=== PATIENT | female | born 1980 | race Caucasian/White ===

== ENCOUNTER → 2016-06-09 | Outpatient (REF) | payer OTHER ==
[~2016-06-09] MED LIST: /DULO30CA OR; /ESOM40CA OR; /FENO48TA PO; /METH500TA OR; ALPR1TAB3 OR; ASPI325T OR; ATARAX PO; BACL10TA2 OR; DICLOFENAC SODIUM PO; EFFE150C OR; IBUP600T OR; IRON325T3 PO; LYRI75CA PO; MAGN500T2 OR; MAGNESIUM OXIDE PO; MAXA10TA17 SL; MULTIVIT PO; NEUR100C OR; ORTHO TRI CYCLEN PO; PRIL20CA PO; RELPAX OR; RELPAX PO; ROBA500T PO; SKEL800T5 OR; TIZA4CAP3 PO; TOPA50TA7 PO; TOPAMAX PO; TOPI100T OR; TOPI100T PO; TOPIRAMATE PO; TRAM50TA2 OR; TRAM50TA2 PO; TRAMADOL PO; TRAZ100T OR; TRAZ150T OR; TRAZ50TA OR; TRILIPIX OR; TRILIPIX PO; TYLENOL ES PO; VICO5TAB OR; VIT D 2000 PO; VITA500C24 PO; VITAMIN D2 OR; VITAMIN D50000 UNT OR; XANA1TAB2 OR; ZANT150T PO; ZOLO100T OR; ZOLO50TA OR; ZOLO50TA PO; ZYPR5TAB OR; [UNRECOGNIZED DRUG - OTHER] OR; [UNRECOGNIZED DRUG - OTHER] OR; relpax PO; trilipix
== END ==
LOC: M LAB REF 15:00
PROVIDERS: ATTEND Family Medicine Addiction Medicine
DX: N39.0 Urinary tract infection, site not specified (principal)

== ENCOUNTER → 2016-11-23 | Outpatient (CLI) | payer OTHER ==
[~2016-11-23] MED LIST changes: -TOPA50TA7 PO; +TOPA50TA8 PO
[2016-11-23 12:43] LABS: BASO # 0.1 K/mm3 (0.0-0.2); BASO % 1.1 % (0.0-1.0); EOS % 0.1 % (0.0-3.0); LARGE UNSTAINED CELL # 0.2 K/mm3 (0.0-0.4); LARGE UNSTAINED CELL % 3.5 % (0.0-4.0); MEAN CORPUSCULAR HEMOGLOBIN 30.8 pg (27.0-33.0); MEAN CORPUSCULAR HGB CONC 34.7 g/dl (32.0-36.5); MEAN CORPUSCULAR VOLUME 88.6 fl (80.0-96.0); MONO # 0.5 K/mm3 (0.0-0.8); MONO % 7.8 % (0.0-5.0); NEUTROPHILS # 3.3 K/mm3 (1.8-7.7); NEUTROPHILS % 56.5 % (36.0-66.0); PLATELET COUNT, AUTOMATED 308 k/mm3 (150-450); RED CELL DISTRIBUTION WIDTH 13.2 % (11.5-14.5); WHITE BLOOD COUNT 5.8 K/mm3 (4.0-10.0)
[2016-11-23 13:28] LABS: ALBUMIN 4.1 GM/DL (3.2-5.2); ALBUMIN/GLOBULIN RATIO 1.64 (1.00-1.93); ALKALINE PHOSPHATASE 41 U/L (45-117); ALT/SGPT 23 U/L (12-78); ANION GAP 9 MEQ/L (8-16); AST/SGOT 15 U/L (15-37); BILIRUBIN,TOTAL 0.2 MG/DL (0.2-1.0); BLOOD UREA NITROGEN 5 MG/DL (7-18); CALCIUM LEVEL 8.5 MG/DL (8.5-10.1); CARBON DIOXIDE LEVEL 22 MEQ/L (21-32); CHLORIDE LEVEL 115 MEQ/L (98-107); CHOLESTEROL LEVEL 187 MG/DL (<200); CREATININE FOR GFR 0.76 MG/DL (0.55-1.02); GLOMERULAR FILTRATION RATE > 60.0 (>60); GLUCOSE, FASTING 85 MG/DL (70-105); POTASSIUM SERUM 3.6 MEQ/L (3.5-5.1); SODIUM LEVEL 146 MEQ/L (136-145); TOTAL PROTEIN 6.6 GM/DL (6.4-8.2); TRIGLYCERIDES LEVEL 132 MG/DL (<150)
== END ==
LOC: M LAB 12:02
PROVIDERS: ATTEND Family Medicine Addiction Medicine
DX: M54.5 Low back pain (principal); E78.5 Hyperlipidemia, unspecified

== ENCOUNTER → 2017-05-18 | Outpatient (REF) | payer OTHER, MEDICAID | LOC: M LAB REF 19:16 | DX: J02.8 Acute pharyngitis due to other specified organisms (principal) | CPT/HCPCS: 87070 ==

== ENCOUNTER → 2017-09-20 | Outpatient (REF) | payer OTHER, MEDICAID ==
[2017-09-20 18:35] LABS: ALBUMIN 4.1 GM/DL (3.2-5.2); ALBUMIN/GLOBULIN RATIO 1.32 (1.00-1.93); ALKALINE PHOSPHATASE 63 U/L (45-117); ALT/SGPT 44 U/L (12-78); ANION GAP 7 MEQ/L (8-16); AST/SGOT 27 U/L (7-37); BILIRUBIN,TOTAL 0.2 MG/DL (0.2-1.0); BLOOD UREA NITROGEN 7 MG/DL (7-18); CALCIUM LEVEL 8.6 MG/DL (8.5-10.1); CARBON DIOXIDE LEVEL 22 MEQ/L (21-32); CHLORIDE LEVEL 112 MEQ/L (98-107); CHOLESTEROL LEVEL 236 MG/DL (<200); CREATININE FOR GFR 0.61 MG/DL (0.55-1.30); GLOMERULAR FILTRATION RATE > 60.0 (>60); GLUCOSE, FASTING 86 MG/DL (70-100); HDL CHOLESTEROL 68 MG/DL (>40); IRON (FE) 55 UG/DL (50-170); NON-HDL-C 168 MG/DL; SODIUM LEVEL 141 MEQ/L (136-145); TOTAL PROTEIN 7.2 GM/DL (6.4-8.2); TRIGLYCERIDES LEVEL 110 MG/DL (<150)
[2017-09-20 18:47] LABS: BASO # 0.1 10^3/uL (0.0-0.2); BASO % 0.7 % (0.0-1.0); EOS % 0.1 % (0.0-3.0); HEMATOCRIT 39.7 % (36.0-47.0); HEMOGLOBIN 13.4 g/dl (12.0-15.5); IMMATURE GRANULOCYTE % 0.3 % (0-3.0); LYMPH # 1.9 10^3/uL (1.5-4.5); LYMPH % 26.7 % (24.0-44.0); MEAN CORPUSCULAR HEMOGLOBIN 29.6 pg (27.0-33.0); MEAN CORPUSCULAR HGB CONC 33.8 g/dl (32.0-36.5); MEAN CORPUSCULAR VOLUME 87.6 fl (80.0-96.0); MONO # 0.3 10^3/uL (0.0-0.8); MONO % 4.4 % (0.0-5.0); NEUTROPHILS # 4.8 10^3/uL (1.8-7.7); NEUTROPHILS % 67.8 % (36.0-66.0); PLATELET COUNT, AUTOMATED 283 10^3/uL (150-450); RED BLOOD COUNT 4.53 10^6/uL (4.00-5.40); RED CELL DISTRIBUTION WIDTH 12.8 % (11.5-14.5); WHITE BLOOD COUNT 7.1 10^3/uL (4.0-10.0)
[2017-09-21 09:47] LABS: TOTAL 25(OH) VITAMIN D 18.1 NG/ML (30.0-100.0); VITAMIN B12 LEVEL 410 PG/ML (247-911)
== END ==
LOC: M LAB REF 17:25
DX: E78.5 Hyperlipidemia, unspecified (principal)

== ENCOUNTER → 2017-11-12 | Outpatient (CLI) | payer OTHER | LOC: M RAD 17:30 | DX: S06.0X0A Concussion without loss of consciousness, initial encounter (principal); X58.XXXA Exposure to other specified factors, initial encounter; Y92.9 Unspecified place or not applicable | CPT/HCPCS: 70450 ==

== ENCOUNTER → 2017-11-12 | Outpatient (CLI) | payer OTHER, MEDICAID | LOC: M WUC 13:08 | DX: M54.5 Low back pain (principal) | CPT/HCPCS: 72110 ==

== ENCOUNTER 2018-01-22 15:53 | Inpatient (IN) | payer MEDICAID, OTHER ==
[2018-01-22 17:07] LABS: HEMATOCRIT 37.7 % (36.0-47.0); HEMOGLOBIN 13.2 g/dl (12.0-15.5); MEAN CORPUSCULAR HEMOGLOBIN 29.8 pg (27.0-33.0); MEAN CORPUSCULAR VOLUME 85.1 fl (80.0-96.0); PLATELET COUNT, AUTOMATED 354 10^3/uL (150-450); RED BLOOD COUNT 4.43 10^6/uL (4.00-5.40); RED CELL DISTRIBUTION WIDTH 12.7 % (11.5-14.5); WHITE BLOOD COUNT 10.2 10^3/uL (4.0-10.0)
[2018-01-22 17:14] LABS: CONTROL LINE HCG INT CTR LINE PRESENT; HCG, SERUM QUALITATIVE NEGATIVE (NEGATIVE)
[2018-01-22 17:33] LABS: ACETAMINOPHEN LEVEL < 2.0 UG/ML (10.0-30.0); ALBUMIN 4.3 GM/DL (3.2-5.2); ALBUMIN/GLOBULIN RATIO 1.34 (1.00-1.93); ALKALINE PHOSPHATASE 62 U/L (45-117); ALT/SGPT 34 U/L (12-78); ANION GAP 9 MEQ/L (8-16); AST/SGOT 45 U/L (7-37); BILIRUBIN,DIRECT 0.2 MG/DL (0.0-0.2); BILIRUBIN,TOTAL 0.6 MG/DL (0.2-1.0); BLOOD UREA NITROGEN 13 MG/DL (7-18); CALCIUM LEVEL 8.8 MG/DL (8.5-10.1); CARBON DIOXIDE LEVEL 23 MEQ/L (21-32); CHLORIDE LEVEL 110 MEQ/L (98-107); CREATININE FOR GFR 0.78 MG/DL (0.55-1.30); ETHYL ALCOHOL (ETHANOL) < 0.003 % (0.000-0.010); GLOMERULAR FILTRATION RATE > 60.0 (>60); GLUCOSE, FASTING 103 MG/DL (70-100); POTASSIUM SERUM 3.6 MEQ/L (3.5-5.1); SALICYLATE LEVEL < 1.7 MG/DL (5.0-30.0); SODIUM LEVEL 142 MEQ/L (136-145); THYROID STIMULATING HORMONE 0.799 uIU/ML (0.358-3.740); TOTAL PROTEIN 7.5 GM/DL (6.4-8.2)
[2018-01-22] MEDS: LORazepam 1 MG TAB PO (18:18)
[2018-01-22 18:52] LABS: AMPHETAMINES LEVEL URINE POSITIVE (NEGATIVE); BARBITURATES URINE NEGATIVE (NEGATIVE); BENZODIAZEPINES URINE POSITIVE (NEGATIVE); CANNABINOIDS URINE POSITIVE (NEGATIVE); COCAINE METABOLITE URINE NEGATIVE (NEGATIVE); METHADONE URINE NEGATIVE (NEGATIVE); OPIATES URINE NEGATIVE (NEGATIVE); PHENCYCLIDINE URINE NEGATIVE (NEGATIVE)
[2018-01-22] MEDS ORDERED: LORazepam 2 MG/ML VIAL (J2060) IM (19:15)
[2018-01-22] MEDS: diphenhydrAMINE 50 MG CAP PO (21:44)
[2018-01-22] MEDS: HALOPERIDOL 5 MG TAB PO (21:44)
[2018-01-23] MEDS ORDERED: OLANZapine ORAL DISINTEGRATING TAB 5MG PO (00:15)
[2018-01-23] MEDS ORDERED: MOM 30ML SUSPENSION UDC PO (00:15)
[2018-01-23] MEDS ORDERED: MAALOX 30 ML SUSP *UDC PO (00:15)
[2018-01-23] MEDS: NICOTINE 21MG/24HR 1 EA TRANSDERMAL TD (09:00)
[2018-01-23] MEDS ORDERED: traMADol 50 MG TAB PO (10:15)
[2018-01-23] MEDS: TOPIRAMATE (TopAMAX) 25 MG TAB PO ×2 (10:51→21:28)
[2018-01-23] MEDS: OMEPRAZOLE 20 MG CAP PO (10:51)
[2018-01-23] MEDS: MELOXICAM (MOBIC) 7.5 MG TAB PO (10:52)
[2018-01-23] MEDS: PREGABALIN 75 MG CAP(LYRICA) PO ×2 (10:57→21:28)
[2018-01-23] MEDS: SERTRALINE HCL 50 MG TAB PO (15:38)
[2018-01-23] MEDS: PRAZOSIN 1 MG CAP PO (21:27)
[2018-01-23] MEDS: traZODone 50 MG TAB PO (21:28)
[2018-01-24] MEDS: NICOTINE 21MG/24HR 1 EA TRANSDERMAL TD (09:00)
[2018-01-24] MEDS: INFLUENZA QUADRIVALENT PF VACCINE 0.5ML SYRINGE (90686) IM (09:47)
[2018-01-24] MEDS: OMEPRAZOLE 20 MG CAP PO (09:47)
[2018-01-24] MEDS: SERTRALINE HCL 50 MG TAB PO (09:47)
[2018-01-24] MEDS: PREGABALIN 75 MG CAP(LYRICA) PO ×2 (09:48→21:16)
[2018-01-24] MEDS: TOPIRAMATE (TopAMAX) 25 MG TAB PO ×2 (09:48→21:15)
[2018-01-24] MEDS: MELOXICAM (MOBIC) 7.5 MG TAB PO (09:48)
[2018-01-24] MEDS: traZODone 50 MG TAB PO (21:15)
[2018-01-24] MEDS: ACETAMINOPHEN TAB 650MG DOSE (2X325MG) PO (21:15)
[2018-01-24] MEDS: PRAZOSIN 1 MG CAP PO (21:16)
[2018-01-25] MEDS: NICOTINE 21MG/24HR 1 EA TRANSDERMAL TD (09:00)
[2018-01-25] MEDS: MELOXICAM (MOBIC) 7.5 MG TAB PO (09:01)
[2018-01-25] MEDS: SERTRALINE HCL 50 MG TAB PO (09:02)
[2018-01-25] MEDS: OMEPRAZOLE 20 MG CAP PO (09:02)
[2018-01-25] MEDS: PREGABALIN 75 MG CAP(LYRICA) PO (09:02)
[2018-01-25] MEDS: TOPIRAMATE (TopAMAX) 25 MG TAB PO (09:02)
[2018-01-25] MEDS: ACETAMINOPHEN TAB 650MG DOSE (2X325MG) PO (13:58)
== END 2018-01-25 16:30 | disposition home or self-care (01) | DRG 754 ==
LOC: M ED INP 01-23 00:02 → M PSY 01-23 01:48 → M ED 15:53
DX: F32.9 Major depressive disorder, single episode, unspecified (principal); F43.10 Post-traumatic stress disorder, unspecified; F19.94 Other psychoactive substance use, unspecified with psychoactive substance-induced mood disorder; F60.3 Borderline personality disorder; Z79.899 Other long term (current) drug therapy; Z88.2 Allergy status to sulfonamides; Z91.040 Latex allergy status; G89.29 Other chronic pain; G43.909 Migraine, unspecified, not intractable, without status migrainosus; K21.9 Gastro-esophageal reflux disease without esophagitis; M54.5 Low back pain

== ENCOUNTER → 2018-04-29 | Outpatient (REF) | payer MEDICAID, OTHER ==
[~2018-04-29] MED LIST changes: +ARIP5TA PO; +LYRI150C PO; +MELO15TA28 PO; +MINI1CAP PO; +NICO21PAT TD; +OMEP40CA2 PO; +SERT-138 PO; +SERT50TA PO; +TIZA4CAP PO; -TIZA4CAP3 PO; +TOPI50TA9 PO
[2018-04-29 20:04] LABS: CHLAMYDIA DNA AMPLIFICATION NEGATIVE (NEGATIVE); GC DNA AMPLIFICATION NEGATIVE (NEGATIVE)
[2018-05-02 14:55] LABS: HPV HYBRID CAPTURE II Negative (Negative)
== END ==
LOC: M LAB REF 16:53
PROVIDERS: ATTEND Nurse Practitioner Family
DX: Z13.9 Encounter for screening, unspecified (principal); Z12.4 Encounter for screening for malignant neoplasm of cervix

== ENCOUNTER 2019-09-07 22:45 | Emergency (ER) | payer MEDICAID, OTHER ==
[~2019-09-07 22:45] MED LIST changes: -/DULO30CA OR; -/ESOM40CA OR; -/FENO48TA PO; -/METH500TA OR; +ARIP1TAB6 PO; -ARIP5TA PO; +CYMB1CAP5 OR; +METH1TAB40 OR; +NEXI1CAP3 OR; -OMEP40CA2 PO; +OMEP40CA97 PO; +SERT-141 PO; -SERT50TA PO; +TRIC1TAB PO
[2019-09-07] MEDS ORDERED: BOOSTRIX/ADACEL VACCINE (DIPHTH/PERTUSS/ACELL/TETANUS) 0.5ML SYR IM ONE (23:00)
[2019-09-07] MEDS ORDERED: LIDOCAINE W/EPINEPHRINE 1% 20ML VIAL SC ONE (23:15)
[2019-09-07 23:46] LABS: HEMATOCRIT 40.6 % (36.0-47.0); HEMOGLOBIN 13.9 g/dl (12.0-15.5); MEAN CORPUSCULAR HEMOGLOBIN 29.1 pg (27.0-33.0); MEAN CORPUSCULAR HGB CONC 34.2 g/dl (32.0-36.5); MEAN CORPUSCULAR VOLUME 85.1 fl (80.0-96.0); PLATELET COUNT, AUTOMATED 369 10^3/uL (150-450); RED BLOOD COUNT 4.77 10^6/uL (4.00-5.40); WHITE BLOOD COUNT 9.6 10^3/uL (4.0-10.0)
[2019-09-08 00:07] LABS: AMPHETAMINES LEVEL URINE NEGATIVE (NEGATIVE); BARBITURATES URINE NEGATIVE (NEGATIVE); BENZODIAZEPINES URINE NEGATIVE (NEGATIVE); CANNABINOIDS URINE NEGATIVE (NEGATIVE); COCAINE METABOLITE URINE NEGATIVE (NEGATIVE); METHADONE URINE NEGATIVE (NEGATIVE); OPIATES URINE NEGATIVE (NEGATIVE); PHENCYCLIDINE URINE NEGATIVE (NEGATIVE)
[2019-09-08 00:17] LABS: ACETAMINOPHEN LEVEL < 2.0 UG/ML (10.0-30.0); ALBUMIN 4.2 GM/DL (3.2-5.2); ALT/SGPT 25 U/L (12-78); BILIRUBIN,DIRECT < 0.1 MG/DL (0.0-0.2); BILIRUBIN,TOTAL 0.3 MG/DL (0.2-1.0); BLOOD UREA NITROGEN 12 MG/DL (7-18); CALCIUM LEVEL 8.7 MG/DL (8.5-10.1); CARBON DIOXIDE LEVEL 24 MEQ/L (21-32); CHLORIDE LEVEL 108 MEQ/L (98-107); CREATININE FOR GFR 0.71 MG/DL (0.55-1.30); ETHYL ALCOHOL (ETHANOL) 0.133 % (0.000-0.010); GLOMERULAR FILTRATION RATE > 60.0 (>58); GLUCOSE, FASTING 101 MG/DL (70-100); HCG, SERUM QUALITATIVE NEGATIVE (NEGATIVE); POTASSIUM SERUM 3.9 MEQ/L (3.5-5.1); SALICYLATE LEVEL < 1.7 MG/DL (5.0-30.0); SODIUM LEVEL 141 MEQ/L (136-145); TOTAL PROTEIN 7.4 GM/DL (6.4-8.2)
[2019-09-08] MEDS ORDERED: ACETAMINOPHEN TAB 650MG DOSE (2X325MG) PO ONE (02:30)
[2019-09-08 03:10] VITALS: BP 132/88
== END 2019-09-08 03:11 | disposition home or self-care (01) ==
LOC: M ED 22:45
DX: F10.129 Alcohol abuse with intoxication, unspecified (principal); S51.812A Laceration without foreign body of left forearm, initial encounter; F43.0 Acute stress reaction; X78.1XXA Intentional self-harm by knife, initial encounter; Y92.89 Other specified places as the place of occurrence of the external cause; K21.9 Gastro-esophageal reflux disease without esophagitis; F12.10 Cannabis abuse, uncomplicated; Z88.2 Allergy status to sulfonamides; Z91.040 Latex allergy status; Z23 Encounter for immunization
CPT/HCPCS: 12002; 36415; 80048; 80076; 80307; 84443; 84703; 85027; 90471; 90715; 99284; G0480

== ENCOUNTER 2019-11-03 21:15 | Inpatient (IN) | payer OTHER ==
[~2019-11-03] VITALS: Ht 160 cm; Wt 63.5 kg
[2019-11-03] MEDS ORDERED: KETOROLAC 60MG 2ML VIAL IM ONE (22:00)
[2019-11-03 22:12] LABS: HEMATOCRIT 38.9 % (36.0-47.0); HEMOGLOBIN 13.2 g/dl (12.0-15.5); MEAN CORPUSCULAR HEMOGLOBIN 28.8 pg (27.0-33.0); MEAN CORPUSCULAR HGB CONC 33.9 g/dl (32.0-36.5); MEAN CORPUSCULAR VOLUME 84.7 fl (80.0-96.0); PLATELET COUNT, AUTOMATED 345 10^3/uL (150-450); RED BLOOD COUNT 4.59 10^6/uL (4.00-5.40); WHITE BLOOD COUNT 6.6 10^3/uL (4.0-10.0)
[2019-11-03 22:44] LABS: ACETAMINOPHEN LEVEL < 2.0 UG/ML (10.0-30.0); ALT/SGPT 37 U/L (12-78); BILIRUBIN,DIRECT < 0.1 MG/DL (0.0-0.2); BILIRUBIN,TOTAL 0.2 MG/DL (0.2-1.0); BLOOD UREA NITROGEN 8 MG/DL (7-18); CALCIUM LEVEL 9.3 MG/DL (8.5-10.1); CARBON DIOXIDE LEVEL 28 MEQ/L (21-32); CHLORIDE LEVEL 108 MEQ/L (98-107); CREATININE FOR GFR 0.71 MG/DL (0.55-1.30); ETHYL ALCOHOL (ETHANOL) 0.083 % (0.000-0.010); GLOMERULAR FILTRATION RATE > 60.0 (>58); GLUCOSE, FASTING 88 MG/DL (70-100); POTASSIUM SERUM 3.4 MEQ/L (3.5-5.1); SALICYLATE LEVEL < 1.7 MG/DL (5.0-30.0); SODIUM LEVEL 141 MEQ/L (136-145); TOTAL PROTEIN 7.1 GM/DL (6.4-8.2)
[2019-11-03] MEDS ORDERED: LIDOCAINE 1% MDV 20ML VIAL As Ordered ONE (23:12)
[2019-11-03 23:49] LABS: AMPHETAMINES LEVEL URINE POSITIVE (NEGATIVE); BARBITURATES URINE NEGATIVE (NEGATIVE); BENZODIAZEPINES URINE NEGATIVE (NEGATIVE); CANNABINOIDS URINE NEGATIVE (NEGATIVE); COCAINE METABOLITE URINE NEGATIVE (NEGATIVE); METHADONE URINE NEGATIVE (NEGATIVE); OPIATES URINE NEGATIVE (NEGATIVE); PHENCYCLIDINE URINE NEGATIVE (NEGATIVE)
--- NOTE | 2019-11-04 08:03 | ECGEPIP ---
[facility] - ED Test Date: 2019-11-04 Pat Name: SHANTEL PATEL Department: Room: - Gender: Female Cutter Operator: eleonora : 1980 Requested By: ZACARIAS Austin PA-C Order Number: [id number] Reading MD: Rajendra Emerson Measurements Intervals [place] Rate: 96 P: 64 WV: 143 QRS: 26 QRSD: 120 T: 56 QT: 365 QTc: 463 Interpretive Statements SINUS RHYTHM Incomplete right bundle branch block Nonspecific ST-T wave abnormalities Similar to tracing done 01-23-18 Electronically Signed on 11-04-2019 8:02:53 EDT by Rajendra Emerson
[2019-11-04] MEDS: MULTIVITAMINS/MINERALS THERAP 1 TAB PO SCH ×2 (09:00→15:43)
[2019-11-04] MEDS ORDERED: ACETAMINOPHEN TAB 650MG DOSE (2X325MG) PO ONE (13:45)
[2019-11-04] MEDS ORDERED: TRAZ1TAB10 PO (13:47)
[2019-11-04] MEDS ORDERED: OMEP-221 PO (13:47)
[2019-11-04] MEDS ORDERED: VITMTA PO (13:47)
[2019-11-04] MEDS ORDERED: CYCL-707 PO (13:47)
[2019-11-04] MEDS ORDERED: MOM 30ML SUSPENSION UDC PO PRN (14:30)
[2019-11-04] MEDS ORDERED: MAALOX 30 ML SUSP *UDC PO PRN (14:30)
[2019-11-04] MEDS ORDERED: OLANZapine ORAL DISINTEGRATING TAB 5MG PO PRN (14:30)
[2019-11-04] MEDS ORDERED: LORazepam 2 MG TAB PO PRN (14:30)
[2019-11-04] MEDS: FOLIC ACID 1 MG TAB PO SCH (15:43)
[2019-11-04] MEDS: THIAMINE 100 MG TAB PO SCH ×2 (15:43→21:30)
[2019-11-04 20:44] VITALS: BP 141/97
[2019-11-04 21:00] VITALS: BP 141/97
[2019-11-04] MEDS: CYCLOBENZAPRINE 10MG TABLET PO PRN (21:30)
[2019-11-04] MEDS: traZODone 50 MG TAB PO SCH (21:30)
[2019-11-05 05:07] VITALS: BP 132/85
[2019-11-05 06:41] VITALS: BP 132/85
[2019-11-05] MEDS: MULTIVITAMINS/MINERALS THERAP 1 TAB PO SCH ×2 (09:00→09:11)
[2019-11-05] MEDS: THIAMINE 100 MG TAB PO SCH ×2 (09:11→22:20)
[2019-11-05] MEDS: FOLIC ACID 1 MG TAB PO SCH (09:11)
[2019-11-05] MEDS: ACETAMINOPHEN TAB 650MG DOSE (2X325MG) PO PRN ×2 (09:12→16:14)
--- NOTE | 2019-11-05 09:15 | MHHPEPDOC ---
[facility] History & Physical History and Physical DATE OF ADMISSION: Nov 04, 2019 at 14:21 HPI: Ally presents today for self harm. She reports she cut her arm because she had bad judgement, was drinking, and had arguments with her boyfriend. Shalini states before she was drinking, she struggled with depression occasionally. She mentions she loses motivation to do things, feels sad and withdrawn when she is depressed. Shalini denies having any suicidal thoughts, homicidal thoughts, hallucinations at the time along with a history of hallucinations or staying up at night for weeks at a time doing terrible things otherwise not done. MEDICATIONS: Shalini reports she has tried Zoloft, Effexor, and Wellbutrin which stopped helping her after some time. MEDICAL HISTORY: She mentions she has visited a mental health unit a couple of years ago. FAMILY HISTORY: Shalini states depression and anxiety run in the family. 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 SOCIAL HISTORY - LIVING SITUATION: She mentions she has an 11-year-old son with special needs who is now living with her mother for the time being. SOCIAL HISTORY - SMOKING: Shalini admits to smoking marijuana occasionally but denies smoking tobacco. Objective Appearance: Appears to be stated age. Well groomed. Well nourished. Behavior: Engaged. Cooperative with good eye contact. Pleasant. Affect: Full range. Appropriate to context. Mood: Euthymic. Appropriately reactive. Generally good. Speech: Spontaneous and Fluid. Normal volume. Normal rate. Motor: No gross motor abnormalities. Cognition: Alert, Attentive, and Oriented to person, place, time. Memory: No gross abnormalities of short or buttermilk drier operator memory noted during interview. No formal testing. Thought Form: Linear and goal directed. Thought Content: No evidence of aggressive or homicidal ideation. No evidence of delusions. No thoughts of self harm. No evidence of suicidal ideation. Perception: No perceptual abnormalities noted. Judgement: Intact as evidenced by decision making in the recent past. Insight: Good insight into symptoms and treatment options. Assessment F33.9 Major depressive disorder, recurrent, unspecified F10.10 Alcohol abuse, uncomplicated F43.21 Adjustment disorder with depressed mood Plan Will observe Shalini overnight. Substance abuse likely played a major part in patients presentation, thus after 48 hours will determine if shes still acute risk. She has already been here close to a day prior in the ER with observation being present. The risks, benefits as well as common side effects as well as alternative treatments (including non-treatment) were discussed with the patient both in general and for their particular case. The patient selected this option out of a range. Start Sertraline 25 mg daily. CPS to be considered about contact after interview with planner internship given concern of her symptoms and presentation. Treatment priorities: 1. Risk for suicide 2. Substance use. Treatment length between 1-2 days. Vital Signs Vital Signs Date Time Temp Pulse Resp B/P (MAP) Pulse Ox O2 Delivery O2 Flow Rate FiO2 11/05/19 08:52 18 11/05/19 08:46 Room Air 11/05/19 06:41 96.6 84 132/85 (101) 11/04/19 20:44 100 Medications Scheduled Multivitamins (Thera M Plus Tablet) 1 Each Tablet, 1 TAB PO DAILY, (Reported) Omeprazole (Omeprazole) 40 Mg Capsule.dr, 40 MG PO DAILY, (Reported) Trazodone HCl (Trazodone HCl) 50 Mg Tablet, 50 MG PO QHS, (Reported) Scheduled PRN Cyclobenzaprine HCl (Cyclobenzaprine HCl) 10 Mg Tablet, 10 MG PO TID PRN for MUSCLE SPASMS, (Reported) Allergies Coded Allergies: Sulfa (Sulfonamide Antibiotics) (Verified Adverse Reaction, Mild, N/V, 11/04/19) latex (Verified Adverse Reaction, Mild, RASH ITCHING, 09/07/19) A-FIB/CHADSVASC A-FIB History Current/History of A-Fib/PAF?: No YULIET GRIFFITHS DO Nov 05, 2019 09:15
[2019-11-05] MEDS ORDERED: SERTRALINE HCL 25 MG TABLET PO ONE (10:45)
[2019-11-05 16:12] VITALS: BP 110/67
--- NOTE | 2019-11-05 17:45 | HPEPDOC ---
[facility] Medical History & Physical Date of Admission Nov 05, 2019 Date of Service: Nov 05, 2019 Primary Care Physician: CLARISSA NIETO PA-C Attending Physician: YULIET RIDDLE DO History and Physical PRIMARY CARE PROVIDER: Clarissa Nieto ATTENDING: Dr. Riddle Reason for consultation: Medical consultation CHIEF COMPLAINT: suicide attempt HISTORY OF PRESENT ILLNESS: Is a 39-year-old female past medical history of migraines and GERD who presents after cutting herself with knife - left forearm; suicide attempt. Denies CP/SOB/palpitations. No N/V/Abd pain. Has some pain and swelling at the left forearm site. No drainage. No Fevers/chills. PAST MEDICAL HISTORY: As per HPI PAST SURGICAL HISTORY: BTL SOCIAL HISTORY: Occasional tobacco abuse. +Marijuana FAMILY HISTORY: +Cancer ALLERGIES: Please see below. REVIEW OF SYSTEMS: HEENT: Denies sore throat/headache CARDIOVASCULAR: Denies chest pain/palpitations RESPIRATORY: Denies shortness of breath/cough GASTROINTESTINAL: denies nausea/vomiting GENITOURINARY: Denies dysuria/urinary urgency. MUSCULOSKELETAL: Denies myalgias/arthralgias NEUROLOGICAL: Denies any focal weakness HOME MEDICATIONS: Please see below. PHYSICAL EXAMINATION: Vitals: (see below) General: No acute distress, laying comfortably in bed. HEENT: Moist mucous membranes. Neck: No JVD or lymphadenopathy Cardiac: RRR, No murmurs Pulm: Clear to auscultation b/l. No wheezing, rhonchi Abd: NT/ND + BS Ext: No edema or cyanosis LUE with lacerations; 12 sutures. Warmth, swelling noted surrounding laceration. No induration/fluctuance. Distal pulse intact. No bleeding. LABORATORY DATA: See below. ASSESSMENT/PLAN: 1. Suicide attempt: Management per psych 2. LUE laceration; swelling, warmth at the region; started on Doxy. CT ordered to r/o fluid collection. 3. GERD on PPI DVT Prophy: OOB/Amb Vital Signs Vital Signs Date Time Temp Pulse Resp B/P (MAP) Pulse Ox O2 Delivery O2 Flow Rate FiO2 11/05/19 16:12 98.2 96 16 110/67 (81) 11/05/19 08:46 Room Air 11/04/19 20:44 100 Home Medications Scheduled Doxycycline Hyclate (Doxycycline Hyclate) 100 Mg Tablet, 100 MG PO BID for infection Multivitamins (Thera M Plus Tablet) 1 Each Tablet, 1 TAB PO DAILY Omeprazole (Omeprazole) 40 Mg Capsule.dr, 40 MG PO DAILY Sertraline HCl (Sertraline HCl) 25 Mg Tablet, 25 MG PO DAILY for mood Trazodone HCl (Trazodone HCl) 50 Mg Tablet, 50 MG PO QHS Scheduled PRN Cyclobenzaprine HCl (Cyclobenzaprine HCl) 10 Mg Tablet, 10 MG PO TID PRN for MUSCLE SPASMS Allergies Coded Allergies: Sulfa (Sulfonamide Antibiotics) (Verified Adverse Reaction, Mild, N/V, 11/04/19) latex (Verified Adverse Reaction, Mild, RASH ITCHING, 09/07/19) A-FIB/CHADSVASC A-FIB History Current/History of A-Fib/PAF?: No STEPHEN MEJIA MD Nov 05, 2019 17:45
--- NOTE | 2019-11-05 18:25 | REPVR ---
PROCEDURE INFORMATION: Exam: CT Left Upper Extremity Without Contrast, Forearm Exam date and time: 11/05/2019 6:09 PM Age: 39 years old Clinical indication: Pain; Lower or forearm; Left; Additional info: Laceration TECHNIQUE: Imaging protocol: CT of the Left upper extremity without contrast was performed. Exam focused on the forearm. Radiation optimization: All CT scans at this facility use at least one of these dose optimization techniques: automated exposure control; mA and/or kV adjustment per patient size (includes targeted exams where dose is matched to clinical indication); or iterative reconstruction. COMPARISON: No relevant prior studies available. FINDINGS: Subcutaneous soft tissue edema is present involving the forearm and wrist particularly volar. There is a hyperdense structure that is either deep subcutaneous or superficial subfascial within the volar mid forearm, measuring 14 x 25 by 27 mm. This may represent a hematoma or other mass. It could also represent a large lymph node. No peripherally enhancing fluid collection suggestive of an abscess. Muscular compartments of the distal upper arm and forearm otherwise demonstrate normal enhancement and architecture. Normal osseous alignment from elbow through wrist. No fracture or destructive lesion. Joint spaces are maintained. IMPRESSION: Subcutaneous soft tissue edema and dermal irregularity consistent with a history of laceration, with a probable subcutaneous hematoma of the mid forearm measuring 14 x 25 x 27 mm abutting the flexor musculature of the proximal forearm. No evidence of foreign body or abscess Electronically signed by: Wesley Zazueta On 11/05/2019 18:24:47 PM
[2019-11-05 19:00] VITALS: BP 110/67
[2019-11-05] MEDS: CYCLOBENZAPRINE 10MG TABLET PO PRN (22:20)
[2019-11-05] MEDS: traZODone 50 MG TAB PO SCH (22:20)
[2019-11-05] MEDS: DOXYCYCLINE HYCLATE 100MG TABLET PO SCH (22:20)
[2019-11-06 06:41] VITALS: BP 146/76
[2019-11-06 07:47] LABS: BASO % 0.5 % (0.0-1.0); HEMOGLOBIN 12.3 g/dl (12.0-15.5); LYMPH # 2.2 10^3/uL (1.5-5.0); LYMPH % 26.1 % (24.0-44.0); MEAN CORPUSCULAR HEMOGLOBIN 29.4 pg (27.0-33.0); MEAN CORPUSCULAR HGB CONC 34.2 g/dl (32.0-36.5); MEAN CORPUSCULAR VOLUME 86.1 fl (80.0-96.0); MONO # 0.4 10^3/uL (0.0-0.8); MONO % 5.2 % (0.0-5.0); NEUTROPHILS # 5.7 10^3/uL (1.5-8.5); PLATELET COUNT, AUTOMATED 326 10^3/uL (150-450); RED BLOOD COUNT 4.18 10^6/uL (4.00-5.40); WHITE BLOOD COUNT 8.4 10^3/uL (4.0-10.0)
--- NOTE | 2019-11-06 08:02 | MHDSPDOC ---
[facility] Discharge Summary Discharge Summary DATE OF ADMISSION: Nov 04, 2019 at 14:21 DATE OF DISCHARGE:Nov 06, 2019 at 11:30 DISCHARGE DIAGNOSES: F33.9 Major depressive disorder, recurrent, unspecified F10.10 Alcohol abuse, uncomplicated F43.21 Adjustment disorder with depressed mood CONSULTANTS INVOLVED:[ None (basic hospitalist screening)] REASON FOR ADMISSION & TREATMENT AND PROGRESS ON THE UNIT : Ally presents today for concerns regarding her mental health. The patient was admitted to the inpatient mental health unit after she had been drinking and had cut herself. She reportedly had done this as she has had some stressors in her life. MEDICATIONS: She was started on Sertraline and made good progress. She was admitted to the inpatient unit where she did well. She was started on Sertraline and made good progress. She denied any suicidal or homicidal ideation through her stay and was well- behaved and engaged. She did not meet involuntary criteria by the end of her stay. DISCHARGE ASSESSMENT[improved] Legal status considerations: The patient at the time of discharge did not meet criteria for involuntary admission/extension due to having a [normal] mental status exam, [fair] insight into the situation, They are engaged in the discharge process, as well as being friendly and amenable in behavioral control and havent been engaging in any observed concerning behavior or ideation recently. They decline voluntary extension/admission at this time and must be discharged in good amanda, as Im unable to make a case for holding the patient against their will. They may have historical risk factors of admissions and other interactions with psychiatry however, those are not modifiable from a clinical perspective. The patient will need to be discharged in good amanda. MENTAL STATUS EXAMINATION ON DISCHARGE: [General: Well dressed with good hygiene Speech: Spontaneous and fluid Thought processes: Linear and logical Thought content: Future orientated Abstract reasoning, and computation: Intact Description of associations: Intact Description of abnormal or psychotic thoughts:Denies any suicidal or homicidal ideation. Denies any auditory or visual hallucinations. Does not appear to be responding to internal stimuli. Does not appear to be endorsing any bizarre or paranoid ideation. Judgment: fair Insight: fair Orientation: Alert and orientated 3 Recent and remote memory: Intact Attention span and concentration: Intact Fund of knowledge: Adequate Mood: "okay" Affect: Euthymic with a full range] PLAN/FOLLOWUP ARRANGEMENTS: Follow up appointments made (PCP and MH in 5 days of D/C date) and safety plan completed. Safety Planning aspects completed prior to discharge [RN reviewed crisis hotline information and other aspects to empower patient to access care in interim before next appointment.] The amount of time spent in the coordination of care for this patient was approximately 30 minutes. Vital Signs/I&Os Vital Signs Date Time Temp Pulse Resp B/P (MAP) Pulse Ox O2 Delivery O2 Flow Rate FiO2 11/06/19 06:41 97.4 84 16 146/76 (99) 11/05/19 08:46 Room Air 11/04/19 20:44 100 Laboratory Data Labs 24H Laboratory Tests 2 11/06/19 07:32: Immature Granulocyte % (Auto) 0.2, Neutrophils (%) (Auto) 68.0H, Lymphocytes (%) (Auto) 26.1, Monocytes (%) (Auto) 5.2H, Eosinophils (%) (Auto) 0.0, Basophils (%) (Auto) 0.5, Neutrophils # (Auto) 5.7, Lymphocytes # (Auto) 2.2, Monocytes # (Auto) 0.4, Eosinophils # (Auto) 0.0, Basophils # (Auto) 0.0, Nucleated Red Blood Cells % (auto) 0.0 CBC/BMP Laboratory Tests 11/06/19 07:32 Medications Scheduled Doxycycline Hyclate (Doxycycline Hyclate) 100 Mg Tablet, 100 MG PO BID for infe ction for 7 Days, #14 Multivitamins (Thera M Plus Tablet) 1 Each Tablet, 1 TAB PO DAILY, (Reported) Omeprazole (Omeprazole) 40 Mg Capsule.dr, 40 MG PO DAILY, (Reported) Sertraline HCl (Sertraline HCl) 25 Mg Tablet, 25 MG PO DAILY for mood for 7 Days, #7 Trazodone HCl (Trazodone HCl) 50 Mg Tablet, 50 MG PO QHS, (Reported) Scheduled PRN Cyclobenzaprine HCl (Cyclobenzaprine HCl) 10 Mg Tablet, 10 MG PO TID PRN for MUSCLE SPASMS, (Reported) Allergies Coded Allergies: Sulfa (Sulfonamide Antibiotics) (Verified Adverse Reaction, Mild, N/V, 11/04/19) latex (Verified Adverse Reaction, Mild, RASH ITCHING, 09/07/19) YULIET GRIFFITHS DO Nov 06, 2019 08:02
[2019-11-06] MEDS ORDERED: DOXY100T PO (08:03)
[2019-11-06] MEDS ORDERED: SERT25TA21 PO (08:03)
[2019-11-06 08:10] LABS: BLOOD UREA NITROGEN 9 MG/DL (7-18); CALCIUM LEVEL 8.9 MG/DL (8.5-10.1); CARBON DIOXIDE LEVEL 28 MEQ/L (21-32); CHLORIDE LEVEL 110 MEQ/L (98-107); CREATININE FOR GFR 0.68 MG/DL (0.55-1.30); GLOMERULAR FILTRATION RATE > 60.0 (>58); GLUCOSE, FASTING 96 MG/DL (70-100); POTASSIUM SERUM 3.9 MEQ/L (3.5-5.1); SODIUM LEVEL 144 MEQ/L (136-145)
[2019-11-06] MEDS ORDERED: SERTRALINE HCL 25 MG TABLET PO SCH (09:00)
[2019-11-06] MEDS: ACETAMINOPHEN TAB 650MG DOSE (2X325MG) PO PRN (09:02)
[2019-11-06] MEDS: DOXYCYCLINE HYCLATE 100MG TABLET PO SCH (09:02)
[2019-11-06] MEDS: THIAMINE 100 MG TAB PO SCH (09:02)
[2019-11-06] MEDS: FOLIC ACID 1 MG TAB PO SCH (09:03)
[2019-11-06] MEDS ORDERED: MULTIVITAMINS/MINERALS THERAP 1 TAB PO SCH (12:00)
== END 2019-11-06 11:30 | disposition home or self-care (01) | DRG 751 ==
LOC: M ED 21:15 → M ED INP 11-04 14:21 → M PSY 11-04 20:13
PROVIDERS: ADMIT Psychiatry & Neurology Addiction Medicine; ATTEND Psychiatry & Neurology Addiction Medicine
DX: F33.9 Major depressive disorder, recurrent, unspecified (principal); F10.10 Alcohol abuse, uncomplicated; F43.21 Adjustment disorder with depressed mood; Z79.899 Other long term (current) drug therapy; Z88.2 Allergy status to sulfonamides; Z91.040 Latex allergy status; F12.90 Cannabis use, unspecified, uncomplicated; G43.909 Migraine, unspecified, not intractable, without status migrainosus; K21.9 Gastro-esophageal reflux disease without esophagitis

== ENCOUNTER → 2020-06-03 | Outpatient (REF) | payer OTHER, MEDICAID ==
[~2020-06-03] MED LIST changes: +CYCL-707 PO; +DOXY100T PO; +OMEP-221 PO; +SERT25TA21 PO; +TRAZ1TAB10 PO; +VITMTA PO
[2020-06-03 13:11] LABS: ALBUMIN 4.3 GM/DL (3.2-5.2); ALT/SGPT 28 U/L (12-78); BILIRUBIN,TOTAL 0.2 MG/DL (0.2-1.0); BLOOD UREA NITROGEN 12 MG/DL (7-18); CALCIUM LEVEL 9.3 MG/DL (8.5-10.1); CARBON DIOXIDE LEVEL 25 MEQ/L (21-32); CHLORIDE LEVEL 105 MEQ/L (98-107); CHOLESTEROL LEVEL 225 MG/DL (<200); CHOLESTEROL RISK RATIO 3.515 (<5); CREATININE FOR GFR 0.71 MG/DL (0.55-1.30); GLOMERULAR FILTRATION RATE > 60.0 (>58); GLUCOSE, FASTING 100 MG/DL (70-100); HDL CHOLESTEROL 64 MG/DL (>40); LDL CHOLESTEROL 143 MG/DL (<100); NON-HDL-C 161 MG/DL; POTASSIUM SERUM 4.1 MEQ/L (3.5-5.1); SODIUM LEVEL 138 MEQ/L (136-145); TOTAL PROTEIN 7.2 GM/DL (6.4-8.2); TRIGLYCERIDES LEVEL 91 MG/DL (<150)
== END ==
LOC: M LAB REF 11:21
PROVIDERS: ATTEND Family Medicine Addiction Medicine
DX: E78.5 Hyperlipidemia, unspecified (principal)

== ENCOUNTER 2020-07-04 19:52 | Emergency (ER) | payer MEDICAID, OTHER ==
[~2020-07-04] VITALS: Ht 160 cm; Wt 63.3 kg
[2020-07-04] MEDS ORDERED: HALOPERIDOL 5MG/ML VIAL (J1630 PER 1) IM STA (19:59)
[2020-07-04] MEDS ORDERED: LORazepam 2 MG/ML VIAL IM STA (19:59)
[2020-07-04] MEDS ORDERED: ZOLO100T PO (20:05)
[2020-07-04 20:34] LABS: HEMATOCRIT 39.3 % (36.0-47.0); MEAN CORPUSCULAR HEMOGLOBIN 29.1 pg (27.0-33.0); MEAN CORPUSCULAR HGB CONC 33.1 g/dl (32.0-36.5); MEAN CORPUSCULAR VOLUME 87.9 fl (80.0-96.0); PLATELET COUNT, AUTOMATED 383 10^3/uL (150-450); RED BLOOD COUNT 4.47 10^6/uL (4.00-5.40); WHITE BLOOD COUNT 10.2 10^3/uL (4.0-10.0)
[2020-07-04 21:02] LABS: HCG, SERUM QUALITATIVE NEGATIVE (NEGATIVE)
[2020-07-04 21:11] LABS: ACETAMINOPHEN LEVEL < 2.0 UG/ML (10.0-30.0); ALT/SGPT 109 U/L (12-78); BILIRUBIN,DIRECT 0.2 MG/DL (0.0-0.2); BILIRUBIN,TOTAL 0.4 MG/DL (0.2-1.0); BLOOD UREA NITROGEN 15 MG/DL (7-18); CALCIUM LEVEL 8.4 MG/DL (8.5-10.1); CARBON DIOXIDE LEVEL 27 MEQ/L (21-32); CHLORIDE LEVEL 107 MEQ/L (98-107); CPK CREATINE PHOSPHOKINASE 2234 U/L (26-192); CREATININE FOR GFR 0.81 MG/DL (0.55-1.30); ETHYL ALCOHOL (ETHANOL) < 0.003 % (0.000-0.010); GLOMERULAR FILTRATION RATE > 60.0 (>58); GLUCOSE, FASTING 75 MG/DL (70-100); POTASSIUM SERUM 3.6 MEQ/L (3.5-5.1); SALICYLATE LEVEL < 1.7 MG/DL (5.0-30.0); SODIUM LEVEL 142 MEQ/L (136-145); TOTAL PROTEIN 6.7 GM/DL (6.4-8.2)
[2020-07-05 09:43] LABS: AMPHETAMINES LEVEL URINE POSITIVE (NEGATIVE); BARBITURATES URINE NEGATIVE (NEGATIVE); BENZODIAZEPINES URINE NEGATIVE (NEGATIVE); CANNABINOIDS URINE NEGATIVE (NEGATIVE); COCAINE METABOLITE URINE NEGATIVE (NEGATIVE); METHADONE URINE NEGATIVE (NEGATIVE); OPIATES URINE NEGATIVE (NEGATIVE); PHENCYCLIDINE URINE NEGATIVE (NEGATIVE)
[2020-07-05 09:55] LABS: HEPATITIS B SURFACE ANTIBODY NEGATIVE (POSITIVE)
[2020-07-05 10:06] LABS: HEPATITIS B SURFACE ANTIGEN NEGATIVE (NEGATIVE)
[2020-07-05 10:34] LABS: HEPATITIS C VIRUS ABY INDEX < 0.0 INDEX (<0.8)
[2020-07-05 14:38] VITALS: BP 135/82
== END 2020-07-05 15:09 | disposition home or self-care (01) ==
LOC: M ED 19:52
DX: F15.10 Other stimulant abuse, uncomplicated (principal); F43.10 Post-traumatic stress disorder, unspecified; Z79.899 Other long term (current) drug therapy; Z88.1 Allergy status to other antibiotic agents; Z88.2 Allergy status to sulfonamides; Z91.040 Latex allergy status
CPT/HCPCS: 36415; 80048; 80076; 80143; 80307; 82077; 82550; 84443; 84703; 85027; 86706; 86803; 87340; 96372; 99285; J1630; J2060

== ENCOUNTER → 2020-07-08 | Outpatient (CLI) | payer MEDICAID ==
[~2020-07-08] MED LIST changes: +ZOLO100T PO
== END ==
LOC: M PLALAB 11:47
PROVIDERS: ATTEND Psychiatry & Neurology Psychiatry
DX: F11.20 Opioid dependence, uncomplicated (principal); F15.20 Other stimulant dependence, uncomplicated

== ENCOUNTER → 2020-07-08 | Outpatient (CLI) | payer MEDICAID | LOC: M OUTALCOH 07:49 | PROVIDERS: ATTEND Psychiatry & Neurology Psychiatry | DX: F11.20 Opioid dependence, uncomplicated (principal); F15.20 Other stimulant dependence, uncomplicated ==

== ENCOUNTER 2020-07-30 14:22 | Outpatient (RCR) | payer MEDICAID | END 2020-08-13 | LOC: M OUTALCOH 14:22 | PROVIDERS: ATTEND Psychiatry & Neurology Psychiatry | DX: F15.20 Other stimulant dependence, uncomplicated (principal); F11.20 Opioid dependence, uncomplicated ==

== ENCOUNTER 2020-10-24 16:11 | Emergency (ER) | payer MEDICAID, OTHER ==
[~2020-10-24] VITALS: Ht 152.4 cm; Wt 55.9 kg
[~2020-10-24 16:11] MED LIST changes: +OMEP40CA4 PO; -OMEP40CA97 PO
[2020-10-24] MEDS ORDERED: ABIL1TAB11 (16:20)
[2020-10-24] MEDS ORDERED: ORPH100T (16:20)
[2020-10-24] MEDS ORDERED: LISI20TA33 (16:20)
--- NOTE | 2020-10-24 17:33 | REP ---
INDICATION: pain and swelling after a fall COMPARISON: None. TECHNIQUE: AP, lateral, bilateral oblique views. FINDINGS: No acute fracture or dislocation. Skeletal structures and joint spaces are intact and normal. Ankle mortise appears stable. No subcutaneous emphysema or radiodense foreign body. IMPRESSION: Normal left ankle radiograph series. No fracture or dislocation. <Electronically signed by Chan Zuñiga > 10/24/20 [id number]
--- NOTE | 2020-10-24 17:34 | REP ---
INDICATION: pain and swelling after a fall COMPARISON: None. TECHNIQUE: AP, lateral, bilateral oblique views left foot. FINDINGS: There is a transverse nondisplaced fracture at the base of the 5th metatarsal bone with overlying soft tissue swelling. Remainder of the examination is normal. IMPRESSION: Transverse nondisplaced fracture at the base of the 5th metatarsal bone.. <Electronically signed by Chan Zuñiga > 10/24/20 [id number]
[2020-10-24] MEDS ORDERED: ANEC4CRE3 TOP (17:39)
[2020-10-24 17:51] VITALS: BP 125/79
== END 2020-10-24 17:59 | disposition home or self-care (01) ==
LOC: M ED 16:11
DX: S92.355A Nondisplaced fracture of fifth metatarsal bone, left foot, initial encounter for closed fracture (principal); W10.8XXA Fall (on) (from) other stairs and steps, initial encounter; Y92.019 Unspecified place in single-family (private) house as the place of occurrence of the external cause; Y93.9 Activity, unspecified; Y99.8 Other external cause status; K21.9 Gastro-esophageal reflux disease without esophagitis; Z79.899 Other long term (current) drug therapy; F19.10 Other psychoactive substance abuse, uncomplicated

== ENCOUNTER 2021-03-02 22:11 | Inpatient (IN) | payer OTHER, MEDICAID ==
[~2021-03-02] VITALS: Ht 154.9 cm; Wt 59.1 kg
[~2021-03-02 22:11] MED LIST changes: +ABIL1TAB11 PO; +ANEC4CRE3 TOP; +LISI20TA33 PO; +ORPH100T PO
--- OUTSIDE RECORDS SUMMARY | 2021-03-02 22:18 | CCD ---
Author Author [facility] Organization [facility] Address Unknown Phone Unavailable Care Team Providers Care Block Feeder Name Role Phone Coby Gonzalez MD Unavailable Unavailable Coby Gonzalez MD Unavailable Unavailable Coby Gonzalez MD Unavailable Unavailable Coby Gonzalez MD Unavailable Unavailable Coby Gonzalez MD Unavailable Unavailable Coby Gonzalez MD Unavailable Unavailable Coby Gonzalez MD Unavailable Unavailable Coby Gonzalez MD Unavailable Unavailable Coby Gonzalez MD Unavailable Unavailable Coby Gonzalez MD Unavailable Unavailable Coby Gonzalez MD Unavailable Unavailable Coby Gonzalez MD Unavailable Unavailable Coby Gonzalez MD Unavailable Unavailable Coby Gonzalez MD Unavailable Unavailable Coby Gonzalez MD Unavailable Unavailable Coby Gonzalez MD Unavailable Unavailable Coby Gonzalez MD Unavailable Unavailable Coby Gonzalez MD Unavailable Unavailable Coby Gonzalez MD Unavailable Unavailable Coby Gonzalez MD Unavailable Unavailable Coby Gonzalez MD Unavailable Unavailable Coby Gonzalez MD Unavailable Unavailable Coby Gonzalez MD Unavailable Unavailable Coby Gonzalez MD Unavailable Unavailable Coby Gonzalez MD Unavailable Unavailable Coby Gonzalez MD Unavailable Unavailable Coby Gonzalez MD Unavailable Unavailable Coby Gonzalez MD Unavailable Unavailable Coby Gonzalez MD Unavailable Unavailable Coby Gonzalez MD Unavailable Unavailable Coby Gonzalez MD Unavailable Unavailable Coby Gonzalez MD Unavailable Unavailable Coby Gonzalez MD Unavailable Unavailable Coby Gonzalez MD Unavailable Unavailable Coby Gonzalez MD Unavailable Unavailable Coby Gonzalez MD Unavailable Unavailable Coby Gonzalez MD Unavailable Unavailable Coby Gonzalez MD Unavailable Unavailable Coby Gonzalez MD Unavailable Unavailable Coby Gonzalez MD Unavailable Unavailable Coby Gonzalez MD Unavailable Unavailable Coby Gonzalez MD Unavailable Unavailable Coby Gonzalez MD Unavailable Unavailable Coby Gonzalez MD Unavailable Unavailable Coby Gonzalez MD Unavailable Unavailable Coby Gonzalez MD Unavailable Unavailable Coby Gonzalez MD Unavailable Unavailable Coby Gonzalez MD Unavailable Unavailable Coby Gonzalez MD Unavailable Unavailable Coby Gonzalez MD Unavailable Unavailable Coby Gonzalez MD Unavailable Unavailable Coby Gonzalez MD Unavailable Unavailable Coby Gonzalez MD Unavailable Unavailable Coby Gonzalez MD Unavailable Unavailable Coby Gonzalez MD Unavailable Unavailable Coby Gonzalez MD Unavailable Unavailable Coby Gonzalez MD Unavailable Unavailable Coby Gonzalez MD Unavailable Unavailable Coby Gonzalez MD Unavailable Unavailable Coby Gonzalez MD Unavailable Unavailable Coby Gonzalez MD Unavailable Unavailable Coby Gonzalez MD Unavailable Unavailable Coby Gonzalez MD Unavailable Unavailable Coby Gonzalez MD Unavailable Unavailable Coby Gonzalez MD Unavailable Unavailable Coby Gonzalez MD Unavailable Unavailable Coby Gonzalez MD Unavailable Unavailable Coby Gonzalez MD Unavailable Unavailable Coby Gonzalez MD Unavailable Unavailable Coby Gonzalez MD Unavailable Unavailable Coby Gonzalez MD Unavailable Unavailable Coby Gonzalez MD Unavailable Unavailable Coby Gonzalez MD Unavailable Unavailable Coby Gonzalez MD Unavailable Unavailable Coby Gonzalez MD Unavailable Unavailable Coby Gonzalez MD Unavailable Unavailable Coby Gonzalez MD Unavailable Unavailable Coby Gonzalez MD Unavailable Unavailable Coby Gonzalez MD Unavailable Unavailable Coby Gonzalez MD Unavailable Unavailable Coby Gonzalez MD Unavailable Unavailable Coby Gonzalez MD Unavailable Unavailable Coby Gonzalez MD Unavailable Unavailable Coby Gonzalez MD Unavailable Unavailable Coby Gonzalez MD Unavailable Unavailable Coby Gonzalez MD Unavailable Unavailable Coby Gonzalez MD Unavailable Unavailable Coby Gonzalez MD Unavailable Unavailable Coby Gonzalez MD Unavailable Unavailable Coby Gonzalez MD Unavailable Unavailable Coby Gonzalez MD Unavailable Unavailable Coby Gonzalez MD Unavailable Unavailable Coby Gonzalez MD Unavailable Unavailable Jocelyne Duncanra CONTRACT CLERK AUTOMOBILE CONTRACT CLERK AUTOMOBILE Unavailable Unavailable Fish, [facility], PA-C Unavailable Unavailabl e Fish, [facility], PA-C Unavailable Unavailabl e Fish, [facility], PA-C Unavailable Unavailabl e Fish, [facility], PA-C Unavailable Unavailabl e Fish, [facility], PA-C Unavailable Unavailabl e Fish, [facility], PA-C Unavailable Unavailabl e Fish, [facility], PA-C Unavailable Unavailabl e Fish, [facility], PA-C Unavailable Unavailabl e Fish, [facility], PA-C Unavailable Unavailabl e Fish, [facility], PA-C Unavailable Unavailabl e Fish, [facility], PA-C Unavailable Unavailabl e Fish, [facility], PA-C Unavailable Unavailabl e Fish, [facility], PA-C Unavailable Unavailabl e Fish, [facility], PA-C Unavailable Unavailabl e Fish, [facility], PA-C Unavailable Unavailabl e Fish, [facility], PA-C Unavailable Unavailabl e Fish, [facility], PA-C Unavailable Unavailabl e Fish, [facility], PA-C Unavailable Unavailabl e Fish, [facility], PA-C Unavailable Unavailabl e Fish, [facility], PA-C Unavailable Unavailabl e Fish, [facility], PA-C Unavailable Unavailabl e Fish, [facility], PA-C Unavailable Unavailabl e Fish, [facility], PA-C Unavailable Unavailabl e Fish, [facility], PA-C Unavailable Unavailabl e Fish, [facility], PA-C Unavailable Unavailabl e Fish, [facility], PA-C Unavailable Unavailabl e Fish, [facility], PA-C Unavailable Unavailabl e Fish, Yael Va [facility], PA-C Unavailable Unavailabl e Fish, Yael De Dios [facility], PA-C Unavailable Unavailabl e Fish, Yael De Dios [facility], PA-C Unavailable Unavailabl e Fish, Yael De Dios [facility], PA-C Unavailable Unavailabl e Fish, Yael De Dios [facility], PA-C Unavailable Unavailabl e Fish, Yael De Dios [facility], PA-C Unavailable Unavailabl e Fish, Yael De Dios [facility], PA-C Unavailable Unavailabl e Fish, Yael De Dios [facility], PA-C Unavailable Unavailabl e Fish, Yael De Dios [facility], PA-C Unavailable Unavailabl e [place], A Devika CONTRACT CLERK AUTOMOBILE Unavailable Unavailable Dakota, A Devika CONTRACT CLERK AUTOMOBILE Unavailable Unavailable Dakota, A Devika CONTRACT CLERK AUTOMOBILE Unavailable Unavailable Dakota, A Devika CONTRACT CLERK AUTOMOBILE Unavailable Unavailable Biwabik, A Devika CONTRACT CLERK AUTOMOBILE Unavailable Unavailable Biwabik, A Devika CONTRACT CLERK AUTOMOBILE Unavailable Unavailable Biwabik, A Devika CONTRACT CLERK AUTOMOBILE Unavailable Unavailable Biwabik, A Devika CONTRACT CLERK AUTOMOBILE Unavailable Unavailable Biwabik, A Devika CONTRACT CLERK AUTOMOBILE Unavailable Unavailable Biwabik, A Devika CONTRACT CLERK AUTOMOBILE Unavailable Unavailable Biwabik, A Devika CONTRACT CLERK AUTOMOBILE Unavailable Unavailable Biwabik, A Devika CONTRACT CLERK AUTOMOBILE Unavailable Unavailable Biwabik, A Devika CONTRACT CLERK AUTOMOBILE Unavailable Unavailable Biwabik, A Devika CONTRACT CLERK AUTOMOBILE Unavailable Unavailable Biwabik, A Devika CONTRACT CLERK AUTOMOBILE Unavailable Unavailable Biwabik, A Devika CONTRACT CLERK AUTOMOBILE Unavailable Unavailable Biwabik, A Devika CONTRACT CLERK AUTOMOBILE Unavailable Unavailable Biwabik, A Devika CONTRACT CLERK AUTOMOBILE Unavailable Unavailable Biwabik, A Devika CONTRACT CLERK AUTOMOBILE Unavailable Unavailable Biwabik, A Devika CONTRACT CLERK AUTOMOBILE Unavailable Unavailable Biwabik, A Devika CONTRACT CLERK AUTOMOBILE Unavailable Unavailable Biwabik, A Devika CONTRACT CLERK AUTOMOBILE Unavailable Unavailable Biwabik, A Devika CONTRACT CLERK AUTOMOBILE Unavailable Unavailable Biwabik, A Devika CONTRACT CLERK AUTOMOBILE Unavailable Unavailable Biwabik, A Devika CONTRACT CLERK AUTOMOBILE Unavailable Unavailable Biwabik, A Devika CONTRACT CLERK AUTOMOBILE Unavailable Unavailable Biwabik, A Devika CONTRACT CLERK AUTOMOBILE Unavailable Unavailable Biwabik, A Devika CONTRACT CLERK AUTOMOBILE Unavailable Unavailable Biwabik, A Devika CONTRACT CLERK AUTOMOBILE Unavailable Unavailable Dakota, A Devika CONTRACT CLERK AUTOMOBILE Unavailable Unavailable Dakota, A Devika CONTRACT CLERK AUTOMOBILE Unavailable Unavailable Coby Gonzalez MD Unavailable Unavailable Coby Gonzalez MD Unavailable Unavailable Coby Gonzalez MD Unavailable Unavailable Coby Gonzalez MD Unavailable Unavailable Coby Gonzalez MD Unavailable Unavailable Coby Gonzalez MD Unavailable Unavailable Coby Gonzalez MD Unavailable Unavailable Coby Gonzalez MD Unavailable Unavailable Coby Gonzalez MD Unavailable Unavailable Coby Gonzalez MD Unavailable Unavailable Coby Gonzalez MD Unavailable Unavailable Coby Gonzalez MD Unavailable Unavailable Coby Gonzalez MD Unavailable Unavailable Coby Gonzalez MD Unavailable Unavailable Coby Gonzalez MD Unavailable Unavailable Coby Gonzalez MD Unavailable Unavailable Coby Gonzalez MD Unavailable Unavailable Coby Gonzalez MD Unavailable Unavailable Coby Gonzalez MD Unavailable Unavailable Coby Gonzalez MD Unavailable Unavailable Coby Gonzalez MD Unavailable Unavailable Coby Gonzalez MD Unavailable Unavailable Coby Gonzalez MD Unavailable Unavailable Coby Gonzalez MD Unavailable Unavailable Coby Gonzalez MD Unavailable Unavailable Coby Gonzalez MD Unavailable Unavailable Coby Gonzalez MD Unavailable Unavailable Coby Gonzalez MD Unavailable Unavailable Coby Gonzalez MD Unavailable Unavailable Coby Gonzalez MD Unavailable Unavailable Coby Gonzalez MD Unavailable Unavailable Coby Gonzalez MD Unavailable Unavailable Coby Gonzalez MD Unavailable Unavailable Coby Gonzalez MD Unavailable Unavailable Coby Gonzalez MD Unavailable Unavailable Coby Gonzalez MD Unavailable Unavailable Coby Gonzalez MD Unavailable Unavailable Coby Gonzalez MD Unavailable Unavailable Coby Gonzalez MD Unavailable Unavailable Coby Gonzalez MD Unavailable Unavailable Coby Gonzalez MD Unavailable Unavailable Coby Gonzalez MD Unavailable Unavailable Coby Gonzalez MD Unavailable Unavailable Coby Gonzalez MD Unavailable Unavailable Coby Gonzalez MD Unavailable Unavailable Coby Gonzalez MD Unavailable Unavailable Coby Gonzalez MD Unavailable Unavailable Coby Gonzalez MD Unavailable Unavailable Coby Gonzalez MD Unavailable Unavailable Coby Gonzalez MD Unavailable Unavailable Coby Gonzalez MD Unavailable Unavailable Coby Gonzalez MD Unavailable Unavailable Coby Gonzalez MD Unavailable Unavailable Coby Gonzalez MD Unavailable Unavailable Coby Gonzalez MD Unavailable Unavailable Coby Gonzalez MD Unavailable Unavailable Coby Gonzalez MD Unavailable Unavailable Coby Gonzalez MD Unavailable Unavailable Coby Gonzalez MD Unavailable Unavailable Coby Gonzalez MD Unavailable Unavailable Coby Gonzalez MD Unavailable Unavailable Coby Gonzalez MD Unavailable Unavailable Coby Gonzalez MD Unavailable Unavailable Coby Gonzalez MD Unavailable Unavailable Coby Gonzalez MD Unavailable Unavailable Coby Gonzalez MD Unavailable Unavailable Coby Gonzalez MD Unavailable Unavailable Coby Gonzalez MD Unavailable Unavailable Coby Gonzalez MD Unavailable Unavailable Coby Gonzalez MD Unavailable Unavailable Coby Gonzalez MD Unavailable Unavailable Coby Gonzalez MD Unavailable Unavailable Coby Gonzalez MD Unavailable Unavailable Coby Gonzalez MD Unavailable Unavailable Coby Gonzalez MD Unavailable Unavailable Coby Gonzalez MD Unavailable Unavailable Coby Gonzalez MD Unavailable Unavailable Coby Gonzalez MD Unavailable Unavailable Coby Gonzalez MD Unavailable Unavailable Coby Gonzalez MD Unavailable Unavailable Coby Gonzalez MD Unavailable Unavailable Coby Gonzalez MD Unavailable Unavailable Coby Gonzalez MD Unavailable Unavailable Coby Gonzalez MD Unavailable Unavailable Coby Gonzalez MD Unavailable Unavailable Coby Gonzalez MD Unavailable Unavailable Coby Gonzalez MD Unavailable Unavailable Coby Gonzalez MD Unavailable Unavailable Coby Gonzalez MD Unavailable Unavailable Coby Gonzalez MD Unavailable Unavailable Coby Gonzalez MD Unavailable Unavailable Coby Gonzalez MD Unavailable Unavailable Coby Gonzalez MD Unavailable Unavailable Dakota, A Devika CONTRACT CLERK AUTOMOBILE Unavailable Unavailable Dakota, A Devika CONTRACT CLERK AUTOMOBILE Unavailable Unavailable Dakota, A Devika CONTRACT CLERK AUTOMOBILE Unavailable Unavailable Dakota, A Devika CONTRACT CLERK AUTOMOBILE Unavailable Unavailable Dakota, A Devika CONTRACT CLERK AUTOMOBILE Unavailable Unavailable Dakota, A Devika CONTRACT CLERK AUTOMOBILE Unavailable Unavailable Dakota, A Devika CONTRACT CLERK AUTOMOBILE Unavailable Unavailable Dakota, A Devika CONTRACT CLERK AUTOMOBILE Unavailable Unavailable Biwabik, A Devika CONTRACT CLERK AUTOMOBILE Unavailable Unavailable Biwabik, A Devika CONTRACT CLERK AUTOMOBILE Unavailable Unavailable Biwabik, A Devika CONTRACT CLERK AUTOMOBILE Unavailable Unavailable Biwabik, A Devika CONTRACT CLERK AUTOMOBILE Unavailable Unavailable Biwabik, A Devika CONTRACT CLERK AUTOMOBILE Unavailable Unavailable Biwabik, A Devika CONTRACT CLERK AUTOMOBILE Unavailable Unavailable Biwabik, A Devika CONTRACT CLERK AUTOMOBILE Unavailable Unavailable Biwabik, A Devika CONTRACT CLERK AUTOMOBILE Unavailable Unavailable Biwabik, A Devika CONTRACT CLERK AUTOMOBILE Unavailable Unavailable Biwabik, A Devika CONTRACT CLERK AUTOMOBILE Unavailable Unavailable Biwabik, A Devika CONTRACT CLERK AUTOMOBILE Unavailable Unavailable Biwabik, A Devika CONTRACT CLERK AUTOMOBILE Unavailable Unavailable Biwabik, A Devika CONTRACT CLERK AUTOMOBILE Unavailable Unavailable Biwabik, A Devika CONTRACT CLERK AUTOMOBILE Unavailable Unavailable Biwabik, A Devika CONTRACT CLERK AUTOMOBILE Unavailable Unavailable Biwabik, A Devika CONTRACT CLERK AUTOMOBILE Unavailable Unavailable Biwabik, A Devika CONTRACT CLERK AUTOMOBILE Unavailable Unavailable Biwabik, A Devika CONTRACT CLERK AUTOMOBILE Unavailable Unavailable Biwabik, A Devika CONTRACT CLERK AUTOMOBILE Unavailable Unavailable Biwabik, A Devika CONTRACT CLERK AUTOMOBILE Unavailable Unavailable Biwabik, A Devika CONTRACT CLERK AUTOMOBILE Unavailable Unavailable Biwabik, A Devika CONTRACT CLERK AUTOMOBILE Unavailable Unavailable Biwabik, A Devika CONTRACT CLERK AUTOMOBILE Unavailable Unavailable Kevin Michele MD Unavailable Unavailable Kevin Michele MD Unavailable Unavailable Kevin Michele MD Unavailable Unavailable Kevin Michele MD Unavailable Unavailable Kevin Michele MD Unavailable Unavailable Kevin Michele MD Unavailable Unavailable Kevin Michele MD Unavailable Unavailable Kevin Michele MD Unavailable Unavailable Kevin Michele MD Unavailable Unavailable Kevin Michele MD Unavailable Unavailable Kevin Michele MD Unavailable Unavailable Kevin Michele MD Unavailable Unavailable Kevin Michele MD Unavailable Unavailable Kevin Michele MD Unavailable Unavailable Kevin Michele MD Unavailable Unavailable Kevin Michele MD Unavailable Unavailable Kevin Michele MD Unavailable Unavailable Kevin Michele MD Unavailable Unavailable Kevin Michele MD Unavailable Unavailable Kevin Michele MD Unavailable Unavailable Kevin Michele MD Unavailable Unavailable Kevin Michele MD Unavailable Unavailable Kevin Michele MD Unavailable Unavailable Kevin Michele MD Unavailable Unavailable Kevin Michele MD Unavailable Unavailable Kevin Michele MD Unavailable Unavailable Kevin Michele MD Unavailable Unavailable Kevin Michele MD Unavailable Unavailable Kevin Michele MD Unavailable Unavailable Kevin Michele MD Unavailable Unavailable Kevin Michele MD Unavailable Unavailable Kevin Michele MD Unavailable Unavailable Kevin Michele MD Unavailable Unavailable Kevin Michele MD Unavailable Unavailable Kevin Michele MD Unavailable Unavailable Kevin Michele MD Unavailable Unavailable Kevin Michele MD Unavailable Unavailable Kevin Michele MD Unavailable Unavailable Kevin Michele MD Unavailable Unavailable Kevin Michele MD Unavailable Unavailable Kevin Michele MD Unavailable Unavailable Kevin Michele MD Unavailable Unavailable Kevin Michele MD Unavailable Unavailable Kevin Michele MD Unavailable Unavailable Kevin Michele MD Unavailable Unavailable Kevin Michele MD Unavailable Unavailable Kevin Michele MD Unavailable Unavailable Kevin Michele MD Unavailable Unavailable Kevin Michele MD Unavailable Unavailable Kevin Michele MD Unavailable Unavailable Kevin Michele MD Unavailable Unavailable Kevin Michele MD Unavailable Unavailable Kevin Michele MD Unavailable Unavailable Kevin Michele MD Unavailable Unavailable Kevin Michele MD Unavailable Unavailable Kevin Michele MD Unavailable Unavailable Kevin Michele MD Unavailable Unavailable Kevin Michele MD Unavailable Unavailable Kevin Michele MD Unavailable Unavailable Re-disclosure Warning The records that you are about to access may contain information from federally-assisted alcohol or drug abuse programs. If such information is present, then the following federally mandated warning applies: This information has been disclosed to you from records protected by federal confidentiality rules (42 CFR part 2). The federal rules prohibit you from making any further disclosure of this information unless further disclosure is expressly permitted by the written consent of the person to whom it pertains or as otherwise permitted by 42 CFR part 2. A general authorization for the release of medical or other information is NOT sufficient for this purpose. The Federal rules restrict any use of the information to criminally investigate or prosecute any alcohol or drug abuse patient.The records that you are about to access may contain highly sensitive health information, the redisclosure of which is protected by Article 27-F of the [facility] Public Health law. If you continue you may have access to information: Regarding HIV / AIDS; Provided by facilities licensed or operated by the [facility] Office of Mental Health; or Provided by the [facility] Office for People With Developmental Disabilities. If such information is present, then the following [facility] mandated warning applies: This information has been disclosed to you from confidential records which are protected by state law. State law prohibits you from making any further disclosure of this information without the specific written consent of the person to whom it pertains, or as otherwise permitted by law. Any unauthorized further disclosure in violation of state law may result in a fine or intermediate sentence or both. A general authorization for the release of medical or other information is NOT sufficient authorization for further disc losure. Allergies and Adverse Reactions Type Description Substance Reaction Status Data Source(s ) Propensity to adverse reactions LATEX Latex Rash Low Acti ve [facility] Low Family History Family Member Name Family Member Gender Family Member Status Date o f Status Description Data Source(s) Unknown Male Problem MEDENT ([facility]) Unknown Unknown [facility] sister Encounters Encounter Providers Location Date Indications Data Source(s ) Lai Gonzalez MD: [address] [place] [phone], Ph. Attender: Lai Gonzalez MD [facility] 11/19/2020 12:00:00 AM EDT ML ([facility]) Outpatient Attender: Va DAVIS PA-C Physical Therapy 10/29/2020 02:00:00 PM EDT MEDENT ([facility]) Lai Gonzalez MD: [address] [place] [address], Ph. Attender: Lai Gonzalez MD [facility] Medical 10/06/2020 12:00:00 AM EDT ML ([facility]) Lai Gonzalez MD: [address] [place] [address], Ph. Attender: Lai Gonzalez MD [facility] Medical 10/06/2020 12:00:00 AM EDT ML ([facility]) Lai Gonzalez MD: [address] [place] [address], Ph. Attender: Lai Gonzalez MD [facility] Medical 09/03/2020 12:00:00 AM EDT ML ([facility]) Lai Gonzalez MD: [address] [place] [address], Ph. Attender: Lai Gonzalez MD [facility] Medical 09/03/2020 12:00:00 AM EDT ML ([facility]) Lai Gonzalez MD: [address] [place] [address], Ph. Attender: Lai Gonzalez MD [facility] Medical 09/03/2020 12:00:00 AM EDT ML ([facility]) Outpatient Attender: Kevin WILCOXeferrer: Lai Gonzalez MD [email or web address] 08/25/2020 12:00:00 AM EDT - 08/26/2020 08:57:49 AM EDT [facility] Lai Gonzalez MD: [address] [place] [address], Ph. Attender: Lai Gonzalez MD [facility] Medical 08/05/2020 12:00:00 AM EDT ML ([facility]) Lai Gonzalez MD: [address] [place] [address], Ph. Attender: Lai Gonzalez MD [facility] Medical 08/05/2020 12:00:00 AM EDT ML ([facility]) Lai Gonzalez MD: [address] [place] [address], Ph. Attender: Lai Gonzalez MD [facility] Medical 08/05/2020 12:00:00 AM EDT ML ([facility]) Lai Gonzalez MD: [address] [place] [address], Ph. Attender: Lai Gonzalez MD [facility] Medical 08/05/2020 12:00:00 AM EDT ML ([facility]) Lai Gonzalez MD: [address] [place] [address], Ph. Attender: Lai Gonzalez MD [facility] Medical 06/10/2020 12:00:00 AM EST ML ([facility]) Lai Gonzalez MD: [address] [place] [address], Ph. Attender: Lai Gonzalez MD [facility] Medical 06/10/2020 12:00:00 AM EST ML ([facility]) Lai Gonzalez MD: [address] [place] [address], Ph. Attender: Lai Gonzalez MD [facility] Medical 06/10/2020 12:00:00 AM EST ML ([facility]) Lai Gonzalez MD: [address] [place] [address], Ph. Attender: Lai Gonzalez MD [facility] Medical 06/10/2020 12:00:00 AM EST ML ([facility]) Lai Gonzalez MD: [address] [place] [address], Ph. Attender: Lai Gonzalze MD [facility] Medical 06/10/2020 12:00:00 AM EST ML ([facility]) Lai Gonzalez MD: [address] [place] [address], Ph. Attender: Lai Gonzalez MD [facility] Medical 06/10/2020 12:00:00 AM EST ML ([facility]) Lai Gonzalez MD: [address] [place] [address], Ph. Attender: Lai Gonzalez MD [facility] Medical 06/08/2020 12:00:00 AM EST ML ([facility]) Lai Gonzalez MD: [address] [place] [address], Ph. Attender: Lai Gonzalez MD [facility] Medical 06/08/2020 12:00:00 AM EST ML ([facility]) Lai Gonzalez MD: [address] [place] [address], Ph. Attender: Lai Gonzalez MD [facility] Medical 06/08/2020 12:00:00 AM EST ML ([facility]) Lai Gonzalez MD: [address] [place] [address], Ph. Attender: Lai Gonzalez MD [facility] Medical 06/08/2020 12:00:00 AM EST ML ([facility]) Lai Gonzalez MD: [address] [place] [address], Ph. Attender: Lai Gonzalez MD [facility] Medical 06/08/2020 12:00:00 AM EST ML ([facility]) Lai Gonzalez MD: [address], [place] [address], Ph. Attender: Lai Gonzalez MD [facility] Medical 06/08/2020 12:00:00 AM EST ML ([facility]) Devika Duncan [facility]: [address] [place] [address], Ph. Attender: Devika Duncan [facility] Medical 06/03/2020 12:00:00 AM EST ML ([facility]) Devika Duncan [facility]: [address] [place] [address], Ph. Attender: Devika Duncan [facility] Medical 06/03/2020 12:00:00 AM EST ML ([facility]) Devika Duncan [facility]: [address], [place] [address], Ph. Attender: Devika Duncan [facility] Medical 06/03/2020 12:00:00 AM EST ML ([facility]) Devika Duncan [facility] [facility]: [address], [place] [address], Ph. Attender: Devika Duncan [facility] Medical 06/03/2020 12:00:00 AM EST ML ([facility]) Devika Duncan [facility]: [address], [place] [address], Ph. Attender: Devika Duncan [facility] Medical 06/03/2020 12:00:00 AM EST ML ([facility]) Devika Duncan [facility]: [address] [place] [address], Ph. Attender: Devika Duncan [facility] Medical 06/03/2020 12:00:00 AM EST ML ([facility]) Devika Duncan [facility]: [address] [place] [address], Ph. Attender: Devika Duncan [facility] Medical 06/03/2020 12:00:00 AM EST ML ([facility]) Lai Gonzalez MD: [address] [place] [address], Ph. Attender: Lai Gonzalez MD [facility] Medical 04/14/2020 12:00:00 AM EST ML ([facility]) Lai Gonzalez MD: [address] [place] [address], Ph. Attender: Lai Gonzalez MD [facility] Medical 04/14/2020 12:00:00 AM EST ML ([facility]) Lai Gonzalez MD: [address] [place] [address], Ph. Attender: Lai Gonzalez MD [facility] Medical 04/14/2020 12:00:00 AM EST ML ([facility]) Lai Gonzalez MD: [address] [place] [address], Ph. Attender: Lai Gonzalez MD [facility] Medical 04/14/2020 12:00:00 AM EST ML ([facility]) Lai Gonzalez MD: [address] [place] [address], Ph. Attender: Lai Gonzalez MD [facility] Medical 04/14/2020 12:00:00 AM EST ML ([facility]) Lai Gonzalez MD: [address] [place] [address], Ph. Attender: Lai Gonzalez MD [facility] Medical 04/14/2020 12:00:00 AM EST ML ([facility]) Lai Gonzalez MD: [address] [place] [address], Ph. Attender: Lai Gonzalez MD [facility] Medical 04/14/2020 12:00:00 AM EST ML ([facility]) Lai Gonzalez MD: [address] [place] [address], Ph. Attender: Lai Gonzalez MD [facility] Medical 04/14/2020 12:00:00 AM EST ML ([facility]) Outpatient Attender: TERENCE PRATT 02/24/2020 07:58:00 A M EST [facility] Outpatient Attender: Devika PRATT 01/28/2020 08:0 1:03 PM EDT [facility] Outpatient Attender: TERENCE PRATT 01/28/2020 08:01:01 P M EDT [facility] Outpatient Attender: Devika PRATT 01/28/2020 11:0 9:01 AM EDT [facility] Outpatient Attender: TERENCE PRATT 01/28/2020 10:10:00 A M EDT [facility] Immunizations Vaccine Date Status Description Data Source(s) Tdap 06/10/2020 10:13:00 AM EST completed 06/10/2020 0.5 mL ML ([facility]) Tdap 06/10/2020 10:13:00 AM EST completed 06/10/2020 0.5 mL ML ([facility]) Tdap 06/10/2020 10:13:00 AM EST completed 06/10/2020 0.5 mL ML ([facility]) Tdap 06/10/2020 10:13:00 AM EST completed 06/10/2020 0.5 mL ML ([facility]) Tdap 06/10/2020 10:13:00 AM EST completed 06/10/2020 0.5 mL ML ([facility]) Tdap 06/10/2020 10:13:00 AM EST completed 06/10/2020 0.5 mL ML ([facility]) MMR 06/10/2020 10:11:00 AM EST completed 06/10/2020 0.5 mL ML ([facility]) MMR 06/10/2020 10:11:00 AM EST completed 06/10/2020 0.5 mL ML ([facility]) MMR 06/10/2020 10:11:00 AM EST completed 06/10/2020 0.5 mL ML ([facility]) MMR 06/10/2020 10:11:00 AM EST completed 06/10/2020 0.5 mL ML ([facility]) MMR 06/10/2020 10:11:00 AM EST completed 06/10/2020 0.5 mL ML ([facility]) MMR 06/10/2020 10:11:00 AM EST completed 06/10/2020 0.5 mL ML ([facility]) New in 2012. IIV4 02/18/2020 12:00:00 AM EST completed 02/18/20 20 ML ([facility]) New in 2012. IIV4 02/18/2020 12:00:00 AM EST completed 02/18/20 20 ML ([facility]) New in 2012. IIV4 02/18/2020 12:00:00 AM EST completed 02/18/20 20 ML ([facility]) New in 2012. IIV4 02/18/2020 12:00:00 AM EST completed 02/18/20 20 ML ([facility]) New in 2012. IIV4 02/18/2020 12:00:00 AM EST completed 02/18/20 [facility]) New in 2012. IIV4 02/18/2020 12:00:00 AM EST completed 02/18/20 [facility]) New in 2012. IIV4 02/18/2020 12:00:00 AM EST completed 02/18/20 [facility]) New in 2012. IIV4 02/18/2020 12:00:00 AM EST completed 02/18/20 [facility]) Medications Medication Brand Name Start Date Product Form Dose Route Admi nistrative Instructions Pharmacy Instructions Status Indications Reaction Description Data Source(s) Acetaminophen 325 MG / Hydrocodone Bitartrate 5 MG Ora l Tablet 5-325 mg HYDROCODONE/ACETAMINOPHEN 12/10/2020 12:00:00 AM EDT tablet 12 TAKE ONE TABLET BY MOUTH EVERY 4 TO 6 HOURS NEEDED FOR PAIN , MAXIMUM DAILY DOSE = 4 TABLETS TAKE ONE TABLET BY MOUTH EVERY 4 TO 6 HOURS NEEDED FOR PAIN , MAXIMUM DAILY DOSE = 4 TABLETS SOLD: 12/10/2020 [facility] 500 mg 12/10/2020 12:00:00 AM EDT capsule 15 TAKE ONE CAPSULE BY MOUTH THREE TIMES A DAY TAKE ONE CAPSULE BY MOUTH THREE TIMES A DAY SOLD: 12/10/2020 [facility] 25 mg 02/18/2020 12:00:00 AM EST tablet 30 TAKE ONE TABLET BY MOUTH ONCE A DAY TAKE ONE TABLET BY MOUTH ONCE A DAY SOLD: 03/20/2020 [facility] 50 mg 01/30/2020 12:00:00 AM EDT tablet 60 TAKE ONE TABLET BY MOUTH EVERY 6 HOURS NEEDED FOR PAIN, MAXIMUM DAILY DOSE = FOUR TABLETS TAKE ONE TABLET BY MOUTH EVERY 6 HOURS NEEDED FOR PAIN, MAXIMUM DAILY DOSE = FOUR TABLETS SOLD: 01/31/2020 [facility] 100 mg 01/30/2020 12:00:00 AM EDT tablet extended release 30 TAKE ONE TABLET BY MOUTH TWICE A DAY NEEDED FOR SPASMS, MAXIMUM DAILY DOSE = TWO TABLETS TAKE ONE TABLET BY MOUTH TWICE A DAY NEEDED FOR SPASMS, MAXIMUM DAILY DOSE = TWO TABLETS SOLD: 01/31/2020 [facility] 100 mg 01/30/2020 12:00:00 AM EDT tablet extended release 30 TAKE ONE TABLET BY MOUTH TWICE A DAY NEEDED FOR SPASMS, MAXIMUM DAILY DOSE = TWO TABLETS TAKE ONE TABLET BY MOUTH TWICE A DAY NEEDED FOR SPASMS, MAXIMUM DAILY DOSE = TWO TABLETS SOLD: 03/02/2020 [facility] 40 mg 12/17/2019 12:00:00 AM EDT capsule,delayed release (DR/EC) 30 TAKE ONE CAPSULE BY MOUTH EVERY DAY TAKE ONE CAPSULE BY MOUTH EVERY DAY SOLD: 01/20/2020 [facility] 10 mg 12/09/2019 12:00:00 AM EDT tablet 60 TAKE ONE TABLET BY MOUTH TWICE A DAY NEEDED FOR SPASM TAKE ONE TABLET BY MOUTH TWICE A DAY NEEDED FOR SPASM SOLD: 01/12/2020 [facility] 25 mg 11/20/2019 12:00:00 AM EDT tablet 30 TAKE ONE TABLET BY MOUTH EVERY DAY TAKE ONE TABLET BY MOUTH EVERY DAY SOLD: 01/20/2020 [facility] 50 mg 10/03/2019 12:00:00 AM EDT tablet 30 TAKE ONE TABLET BY MOUTH EVERY DAY AT BEDTIME TAKE ONE TABLET BY MOUTH EVERY DAY AT BEDTIME SOLD: 01/12/2020 [facility] Fluzone Quad (PF) 60 mcg (15 mcg x 4)/0.5 mL IM syringe [id number] completed 0.5 ML influen za A virus A/ (H1N1) antigen 0.03 MG/ML / influenza A virus A/ (H3N2) antigen 0.03 MG/ML / influenza B virus B/ antigen 0.03 MG/ML / influenza B virus B/[facility] antigen 0.03 MG/ML Prefilled Syringe [Fluzone Quadrivalent ] ML ([facility]) Prazosin 1 MG Oral Capsule prazosin 1 mg capsule prazosin 1 mg capsule completed prazosin 1 MG Oral Capsul e SENECA ([facility]) Amoxicillin 875 MG Oral Tablet amoxicill in 875 mg tablet TAKE ONE TABLET BY MOUTH EVERY 12 HOURS FOR 10 DAYS amoxicillin 875 mg tablet TAKE ONE TABLE T BY MOUTH EVERY 12 HOURS FOR 10 DAYS compl eted amoxicillin 875 MG Oral Tablet ML ([facility]) Prazosin 1 MG Oral Capsule prazosin 1 mg capsule prazosin 1 mg capsule completed prazosin 1 MG Oral Capsul e SENECA ([facility]) Baclofen 10 MG Oral Tablet baclofen 10 mg tablet baclofen 10 mg tablet completed baclofen 10 MG Oral Table t ML ([facility]) Trazodone Hydrochloride 50 MG Oral Tablet trazodone 50 mg tablet trazodone 50 mg tablet completed trazodone hydro chloride 50 MG Oral Tablet ML ([facility]) Baclofen 10 MG Oral Tablet baclofen 10 mg tablet baclofen 10 mg tablet completed baclofen 10 MG Oral Table t ML ([facility]) Cyclobenzaprine hydrochloride 10 MG Oral Tablet cyclob enzaprine 10 mg tablet cyclobenzaprine 10 mg tablet completed cyclobenzaprine hydrochloride 10 MG Oral Tablet ML ([facility]) Baclofen 10 MG Oral Tablet baclofen 10 mg tablet baclofen 10 mg tablet completed baclofen 10 MG Oral Table t ML ([facility]) Prednisone 20 MG Oral Tablet prednisone 20 mg tablet prednisone 20 mg tablet completed prednisone 20 MG Oral Tablet ML ([facility]) Trazodone Hydrochloride 50 MG Oral Tablet trazodone 50 mg tablet trazodone 50 mg tablet completed trazodone hydro chloride 50 MG Oral Tablet ML ([facility]) Trazodone Hydrochloride 50 MG Oral Tablet trazodone 50 mg tablet trazodone 50 mg tablet completed trazodone hydro chloride 50 MG Oral Tablet ML ([facility]) Doxycycline Monohydrate 100 MG Oral Caps ule doxycycline monohydrate 100 mg capsule doxycycline monohydrate 100 mg capsule completed doxycycline monohydrate 100 MG Oral Capsule ML ([facility]) Doxycycline Monohydrate 100 MG Oral Caps ule doxycycline monohydrate 100 mg capsule doxycycline monohydrate 100 mg capsule completed doxycycline monohydrate 100 MG Oral Capsule ML ([facility]) Trazodone Hydrochloride 50 MG Oral Tablet trazodone 50 mg tablet trazodone 50 mg tablet completed trazodone hydro chloride 50 MG Oral Tablet ML ([facility]) Cyclobenzaprine hydrochloride 10 MG Oral Tablet cyclob enzaprine 10 mg tablet cyclobenzaprine 10 mg tablet completed cyclobenzaprine hydrochloride 10 MG Oral Tablet ML ([facility]) pregabalin 150 MG Oral Capsule pregabali n 150 mg capsule TAKE ONE CAPSULE BY MOUTH TWICE A DAY MAXIMUM DAILY DOSE 2 pregabalin 150 mg capsule TAKE ONE CAPSULE BY MOUTH TWICE A DAY MAXIMUM DAILY DOSE 2 completed pregabalin 150 MG Oral Capsule ML ([facility]) Prazosin 1 MG Oral Capsule prazosin 1 mg capsule prazosin 1 mg capsule completed prazosin 1 MG Oral Capsul e SENECA ([facility]) Trazodone Hydrochloride 50 MG Oral Tablet trazodone 50 mg tablet trazodone 50 mg tablet completed trazodone hydro chloride 50 MG Oral Tablet SENECA ([facility]) Cyclobenzaprine hydrochloride 10 MG Oral Tablet cyclob enzaprine 10 mg tablet cyclobenzaprine 10 mg tablet completed cyclobenzaprine hydrochloride 10 MG Oral Tablet SENECA ([facility]) Prednisone 20 MG Oral Tablet prednisone 20 mg tablet prednisone 20 mg tablet completed prednisone 20 MG Oral Tablet SENECA ([facility]) Sertraline 100 MG Oral Tablet sertraline 100 mg tablet sertr larry 100 mg tablet completed sertraline 100 MG Oral Tablet SENECA ([facility]) pregabalin 150 MG Oral Capsule pregabali n 150 mg capsule TAKE ONE CAPSULE BY MOUTH TWICE A DAY MAXIMUM DAILY DOSE 2 pregabalin 150 mg capsule TAKE ONE CAPSULE BY MOUTH TWICE A DAY MAXIMUM DAILY DOSE 2 completed pregabalin 150 MG Oral Capsule SENECA ([facility]) Doxycycline Monohydrate 100 MG Oral Caps ule doxycycline monohydrate 100 mg capsule doxycycline monohydrate 100 mg capsule completed doxycycline monohydrate 100 MG Oral Capsule SENECA ([facility]) Prednisone 10 MG Oral Tablet prednisone 10 mg tablet TAKE FOUR TABLETS BY MOUTH ONCE DAILY FOR 3 DAYS THEN THREE TABLETS DAILY FOR 3 DAYS THEN TWO TABLETS DAILY FOR 3 DAYS THEN ONE TABLET DA prednisone 10 mg tablet TAKE FOUR TABLET S BY MOUTH ONCE DAILY FOR 3 DAYS THEN THREE TABLETS DAILY FOR 3 DAYS THEN TWO TABLETS DAILY FOR 3 DAYS THEN ONE TABLET DA completed prednisone 10 MG Oral Tablet SENECA ([facility]) Doxycycline Monohydrate 100 MG Oral Caps ule doxycycline monohydrate 100 mg capsule doxycycline monohydrate 100 mg capsule completed doxycycline monohydrate 100 MG Oral Capsule SENECA ([facility]) Sertraline 50 MG Oral Tablet sertraline 50 mg tablet sertraline 50 mg tablet completed sertraline 50 MG Oral Tablet SENECA ([facility]) Baclofen 10 MG Oral Tablet baclofen 10 mg tablet baclofen 10 mg tablet completed baclofen 10 MG Oral Table t SENECA ([facility]) Sertraline 25 MG Oral Tablet sertraline 25 mg tablet TAKE ONE TABLET BY MOUTH ONCE A DAY sertraline 25 mg tablet TAKE ONE TABLET BY MOUTH ONCE A DAY completed sertraline 25 MG Oral Tab let SENECA ([facility]) Sertraline 50 MG Oral Tablet sertraline 50 mg tablet sertraline 50 mg tablet completed sertraline 50 MG Oral Tablet SENECA ([facility]) Prednisone 10 MG Oral Tablet prednisone 10 mg tablet TAKE FOUR TABLETS BY MOUTH ONCE DAILY FOR 3 DAYS THEN THREE TABLETS DAILY FOR 3 DAYS THEN TWO TABLETS DAILY FOR 3 DAYS THEN ONE TABLET DA prednisone 10 mg tablet TAKE FOUR TABLET S BY MOUTH ONCE DAILY FOR 3 DAYS THEN THREE TABLETS DAILY FOR 3 DAYS THEN TWO TABLETS DAILY FOR 3 DAYS THEN ONE TABLET DA completed prednisone 10 MG Oral Tablet SENECA ([facility]) Prazosin 1 MG Oral Capsule prazosin 1 mg capsule prazosin 1 mg capsule completed prazosin 1 MG Oral Capsul e SENECA ([facility]) Fluzone Quad 9545-8051 (PF) 60 mcg (15 mcg x 4)/0.5 mL IM syringe 273 595 completed 0.5 ML influen za A virus A/ (H1N1) antigen 0.03 MG/ML / influenza A virus A/ (H3N2) antigen 0.03 MG/ML / influenza B virus B/ antigen 0.03 MG/ML / influenza B virus B/[facility] antigen 0.03 MG/ML Prefilled Syringe [Fluzone Quadrivalent ] SENECA ([facility]) pregabalin 150 MG Oral Capsule pregabali n 150 mg capsule TAKE ONE CAPSULE BY MOUTH TWICE A DAY MAXIMUM DAILY DOSE 2 pregabalin 150 mg capsule TAKE ONE CAPSULE BY MOUTH TWICE A DAY MAXIMUM DAILY DOSE 2 completed pregabalin 150 MG Oral Capsule SENECA ([facility]) Prednisone 10 MG Oral Tablet prednisone 10 mg tablet TAKE FOUR TABLETS BY MOUTH ONCE DAILY FOR 3 DAYS THEN THREE TABLETS DAILY FOR 3 DAYS THEN TWO TABLETS DAILY FOR 3 DAYS THEN ONE TABLET DA prednisone 10 mg tablet TAKE FOUR TABLET S BY MOUTH ONCE DAILY FOR 3 DAYS THEN THREE TABLETS DAILY FOR 3 DAYS THEN TWO TABLETS DAILY FOR 3 DAYS THEN ONE TABLET DA completed prednisone 10 MG Oral Tablet ML ([facility]) Amoxicillin 875 MG Oral Tablet amoxicill in 875 mg tablet TAKE ONE TABLET BY MOUTH EVERY 12 HOURS FOR 10 DAYS amoxicillin 875 mg tablet TAKE ONE TABLE T BY MOUTH EVERY 12 HOURS FOR 10 DAYS compl eted amoxicillin 875 MG Oral Tablet ML ([facility]) Amoxicillin 875 MG Oral Tablet amoxicill in 875 mg tablet TAKE ONE TABLET BY MOUTH EVERY 12 HOURS FOR 10 DAYS amoxicillin 875 mg tablet TAKE ONE TABLE T BY MOUTH EVERY 12 HOURS FOR 10 DAYS compl eted amoxicillin 875 MG Oral Tablet ML ([facility]) Amoxicillin 875 MG Oral Tablet amoxicill in 875 mg tablet TAKE ONE TABLET BY MOUTH EVERY 12 HOURS FOR 10 DAYS amoxicillin 875 mg tablet TAKE ONE TABLE T BY MOUTH EVERY 12 HOURS FOR 10 DAYS compl eted amoxicillin 875 MG Oral Tablet SENECA ([facility]) Cyclobenzaprine hydrochloride 10 MG Oral Tablet cyclob enzaprine 10 mg tablet cyclobenzaprine 10 mg tablet completed cyclobenzaprine hydrochloride 10 MG Oral Tablet SENECA ([facility]) Sertraline 25 MG Oral Tablet sertraline 25 mg tablet TAKE ONE TABLET BY MOUTH ONCE A DAY sertraline 25 mg tablet TAKE ONE TABLET BY MOUTH ONCE A DAY completed sertraline 25 MG Oral Tab let SENECA ([facility]) Flublok Quad (PF) 180 mcg (45 mcg x 4)/0.5 mL IM syringe 60 3610 completed 0.5 ML influen za A virus A/[place] (H1N1) antigen 0.09 MG/ML / influenza A virus A/[place] (H3N2) antigen 0.09 MG/ML / influenza B virus B/[facility] antigen 0.09 MG/ML / influenza B virus B/ antigen 0.09 MG/ML Prefilled Syringe [Flublok Quadrivalent ] SENECA ([facility]) Amoxicillin 875 MG Oral Tablet amoxicill in 875 mg tablet TAKE ONE TABLET BY MOUTH EVERY 12 HOURS FOR 10 DAYS amoxicillin 875 mg tablet TAKE ONE TABLE T BY MOUTH EVERY 12 HOURS FOR 10 DAYS compl eted amoxicillin 875 MG Oral Tablet SENECA ([facility]) Cyclobenzaprine hydrochloride 10 MG Oral Tablet cyclob enzaprine 10 mg tablet cyclobenzaprine 10 mg tablet completed cyclobenzaprine hydrochloride 10 MG Oral Tablet SENECA ([facility]) Flublok Quad (PF) 180 mcg (45 mcg x 4)/0.5 mL IM syringe 60 3610 completed 0.5 ML influen za A virus A/[place] (H1N1) antigen 0.09 MG/ML / influenza A virus A/[place] (H3N2) antigen 0.09 MG/ML / influenza B virus B/[facility] antigen 0.09 MG/ML / influenza B virus B/[place] antigen 0.09 MG/ML Prefilled Syringe [Flublok Quadrivalent ] SENECA ([facility]) pregabalin 150 MG Oral Capsule pregabali n 150 mg capsule TAKE ONE CAPSULE BY MOUTH TWICE A DAY MAXIMUM DAILY DOSE 2 pregabalin 150 mg capsule TAKE ONE CAPSULE BY MOUTH TWICE A DAY MAXIMUM DAILY DOSE 2 completed pregabalin 150 MG Oral Capsule SENECA ([facility]) Fluzone Quad (PF) 60 mcg (15 mcg x 4)/0.5 mL IM syringe 599 759 completed 0.5 ML influen za A virus A/ (H1N1) antigen 0.03 MG/ML / influenza A virus A/[place] (H3N2) antigen 0.03 MG/ML / influenza B virus B/ antigen 0.03 MG/ML / influenza B virus B/[facility] antigen 0.03 MG/ML Prefilled Syringe [Fluzone Quadrivalent ] SENECA ([facility]) Prednisone 10 MG Oral Tablet prednisone 10 mg tablet TAKE FOUR TABLETS BY MOUTH ONCE DAILY FOR 3 DAYS THEN THREE TABLETS DAILY FOR 3 DAYS THEN TWO TABLETS DAILY FOR 3 DAYS THEN ONE TABLET DA prednisone 10 mg tablet TAKE FOUR TABLET S BY MOUTH ONCE DAILY FOR 3 DAYS THEN THREE TABLETS DAILY FOR 3 DAYS THEN TWO TABLETS DAILY FOR 3 DAYS THEN ONE TABLET DA completed prednisone 10 MG Oral Tablet SENECA ([facility]) Baclofen 10 MG Oral Tablet baclofen 10 mg tablet baclofen 10 mg tablet completed baclofen 10 MG Oral Table t ML ([facility]) Prazosin 1 MG Oral Capsule prazosin 1 mg capsule prazosin 1 mg capsule completed prazosin 1 MG Oral Capsul e SENECA ([facility]) Flublok Quad (PF) 180 mcg (45 mcg x 4)/0.5 mL IM syringe 60 3610 completed 0.5 ML influen za A virus A/[place] (H1N1) antigen 0.09 MG/ML / influenza A virus A/[place] (H3N2) antigen 0.09 MG/ML / influenza B virus B/[facility] antigen 0.09 MG/ML / influenza B virus B/ antigen 0.09 MG/ML Prefilled Syringe [Flublok Quadrivalent ] SENECA ([facility]) Amoxicillin 500 MG Oral Capsule amoxicil dharmesh 500 mg capsule TAKE 1 CAPSULE BY MOUTH EVERY 8 HOURS UNTIL GONE FOR 7 DAYS amoxicillin 500 mg capsule TAKE 1 CAPSULE BY MOUTH EVERY 8 HOURS UNTIL GONE FOR 7 DAYS completed amoxicillin 500 MG Oral Capsule SENECA ([facility]) Amoxicillin 500 MG Oral Capsule amoxicil dharmesh 500 mg capsule TAKE 1 CAPSULE BY MOUTH EVERY 8 HOURS UNTIL GONE FOR 7 DAYS amoxicillin 500 mg capsule TAKE 1 CAPSULE BY MOUTH EVERY 8 HOURS UNTIL GONE FOR 7 DAYS completed amoxicillin 500 MG Oral Capsule SENECA ([facility]) pregabalin 150 MG Oral Capsule pregabali n 150 mg capsule TAKE ONE CAPSULE BY MOUTH TWICE A DAY MAXIMUM DAILY DOSE 2 pregabalin 150 mg capsule TAKE ONE CAPSULE BY MOUTH TWICE A DAY MAXIMUM DAILY DOSE 2 completed pregabalin 150 MG Oral Capsule SENECA ([facility]) pregabalin 150 MG Oral Capsule pregabali n 150 mg capsule TAKE ONE CAPSULE BY MOUTH TWICE A DAY MAXIMUM DAILY DOSE 2 pregabalin 150 mg capsule TAKE ONE CAPSULE BY MOUTH TWICE A DAY MAXIMUM DAILY DOSE 2 completed pregabalin 150 MG Oral Capsule SENECA ([facility]) Sertraline 25 MG Oral Tablet sertraline 25 mg tablet TAKE ONE TABLET BY MOUTH ONCE A DAY sertraline 25 mg tablet TAKE ONE TABLET BY MOUTH ONCE A DAY completed sertraline 25 MG Oral Tab let SENECA ([facility]) Doxycycline Monohydrate 100 MG Oral Caps ule doxycycline monohydrate 100 mg capsule doxycycline monohydrate 100 mg capsule completed doxycycline monohydrate 100 MG Oral Capsule ML ([facility]) Cyclobenzaprine hydrochloride 10 MG Oral Tablet cyclob enzaprine 10 mg tablet cyclobenzaprine 10 mg tablet completed cyclobenzaprine hydrochloride 10 MG Oral Tablet ML ([facility]) pregabalin 150 MG Oral Capsule pregabali n 150 mg capsule TAKE ONE CAPSULE BY MOUTH TWICE A DAY MAXIMUM DAILY DOSE 2 pregabalin 150 mg capsule TAKE ONE CAPSULE BY MOUTH TWICE A DAY MAXIMUM DAILY DOSE 2 completed pregabalin 150 MG Oral Capsule ML ([facility]) Amoxicillin 500 MG Oral Capsule amoxicil dharmesh 500 mg capsule TAKE 1 CAPSULE BY MOUTH EVERY 8 HOURS UNTIL GONE FOR 7 DAYS amoxicillin 500 mg capsule TAKE 1 CAPSULE BY MOUTH EVERY 8 HOURS UNTIL GONE FOR 7 DAYS completed amoxicillin 500 MG Oral Capsule ML ([facility]) pregabalin 150 MG Oral Capsule pregabali n 150 mg capsule TAKE ONE CAPSULE BY MOUTH TWICE A DAY MAXIMUM DAILY DOSE 2 pregabalin 150 mg capsule TAKE ONE CAPSULE BY MOUTH TWICE A DAY MAXIMUM DAILY DOSE 2 completed pregabalin 150 MG Oral Capsule ML ([facility]) Amoxicillin 875 MG Oral Tablet amoxicill in 875 mg tablet TAKE ONE TABLET BY MOUTH EVERY 12 HOURS FOR 10 DAYS amoxicillin 875 mg tablet TAKE ONE TABLE T BY MOUTH EVERY 12 HOURS FOR 10 DAYS compl eted amoxicillin 875 MG Oral Tablet ML ([facility]) Doxycycline Monohydrate 100 MG Oral Caps ule doxycycline monohydrate 100 mg capsule doxycycline monohydrate 100 mg capsule completed doxycycline monohydrate 100 MG Oral Capsule ML ([facility]) Amoxicillin 500 MG Oral Capsule amoxicil dharmesh 500 mg capsule TAKE 1 CAPSULE BY MOUTH EVERY 8 HOURS UNTIL GONE FOR 7 DAYS amoxicillin 500 mg capsule TAKE 1 CAPSULE BY MOUTH EVERY 8 HOURS UNTIL GONE FOR 7 DAYS completed amoxicillin 500 MG Oral Capsule ML ([facility]) Baclofen 10 MG Oral Tablet baclofen 10 mg tablet baclofen 10 mg tablet completed baclofen 10 MG Oral Table t ML ([facility]) Baclofen 10 MG Oral Tablet baclofen 10 mg tablet baclofen 10 mg tablet completed baclofen 10 MG Oral Table t ML ([facility]) Prednisone 10 MG Oral Tablet prednisone 10 mg tablet TAKE FOUR TABLETS BY MOUTH ONCE DAILY FOR 3 DAYS THEN THREE TABLETS DAILY FOR 3 DAYS THEN TWO TABLETS DAILY FOR 3 DAYS THEN ONE TABLET DA prednisone 10 mg tablet TAKE FOUR TABLET S BY MOUTH ONCE DAILY FOR 3 DAYS THEN THREE TABLETS DAILY FOR 3 DAYS THEN TWO TABLETS DAILY FOR 3 DAYS THEN ONE TABLET DA completed prednisone 10 MG Oral Tablet ML ([facility]) Baclofen 10 MG Oral Tablet baclofen 10 mg tablet baclofen 10 mg tablet completed baclofen 10 MG Oral Table t SENECA ([facility]) Prednisone 10 MG Oral Tablet prednisone 10 mg tablet TAKE FOUR TABLETS BY MOUTH ONCE DAILY FOR 3 DAYS THEN THREE TABLETS DAILY FOR 3 DAYS THEN TWO TABLETS DAILY FOR 3 DAYS THEN ONE TABLET DA prednisone 10 mg tablet TAKE FOUR TABLET S BY MOUTH ONCE DAILY FOR 3 DAYS THEN THREE TABLETS DAILY FOR 3 DAYS THEN TWO TABLETS DAILY FOR 3 DAYS THEN ONE TABLET DA completed prednisone 10 MG Oral Tablet ML ([facility]) Sertraline 25 MG Oral Tablet sertraline 25 mg tablet TAKE ONE TABLET BY MOUTH ONCE A DAY sertraline 25 mg tablet TAKE ONE TABLET BY MOUTH ONCE A DAY completed sertraline 25 MG Oral Tab let SENECA ([facility]) Prednisone 10 MG Oral Tablet prednisone 10 mg tablet TAKE FOUR TABLETS BY MOUTH ONCE DAILY FOR 3 DAYS THEN THREE TABLETS DAILY FOR 3 DAYS THEN TWO TABLETS DAILY FOR 3 DAYS THEN ONE TABLET DA prednisone 10 mg tablet TAKE FOUR TABLET S BY MOUTH ONCE DAILY FOR 3 DAYS THEN THREE TABLETS DAILY FOR 3 DAYS THEN TWO TABLETS DAILY FOR 3 DAYS THEN ONE TABLET DA completed prednisone 10 MG Oral Tablet SENECA ([facility]) Amoxicillin 875 MG Oral Tablet amoxicill in 875 mg tablet TAKE ONE TABLET BY MOUTH EVERY 12 HOURS FOR 10 DAYS amoxicillin 875 mg tablet TAKE ONE TABLE T BY MOUTH EVERY 12 HOURS FOR 10 DAYS compl eted amoxicillin 875 MG Oral Tablet ML ([facility]) Prazosin 1 MG Oral Capsule prazosin 1 mg capsule prazosin 1 mg capsule completed prazosin 1 MG Oral Capsul e SENECA ([facility]) Flublok Quad [id number] (PF) 180 mcg (45 mcg x 4)/0.5 mL IM syringe [id number] completed 0.5 ML influen za A virus A/[place] (H1N1) antigen 0.09 MG/ML / influenza A virus A/[place] (H3N2) antigen 0.09 MG/ML / influenza B virus B/[facility] antigen 0.09 MG/ML / influenza B virus B/ antigen 0.09 MG/ML Prefilled Syringe [Flublok Quadrivalent ] SENECA ([facility]) Prazosin 1 MG Oral Capsule prazosin 1 mg capsule prazosin 1 mg capsule completed prazosin 1 MG Oral Capsul e SENECA ([facility]) Doxycycline Monohydrate 100 MG Oral Caps ule doxycycline monohydrate 100 mg capsule doxycycline monohydrate 100 mg capsule completed doxycycline monohydrate 100 MG Oral Capsule SENECA ([facility]) Prednisone 10 MG Oral Tablet prednisone 10 mg tablet TAKE FOUR TABLETS BY MOUTH ONCE DAILY FOR 3 DAYS THEN THREE TABLETS DAILY FOR 3 DAYS THEN TWO TABLETS DAILY FOR 3 DAYS THEN ONE TABLET DA prednisone 10 mg tablet TAKE FOUR TABLET S BY MOUTH ONCE DAILY FOR 3 DAYS THEN THREE TABLETS DAILY FOR 3 DAYS THEN TWO TABLETS DAILY FOR 3 DAYS THEN ONE TABLET DA completed prednisone 10 MG Oral Tablet SENECA ([facility]) Cyclobenzaprine hydrochloride 10 MG Oral Tablet cyclob enzaprine 10 mg tablet cyclobenzaprine 10 mg tablet completed cyclobenzaprine hydrochloride 10 MG Oral Tablet SENECA ([facility]) tramadol hydrochloride 50 MG Oral Tablet tramadol 50 m g tablet tramadol 50 mg tablet completed tramadol hydroc hloride 50 MG Oral Tablet SENECA ([facility]) Sertraline 50 MG Oral Tablet sertraline 50 mg tablet sertraline 50 mg tablet completed sertraline 50 MG Oral Tablet SENECA ([facility]) Prednisone 20 MG Oral Tablet prednisone 20 mg tablet prednisone 20 mg tablet completed prednisone 20 MG Oral Tablet SENECA ([facility]) Doxycycline Monohydrate 100 MG Oral Caps ule doxycycline monohydrate 100 mg capsule doxycycline monohydrate 100 mg capsule completed doxycycline monohydrate 100 MG Oral Capsule SENECA ([facility]) Fluzone Quad (PF) 60 mcg (15 mcg x 4)/0.5 mL IM syringe [id number] completed 0.5 ML influen za A virus A/ (H1N1) antigen 0.03 MG/ML / influenza A virus A/ (H3N2) antigen 0.03 MG/ML / influenza B virus B/ antigen 0.03 MG/ML / influenza B virus B/[facility]/3073 antigen 0.03 MG/ML Prefilled Syringe [Fluzone Quadrivalent [id number]] ML ([facility]) Sertraline 25 MG Oral Tablet sertraline 25 mg tablet TAKE ONE TABLET BY MOUTH ONCE A DAY sertraline 25 mg tablet TAKE ONE TABLET BY MOUTH ONCE A DAY completed sertraline 25 MG Oral Tab let ML ([facility]) Prazosin 1 MG Oral Capsule prazosin 1 mg capsule prazosin 1 mg capsule completed prazosin 1 MG Oral Capsul e ML ([facility]) Prednisone 20 MG Oral Tablet prednisone 20 mg tablet prednisone 20 mg tablet completed prednisone 20 MG Oral Tablet ML ([facility]) Sertraline 25 MG Oral Tablet sertraline 25 mg tablet TAKE ONE TABLET BY MOUTH ONCE A DAY sertraline 25 mg tablet TAKE ONE TABLET BY MOUTH ONCE A DAY completed sertraline 25 MG Oral Tab let ML ([facility]) Prednisone 20 MG Oral Tablet prednisone 20 mg tablet prednisone 20 mg tablet completed prednisone 20 MG Oral Tablet ML ([facility]) Sertraline 50 MG Oral Tablet sertraline 50 mg tablet sertraline 50 mg tablet completed sertraline 50 MG Oral Tablet ML ([facility]) Prednisone 20 MG Oral Tablet prednisone 20 mg tablet prednisone 20 mg tablet completed prednisone 20 MG Oral Tablet ML ([facility]) Cyclobenzaprine hydrochloride 10 MG Oral Tablet cyclob enzaprine 10 mg tablet cyclobenzaprine 10 mg tablet completed cyclobenzaprine hydrochloride 10 MG Oral Tablet ML ([facility]) Amoxicillin 875 MG Oral Tablet amoxicill in 875 mg tablet TAKE ONE TABLET BY MOUTH EVERY 12 HOURS FOR 10 DAYS amoxicillin 875 mg tablet TAKE ONE TABLE T BY MOUTH EVERY 12 HOURS FOR 10 DAYS compl eted amoxicillin 875 MG Oral Tablet ML ([facility]) Sertraline 100 MG Oral Tablet sertraline 100 mg tablet TAKE ONE TABLET BY MOUTH EVERY DAY sertraline 100 mg tablet TAKE ONE TABLET BY MOUTH EVERY DAY completed sertraline 100 MG Oral Table t ML ([facility]) Insurance Providers Payer name Policy type / Coverage type Policy ID Covered republican ID Covered republican's relationship to jasso Policy Jasso Plan Information PERSONAL PAY UNAVAILABLE SELF UNAVA ILABLE [facility] COMMUNITY PLAN [id number] SELF [id number] BLUE CROSS SHAH PLAN [id number] SP [id number] HMO BLUE [id number] SP [id number] [facility] Community Plan Medigap Part B [id number] Self [id number] [facility] Community Plan Medigap Part B [id number] Self [id number] Medicaid S [id number] S [id number] Managed Care - Community Plan [facility] P [id number] S [id number] Managed Care - Community Plan [facility] P [id number] S [id number] Medicaid S [id number] S [id number] Managed Care - [facility] Community Plan P [id number] S [id number] Managed Care - Community Plan [facility] P [id number] S [id number] Managed Care - [facility] Community Plan P [id number] S [id number] Medicaid S [id number] S [id number] [facility] [id number] [facility] [id number] Mignon [id number] [facility] [id number] SP [id number] UN[facility] COMMUNITY PLAN MCDO [id number] SP [id number] [facility] [id number] SP [id number] [facility] [id number] SP [id number] [employer] COMMUNITY PLAN MCDO [id number] SP [id number] Medicaid [place] Medicaid [id number] Self [id number] [facility](MCAID) O [id number] S [id number] [facility] Health Maintenance Organization (HMO) [id number] Self [id number] MEDICAID [id number] SP [id number] Medicaid P [id number] S [id number] SELF PAY UNAVAILABLE SP UNAVAILA BLE [facility](MCAID) P [id number] S [id number] Medicaid Dental P [id number] S [id number] [facility] [id number] SP [id number] [facility] [id number] SP [id number] Problems, Conditions, and Diagnoses Code Display Name Description Problem Type Effective Dates Data Source(s) R03.0 Elevated blood-pressure reading, without diagnosis of hypertension Elevated blood-pressure reading, without Diagnosis 08/25/2020 03:52:41 PM EDT [facility] [id number] Hypertensive disorder Hypertensive Disorder Problem 10/06/2020 12:00:00 AM EDT SENECA ([facility]) [id number] Hypertensive disorder Hypertensive Disorder Problem 10/06/2020 12:00:00 AM EDT SENECA ([facility]) [id number] Menometrorrhagia Menometrorrhagia Problem 09/03/2020 12 :00:00 AM EDT SENECA ([facility]) [id number] Menometrorrhagia Menometrorrhagia Problem 09/03/2020 12 :00:00 AM EDT SENECA ([facility]) [id number] Menometrorrhagia Menometrorrhagia Problem 09/03/2020 12 :00:00 AM EDT SENECA ([facility]) R03.0 Elevated blood pressure reading Elevated blood pressur e reading [id number] 08/25/2020 12:00:00 AM EDT [facility] [id number] Gastroesophageal reflux disease without esophagitis Gastroesophageal Reflux Disease without Esophagitis Problem 08/05/2020 12:00:00 AM ED T SENECA ([facility]) [id number] Allergic rhinitis Allergic Rhinitis Problem 08/05/2020 12:00:00 AM EDT SENECA ([facility]) [id number] Gastroesophageal reflux disease without esophagitis Gastroesophageal Reflux Disease without Esophagitis Problem 08/05/2020 12:00:00 AM ED T SENECA ([facility]) [id number] Allergic rhinitis Allergic Rhinitis Problem 08/05/2020 12:00:00 AM EDT SENECA ([facility]) [id number] Gastroesophageal reflux disease without esophagitis Gastroesophageal Reflux Disease without Esophagitis Problem 08/05/2020 12:00:00 AM ED T SENECA ([facility]) [id number] Allergic rhinitis Allergic Rhinitis Problem 08/05/2020 12:00:00 AM EDT ML ([facility]) [id number] Gastroesophageal reflux disease without esophagitis Gastroesophageal Reflux Disease without Esophagitis Problem 08/05/2020 12:00:00 AM ED T ML ([facility]) [id number] Allergic rhinitis Allergic Rhinitis Problem 08/05/2020 12:00:00 AM EDT ML ([facility]) [id number] Diarrhea Diarrhea Problem 04/14/2020 12:00:00 AM ES T ML ([facility]) [id number] Diarrhea Diarrhea Problem 04/14/2020 12:00:00 AM ES T ML ([facility]) [id number] Diarrhea Diarrhea Problem 04/14/2020 12:00:00 AM ES T ML ([facility]) [id number] Diarrhea Diarrhea Problem 04/14/2020 12:00:00 AM ES Srinath ML ([facility]) [id number] Diarrhea Diarrhea Problem 04/14/2020 12:00:00 AM ES T ML ([facility]) [id number] Diarrhea Diarrhea Problem 04/14/2020 12:00:00 AM ES Srinath ML ([facility]) [id number] Diarrhea Diarrhea Problem 04/14/2020 12:00:00 AM ES T ML ([facility]) [id number] Diarrhea Diarrhea Problem 04/14/2020 12:00:00 AM ES Srinath HUBBARDML ([facility]) Surgeries/Procedures Procedure Description Date Indications Data Source(s) RADEX FOOT COMPLETE MINIMUM 3 VIEWS 11/09/2020 12:00:0 0 AM EDT MEDENT ([facility]) FX Metatarsal W/O Manipulation 10/29/2020 12:00:00 AM EDT MEDENT ([facility]) OFFICE OUTPATIENT VISIT 25 MINUTES 10/29/2020 12:00:00 AM EDT MEDENT ([facility]) ECG ROUTINE ECG W/LEAST 12 LDS W/I&R <td>POCT AMB EKG</td><td>Routine</td><td>08/25/2020 4:16 PM EDT</td><td> Elevated blood pressure reading</td><td> </td> 08/25/2020 04:16:00 PM EDT Elevated blood pressure reading [facility] Elevated blood pressure reading Results ID Date Data Source [id number] 07/05/2020 07:28:00 AM EDT [facility]) Name Value Range Interpretation Code Description Data Charu rce(s) Supporting Document(s) CPK creatine phosphokinase 1152 U/L 26-192 Above high nor mal CPK Creatine Phosphokinase [facility]) ID Date Data Source [id number] 07/05/2020 07:28:00 AM EDT [facility]) Name Value Range Interpretation Code Description Data Charu rce(s) Supporting Document(s) CPK creatine phosphokinase 1152 U/L 26-192 Above high nor mal CPK Creatine Phosphokinase [facility]) ID Date Data Source [id number] 07/05/2020 07:28:00 AM EDT [facility]) Name Value Range Interpretation Code Description Data Charu rce(s) Supporting Document(s) CPK creatine phosphokinase 1152 U/L 26-192 Above high nor mal CPK Creatine Phosphokinase [facility]) ID Date Data Source [id number] 07/05/2020 07:28:00 AM EDT [facility]) Name Value Range Interpretation Code Description Data Charu rce(s) Supporting Document(s) CPK creatine phosphokinase 1152 U/L 26-192 Above high nor mal CPK Creatine Phosphokinase [facility]) ID Date Data Source [id number] 07/05/2020 07:28:00 AM EDT [facility]) Name Value Range Interpretation Code Description Data Charu rce(s) Supporting Document(s) CPK creatine phosphokinase 1152 U/L 26-192 Above high nor mal CPK Creatine Phosphokinase ML ([facility]) ID Date Data Source [id number] 06/03/2020 09:45:00 AM EST SENECA ([facility]) Name Value Range Interpretation Code Description Data Charu rce(s) Supporting Document(s) thyroid stimulating hormone 2.250 uIU/mL 0.358-3.740 Thyroid Stimulating Hormone ML ([facility]) ID Date Data Source [id number] 06/03/2020 09:45:00 AM EST SENECA ([facility]) Name Value Range Interpretation Code Description Data Charu rce(s) Supporting Document(s) triglycerides level 91 mg/dL <150 Triglycerides [place]in ML ([facility]) cholesterol level 225 mg/dL <200 Above high normal Cholesterol Level ML ([facility]) non-HDL-C 161 mg/dL Non-hdl-c ML ([facility]) Cholesterol in LDL [Mass/volume] in Serum or Plasma 143 mg/dL <100 Above high normal LDL Cholesterol ML ([facility]) HDL cholesterol 64 mg/dL >40 HDL Cholesterol ATHE NA ([facility]) cholesterol risk ratio <5 Cholesterol R isk Ratio SENECA ([facility]) ID Date Data Source [id number] 06/03/2020 09:45:00 AM EST SENECA ([facility]) Name Value Range Interpretation Code Description Data Charu rce(s) Supporting Document(s) glucose, fasting 100 mg/dL 70-100 Glucose, Fasting AT [facility] ([facility]) blood urea nitrogen 12 mg/dL 7-18 Blood Urea Nitro gen ML ([facility]) creatinine for GFR 0.71 mg/dL 0.55-1.30 Creatinine for GF R ML ([facility]) glomerular filtration rate > 60.0 >58 Glomerula r Filtration Rate SENECA ([facility]) sodium level 138 mEq/L 136-145 Sodium Level ML (No [facility]) chloride level 105 mEq/L 98-107 Chloride Level ML ([facility]) potassium serum 4.1 mEq/L 3.5-5.1 Potassium Serum ATHE NA ([facility]) carbon dioxide level 25 mEq/L 21-32 Carbon Dioxide Level ML ([facility]) anion gap 8 mEq/L 8-16 Anion Gap ML ([facility]) calcium level 9.3 mg/dL 8.5-10.1 Calcium Level ML ( [facility]) ALT/SGPT 28 U/L 12-78 ALT/SGPT ML ([facility]) AST/SGOT 14 U/L 7-37 AST/SGOT ML ([facility]) alkaline phosphatase 60 U/L 45-117 Alkaline Phosph atase ML ([facility]) bilirubin,total 0.2 mg/dL 0.2-1.0 Bilirubin,total ATHE NA ([facility]) total protein 7.2 gm/dL 6.4-8.2 Total Protein ML ( [facility]) albumin 4.3 gm/dL 3.2-5.2 Albumin ML ([facility]) albumin/globulin ratio 1.2-2.2 Albumin/globu dharmesh Ratio ML ([facility]) ID Date Data Source [id number] 06/03/2020 09:45:00 AM EST ML ([facility]) Name Value Range Interpretation Code Description Data Charu rce(s) Supporting Document(s) thyroid stimulating hormone 2.250 uIU/mL 0.358-3.740 Thyroid Stimulating Hormone ML ([facility]) ID Date Data Source [id number] 06/03/2020 09:45:00 AM EST ML ([facility]) Name Value Range Interpretation Code Description Data Charu rce(s) Supporting Document(s) triglycerides level 91 mg/dL <150 Triglycerides [place]in ML ([facility]) cholesterol level 225 mg/dL <200 Above high normal Cholesterol Level ML ([facility]) Cholesterol in LDL [Mass/volume] in Serum or Plasma 143 mg/dL <100 Above high normal LDL Cholesterol ML ([facility]) HDL cholesterol 64 mg/dL >40 HDL Cholesterol ATHE NA ([facility]) non-HDL-C 161 mg/dL Non-hdl-c ML ([facility]) cholesterol risk ratio <5 Cholesterol R isk Ratio ML ([facility]) ID Date Data Source [id number] 06/03/2020 09:45:00 AM EST ML ([facility]) Name Value Range Interpretation Code Description Data Charu rce(s) Supporting Document(s) blood urea nitrogen 12 mg/dL 7-18 Blood Urea Nitro gen ML ([facility]) glucose, fasting 100 mg/dL 70-100 Glucose, Fasting AT [facility] ([facility]) creatinine for GFR 0.71 mg/dL 0.55-1.30 Creatinine for GF R ML ([facility]) sodium level 138 mEq/L 136-145 Sodium Level ML ([facility]) glomerular filtration rate > 60.0 >58 Glomerula r Filtration Rate ML ([facility]) chloride level 105 mEq/L 98-107 Chloride Level ML ([facility]) potassium serum 4.1 mEq/L 3.5-5.1 Potassium Serum ATHE ([facility]) carbon dioxide level 25 mEq/L 21-32 Carbon Dioxide Level ML ([facility]) calcium level 9.3 mg/dL 8.5-10.1 Calcium Level ML ( [facility]) anion gap 8 mEq/L 8-16 Anion Gap ML ([facility]) AST/SGOT 14 U/L 7-37 AST/SGOT ML ([facility]) ALT/SGPT 28 U/L 12-78 ALT/SGPT ML ([facility]) alkaline phosphatase 60 U/L 45-117 Alkaline Phosph atase ML ([facility]) bilirubin,total 0.2 mg/dL 0.2-1.0 Bilirubin,total ATHE NA ([facility]) total protein 7.2 gm/dL 6.4-8.2 Total Protein ML ( [facility]) albumin 4.3 gm/dL 3.2-5.2 Albumin ML ([facility]) albumin/globulin ratio 1.2-2.2 Albumin/globu dharmesh Ratio ML ([facility]) ID Date Data Source [id number] 06/03/2020 09:45:00 AM EST ML ([facility]) Name Value Range Interpretation Code Description Data Charu rce(s) Supporting Document(s) thyroid stimulating hormone 2.250 uIU/mL 0.358-3.740 Thyroid Stimulating Hormone ML ([facility]) ID Date Data Source [id number] 06/03/2020 09:45:00 AM EST ML ([facility]) Name Value Range Interpretation Code Description Data Charu rce(s) Supporting Document(s) cholesterol level 225 mg/dL <200 Above high normal Cholesterol Level ML ([facility]) triglycerides level 91 mg/dL <150 Triglycerides [place] martin ML ([facility]) non-HDL-C 161 mg/dL Non-hdl-c ML ([facility]) HDL cholesterol 64 mg/dL >40 HDL Cholesterol ATHE NA ([facility]) cholesterol risk ratio <5 Cholesterol R isk Ratio ML ([facility]) Cholesterol in LDL [Mass/volume] in Serum or Plasma 143 mg/dL <100 Above high normal LDL Cholesterol ML ([facility]) ID Date Data Source [id number] 06/03/2020 09:45:00 AM EST ML ([facility]) Name Value Range Interpretation Code Description Data Charu rce(s) Supporting Document(s) glucose, fasting 100 mg/dL 70-100 Glucose, Fasting AT [facility] ([facility]) blood urea nitrogen 12 mg/dL 7-18 Blood Urea Nitro gen ML ([facility]) sodium level 138 mEq/L 136-145 Sodium Level ML ([facility]) glomerular filtration rate > 60.0 >58 Glomerula r Filtration Rate ML ([facility]) creatinine for GFR 0.71 mg/dL 0.55-1.30 Creatinine for GF R ML ([facility]) carbon dioxide level 25 mEq/L 21-32 Carbon Dioxide Level ML ([facility]) chloride level 105 mEq/L 98-107 Chloride Level ML ([facility]) potassium serum 4.1 mEq/L 3.5-5.1 Potassium Serum ATHE NA ([facility]) anion gap 8 mEq/L 8-16 Anion Gap ML ([facility]) alkaline phosphatase 60 U/L 45-117 Alkaline Phosph atase ML ([facility]) AST/SGOT 14 U/L 7-37 AST/SGOT ML ([facility]) calcium level 9.3 mg/dL 8.5-10.1 Calcium Level ML ( [facility]) ALT/SGPT 28 U/L 12-78 ALT/SGPT ML ([facility]) albumin/globulin ratio 1.2-2.2 Albumin/globu dharmesh Ratio ML ([facility]) bilirubin,total 0.2 mg/dL 0.2-1.0 Bilirubin,total ATHE NA ([facility]) albumin 4.3 gm/dL 3.2-5.2 Albumin ML ([facility]) total protein 7.2 gm/dL 6.4-8.2 Total Protein ML ( [facility]) ID Date Data Source [id number] 06/03/2020 09:45:00 AM EST ML ([facility]) Name Value Range Interpretation Code Description Data Charu rce(s) Supporting Document(s) thyroid stimulating hormone 2.250 uIU/mL 0.358-3.740 Thyroid Stimulating Hormone ML ([facility]) ID Date Data Source [id number] 06/03/2020 09:45:00 AM EST ML ([facility]) Name Value Range Interpretation Code Description Data Charu rce(s) Supporting Document(s) triglycerides level 91 mg/dL <150 Triglycerides [place]in ML ([facility]) Cholesterol in LDL [Mass/volume] in Serum or Plasma 143 mg/dL <100 Above high normal LDL Cholesterol ML ([facility]) cholesterol level 225 mg/dL <200 Above high normal Cholesterol Level ML ([facility]) HDL cholesterol 64 mg/dL >40 HDL Cholesterol ATHE ([facility]) cholesterol risk ratio <5 Cholesterol R isk Ratio ML ([facility]) non-HDL-C 161 mg/dL Non-hdl-c ML ([facility]) ID Date Data Source [id number] 06/03/2020 09:45:00 AM EST ML ([facility]) Name Value Range Interpretation Code Description Data Charu rce(s) Supporting Document(s) glucose, fasting 100 mg/dL 70-100 Glucose, Fasting AT [facility]) glomerular filtration rate > 60.0 >58 Glomerula r Filtration Rate ML ([facility]) blood urea nitrogen 12 mg/dL 7-18 Blood Urea Nitro gen ML ([facility]) creatinine for GFR 0.71 mg/dL 0.55-1.30 Creatinine for GF R ML ([facility]) sodium level 138 mEq/L 136-145 Sodium Level ML ([facility]) carbon dioxide level 25 mEq/L 21-32 Carbon Dioxide Level ML ([facility]) potassium serum 4.1 mEq/L 3.5-5.1 Potassium Serum ATHE ([facility]) chloride level 105 mEq/L 98-107 Chloride Level ML ([facility]) anion gap 8 mEq/L 8-16 Anion Gap ML ([facility]) calcium level 9.3 mg/dL 8.5-10.1 Calcium Level ML ( [facility]) bilirubin,total 0.2 mg/dL 0.2-1.0 Bilirubin,total ATHE NA ([facility]) AST/SGOT 14 U/L 7-37 AST/SGOT ML ([facility]) ALT/SGPT 28 U/L 12-78 ALT/SGPT ML ([facility]) alkaline phosphatase 60 U/L 45-117 Alkaline Phosph atase ML ([facility]) albumin 4.3 gm/dL 3.2-5.2 Albumin ML ([facility]) albumin/globulin ratio 1.2-2.2 Albumin/globu dharmesh Ratio ML ([facility]) total protein 7.2 gm/dL 6.4-8.2 Total Protein ML ( [facility]) ID Date Data Source [id number] 06/03/2020 09:45:00 AM EST ML ([facility]) Name Value Range Interpretation Code Description Data Charu rce(s) Supporting Document(s) thyroid stimulating hormone 2.250 uIU/mL 0.358-3.740 Thyroid Stimulating Hormone ML ([facility]) ID Date Data Source [id number] 06/03/2020 09:45:00 AM EST ML ([facility]) Name Value Range Interpretation Code Description Data Charu rce(s) Supporting Document(s) cholesterol level 225 mg/dL <200 Above high normal Cholesterol Level ML ([facility]) triglycerides level 91 mg/dL <150 Triglycerides [place] martin ML ([facility]) cholesterol risk ratio <5 Cholesterol R isk Ratio ML ([facility]) Cholesterol in LDL [Mass/volume] in Serum or Plasma 143 mg/dL <100 Above high normal LDL Cholesterol ML ([facility]) non-HDL-C 161 mg/dL Non-hdl-c ML ([facility] [facility]) HDL cholesterol 64 mg/dL >40 HDL Cholesterol ATHE NA ([facility]) ID Date Data Source [id number] 06/03/2020 09:45:00 AM EST ML ([facility]) Name Value Range Interpretation Code Description Data Charu rce(s) Supporting Document(s) glucose, fasting 100 mg/dL 70-100 Glucose, Fasting AT JOSE E ([facility]) blood urea nitrogen 12 mg/dL 7-18 Blood Urea Nitro gen ML ([facility]) glomerular filtration rate > 60.0 >58 Glomerula r Filtration Rate ML ([facility]) creatinine for GFR 0.71 mg/dL 0.55-1.30 Creatinine for GF R ML ([facility]) sodium level 138 mEq/L 136-145 Sodium Level ML ([facility]) chloride level 105 mEq/L 98-107 Chloride Level ML ([facility]) anion gap 8 mEq/L 8-16 Anion Gap ML ([facility]) potassium serum 4.1 mEq/L 3.5-5.1 Potassium Serum ATHE ([facility]) carbon dioxide level 25 mEq/L 21-32 Carbon Dioxide Level ML ([facility]) ALT/SGPT 28 U/L 12-78 ALT/SGPT ML ([facility]) alkaline phosphatase 60 U/L 45-117 Alkaline Phosph atase ML ([facility]) calcium level 9.3 mg/dL 8.5-10.1 Calcium Level ML ( [facility]) AST/SGOT 14 U/L 7-37 AST/SGOT ML ([facility]) total protein 7.2 gm/dL 6.4-8.2 Total Protein ML ( [facility]) bilirubin,total 0.2 mg/dL 0.2-1.0 Bilirubin,total ATHE NA ([facility]) albumin 4.3 gm/dL 3.2-5.2 Albumin ML ([facility]) albumin/globulin ratio 1.2-2.2 Albumin/globu dharmesh Ratio ML ([facility]) ID Date Data Source [id number] 06/03/2020 09:45:00 AM EST ML ([facility]) Name Value Range Interpretation Code Description Data Charu rce(s) Supporting Document(s) thyroid stimulating hormone 2.250 uIU/mL 0.358-3.740 Thyroid Stimulating Hormone ML ([facility]) ID Date Data Source [id number] 06/03/2020 09:45:00 AM EST ML ([facility]) Name Value Range Interpretation Code Description Data Charu rce(s) Supporting Document(s) HDL cholesterol 64 mg/dL >40 HDL Cholesterol ATHE NA ([facility]) cholesterol level 225 mg/dL <200 Above high normal Cholesterol Level ML ([facility]) triglycerides level 91 mg/dL <150 Triglycerides [place]in ML ([facility]) Cholesterol in LDL [Mass/volume] in Serum or Plasma 143 mg/dL <100 Above high normal LDL Cholesterol ML ([facility]) cholesterol risk ratio <5 Cholesterol R isk Ratio ML ([facility]) non-HDL-C 161 mg/dL Non-hdl-c ML ([facility]) ID Date Data Source [id number] 06/03/2020 09:45:00 AM EST ML ([facility]) Name Value Range Interpretation Code Description Data Charu rce(s) Supporting Document(s) glucose, fasting 100 mg/dL 70-100 Glucose, Fasting AT [facility]) sodium level 138 mEq/L 136-145 Sodium Level ML ([facility]) creatinine for GFR 0.71 mg/dL 0.55-1.30 Creatinine for GF R ML ([facility]) blood urea nitrogen 12 mg/dL 7-18 Blood Urea Nitro gen ML ([facility]) glomerular filtration rate > 60.0 >58 Glomerula r Filtration Rate ML ([facility]) carbon dioxide level 25 mEq/L 21-32 Carbon Dioxide Level ML ([facility]) anion gap 8 mEq/L 8-16 Anion Gap ML ([facility]) chloride level 105 mEq/L 98-107 Chloride Level ML ([facility]) potassium serum 4.1 mEq/L 3.5-5.1 Potassium Serum ATHE ([facility]) alkaline phosphatase 60 U/L 45-117 Alkaline Phosph atase ML ([facility]) calcium level 9.3 mg/dL 8.5-10.1 Calcium Level ML ( [facility]) ALT/SGPT 28 U/L 12-78 ALT/SGPT ML ([facility]) bilirubin,total 0.2 mg/dL 0.2-1.0 Bilirubin,total ATHE NA ([facility]) AST/SGOT 14 U/L 7-37 AST/SGOT ML ([facility]) total protein 7.2 gm/dL 6.4-8.2 Total Protein ML ( [facility]) albumin/globulin ratio 1.2-2.2 Albumin/globu dharmesh Ratio ML ([facility]) albumin 4.3 gm/dL 3.2-5.2 Albumin ML ([facility]) ID Date Data Source [id number] 06/03/2020 09:45:00 AM EST ML ([facility]) Name Value Range Interpretation Code Description Data Charu rce(s) Supporting Document(s) thyroid stimulating hormone 2.250 uIU/mL 0.358-3.740 Thyroid Stimulating Hormone ML ([facility]) ID Date Data Source [id number] 06/03/2020 09:45:00 AM EST ML ([facility]) Name Value Range Interpretation Code Description Data Charu rce(s) Supporting Document(s) HDL cholesterol 64 mg/dL >40 HDL Cholesterol ATHE NA ([facility]) triglycerides level 91 mg/dL <150 Triglycerides [place] ML ([facility]) cholesterol level 225 mg/dL <200 Above high normal Cholesterol Level ML ([facility]) Cholesterol in LDL [Mass/volume] in Serum or Plasma 143 mg/dL <100 Above high normal LDL Cholesterol ML ([facility]) non-HDL-C 161 mg/dL Non-hdl-c ML ([facility]) cholesterol risk ratio <5 Cholesterol R isk Ratio ML ([facility]) ID Date Data Source [id number] 06/03/2020 09:45:00 AM EST ML ([facility]) Name Value Range Interpretation Code Description Data Charu rce(s) Supporting Document(s) glucose, fasting 100 mg/dL 70-100 Glucose, Fasting AT JOSE E ([facility]) creatinine for GFR 0.71 mg/dL 0.55-1.30 Creatinine for GF R SENECA ([facility]) glomerular filtration rate > 60.0 >58 Glomerula r Filtration Rate ML ([facility]) blood urea nitrogen 12 mg/dL 7-18 Blood Urea Nitro gen ML ([facility]) sodium level 138 mEq/L 136-145 Sodium Level ML ([facility]) potassium serum 4.1 mEq/L 3.5-5.1 Potassium Serum ATHE NA ([facility]) carbon dioxide level 25 mEq/L 21-32 Carbon Dioxide Level ML ([facility]) chloride level 105 mEq/L 98-107 Chloride Level ML ([facility]) calcium level 9.3 mg/dL 8.5-10.1 Calcium Level ML ( [facility]) ALT/SGPT 28 U/L 12-78 ALT/SGPT ML ([facility]) anion gap 8 mEq/L 8-16 Anion Gap ML ([facility]) AST/SGOT 14 U/L 7-37 AST/SGOT ML ([facility]) total protein 7.2 gm/dL 6.4-8.2 Total Protein ML ( [facility]) alkaline phosphatase 60 U/L 45-117 Alkaline Phosph atase ML ([facility]) albumin/globulin ratio 1.2-2.2 Albumin/globu dharmesh Ratio ML ([facility]) bilirubin,total 0.2 mg/dL 0.2-1.0 Bilirubin,total ATHE NA ([facility]) albumin 4.3 gm/dL 3.2-5.2 Albumin ML ([facility]) ID Date Data Source [id number] 02/27/2020 12:00:00 AM EST [facility] Name Value Range Interpretation Code Description Data Charu rce(s) Supporting Document(s) SARS coronavirus 2 RNA [facility] This lab was ordered by [facility] and rep orted by [facility]. ID Date Data Source [id number] 01/28/2020 10:18:21 AM EDT [facility] Measurements & CalculationsHeight: 61 inches (5 ft. 1 in.) 154.94 cm Weight: 138 pounds 2 oz. 62.79 kg Body Mass Index (BMI): 26.19BMI Interpretation: OverweightBody Surface Area (BSA): 1.62Weight Management Education Done (Nutrition/Physical Activity)Vital SignsTemperature: 98.5F tympanic Pulse Rate: 95 beats/minuteRespiratory Rate: 16 respirations/minuteBlood Pressure: 136/95 right arm sitting automaticO2 Saturation: 99% room airVital Signs performed by: Juan Mendez LPN, January 28, 2020 10:31 AMInitial Intake Information From: patientRoom #: 15Infectious Disease / Travel ScreeningRecent travel for you or any close contacts? NoHave you had any close contact with anyone diagnosed with or under investigation for COVID-19 (coronavirus)? NoFever? NoRespiratory symptoms: cough, cold, congestion, shortness of breath, difficulty breathing? NoLoss of smell? NoLoss of taste? NoSmoking, Tobacco, Vaping or Smoke Exposure StatusSmoke Status: former smokerTobacco Use: NoDo you vape? NoPassive Smoke Exposure: NoMenstrual HistoryLast Menstrual Period (LMP): 01/25/2020Any possibility of ? NoComments: tubal ligation Healthcare HistorySince your last office visit...Have you been admitted to the hospital? NoHave you been to an emergency room (ER) or urgent care clinic? NoHave you seen another healthcare provider? Yes - [facility] Have you seen a dentist? Yes - [facility] Int[facility] performed by: Juan Mendez LPN, January 28, 2020 10:21 AMRate Your HealthIn gene ral, would you say your health is? GoodPain AssessmentAre you currently having any pain which... You would like your provider to address? Yes Affects your activity level? YesDepression Screening - PHQ-2Over the last two weeks, have you... Had little interest or pleasure in doing things? Several days Been feeling down, depressed, or hopeless? Several days PHQ-2 Score: 2Anxiety Screening - JAMIE-2Over the last two weeks, have you been... Feeling nervous, anxious, or on edge? Nearly every day Unable to stop or control worrying? More than half the days JAMIE-2 Score: 5Food InsecurityWithin the past year...Did you worry whether your food would run out before you got money to buy more? Never trueWas there a time when the food you bought didn't last and you didn't have money to get more? Never truePatient Learning & Communication Needs Preferred learning style: by experiencePossible barriers: nonePatient's Language used in visit: YesLanguage: EnglishGeneralized Anxiety Disorder 7-Item S creening (JAMIE-7)Answer Guide:0 = Not at all1 = Several days2 = Over half the days3 = Nearly every dayOver the last 2 weeks, how often have you been bothered by the following problems?Feeling nervous, anxious, or on edge: 3Not being able to stop or control worryinWorrying too much about different things: 2Trouble relaxinBeing so restless that it's hard to sit still: 1Becoming easily annoyed or irritable: 1Feeling afraid as if something awful might happen: 1Answer Guide:0 = Not difficult at all1 = Somewhat difficult2 = Very difficult3 = Extremely difficultHow difficult have these made it for you to do your work, take care of things at home, or get along with other people? 2GAD-7 Screening Results JAMIE-2 Score: 5GAD-7 Score: 12Functional Impairment: Very difficultRecommendation: Moderate anxietyPHQ-9 1. Over the last 2 weeks, patient reports the following frequency of symptoms: a. Little interest or pleasure in doing things -Several days b. Feeling down, depressed, or hopeless -Several days c. Trouble falling asleep, staying asleep, or sleeping too much - Nearly every day d. Feeling tired or having little energy -Nearly every day e. Poor appetite or overeating -More than half the days f. Feeling bad about yourself, feeling that you are a failure, or feeling that you have let yourself or your family down -Not at all g. Trouble concentrating on things such as reading the newspaper or watching television -More than half the days h. Moving or speaking so slowly that other people could have noticed. Or being so fidgety or restless that you have been moving around a lot more than usual -Not at all i. Thinking that you would be better off or that you want to hurt yourself in some way -Not at all2. If you checked off any problems, how difficult have these problems made it for you to do your work, take care of things at home, or get along with other people? -Somewhat DifficultToday's PHQ-9 Results Score: 12 Severity: Moderate Diagnosis Recommendation: No recommendati on Functional Impairment: Somewhat DifficultPain AssessmentPain ScaleNumeric Rating Scale: 7 / 10Location: left upper and lower back Duration: chronicFrequency: DailyCharacter/Quality: aching and sharpIs the pain radiating? NoScreening, Brief Intervention, & Referral to Treatment (SBIRT)Pre-Screening Questions How many times have you have 4 or more drinks in a day? 0How many times have you used an illegal drug or used a prescription medication for a non- medical reason? 0Performed by: Juan Mendez LPN, January 28, 2020 10:26 AMPatient History Medical History:GERDMigrainesAnemicDepressionBuldging Discshigh Cholesterolovarian cystSurgical History:Tubaloral surgery Family History:Cancer - Colorectal (Maternal Grandfather)Sister- Brain TumorHypertension (Maternal Grandmother)Diabetes (Maternal Grandfather)Father- High CholesterrolSocial/Personal History: Chief ComplaintMed refills RM 15 History of Present Illness (HPI)39 yo female PT here today for medication refills. PT states she has chronic left side lower and upper back pain. Pt states she is taking all meications with no side effects or issues. Feels as if the pain is worse than it was. Wondering about getting a referral to a chiropractor. Upper and lower back. For years. Also arm pain on the left. Suicide attempt 3 months ago resulting in infection and needing suturing. Some relief with Nparoxen.Seeing Mental Health Provider here in town for mood disorder. This seems to be going well per patient. No suicidal ideation today.Transitions of Care InboundProblem ReviewProblem List was reviewed and/or updated during this visit.Medication Reconciliation & ReviewMedication List was reviewed and/or updated during this visit, including review of any [id number] medications, herbal therapies, and/or supplements.Allergy ReviewAllergy List was reviewed and/or updated during this visit.Adult Preventive CareProvider Calculated and Reviewed all Clinical Protocols for patient today. Labs/Meds/Other Counseling- Nutrition and Physical Activity:BMI Interpretation: Overweight (01/28/2020) Counseling: Done (01/28/2020) Physical Activity: Done (01/28/2020)Review of Systems General: Denies chills, dizziness, fatigue, fever. Cardiovascular: Denies chest pain. Respiratory: Denies difficulty breathing, shortness of breath. Gastrointestinal: Denies diarrhea, constipation. Genitourinary: Denies pain with urination, urinary frequency, urinary urgency, incomplete emptying. Physical ExamGeneral Appearance: well nourished, well hydrated, no acute distressRespiratory, Auscultation: clear to auscultation bilaterally; no rales, rhonchi, or wheezesRespiratory, Effort: no intercostal retractions or use of accessory musclesCardiovascular, Auscultation: S1, S2 audible; no murmur, rub, or gallop; RRRSkin, Inspection: Multiple scars left arm. No erythema and edema.Orientation: oriented to time, place, and personMood & Affect: no depression, anxiety, or agitationJudgment & Insight: intactCare Management Plan Transitions of CareInboundRate Your HealthIn general, would you say your health is? GoodAssessment & Plan Problems:Assessed:Other specified depressive episodes (ICD-296.82) (OPJ10-L74.89) Assessment: Instructions: Stable.Recheck as scheduled with Mental Health.Low back pain (ICD-724.2) (BZV47-X11.5) Assessment: Instructions: Chronic and worsening despite a combintion of fairly potent medications. She will self refer to chiropractic.Conitnue current medications.If problems persist or worsen then may need a referral to Pain Clinic.Patient Instructions/Care Plan: Other specified depressive episodes: Stable.Recheck as scheduled with Mental Health.Low back pain: Chronic and worsening despite a combintion of fairly potent medications. She will self refer to chiropractic.Conitnue current medications.If problems persist or worsen then may need a referral to Pain Clinic. Plan developed in collaboration with patient and/or familyMedications:SERTRALINE HCL 25 MG ORAL TABLETBACLOFEN 10 MG ORAL TABLETTRAZODONE HCL 50 MG ORAL TABLETORPHENADRINE CITRATE ER 100 MG ORAL TABLET EXTENDED RELEASE 12 HOURLYRICA 150 MG ORAL CAPSULETRAMADOL HCL 50 MG ORAL TABLETOMEPRAZOLE 40 MG ORAL CAPSULE DELAYED RELEASEAllergies:JA (Arturo ild)Orders:Adult - Ofc Vst, EST, Level III [CPT-49641] Name Value Range Interpretation Code Description Data Charu rce(s) Supporting Document(s) Procedure Social History Code Duration Value Status Description Data Source(s ) Alcohol intake 08/25/2020 12:00:00 AM EDT Ex-drinker (finding) comp leted Ex- drinker (finding) [facility] Tobacco use and exposure 08/25/2020 12:00:00 AM EDT Never used co mpleted Never used [facility] Smoking 08/25/2020 12:00:00 AM EDT Former smoker completed Former smoker [facility] Vital Signs ID Date Data Source UNK Name Value Range Interpretation Code Description Data Source(s) Diastolic blood pressure 81 mm[Hg] 81 mm[Hg] ML ([facility]) Diastolic blood pressure 85 mm[Hg] 85 mm[Hg] LM ([facility]) Body height 61 [in_i] 61 [in_i] ML ([facility]) Systolic blood pressure 125 mm[Hg] 125 mm[Hg] A THENA ([facility]) Systolic blood pressure 131 mm[Hg] 131 mm[Hg] A THENA ([facility]) Diastolic blood pressure 102 mm[Hg] 102 mm[Hg] ML ([facility]) Body height 61 [in_i] 61 [in_i] ML ([facility]) Body mass index (BMI) [Ratio] 23.3 kg/m2 23.3 k g/m2 ML ([facility]) Systolic blood pressure 153 mm[Hg] 153 mm[Hg] A THENA ([facility]) Body weight 1973 [oz_av] 1973 [oz_av] ML ([facility]) Diastolic blood pressure 102 mm[Hg] 102 mm[Hg] ML ([facility]) Body height 61 [in_i] 61 [in_i] ML ([facility]) Body mass index (BMI) [Ratio] 23.3 kg/m2 23.3 k g/m2 ML ([facility]) Systolic blood pressure 153 mm[Hg] 153 mm[Hg] A THENA ([facility]) Body weight 1973 [oz_av] 1973 [oz_av] ML ([facility]) Diastolic blood pressure 92 mm[Hg] 92 mm[Hg] ML ([facility]) Body height 61 [in_i] 61 [in_i] ML ([facility]) Body mass index (BMI) [Ratio] 23.1 kg/m2 23.1 k g/m2 ML ([facility]) Systolic blood pressure 137 mm[Hg] 137 mm[Hg] A THENA ([facility]) Body weight 1956 [oz_av] 1956 [oz_av] ML ([facility]) Diastolic blood pressure 92 mm[Hg] 92 mm[Hg] ML ([facility]) Body height 61 [in_i] 61 [in_i] ML ([facility]) Body mass index (BMI) [Ratio] 23.1 kg/m2 23.1 k g/m2 ML ([facility]) Systolic blood pressure 137 mm[Hg] 137 mm[Hg] A [facility] ([facility]) Body weight 1956 [oz_av] 1956 [oz_av] ML ([facility]) Diastolic blood pressure 92 mm[Hg] 92 mm[Hg] ML ([facility]) Body height 61 [in_i] 61 [in_i] ML ([facility]) Body mass index (BMI) [Ratio] 23.1 kg/m2 23.1 k g/m2 ML ([facility]) Systolic blood pressure 137 mm[Hg] 137 mm[Hg] A [facility] ([facility]) Body weight 1956 [oz_av] 1956 [oz_av] ML ([facility]) Systolic blood pressure 122 mm[Hg] 122 mm[Hg] [facility] Diastolic blood pressure 75 mm[Hg] 75 mm[Hg] [facility] Heart rate 100 /min 100 /min [facility] Body height 152.4 cm 152.4 cm [facility] Body weight 54.432 kg 54.432 kg [facility] Body mass index (BMI) [Ratio] 23.44 kg/m2 23.44 kg/m2 [facility] Oxygen saturation in Arterial blood by Pulse oximetry 96 % 96 % [facility] Diastolic blood pressure 85 mm[Hg] 85 mm[Hg] ML ([facility]) Diastolic blood pressure 107 mm[Hg] 107 mm[Hg] ML ([facility]) Body height 61 [in_i] 61 [in_i] ML ([facility]) Body mass index (BMI) [Ratio] 23.1 kg/m2 23.1 k g/m2 ML ([facility]) Systolic blood pressure 145 mm[Hg] 145 mm[Hg] A THENA ([facility]) Systolic blood pressure 152 mm[Hg] 152 mm[Hg] A [facility] ([facility]) Body weight 1960 [oz_av] 1960 [oz_av] ML ([facility]) Body mass index (BMI) [Ratio] 23.1 kg/m2 23.1 k g/m2 ML ([facility]) Systolic blood pressure 152 mm[Hg] 152 mm[Hg] A THENA ([facility]) Body weight 1960 [oz_av] 1960 [oz_av] ML ([facility]) Diastolic blood pressure 85 mm[Hg] 85 mm[Hg] ML ([facility]) Diastolic blood pressure 107 mm[Hg] 107 mm[Hg] ML ([facility]) Body height 61 [in_i] 61 [in_i] ML ([facility]) Systolic blood pressure 145 mm[Hg] 145 mm[Hg] A THENA ([facility]) Diastolic blood pressure 85 mm[Hg] 85 mm[Hg] ML ([facility]) Diastolic blood pressure 107 mm[Hg] 107 mm[Hg] ML ([facility]) Body height 61 [in_i] 61 [in_i] ML ([facility]) Body mass index (BMI) [Ratio] 23.1 kg/m2 23.1 k g/m2 ML ([facility]) Systolic blood pressure 145 mm[Hg] 145 mm[Hg] A THENA ([facility]) Systolic blood pressure 152 mm[Hg] 152 mm[Hg] A THENA ([facility]) Body weight 1960 [oz_av] 1960 [oz_av] ML ([facility]) Diastolic blood pressure 85 mm[Hg] 85 mm[Hg] ML ([facility]) Diastolic blood pressure 107 mm[Hg] 107 mm[Hg] ML ([facility]) Body height 61 [in_i] 61 [in_i] ML ([facility]) Body mass index (BMI) [Ratio] 23.1 kg/m2 23.1 k g/m2 ML ([facility]) Systolic blood pressure 145 mm[Hg] 145 mm[Hg] A THENA ([facility]) Systolic blood pressure 152 mm[Hg] 152 mm[Hg] A THENA ([facility]) Body weight 1960 [oz_av] 1960 [oz_av] ML ([facility]) Body height 61 [in_i] 61 [in_i] ML ([facility]) Diastolic blood pressure 90 mm[Hg] 90 mm[Hg] ML ([facility]) Body mass index (BMI) [Ratio] 25 kg/m2 25 kg/ m2 ML ([facility]) Systolic blood pressure 147 mm[Hg] 147 mm[Hg] A [facility] ([facility]) Body weight 2114 [oz_av] 2114 [oz_av] ML ([facility]) Diastolic blood pressure 90 mm[Hg] 90 mm[Hg] ML ([facility]) Body height 61 [in_i] 61 [in_i] ML ([facility]) Body mass index (BMI) [Ratio] 25 kg/m2 25 kg/ m2 ML ([facility]) Systolic blood pressure 147 mm[Hg] 147 mm[Hg] A [facility] ([facility]) Body weight 2114 [oz_av] 2114 [oz_av] ML ([facility]) Diastolic blood pressure 90 mm[Hg] 90 mm[Hg] ML ([facility]) Diastolic blood pressure 90 mm[Hg] 90 mm[Hg] ML ([facility]) Body height 61 [in_i] 61 [in_i] ML ([facility]) Body mass index (BMI) [Ratio] 25 kg/m2 25 kg/ m2 ML ([facility]) Systolic blood pressure 147 mm[Hg] 147 mm[Hg] A THENA ([facility]) Body weight 2114 [oz_av] 2114 [oz_av] ML ([facility]) Body height 61 [in_i] 61 [in_i] ML ([facility]) Body mass index (BMI) [Ratio] 25 kg/m2 25 kg/ m2 ML ([facility]) Systolic blood pressure 147 mm[Hg] 147 mm[Hg] A THENA ([facility]) Body weight 2114 [oz_av] 2114 [oz_av] ML ([facility]) Diastolic blood pressure 90 mm[Hg] 90 mm[Hg] ML ([facility]) Body height 61 [in_i] 61 [in_i] ML ([facility]) Body mass index (BMI) [Ratio] 25 kg/m2 25 kg/ m2 ML ([facility]) Systolic blood pressure 147 mm[Hg] 147 mm[Hg] A THENA ([facility]) Body weight 2114 [oz_av] 2114 [oz_av] ML ([facility]) Diastolic blood pressure 90 mm[Hg] 90 mm[Hg] ML ([facility]) Body height 61 [in_i] 61 [in_i] ML ([facility]) Body mass index (BMI) [Ratio] 25 kg/m2 25 kg/ m2 ML ([facility] [facility] Systolic blood pressure 147 mm[Hg] 147 mm[Hg] A [facility] ([facility]) Body weight 2114 [oz_av] 2114 [oz_av] ML ([facility]) Diastolic blood pressure 94 mm[Hg] 94 mm[Hg] ML ([facility]) Body height 61 [in_i] 61 [in_i] ML ([facility]) Body mass index (BMI) [Ratio] 24.1 kg/m2 24.1 k g/m2 ML ([facility]) Systolic blood pressure 148 mm[Hg] 148 mm[Hg] A [facility] ([facility]) Body weight 0 [oz_av] 2040 [oz_av] ML ([facility]) Diastolic blood pressure 94 mm[Hg] 94 mm[Hg] ML ([facility]) Body height 61 [in_i] 61 [in_i] ML ([facility]) Body mass index (BMI) [Ratio] 24.1 kg/m2 24.1 k g/m2 ML ([facility]) Systolic blood pressure 148 mm[Hg] 148 mm[Hg] A [facility] ([facility]) Body weight 0 [oz_av] 2040 [oz_av] ML ([facility]) Diastolic blood pressure 94 mm[Hg] 94 mm[Hg] ML ([facility]) Body height 61 [in_i] 61 [in_i] ML ([facility]) Body mass index (BMI) [Ratio] 24.1 kg/m2 24.1 k g/m2 ML ([facility]) Systolic blood pressure 148 mm[Hg] 148 mm[Hg] A [facility] ([facility]) Body weight 2039 [oz_av] 2040 [oz_av] ML ([facility]) Diastolic blood pressure 94 mm[Hg] 94 mm[Hg] ML ([facility]) Body height 61 [in_i] 61 [in_i] ML ([facility]) Body mass index (BMI) [Ratio] 24.1 kg/m2 24.1 k g/m2 ML ([facility]) Systolic blood pressure 148 mm[Hg] 148 mm[Hg] A [facility] ([facility]) Body weight 2039 [oz_av] 204 [oz_av] ML ([facility]) Diastolic blood pressure 94 mm[Hg] 94 mm[Hg] ML ([facility]) Body height 61 [in_i] 61 [in_i] ML ([facility]) Body mass index (BMI) [Ratio] 24.1 kg/m2 24.1 k g/m2 ML ([facility]) Systolic blood pressure 148 mm[Hg] 148 mm[Hg] A [facility] ([facility]) Body weight 2039 [oz_av] 204 [oz_av] ML ([facility]) Diastolic blood pressure 94 mm[Hg] 94 mm[Hg] ML ([facility]) Body height 61 [in_i] 61 [in_i] ML ([facility]) Body mass index (BMI) [Ratio] 24.1 kg/m2 24.1 k g/m2 ML ([facility]) Systolic blood pressure 148 mm[Hg] 148 mm[Hg] A [facility] ([facility]) Body weight 0 [oz_av] 2040 [oz_av] ML ([facility]) Diastolic blood pressure 94 mm[Hg] 94 mm[Hg] ML ([facility]) Body height 61 [in_i] 61 [in_i] ML ([facility]) Body mass index (BMI) [Ratio] 24.1 kg/m2 24.1 k g/m2 LM ([facility]) Systolic blood pressure 148 mm[Hg] 148 mm[Hg] A [facility] ([facility]) Body weight 2040 [oz_av] 2040 [oz_av] ML ([facility]) Diastolic blood pressure 94 mm[Hg] 94 mm[Hg] ML ([facility]) Body height 61 [in_i] 61 [in_i] ML ([facility]) Body mass index (BMI) [Ratio] 24.1 kg/m2 24.1 k g/m2 ML ([facility]) Systolic blood pressure 148 mm[Hg] 148 mm[Hg] A [facility] ([facility]) Body weight 2040 [oz_av] 2040 [oz_av] ML ([facility]) Diastolic blood pressure 95 mm[Hg] 95 mm[Hg] ML ([facility]) Body height 61 [in_i] 61 [in_i] ML ([facility]) Body mass index (BMI) [Ratio] 26.19 kg/m2 26.19 kg/m2 ML ([facility]) Systolic blood pressure 136 mm[Hg] 136 mm[Hg] A [facility] ([facility]) Body weight 2210.08 [oz_av] 2210.08 [oz_av] [facility] ([facility]) Diastolic blood pressure 95 mm[Hg] 95 mm[Hg] ML ([facility]) Body height 61 [in_i] 61 [in_i] ML ([facility]) Body mass index (BMI) [Ratio] 26.19 kg/m2 26.19 kg/m2 ML ([facility]) Systolic blood pressure 136 mm[Hg] 136 mm[Hg] A [facility] ([facility]) Body weight 2210.08 [oz_av] 2210.08 [oz_av] [facility] [place] ([facility]) Body weight 2210.08 [oz_av] 2210.08 [oz_av] [facility] [place] ([facility]) Diastolic blood pressure 95 mm[Hg] 95 mm[Hg] ML ([facility]) Body height 61 [in_i] 61 [in_i] ML ([facility]) Body mass index (BMI) [Ratio] 26.19 kg/m2 26.19 kg/m2 ML ([facility]) Systolic blood pressure 136 mm[Hg] 136 mm[Hg] A [facility] ([facility]) Diastolic blood pressure 95 mm[Hg] 95 mm[Hg] ML ([facility]) Body height 61 [in_i] 61 [in_i] ML ([facility]) Body mass index (BMI) [Ratio] 26.19 kg/m2 26.19 kg/m2 ML ([facility]) Systolic blood pressure 136 mm[Hg] 136 mm[Hg] A [facility] ([facility]) Body weight 2210.08 [oz_av] 2210.08 [oz_av] [facility] [place] ([facility]) Diastolic blood pressure 95 mm[Hg] 95 mm[Hg] ML ([facility]) Body height 61 [in_i] 61 [in_i] ML ([facility]) Body mass index (BMI) [Ratio] 26.19 kg/m2 26.19 kg/m2 ML ([facility]) Systolic blood pressure 136 mm[Hg] 136 mm[Hg] A [facility] ([facility]) Body weight 2210.08 [oz_av] 2210.08 [oz_av] [facility] [place] ([facility]) Diastolic blood pressure 95 mm[Hg] 95 mm[Hg] ML ([facility]) Body height 61 [in_i] 61 [in_i] ML ([facility]) Body mass index (BMI) [Ratio] 26.19 kg/m2 26.19 kg/m2 ML ([facility]) Systolic blood pressure 136 mm[Hg] 136 mm[Hg] A [facility] ([facility]) Body weight 2210.08 [oz_av] 2210.08 [oz_av] [facility] [place] ([facility]) Body weight 2210.08 [oz_av] 2210.08 [oz_av] [facility] [place] ([facility]) Diastolic blood pressure 95 mm[Hg] 95 mm[Hg] ML ([facility]) Body height 61 [in_i] 61 [in_i] ML ([facility]) Body mass index (BMI) [Ratio] 26.19 kg/m2 26.19 kg/m2 ML ([facility]) Systolic blood pressure 136 mm[Hg] 136 mm[Hg] A [facility] ([facility]) Patient Treatment Plan of Care Planned Activity Planned Date Details Description Data Source (s) Sertraline 50 MG Oral Tablet ML ([facility]) Sertraline 25 MG Oral Tablet ML ([facility]) pregabalin 150 MG Oral Capsule ML ([facility]) Prednisone 10 MG Oral Tablet ML ([facility]) Prazosin 1 MG Oral Capsule A [facility] ([facility]) Doxycycline Monohydrate 100 MG Oral Capsule ML ([facility]) Cyclobenzaprine hydrochloride 10 MG Oral Tablet ML ([facility]) Baclofen 10 MG Oral Tablet A [facility] ([facility]) Amoxicillin 875 MG Oral Tablet ML ([facility]) pregabalin 150 MG Oral Capsule ML ([facility]) Prednisone 10 MG Oral Tablet ML ([facility]) Prazosin 1 MG Oral Capsule A THEN ([facility]) Doxycycline Monohydrate 100 MG Oral Capsule ML ([facility]) Cyclobenzaprine hydrochloride 10 MG Oral Tablet ML ([facility]) Baclofen 10 MG Oral Tablet A [facility] ([facility]) Amoxicillin 875 MG Oral Tablet ML ([facility]) pregabalin 150 MG Oral Capsule ML ([facility]) Prednisone 20 MG Oral Tablet ML ([facility]) Prednisone 10 MG Oral Tablet ML ([facility]) Prazosin 1 MG Oral Capsule A [facility] ([facility]) Fluzone Quad 6597-8679 (PF) 60 mcg (15 mcg x 4)/0.5 mL IM syringe ML ([facility]) Flublok Quad (PF) 180 mcg (45 mcg x 4)/0.5 mL IM syringe ML ([facility]) Doxycycline Monohydrate 100 MG Oral Capsule ML ([facility]) Cyclobenzaprine hydrochloride 10 MG Oral Tablet ML ([facility]) Baclofen 10 MG Oral Tablet A [facility] ([facility]) Amoxicillin 875 MG Oral Tablet ML ([facility]) Amoxicillin 500 MG Oral Capsule ML ([facility]) Trazodone Hydrochloride 50 MG Oral Tablet ML ([facility]) Sertraline 50 MG Oral Tablet ML ([facility]) Sertraline 25 MG Oral Tablet ML ([facility]) pregabalin 150 MG Oral Capsule ML ([facility]) Prednisone 20 MG Oral Tablet LM ([facility]) Prednisone 10 MG Oral Tablet ML ([facility]) Prazosin 1 MG Oral Capsule A [facility] ([facility]) Fluzone Quad (PF) 60 mcg (15 mcg x 4)/0.5 mL IM syringe ML ([facility]) Flublok Quad (PF) 180 mcg (45 mcg x 4)/0.5 mL IM syringe ML ([facility]) Doxycycline Monohydrate 100 MG Oral Capsule ML ([facility]) Cyclobenzaprine hydrochloride 10 MG Oral Tablet ML ([facility]) Baclofen 10 MG Oral Tablet A [facility] ([facility]) Amoxicillin 875 MG Oral Tablet ML ([facility]) Amoxicillin 500 MG Oral Capsule ML ([facility]) Trazodone Hydrochloride 50 MG Oral Tablet ML ([facility]) Sertraline 50 MG Oral Tablet ML ([facility]) Sertraline 25 MG Oral Tablet ML ([facility]) pregabalin 150 MG Oral Capsule ML ([facility]) Prednisone 20 MG Oral Tablet ML ([facility]) Prednisone 10 MG Oral Tablet ML ([facility]) Prazosin 1 MG Oral Capsule A [facility] ([facility]) Fluzone Quad (PF) 60 mcg (15 mcg x 4)/0.5 mL IM syringe ML ([facility]) Flublok Quad (PF) 180 mcg (45 mcg x 4)/0.5 mL IM syringe ML ([facility]) Doxycycline Monohydrate 100 MG Oral Capsule ML ([facility]) Cyclobenzaprine hydrochloride 10 MG Oral Tablet ML ([facility]) Baclofen 10 MG Oral Tablet A [facility] ([facility]) Amoxicillin 875 MG Oral Tablet ML ([facility]) Amoxicillin 500 MG Oral Capsule ML ([facility]) Trazodone Hydrochloride 50 MG Oral Tablet ML ([facility]) Sertraline 50 MG Oral Tablet ML ([facility]) Sertraline 25 MG Oral Tablet ML ([facility]) Sertraline 100 MG Oral Tablet ML ([facility]) pregabalin 150 MG Oral Capsule ML ([facility]) Prednisone 20 MG Oral Tablet ML ([facility]) Prednisone 10 MG Oral Tablet ML ([facility]) Prazosin 1 MG Oral Capsule A [facility] ([facility]) Fluzone Quad [id number] (PF) 60 mcg (15 mcg x 4)/0.5 mL IM syringe ML ([facility]) Flublok Quad [id number] (PF) 180 mcg (45 mcg x 4)/0.5 mL IM syringe ML ([facility]) Doxycycline Monohydrate 100 MG Oral Capsule ML ([facility]) Cyclobenzaprine hydrochloride 10 MG Oral Tablet LM ([facility]) Baclofen 10 MG Oral Tablet A [facility] ([facility]) Amoxicillin 875 MG Oral Tablet ML ([facility]) Amoxicillin 500 MG Oral Capsule ML ([facility]) Trazodone Hydrochloride 50 MG Oral Tablet ML ([facility]) Sertraline 25 MG Oral Tablet ML ([facility]) pregabalin 150 MG Oral Capsule ML ([facility]) Prednisone 20 MG Oral Tablet ML ([facility]) Prednisone 10 MG Oral Tablet ML ([facility]) Prazosin 1 MG Oral Capsule A [facility] ([facility]) Doxycycline Monohydrate 100 MG Oral Capsule ML ([facility]) Cyclobenzaprine hydrochloride 10 MG Oral Tablet ML ([facility]) Baclofen 10 MG Oral Tablet A [facility] ([facility]) Amoxicillin 875 MG Oral Tablet ML ([facility]) Trazodone Hydrochloride 50 MG Oral Tablet ML ([facility]) tramadol hydrochloride 50 MG Oral Tablet ML ([facility]) Sertraline 25 MG Oral Tablet ML ([facility]) Sertraline 100 MG Oral Tablet ML ([facility]) pregabalin 150 MG Oral Capsule ML ([facility]) Prednisone 20 MG Oral Tablet ML ([facility]) Prednisone 10 MG Oral Tablet ML ([facility]) Prazosin 1 MG Oral Capsule A [facility] ([facility]) Doxycycline Monohydrate 100 MG Oral Capsule ML ([facility]) Cyclobenzaprine hydrochloride 10 MG Oral Tablet ML ([facility]) Baclofen 10 MG Oral Tablet A [facility] ([facility]) Amoxicillin 875 MG Oral Tablet ML ([facility])
[2021-03-02] MEDS ORDERED: OLANZapine INTRAMUSCULAR 10MG VIAL IM ONE (22:25)
[2021-03-02] MEDS ORDERED: LORazepam 2 MG/ML VIAL IM ONE (22:25)
[2021-03-02] MEDS ORDERED: NS 1,000 ML IV ONE (22:30)
[2021-03-03 00:13] LABS: HEMOGLOBIN 12.4 g/dl (12.0-15.5); MEAN CORPUSCULAR HEMOGLOBIN 29.4 pg (27.0-33.0); MEAN CORPUSCULAR HGB CONC 33.5 g/dl (32.0-36.5); MEAN CORPUSCULAR VOLUME 87.7 fl (80.0-96.0); PLATELET COUNT, AUTOMATED 420 10^3/uL (150-450); RED BLOOD COUNT 4.22 10^6/uL (4.00-5.40); WHITE BLOOD COUNT 26.4 10^3/uL (4.0-10.0)
[2021-03-03 00:36] LABS: HCG, SERUM QUALITATIVE NEGATIVE (NEGATIVE)
[2021-03-03 00:42] LABS: ACETAMINOPHEN LEVEL < 2.0 UG/ML (10.0-30.0); ALBUMIN 4.6 GM/DL (3.2-5.2); ALT/SGPT 102 U/L (12-78); BILIRUBIN,DIRECT 0.1 MG/DL (0.0-0.2); BILIRUBIN,TOTAL 0.4 MG/DL (0.2-1.0); BLOOD UREA NITROGEN 62 MG/DL (7-18); CALCIUM LEVEL 10.3 MG/DL (8.5-10.1); CARBON DIOXIDE LEVEL 16 MEQ/L (21-32); CHLORIDE LEVEL 109 MEQ/L (98-107); ETHYL ALCOHOL (ETHANOL) < 0.003 % (0.000-0.010); GLOMERULAR FILTRATION RATE 9.9 (>58); GLUCOSE, FASTING 90 MG/DL (70-100); POTASSIUM SERUM 5.8 MEQ/L (3.5-5.1); SALICYLATE LEVEL 2.2 MG/DL (5.0-30.0); SODIUM LEVEL 144 MEQ/L (136-145); THYROID STIMULATING HORMONE 0.897 uIU/ML (0.358-3.740); TOTAL PROTEIN 7.4 GM/DL (6.4-8.2)
[2021-03-03 01:01] LABS: RSV AMPLIFICATION NEGATIVE (NEGATIVE)
[2021-03-03] MEDS ORDERED: NS 1,000 ML IV ONE (01:05)
[2021-03-03] MEDS ORDERED: cefTRIAXone SOD 2 GM in D5W MINI-BAG PLUS 50 ML IV ONE (01:15)
[2021-03-03 01:28] LABS: VENOUS HCO3 13.2 MEQ/L (23.0-27.0); VENOUS O2 SATURATION 91.4 % (60.0-80.0); VENOUS PARTIAL PRESSURE CO2 35.5 mmHg (38.0-50.0); VENOUS PARTIAL PRESSURE O2 74.6 mmHg (30.0-50.0); VENOUS PH 7.188 UNITS (7.330-7.430); VENOUS STANDARD HCO3 13.5 MEQ/L; VENOUS TOTAL CO2 14.3 MEQ/L (24.0-28.0)
[2021-03-03 02:11] LABS: AMPHETAMINES LEVEL URINE POSITIVE (NEGATIVE); BARBITURATES URINE NEGATIVE (NEGATIVE); BENZODIAZEPINES URINE NEGATIVE (NEGATIVE); CANNABINOIDS URINE NEGATIVE (NEGATIVE); COCAINE METABOLITE URINE NEGATIVE (NEGATIVE); METHADONE URINE NEGATIVE (NEGATIVE); OPIATES URINE NEGATIVE (NEGATIVE); PHENCYCLIDINE URINE NEGATIVE (NEGATIVE)
[2021-03-03] MEDS ORDERED: NS 1,000 ML IV SCH (02:35)
--- OUTSIDE RECORDS SUMMARY | 2021-03-03 02:51 | CCD ---
Author Author [facility] Organization [facility] Address Unknown Phone Unavailable Care Team Providers Care Product Trainer Name Role Phone Coby Gonzalez MD Unavailable [...] Coby Gonzalez MD Unavailable Unavailable Jocelyne Duncanra DUMPER OPERATOR DUMPER OPERATOR Unavailable Unavailable Fish, [facility], PA-C Unavailable Unavailabl e Fish, [facility], PA-C Unavailable Unavailabl e Fish, [facility], PA-C Unavailable Unavailabl e Fish, [facility], PA-C Unavailable Unavailabl e Fish, [facility], PA-C Unavailable Unavailabl e Fish, [facility], PA-C Unavailable Unavailabl e Fish, [facility], PA-C Unavailable Unavailabl e Fish, [facility], PA-C Unavailable Unavailabl e Fish, [facility], PA-C Unavailable Unavailabl e Fish, [facility], PA-C Unavailable Unavailabl e Fish, [facility], PA-C Unavailable Unavailabl e Fish, [facility], PA-C Unavailable Unavailabl e Fish, [facility], PA-C Unavailable Unavailabl e Fish, [facility], PA-C Unavailable Unavailabl e Fish, [facility], PA-C Unavailable Unavailabl e Fish, [facility], PA-C Unavailable Unavailabl e Fish, [facility], PA-C Unavailable Unavailabl e Fish, [facility], PA-C Unavailable Unavailabl e Fish, [facility], PA-C Unavailable Unavailabl e Fish, [facility], PA-C Unavailable Unavailabl e Fish, [facility], PA-C Unavailable Unavailabl e Fish, [facility], PA-C Unavailable Unavailabl e Fish, [facility], PA-C Unavailable Unavailabl e Fish, [facility], PA-C Unavailable Unavailabl e Fish, [facility], PA-C Unavailable Unavailabl e Fish, [facility], PA-C Unavailable Unavailabl e Fish, [facility], PA-C Unavailable Unavailabl e Fish, Yael Va [facility], PA-C Unavailable Unavailabl e Fish, Yael De Dios [facility], PA-C Unavailable Unavailabl e Fish, Yael De Dios [facility], PA-C Unavailable Unavailabl e Fish, Yael De Dios [facility], PA-C Unavailable Unavailabl e Fish, Yael De Dios [facility], PA-C Unavailable Unavailabl e Fish, Yael De Dios [facility], PA-C Unavailable Unavailabl e Fish, Yael eD Dios [facility], PA-C Unavailable Unavailabl e Fish, Yael De Dios [facility], PA-C Unavailable Unavailabl e Fish, Yael De Dios [facility], PA-C Unavailable Unavailabl e Dakota, A Devika DUMPER OPERATOR Unavailable Unavailable Dakota, A Devika DUMPER OPERATOR Unavailable Unavailable Dakota, A Devika DUMPER OPERATOR Unavailable Unavailable Dakota, A Devika DUMPER OPERATOR Unavailable Unavailable Watson, A Devika DUMPER OPERATOR Unavailable Unavailable Watson, A Devika DUMPER OPERATOR Unavailable Unavailable Watson, A Devika DUMPER OPERATOR Unavailable Unavailable Watson, A Devika DUMPER OPERATOR Unavailable Unavailable Watson, A Devika DUMPER OPERATOR Unavailable Unavailable Watson, A Devika DUMPER OPERATOR Unavailable Unavailable Watson, A Devika DUMPER OPERATOR Unavailable Unavailable Watson, A Devika DUMPER OPERATOR Unavailable Unavailable Watson, A Devika DUMPER OPERATOR Unavailable Unavailable Watson, A Devika DUMPER OPERATOR Unavailable Unavailable Watson, A Devika DUMPER OPERATOR Unavailable Unavailable Watson, A Devika DUMPER OPERATOR Unavailable Unavailable Watson, A Devika DUMPER OPERATOR Unavailable Unavailable Watson, A Devika DUMPER OPERATOR Unavailable Unavailable Watson, A Devika DUMPER OPERATOR Unavailable Unavailable Watson, A Deviak DUMPER OPERATOR Unavailable Unavailable Watson, A Devika DUMPER OPERATOR Unavailable Unavailable Watson, A Devika DUMPER OPERATOR Unavailable Unavailable Watson, A Devika DUMPER OPERATOR Unavailable Unavailable Watson, A Devika DUMPER OPERATOR Unavailable Unavailable Watson, A Devika DUMPER OPERATOR Unavailable Unavailable Watson, A Devika DUMPER OPERATOR Unavailable Unavailable Watson, A Devika DUMPER OPERATOR Unavailable Unavailable Watson, A Devika DUMPER OPERATOR Unavailable Unavailable Watson, A Devika DUMPER OPERATOR Unavailable Unavailable Dakota, A Devika DUMPER OPERATOR Unavailable Unavailable Dakota, A Devika DUMPER OPERATOR Unavailable Unavailable Coby Goznalez MD Unavailable Unavailable Coby Gonzalez MD Unavailable [...] Unavailable Coby Gonzalez MD Unavailable Unavailable Coby Gonzlaez MD Unavailable Unavailable Coby Gonzalez MD Unavailable Unavailable Coby Gonzalez MD Unavailable Unavailable Coby Gonzalez MD Unavailable Unavailable Coby Gonzalze MD Unavailable Unavailable Coby Gonzalez MD Unavailable [...] Gonzalez MD Unavailable Unavailable Dakota, A Devika DUMPER OPERATOR Unavailable Unavailable Dakota, A Devika DUMPER OPERATOR Unavailable Unavailable Dakota, A Devika DUMPER OPERATOR Unavailable Unavailable Dakota, A Devika DUMPER OPERATOR Unavailable Unavailable Dakota, A Devika DUMPER OPERATOR Unavailable Unavailable Dakota, A Devika DUMPER OPERATOR Unavailable Unavailable Dakota, A Devika DUMPER OPERATOR Unavailable Unavailable Dakota, A Devika DUMPER OPERATOR Unavailable Unavailable Watson, A Devika DUMPER OPERATOR Unavailable Unavailable Watson, A Devika DUMPER OPERATOR Unavailable Unavailable Watson, A Devika DUMPER OPERATOR Unavailable Unavailable Watson, A Devika DUMPER OPERATOR Unavailable Unavailable Watson, A Devika DUMPER OPERATOR Unavailable Unavailable Watson, A Devika DUMPER OPERATOR Unavailable Unavailable Watson, A Devika DUMPER OPERATOR Unavailable Unavailable Watson, A Devika DUMPER OPERATOR Unavailable Unavailable Watson, A Devika DUMPER OPERATOR Unavailable Unavailable Watson, A Devika DUMPER OPERATOR Unavailable Unavailable Watson, A Devika DUMPER OPERATOR Unavailable Unavailable Watson, A Devika DUMPER OPERATOR Unavailable Unavailable Watson, A Devika DUMPER OPERATOR Unavailable Unavailable Watson, A Devika DUMPER OPERATOR Unavailable Unavailable Watson, A Devika DUMPER OPERATOR Unavailable Unavailable Watson, A Devika DUMPER OPERATOR Unavailable Unavailable Watson, A Devika DUMPER OPERATOR Unavailable Unavailable Watson, A Devika DUMPER OPERATOR Unavailable Unavailable Watson, A Devika DUMPER OPERATOR Unavailable Unavailable Watson, A Devika DUMPER OPERATOR Unavailable Unavailable Watson, A Devika DUMPER OPERATOR Unavailable Unavailable Watson, A Devika DUMPER OPERATOR Unavailable Unavailable Watson, A Devika DUMPER OPERATOR Unavailable Unavailable Kevin Michele MD Unavailable Unavailable [...] is protected by Article 27-F of the [facility] Public Health law. If you continue you may have access to information: Regarding HIV / AIDS; Provided by facilities licensed or operated by the [facility] Office of Mental Health; or Provided by the [facility] Office for People With Developmental Disabilities. If such information is present, then the following [facility] mandated warning applies: This information has [...] law may result in a fine or mcc sentence or both. A general authorization for the release of medical or other information is NOT sufficient authorization for further disc losure. Allergies and Adverse Reactions Type Description Substance Reaction Status Data Source(s ) Propensity to adverse reactions LATEX Latex Rash Low Acti ve [facility] Low Family History Family Member Name Family Member Gender Family Member Status Date o f Status Description Data Source(s) Unknown Male Problem MEDENT ([facility]) Unknown Unknown Problem [facility] sister Encounters Encounter Providers Location Date Indications Data Source(s ) Lai Gonzalez MD: [address] [place] [phone], Ph. Attender: Lai Gonzalez MD [facility] Medical 11/19/2020 12:00:00 AM EDT ML ([facility]) Outpatient Attender: Va DAVIS PA-C Physical Therapy 10/29/2020 02:00:00 PM EDT MEDENT ([facility]) Lai Gonzalez MD: [address] [place] [address], Ph. Attender: Lai Gonzalez MD [facility] Medical 10/06/2020 12:00:00 AM EDT ML ([facility]) Lai Gonzalez MD: [address] [place] [address], Ph. Attender: Lai Gonzalez MD [facility] Medical 10/06/2020 12:00:00 AM EDT ML ([facility]) Lai Gonzalez MD: [address] [place] [address], Ph. Attender: Lai Gonzalez MD [facility] Medical 09/03/2020 12:00:00 AM EDT ML ([facility]) Lai Gonzalez MD: [address] [place] [address], Ph. Attender: Lai Gonzalez MD [facility] Medical 09/03/2020 12:00:00 AM EDT ML ([facility]) Lai Gonzalez MD: [address] [place] [address], Ph. Attender: Lai Gonzalez MD [facility] Medical 09/03/2020 12:00:00 AM EDT ML ([facility]) Outpatient Attender: Kevin WILCOXeferrer: Lai Gonzalez MD [email or web address] 08/25/2020 12:00:00 AM EDT - 08/26/2020 08:57:49 AM EDT [facility] Lai Gonzalez MD: [address] [place] [address], Ph. Attender: Lai Gonzalez MD [facility] Medical 08/05/2020 12:00:00 AM EDT ML ([facility]) Lai Gonzalez MD: [address] [place] [address], Ph. Attender: Lai Gonzalez MD [facility] Medical 08/05/2020 12:00:00 AM EDT ML ([facility]) Lai Gonzalez MD: [address] [place] [address], Ph. Attender: Lai Gonzalez MD [facility] Medical 08/05/2020 12:00:00 AM EDT ML ([facility]) Lai Gonzalez MD: [address] [place] [address], Ph. Attender: Lai Gonzlaez MD [facility] Medical 08/05/2020 12:00:00 AM EDT ML ([facility]) Lai Gonzalez MD: [address] [place] [address], Ph. Attender: Lai Gonzalez MD [facility] Medical 06/10/2020 12:00:00 AM EST ML ([facility]) Lai Gonzalez MD: [address] [place] [address], Ph. Attender: Lai Gonzalez MD [facility] Medical 06/10/2020 12:00:00 AM EST ML ([facility]) Lai Gonzalez MD: [address] [place] [address], Ph. Attender: Lai Gonzalez MD [facility] Medical 06/10/2020 12:00:00 AM EST ML ([facility]) Lai Gonzalez MD: [address] [place] [address], Ph. Attender: Lai Gonzalez MD [facility] Medical 06/10/2020 12:00:00 AM EST ML ([facility]) Lai Gonzalez MD: [address] [place] [address], Ph. Attender: Lai Gonzalez MD [facility] Medical 06/10/2020 12:00:00 AM EST ML ([facility]) Lai Gonzalez MD: [address] [place] [address], Ph. Attender: Lai Gonzalez MD [facility] Medical 06/10/2020 12:00:00 AM EST ML ([facility]) Lai Gonzalez MD: [address] [place] [address], Ph. Attender: Lai Gonzalez MD [facility] Medical 06/08/2020 12:00:00 AM EST ML ([facility]) Lai Gonzalez MD: [address] [place] [address], Ph. Attender: Lai Gonzalez MD [facility] Medical 06/08/2020 12:00:00 AM EST ML ([facility]) Lai Gonzalez MD: [address] [place] [address], Ph. Attender: Lai Gonzalez MD [facility] Medical 06/08/2020 12:00:00 AM EST ML ([facility]) Lai Gonzalez MD: [address] [place] [address], Ph. Attender: Lai Gonzalez MD [facility] Medical 06/08/2020 12:00:00 AM EST ML ([facility]) Lai Gonzalez MD: [address] [place] [address], Ph. Attender: Lai Gonzalez MD [facility] Medical 06/08/2020 12:00:00 AM EST ML ([facility]) Lai Gonzalez MD: [address], [place] [address], Ph. Attender: Lai Gonzalez MD [facility] Medical 06/08/2020 12:00:00 AM EST ML ([facility]) Devika Duncan [facility]: [address] [place] [address], Ph. Attender: Devika Duncan [facility] Medical 06/03/2020 12:00:00 AM EST ML ([facility]) Devika Duncan [facility]: [address] [place] [address], Ph. Attender: Devika Duncan [facility] Medical 06/03/2020 12:00:00 AM EST ML ([facility]) Devika Duncan [facility]: [address], [place] [address], Ph. Attender: Devika Duncan [facility] Medical 06/03/2020 12:00:00 AM EST ML ([facility]) Devika Duncan [facility]: [address], [place] [address], Ph. Attender: Devika Duncan [facility] Medical 06/03/2020 12:00:00 AM EST ML ([facility]) Devika Duncan [facility]: [address], [place] [address], Ph. Attender: Devika Duncan [facility] Medical 06/03/2020 12:00:00 AM EST ML ([facility]) Devika Duncan [facility]: [address] [place] [address], Ph. Attender: Devika Duncan [facility] Medical 06/03/2020 12:00:00 AM EST ML ([facility]) Devika Duncan [facility]: [address] [place] [address], Ph. Attender: Devika Duncan [facility] Medical 06/03/2020 12:00:00 AM EST ML ([facility]) Lai Gonzalez MD: [address] [place] [address], Ph. Attender: Lai Gonzalez MD [facility] Medical 04/14/2020 12:00:00 AM EST ML ([facility]) Lai Gonzalez MD: [address] [place] [address], Ph. Attender: Lai Gonzalez MD [facility] Medical 04/14/2020 12:00:00 AM EST ML ([facility]) Lai Gonzalez MD: [address] [place] [address], Ph. Attender: Lai Gonzalez MD [facility] Medical 04/14/2020 12:00:00 AM EST ML ([facility]) Lai Gonzalez MD: [address] [place] [address], Ph. Attender: Lai Gonzalez MD [facility] Medical 04/14/2020 12:00:00 AM EST ML ([facility]) Lai Gonzalez MD: [address] [place] [address], Ph. Attender: Lai Gonzalez MD [facility] Medical 04/14/2020 12:00:00 AM EST ML ([facility]) Lai Gonzalez MD: [address] [place] [address], Ph. Attender: Lia Gonzalez MD [facility] Medical 04/14/2020 12:00:00 AM EST ML ([facility]) Lai Gonzalez MD: [address] [place] [address], Ph. Attender: Lai Gonzalez MD [facility] Medical 04/14/2020 12:00:00 AM EST ML ([facility]) Lai Gonzalez MD: [address] [place] [address], Ph. Attender: Lai Gonzalez MD [facility] Medical 04/14/2020 12:00:00 AM EST ML ([facility]) Outpatient Attender: TERENCE PRATT 02/24/2020 07:58:00 A M EST [facility] Outpatient Attender: Devika PRATT 01/28/2020 08:0 1:03 PM EDT [facility] Outpatient Attender: TERENCE PRATT 01/28/2020 08:01:01 P M EDT [facility] Outpatient Attender: Devika PRATT 01/28/2020 11:0 9:01 AM EDT [facility] Outpatient Attender: TERENCE PRATT 01/28/2020 10:10:00 A M EDT [facility] Immunizations Vaccine Date Status Description Data Source(s) Tdap 06/10/2020 10:13:00 AM EST completed 06/10/2020 0.5 mL ML ([facility]) Tdap 06/10/2020 10:13:00 AM EST completed 06/10/2020 0.5 mL ML ([facility]) Tdap 06/10/2020 10:13:00 AM EST completed 06/10/2020 0.5 mL ML ([facility]) Tdap 06/10/2020 10:13:00 AM EST completed 06/10/2020 0.5 mL ML ([facility]) Tdap 06/10/2020 10:13:00 AM EST completed 06/10/2020 0.5 mL LM ([facility]) Tdap 06/10/2020 10:13:00 AM EST completed 06/10/2020 0.5 mL ML ([facility]) MMR 06/10/2020 10:11:00 AM EST completed 06/10/2020 0.5 mL ML ([facility]) MMR 06/10/2020 10:11:00 AM EST completed 06/10/2020 0.5 mL ML ([facility]) MMR 06/10/2020 10:11:00 AM EST completed 06/10/2020 0.5 mL ML ([facility]) MMR 06/10/2020 10:11:00 AM EST completed 06/10/2020 0.5 mL ML ([facility]) MMR 06/10/2020 10:11:00 AM EST completed 06/10/2020 0.5 mL ML ([facility]) MMR 06/10/2020 10:11:00 AM EST completed 06/10/2020 0.5 mL ML ([facility]) New in 2012. IIV4 02/18/2020 12:00:00 AM EST completed 02/18/20 20 ML ([facility]) New in 2012. IIV4 02/18/2020 12:00:00 AM EST completed 02/18/20 20 ML ([facility]) New in 2012. IIV4 02/18/2020 12:00:00 AM EST completed 02/18/20 20 ML ([facility]) New in 2012. IIV4 02/18/2020 12:00:00 AM EST completed 02/18/20 20 ML ([facility]) New in 2012. IIV4 02/18/2020 12:00:00 AM EST completed 02/18/20 [facility]) New in 2012. IIV4 02/18/2020 12:00:00 AM EST completed 02/18/20 [facility]) New in 2012. IIV4 02/18/2020 12:00:00 AM EST completed 02/18/20 [facility]) New in 2012. IIV4 02/18/2020 12:00:00 AM EST completed 02/18/20 [facility]) Medications Medication Brand Name Start Date [...] (15 mcg x 4)/0.5 mL IM syringe [id number] completed 0.5 ML influen za A virus A/ (H1N1) antigen 0.03 MG/ML / influenza A virus A/ (H3N2) antigen 0.03 MG/ML / influenza B virus B/ antigen 0.03 MG/ML / influenza B virus B/[facility] antigen 0.03 MG/ML Prefilled Syringe [Fluzone Quadrivalent ] LM ([facility]) Prazosin 1 MG Oral Capsule prazosin 1 mg capsule prazosin 1 mg capsule completed prazosin 1 MG Oral Capsul e [place] ([facility]) Amoxicillin 875 MG Oral Tablet amoxicill in 875 mg tablet TAKE ONE TABLET BY MOUTH EVERY 12 HOURS FOR 10 DAYS amoxicillin 875 mg tablet TAKE ONE TABLE T BY MOUTH EVERY 12 HOURS FOR 10 DAYS compl eted amoxicillin 875 MG Oral Tablet ML ([facility]) Prazosin 1 MG Oral Capsule prazosin 1 mg capsule prazosin 1 mg capsule completed prazosin 1 MG Oral Capsul e [place] ([facility]) Baclofen 10 MG Oral Tablet baclofen 10 mg tablet baclofen 10 mg tablet completed baclofen 10 MG Oral Table t ML ([facility]) Trazodone Hydrochloride 50 MG Oral Tablet trazodone 50 mg tablet trazodone 50 mg tablet completed trazodone hydro chloride 50 MG Oral Tablet ML ([facility]) Baclofen 10 MG Oral Tablet baclofen 10 mg tablet baclofen 10 mg tablet completed baclofen 10 MG Oral Table t ML ([facility]) Cyclobenzaprine hydrochloride 10 MG Oral Tablet cyclob enzaprine 10 mg tablet cyclobenzaprine 10 mg tablet completed cyclobenzaprine hydrochloride 10 MG Oral Tablet ML ([facility]) Baclofen 10 MG Oral Tablet baclofen 10 mg tablet baclofen 10 mg tablet completed baclofen 10 MG Oral Table t ML ([facility]) Prednisone 20 MG Oral Tablet prednisone 20 mg tablet prednisone 20 mg tablet completed prednisone 20 MG Oral Tablet ML ([facility]) Trazodone Hydrochloride 50 MG Oral Tablet trazodone 50 mg tablet trazodone 50 mg tablet completed trazodone hydro chloride 50 MG Oral Tablet ML ([facility]) Trazodone Hydrochloride 50 MG Oral Tablet trazodone 50 mg tablet trazodone 50 mg tablet completed trazodone hydro chloride 50 MG Oral Tablet ML ([facility]) Doxycycline Monohydrate 100 MG Oral Caps ule doxycycline monohydrate 100 mg capsule doxycycline monohydrate 100 mg capsule completed doxycycline monohydrate 100 MG Oral Capsule ML ([facility]) Doxycycline Monohydrate 100 MG Oral Caps ule doxycycline monohydrate 100 mg capsule doxycycline monohydrate 100 mg capsule completed doxycycline monohydrate 100 MG Oral Capsule ML ([facility]) Trazodone Hydrochloride 50 MG Oral Tablet trazodone 50 mg tablet trazodone 50 mg tablet completed trazodone hydro chloride 50 MG Oral Tablet ML ([facility]) Cyclobenzaprine hydrochloride 10 MG Oral Tablet cyclob enzaprine 10 mg tablet cyclobenzaprine 10 mg tablet completed cyclobenzaprine hydrochloride 10 MG Oral Tablet ML ([facility]) pregabalin 150 MG Oral Capsule pregabali n 150 mg capsule TAKE ONE CAPSULE BY MOUTH TWICE A DAY MAXIMUM DAILY DOSE 2 pregabalin 150 mg capsule TAKE ONE CAPSULE BY MOUTH TWICE A DAY MAXIMUM DAILY DOSE 2 completed pregabalin 150 MG Oral Capsule ML ([facility]) Prazosin 1 MG Oral Capsule prazosin 1 mg capsule prazosin 1 mg capsule completed prazosin 1 MG Oral Capsul e [place] ([facility]) Trazodone Hydrochloride 50 MG Oral Tablet trazodone 50 mg tablet trazodone 50 mg tablet completed trazodone hydro chloride 50 MG Oral Tablet [place] ([facility]) Cyclobenzaprine hydrochloride 10 MG Oral Tablet cyclob enzaprine 10 mg tablet cyclobenzaprine 10 mg tablet completed cyclobenzaprine hydrochloride 10 MG Oral Tablet [place] ([facility]) Prednisone 20 MG Oral Tablet prednisone 20 mg tablet prednisone 20 mg tablet completed prednisone 20 MG Oral Tablet [place] ([facility]) Sertraline 100 MG Oral Tablet sertraline 100 mg tablet sertr larry 100 mg tablet completed sertraline 100 MG Oral Tablet [place] ([facility]) pregabalin 150 MG Oral Capsule pregabali n 150 mg capsule TAKE ONE CAPSULE BY MOUTH TWICE A DAY MAXIMUM DAILY DOSE 2 pregabalin 150 mg capsule TAKE ONE CAPSULE BY MOUTH TWICE A DAY MAXIMUM DAILY DOSE 2 completed pregabalin 150 MG Oral Capsule [place] ([facility]) Doxycycline Monohydrate 100 MG Oral Caps ule doxycycline monohydrate 100 mg capsule doxycycline monohydrate 100 mg capsule completed doxycycline monohydrate 100 MG Oral Capsule [place] ([facility]) Prednisone 10 MG [...] DA completed prednisone 10 MG Oral Tablet [place] ([facility]) Doxycycline Monohydrate 100 MG Oral Caps ule doxycycline monohydrate 100 mg capsule doxycycline monohydrate 100 mg capsule completed doxycycline monohydrate 100 MG Oral Capsule [place] ([facility]) Sertraline 50 MG Oral Tablet sertraline 50 mg tablet sertraline 50 mg tablet completed sertraline 50 MG Oral Tablet [place] ([facility]) Baclofen 10 MG Oral Tablet baclofen 10 mg tablet baclofen 10 mg tablet completed baclofen 10 MG Oral Table t [place] ([facility]) Sertraline 25 MG Oral Tablet sertraline 25 mg tablet TAKE ONE TABLET BY MOUTH ONCE A DAY sertraline 25 mg tablet TAKE ONE TABLET BY MOUTH ONCE A DAY completed sertraline 25 MG Oral Tab let [place] ([facility]) Sertraline 50 MG Oral Tablet sertraline 50 mg tablet sertraline 50 mg tablet completed sertraline 50 MG Oral Tablet [place] ([facility]) Prednisone 10 MG [...] DA completed prednisone 10 MG Oral Tablet [place] ([facility]) Prazosin 1 MG Oral Capsule prazosin 1 mg capsule prazosin 1 mg capsule completed prazosin 1 MG Oral Capsul e [place] ([facility]) Fluzone Quad [id number] (PF) 60 mcg (15 mcg x 4)/0.5 mL IM syringe [id number] completed 0.5 ML influen za A virus A/ (H1N1) antigen 0.03 MG/ML / influenza A virus A/ (H3N2) antigen 0.03 MG/ML / influenza B virus B/ antigen 0.03 MG/ML / influenza B virus B/[facility] antigen 0.03 MG/ML Prefilled Syringe [Fluzone Quadrivalent ] [place] ([facility]) pregabalin 150 MG Oral Capsule pregabali n 150 mg capsule TAKE ONE CAPSULE BY MOUTH TWICE A DAY MAXIMUM DAILY DOSE 2 pregabalin 150 mg capsule TAKE ONE CAPSULE BY MOUTH TWICE A DAY MAXIMUM DAILY DOSE 2 completed pregabalin 150 MG Oral Capsule [place] ([facility]) Prednisone 10 MG Oral Tablet [...] completed prednisone 10 MG Oral Tablet [place] ([facility]) Amoxicillin 875 MG Oral Tablet amoxicill in 875 mg tablet TAKE ONE TABLET BY MOUTH EVERY 12 HOURS FOR 10 DAYS amoxicillin 875 mg tablet TAKE ONE TABLE T BY MOUTH EVERY 12 HOURS FOR 10 DAYS compl eted amoxicillin 875 MG Oral Tablet [place] ([facility]) Amoxicillin 875 MG Oral Tablet amoxicill in 875 mg tablet TAKE ONE TABLET BY MOUTH EVERY 12 HOURS FOR 10 DAYS amoxicillin 875 mg tablet TAKE ONE TABLE T BY MOUTH EVERY 12 HOURS FOR 10 DAYS compl eted amoxicillin 875 MG Oral Tablet [place] ([facility]) Amoxicillin 875 MG Oral Tablet amoxicill in 875 mg tablet TAKE ONE TABLET BY MOUTH EVERY 12 HOURS FOR 10 DAYS amoxicillin 875 mg tablet TAKE ONE TABLE T BY MOUTH EVERY 12 HOURS FOR 10 DAYS compl eted amoxicillin 875 MG Oral Tablet [place] ([facility]) Cyclobenzaprine hydrochloride 10 MG Oral Tablet cyclob enzaprine 10 mg tablet cyclobenzaprine 10 mg tablet completed cyclobenzaprine hydrochloride 10 MG Oral Tablet [place] ([facility]) Sertraline 25 MG Oral Tablet sertraline 25 mg tablet TAKE ONE TABLET BY MOUTH ONCE A DAY sertraline 25 mg tablet TAKE ONE TABLET BY MOUTH ONCE A DAY completed sertraline 25 MG Oral Tab let [place] ([facility]) Flublok Quad (PF) 180 mcg (45 mcg x 4)/0.5 mL IM syringe 60 3610 completed 0.5 ML influen za A virus A/[place] (H1N1) antigen 0.09 MG/ML / influenza A virus A/[place] (H3N2) antigen 0.09 MG/ML / influenza B virus B/[facility] antigen 0.09 MG/ML / influenza B virus B/ antigen 0.09 MG/ML Prefilled Syringe [Flublok Quadrivalent ] [place] ([facility]) Amoxicillin 875 MG Oral Tablet amoxicill in 875 mg tablet TAKE ONE TABLET BY MOUTH EVERY 12 HOURS FOR 10 DAYS amoxicillin 875 mg tablet TAKE ONE TABLE T BY MOUTH EVERY 12 HOURS FOR 10 DAYS compl eted amoxicillin 875 MG Oral Tablet [place] ([facility]) Cyclobenzaprine hydrochloride 10 MG Oral Tablet cyclob enzaprine 10 mg tablet cyclobenzaprine 10 mg tablet completed cyclobenzaprine hydrochloride 10 MG Oral Tablet [place] ([facility]) Flublok Quad (PF) 180 mcg (45 mcg x 4)/0.5 mL IM syringe 60 3610 completed 0.5 ML influen za A virus A/[place] (H1N1) antigen 0.09 MG/ML / influenza A virus A/[place] (H3N2) antigen 0.09 MG/ML / influenza B virus B/[facility] antigen 0.09 MG/ML / influenza B virus B/[place] antigen 0.09 MG/ML Prefilled Syringe [Flublok Quadrivalent ] [place] ([facility]) pregabalin 150 MG Oral Capsule pregabali n 150 mg capsule TAKE ONE CAPSULE BY MOUTH TWICE A DAY MAXIMUM DAILY DOSE 2 pregabalin 150 mg capsule TAKE ONE CAPSULE BY MOUTH TWICE A DAY MAXIMUM DAILY DOSE 2 completed pregabalin 150 MG Oral Capsule [place] ([facility]) Fluzone Quad (PF) 60 mcg (15 mcg x 4)/0.5 mL IM syringe 599 759 completed 0.5 ML influen za A virus A/ (H1N1) antigen 0.03 MG/ML / influenza A virus A/[place] (H3N2) antigen 0.03 MG/ML / influenza B virus B/ antigen 0.03 MG/ML / influenza B virus B/[facility] antigen 0.03 MG/ML Prefilled Syringe [Fluzone Quadrivalent ] [place] ([facility]) Prednisone 10 MG Oral Tablet [...] DA completed prednisone 10 MG Oral Tablet [place] ([facility]) Baclofen 10 MG Oral Tablet baclofen 10 mg tablet baclofen 10 mg tablet completed baclofen 10 MG Oral Table t [place] ([facility]) Prazosin 1 MG Oral Capsule prazosin 1 mg capsule prazosin 1 mg capsule completed prazosin 1 MG Oral Capsul e [place] ([facility]) Flublok Quad (PF) 180 mcg (45 mcg x 4)/0.5 mL IM syringe 60 3610 completed 0.5 ML influen za A virus A/[place] (H1N1) antigen 0.09 MG/ML / influenza A virus A/[place] (H3N2) antigen 0.09 MG/ML / influenza B virus B/[facility] antigen 0.09 MG/ML / influenza B virus B/ antigen 0.09 MG/ML Prefilled Syringe [Flublok Quadrivalent ] [place] ([facility]) Amoxicillin 500 MG Oral Capsule amoxicil dharmesh 500 mg capsule TAKE 1 CAPSULE BY MOUTH EVERY 8 HOURS UNTIL GONE FOR 7 DAYS amoxicillin 500 mg capsule TAKE 1 CAPSULE BY MOUTH EVERY 8 HOURS UNTIL GONE FOR 7 DAYS completed amoxicillin 500 MG Oral Capsule [place] ([facility]) Amoxicillin 500 MG Oral Capsule amoxicil dharmesh 500 mg capsule TAKE 1 CAPSULE BY MOUTH EVERY 8 HOURS UNTIL GONE FOR 7 DAYS amoxicillin 500 mg capsule TAKE 1 CAPSULE BY MOUTH EVERY 8 HOURS UNTIL GONE FOR 7 DAYS completed amoxicillin 500 MG Oral Capsule [place] ([facility]) pregabalin 150 MG Oral Capsule pregabali n 150 mg capsule TAKE ONE CAPSULE BY MOUTH TWICE A DAY MAXIMUM DAILY DOSE 2 pregabalin 150 mg capsule TAKE ONE CAPSULE BY MOUTH TWICE A DAY MAXIMUM DAILY DOSE 2 completed pregabalin 150 MG Oral Capsule [place] ([facility]) pregabalin 150 MG Oral Capsule pregabali n 150 mg capsule TAKE ONE CAPSULE BY MOUTH TWICE A DAY MAXIMUM DAILY DOSE 2 pregabalin 150 mg capsule TAKE ONE CAPSULE BY MOUTH TWICE A DAY MAXIMUM DAILY DOSE 2 completed pregabalin 150 MG Oral Capsule [place] ([facility]) Sertraline 25 MG Oral Tablet sertraline 25 mg tablet TAKE ONE TABLET BY MOUTH ONCE A DAY sertraline 25 mg tablet TAKE ONE TABLET BY MOUTH ONCE A DAY completed sertraline 25 MG Oral Tab let [place] ([facility]) Doxycycline Monohydrate 100 MG Oral Caps ule doxycycline monohydrate 100 mg capsule doxycycline monohydrate 100 mg capsule completed doxycycline monohydrate 100 MG Oral Capsule [place] ([facility]) Cyclobenzaprine hydrochloride 10 MG Oral Tablet cyclob enzaprine 10 mg tablet cyclobenzaprine 10 mg tablet completed cyclobenzaprine hydrochloride 10 MG Oral Tablet [place] ([facility]) pregabalin 150 MG Oral Capsule pregabali n 150 mg capsule TAKE ONE CAPSULE BY MOUTH TWICE A DAY MAXIMUM DAILY DOSE 2 pregabalin 150 mg capsule TAKE ONE CAPSULE BY MOUTH TWICE A DAY MAXIMUM DAILY DOSE 2 completed pregabalin 150 MG Oral Capsule [place] ([facility]) Amoxicillin 500 MG Oral Capsule amoxicil dharmesh 500 mg capsule TAKE 1 CAPSULE BY MOUTH EVERY 8 HOURS UNTIL GONE FOR 7 DAYS amoxicillin 500 mg capsule TAKE 1 CAPSULE BY MOUTH EVERY 8 HOURS UNTIL GONE FOR 7 DAYS completed amoxicillin 500 MG Oral Capsule [place] ([facility]) pregabalin 150 MG Oral Capsule pregabali n 150 mg capsule TAKE ONE CAPSULE BY MOUTH TWICE A DAY MAXIMUM DAILY DOSE 2 pregabalin 150 mg capsule TAKE ONE CAPSULE BY MOUTH TWICE A DAY MAXIMUM DAILY DOSE 2 completed pregabalin 150 MG Oral Capsule [place] ([facility]) Amoxicillin 875 MG Oral Tablet amoxicill in 875 mg tablet TAKE ONE TABLET BY MOUTH EVERY 12 HOURS FOR 10 DAYS amoxicillin 875 mg tablet TAKE ONE TABLE T BY MOUTH EVERY 12 HOURS FOR 10 DAYS compl eted amoxicillin 875 MG Oral Tablet [place] ([facility]) Doxycycline Monohydrate 100 MG Oral Caps ule doxycycline monohydrate 100 mg capsule doxycycline monohydrate 100 mg capsule completed doxycycline monohydrate 100 MG Oral Capsule [place] ([facility]) Amoxicillin 500 MG Oral Capsule amoxicil dharmesh 500 mg capsule TAKE 1 CAPSULE BY MOUTH EVERY 8 HOURS UNTIL GONE FOR 7 DAYS amoxicillin 500 mg capsule TAKE 1 CAPSULE BY MOUTH EVERY 8 HOURS UNTIL GONE FOR 7 DAYS completed amoxicillin 500 MG Oral Capsule [place] ([facility]) Baclofen 10 MG Oral Tablet baclofen 10 mg tablet baclofen 10 mg tablet completed baclofen 10 MG Oral Table t [place] ([facility]) Baclofen 10 MG Oral Tablet baclofen 10 mg tablet baclofen 10 mg tablet completed baclofen 10 MG Oral Table t [place] ([facility]) Prednisone 10 MG [...] completed prednisone 10 MG Oral Tablet [place] ([facility]) Baclofen 10 MG Oral Tablet baclofen 10 mg tablet baclofen 10 mg tablet completed baclofen 10 MG Oral Table t [place] ([facility]) Prednisone 10 MG [...] completed prednisone 10 MG Oral Tablet [place] ([facility]) Sertraline 25 MG Oral Tablet sertraline 25 mg tablet TAKE ONE TABLET BY MOUTH ONCE A DAY sertraline 25 mg tablet TAKE ONE TABLET BY MOUTH ONCE A DAY completed sertraline 25 MG Oral Tab let [place] ([facility]) Prednisone 10 MG [...] DA completed prednisone 10 MG Oral Tablet [place] ([facility]) Amoxicillin 875 MG Oral Tablet amoxicill in 875 mg tablet TAKE ONE TABLET BY MOUTH EVERY 12 HOURS FOR 10 DAYS amoxicillin 875 mg tablet TAKE ONE TABLE T BY MOUTH EVERY 12 HOURS FOR 10 DAYS compl eted amoxicillin 875 MG Oral Tablet [place] ([facility]) Prazosin 1 MG Oral Capsule prazosin 1 mg capsule prazosin 1 mg capsule completed prazosin 1 MG Oral Capsul e [place] ([facility]) Flublok Quad [id number] (PF) 180 mcg (45 mcg x 4)/0.5 mL IM syringe 60 2370 completed 0.5 ML influen za A virus A/[place] (H1N1) antigen 0.09 MG/ML / influenza A virus A/[place] (H3N2) antigen 0.09 MG/ML / influenza B virus B/[facility] antigen 0.09 MG/ML / influenza B virus B/ antigen 0.09 MG/ML Prefilled Syringe [Flublok Quadrivalent ] [place] ([facility]) Prazosin 1 MG Oral Capsule prazosin 1 mg capsule prazosin 1 mg capsule completed prazosin 1 MG Oral Capsul e [place] ([facility]) Doxycycline Monohydrate 100 MG Oral Caps ule doxycycline monohydrate 100 mg capsule doxycycline monohydrate 100 mg capsule completed doxycycline monohydrate 100 MG Oral Capsule [place] ([facility]) Prednisone 10 MG [...] DA completed prednisone 10 MG Oral Tablet [place] ([facility]) Cyclobenzaprine hydrochloride 10 MG Oral Tablet cyclob enzaprine 10 mg tablet cyclobenzaprine 10 mg tablet completed cyclobenzaprine hydrochloride 10 MG Oral Tablet [place] ([facility]) tramadol hydrochloride 50 MG Oral Tablet tramadol 50 m g tablet tramadol 50 mg tablet completed tramadol hydroc hloride 50 MG Oral Tablet [place] ([facility]) Sertraline 50 MG Oral Tablet sertraline 50 mg tablet sertraline 50 mg tablet completed sertraline 50 MG Oral Tablet [place] ([facility]) Prednisone 20 MG Oral Tablet prednisone 20 mg tablet prednisone 20 mg tablet completed prednisone 20 MG Oral Tablet [place] ([facility]) Doxycycline Monohydrate 100 MG Oral Caps ule doxycycline monohydrate 100 mg capsule doxycycline monohydrate 100 mg capsule completed doxycycline monohydrate 100 MG Oral Capsule [place] ([facility]) Fluzone Quad (PF) 60 mcg (15 mcg x 4)/0.5 mL IM syringe 562 857 completed 0.5 ML influen za A virus A/ (H1N1) antigen 0.03 MG/ML / influenza A virus A/ (H3N2) antigen 0.03 MG/ML / influenza B virus B/ antigen 0.03 MG/ML / influenza B virus B/[facility]/3073 antigen 0.03 MG/ML Prefilled Syringe [Fluzone Quadrivalent [id number]] [place] ([facility]) Sertraline 25 MG Oral Tablet sertraline 25 mg tablet TAKE ONE TABLET BY MOUTH ONCE A DAY sertraline 25 mg tablet TAKE ONE TABLET BY MOUTH ONCE A DAY completed sertraline 25 MG Oral Tab let [place] ([facility]) Prazosin 1 MG Oral Capsule prazosin 1 mg capsule prazosin 1 mg capsule completed prazosin 1 MG Oral Capsul e [place] ([facility]) Prednisone 20 MG Oral Tablet prednisone 20 mg tablet prednisone 20 mg tablet completed prednisone 20 MG Oral Tablet [place] ([facility]) Sertraline 25 MG Oral Tablet sertraline 25 mg tablet TAKE ONE TABLET BY MOUTH ONCE A DAY sertraline 25 mg tablet TAKE ONE TABLET BY MOUTH ONCE A DAY completed sertraline 25 MG Oral Tab let [place] ([facility]) Prednisone 20 MG Oral Tablet prednisone 20 mg tablet prednisone 20 mg tablet completed prednisone 20 MG Oral Tablet [place] ([facility]) Sertraline 50 MG Oral Tablet sertraline 50 mg tablet sertraline 50 mg tablet completed sertraline 50 MG Oral Tablet [place] ([facility]) Prednisone 20 MG Oral Tablet prednisone 20 mg tablet prednisone 20 mg tablet completed prednisone 20 MG Oral Tablet [place] ([facility]) Cyclobenzaprine hydrochloride 10 MG Oral Tablet cyclob enzaprine 10 mg tablet cyclobenzaprine 10 mg tablet completed cyclobenzaprine hydrochloride 10 MG Oral Tablet [place] ([facility]) Amoxicillin 875 MG Oral Tablet amoxicill in 875 mg tablet TAKE ONE TABLET BY MOUTH EVERY 12 HOURS FOR 10 DAYS amoxicillin 875 mg tablet TAKE ONE TABLE T BY MOUTH EVERY 12 HOURS FOR 10 DAYS compl eted amoxicillin 875 MG Oral Tablet [place] ([facility]) Sertraline 100 MG Oral Tablet sertraline 100 mg tablet TAKE ONE TABLET BY MOUTH EVERY DAY sertraline 100 mg tablet TAKE ONE TABLET BY MOUTH EVERY DAY completed sertraline 100 MG Oral Table t [place] ([facility]) Insurance Providers Payer name Policy type / Coverage type Policy ID Covered democrat ID Covered democrat's relationship to jasso Policy Jasso Plan Information PERSONAL PAY UNAVAILABLE SELF UNAVA ILABLE [facility] COMMUNITY [facility] [id number] SELF [id number] BLUE CROSS SHAH PLAN [id number] SP [id number] HMO BLUE [id number] SP [id number] [facility] Community Plan Medigap Part B [id number] Self [id number] [facility] Community Plan Medigap Part B [id number] Self [id number] Medicaid S [id number] S [id number] Managed Care - Community Plan [facility] P [id number] S [id number] Managed Care - Community Plan [facility] P [id number] S [id number] Medicaid S [id number] S [id number] Managed Care - [facility] Community Plan P [id number] S [id number] Managed Care - Community Plan [facility] P [id number] S [id number] Managed Care - [facility] Community Plan P [id number] S [id number] Medicaid S [id number] S [id number] [facility] [id number] [facility] [id number] Mignon [id number] [facility] [id number] SP [id number] [employer] COMMUNITY PLAN MCDO [id number] SP [id number] [facility] [id number] SP [id number] [facility] [id number] SP [id number] [employer] COMMUNITY PLAN MCDO [id number] SP [id number] Medicaid [place] Medicaid [id number] Self [id number] [facility]CAID) O [id number] S [id number] [facility] Health Maintenance Organization (HMO) [id number] Self [id number] MEDICAID [id number] SP [id number] Medicaid P [id number] S [id number] SELF PAY UNAVAILABLE SP UNAVAILA BLE [facility](MCAID) P [id number] S [id number] Medicaid Dental P [id number] [facility] [id number] SP [id number] [facility] [id number] SP [id number] Problems, Conditions, and Diagnoses Code Display Name Description Problem Type Effective Dates Data Source(s) R03.0 Elevated blood-pressure reading, without diagnosis of hypertension Elevated blood-pressure reading, without Diagnosis 08/25/2020 03:52:41 PM EDT [facility] [id number] Hypertensive disorder Hypertensive Disorder Problem 10/06/2020 12:00:00 AM EDT [place] ([facility]) [id number] Hypertensive disorder Hypertensive Disorder Problem 10/06/2020 12:00:00 AM EDT [place] ([facility]) [id number] Menometrorrhagia Menometrorrhagia Problem 09/03/2020 12 :00:00 AM EDT [place] ([facility]) [id number] Menometrorrhagia Menometrorrhagia Problem 09/03/2020 12 :00:00 AM EDT [place] ([facility]) [id number] Menometrorrhagia Menometrorrhagia Problem 09/03/2020 12 :00:00 AM EDT [place] ([facility]) R03.0 Elevated blood pressure reading Elevated blood pressur e reading [id number] 08/25/2020 12:00:00 AM EDT [facility] [id number] Gastroesophageal reflux disease without esophagitis Gastroesophageal Reflux Disease without Esophagitis Problem 08/05/2020 12:00:00 AM ED T [place] ([facility]) [id number] Allergic rhinitis Allergic Rhinitis Problem 08/05/2020 12:00:00 AM EDT [place] ([facility]) [id number] Gastroesophageal reflux disease without esophagitis Gastroesophageal Reflux Disease without Esophagitis Problem 08/05/2020 12:00:00 AM ED T [place] ([facility]) [id number] Allergic rhinitis Allergic Rhinitis Problem 08/05/2020 12:00:00 AM EDT [place] ([facility]) [id number] Gastroesophageal reflux disease without esophagitis Gastroesophageal Reflux Disease without Esophagitis Problem 08/05/2020 12:00:00 AM ED T [place] ([facility]) [id number] Allergic rhinitis Allergic Rhinitis Problem 08/05/2020 12:00:00 AM EDT [place] ([facility]) [id number] Gastroesophageal reflux disease without esophagitis Gastroesophageal Reflux Disease without Esophagitis Problem 08/05/2020 12:00:00 AM ED T [place] ([facility]) [id number] Allergic rhinitis Allergic Rhinitis Problem 08/05/2020 12:00:00 AM EDT [place] ([facility]) [id number] Diarrhea Diarrhea Problem 04/14/2020 12:00:00 AM ES T [place] ([facility]) [id number] Diarrhea Diarrhea Problem 04/14/2020 12:00:00 AM ES T [place] ([facility]) [id number] Diarrhea Diarrhea Problem 04/14/2020 12:00:00 AM ES T [place] ([facility]) [id number] Diarrhea Diarrhea Problem 04/14/2020 12:00:00 AM ES Srinath [place] ([facility]) [id number] Diarrhea Diarrhea Problem 04/14/2020 12:00:00 AM ES T [place] ([facility]) [id number] Diarrhea Diarrhea Problem 04/14/2020 12:00:00 AM ES Srinath [place] ([facility]) [id number] Diarrhea Diarrhea Problem 04/14/2020 12:00:00 AM ES T [place] ([facility]) [id number] Diarrhea Diarrhea Problem 04/14/2020 12:00:00 AM ES Srinath [place] ([facility]) Surgeries/Procedures Procedure Description Date Indications Data Source(s) RADEX FOOT COMPLETE MINIMUM 3 VIEWS 11/09/2020 12:00:0 0 AM EDT [facility] ([facility]) FX Metatarsal W/O Manipulation 10/29/2020 12:00:00 AM EDT [facility] ([facility]) OFFICE OUTPATIENT VISIT 25 MINUTES 10/29/2020 12:00:00 AM EDT [facility] ([facility]) ECG ROUTINE ECG W/LEAST 12 LDS W/I&R <td>POCT AMB EKG</td><td>Routine</td><td>08/25/2020 4:16 PM EDT</td><td> Elevated blood pressure reading</td><td> </td> 08/25/2020 04:16:00 PM EDT Elevated blood pressure reading [facility] Elevated blood pressure reading Results ID Date Data Source [id number] 07/05/2020 07:28:00 AM EDT [facility]) Name Value Range Interpretation Code Description Data Charu rce(s) Supporting Document(s) CPK creatine phosphokinase 1152 U/L 26-192 Above high nor mal CPK Creatine Phosphokinase [facility]) ID Date Data Source [id number] 07/05/2020 07:28:00 AM EDT [facility]) Name Value Range Interpretation Code Description Data Charu rce(s) Supporting Document(s) CPK creatine phosphokinase 1152 U/L 26-192 Above high nor mal CPK Creatine Phosphokinase [facility]) ID Date Data Source [id number] 07/05/2020 07:28:00 AM EDT [facility]) Name Value Range Interpretation Code Description Data Charu rce(s) Supporting Document(s) CPK creatine phosphokinase 1152 U/L 26-192 Above high nor mal CPK Creatine Phosphokinase [facility]) ID Date Data Source [id number] 07/05/2020 07:28:00 AM EDT [facility]) Name Value Range Interpretation Code Description Data Charu rce(s) Supporting Document(s) CPK creatine phosphokinase 1152 U/L 26-192 Above high nor mal CPK Creatine Phosphokinase [facility]) ID Date Data Source [id number] 07/05/2020 07:28:00 AM EDT [facility]) Name Value Range Interpretation Code Description Data Charu rce(s) Supporting Document(s) CPK creatine phosphokinase 1152 U/L 26-192 Above high nor mal CPK Creatine Phosphokinase [place] ([facility]) ID Date Data Source [id number] 06/03/2020 09:45:00 AM EST [place] ([facility]) Name Value Range Interpretation Code Description Data Charu rce(s) Supporting Document(s) thyroid stimulating hormone 2.250 uIU/mL 0.358-3.740 Thyroid Stimulating Hormone [place] ([facility]) ID Date Data Source [id number] 06/03/2020 09:45:00 AM EST [place] ([facility]) Name Value Range Interpretation Code Description Data Charu rce(s) Supporting Document(s) triglycerides level 91 mg/dL <150 Triglycerides [place] ([facility]) cholesterol level 225 mg/dL <200 Above high normal Cholesterol Level [place] ([facility]) non-HDL-C 161 mg/dL Non-hdl-c [place] ([facility]) Cholesterol in LDL [Mass/volume] in Serum or Plasma 143 mg/dL <100 Above high normal LDL Cholesterol [place] ([facility]) HDL cholesterol 64 mg/dL >40 HDL Cholesterol ATHE NA ([facility]) cholesterol risk ratio <5 Cholesterol R isk Ratio [place] ([facility]) ID Date Data Source [id number] 06/03/2020 09:45:00 AM EST [place] ([facility]) Name Value Range Interpretation Code Description Data Charu rce(s) Supporting Document(s) glucose, fasting 100 mg/dL 70-100 Glucose, Fasting AT [facility] ([facility]) blood urea nitrogen 12 mg/dL 7-18 Blood Urea Nitro gen [place] ([facility]) creatinine for GFR 0.71 mg/dL 0.55-1.30 Creatinine for GF R [place] ([facility]) glomerular filtration rate > 60.0 >58 Glomerula r Filtration Rate [place] ([facility]) sodium level 138 mEq/L 136-145 Sodium Level [place] (No [facility]) chloride level 105 mEq/L 98-107 Chloride Level [place] ([facility]) potassium serum 4.1 mEq/L 3.5-5.1 Potassium Serum ATHE NA ([facility]) carbon dioxide level 25 mEq/L 21-32 Carbon Dioxide Level [place] ([facility]) anion gap 8 mEq/L 8-16 Anion Gap ML ([facility]) calcium level 9.3 mg/dL 8.5-10.1 Calcium Level [place] ( [facility]) ALT/SGPT 28 U/L 12-78 ALT/SGPT [place] ([facility]) AST/SGOT 14 U/L 7-37 AST/SGOT [place] ([facility]) alkaline phosphatase 60 U/L 45-117 Alkaline Phosph atase ML ([facility]) bilirubin,total 0.2 mg/dL 0.2-1.0 Bilirubin,total ATHE NA ([facility]) total protein 7.2 gm/dL 6.4-8.2 Total Protein [place] ( [facility]) albumin 4.3 gm/dL 3.2-5.2 Albumin [place] ([facility]) albumin/globulin ratio 1.2-2.2 Albumin/globu dharmesh Ratio [place] ([facility]) ID Date Data Source [id number] 06/03/2020 09:45:00 AM EST [place] ([facility]) Name Value Range Interpretation Code Description Data Charu rce(s) Supporting Document(s) thyroid stimulating hormone 2.250 uIU/mL 0.358-3.740 Thyroid Stimulating Hormone [place] ([facility]) ID Date Data Source [id number] 06/03/2020 09:45:00 AM EST [place] ([facility]) Name Value Range Interpretation Code Description Data Charu rce(s) Supporting Document(s) triglycerides level 91 mg/dL <150 Triglycerides [place] LM ([facility]) cholesterol level 225 mg/dL <200 Above high normal Cholesterol Level [place] ([facility]) Cholesterol in LDL [Mass/volume] in Serum or Plasma 143 mg/dL <100 Above high normal LDL Cholesterol ML ([facility]) HDL cholesterol 64 mg/dL >40 HDL Cholesterol ATHE NA ([facility]) non-HDL-C 161 mg/dL Non-hdl-c ML ([facility]) cholesterol risk ratio <5 Cholesterol R isk Ratio ML ([facility]) ID Date Data Source [id number] 06/03/2020 09:45:00 AM EST ML ([facility]) Name Value Range Interpretation Code Description Data Charu rce(s) Supporting Document(s) blood urea nitrogen 12 mg/dL 7-18 Blood Urea Nitro gen LM ([facility]) glucose, fasting 100 mg/dL 70-100 Glucose, Fasting AT [facility] ([facility]) creatinine for GFR 0.71 mg/dL 0.55-1.30 Creatinine for GF R ML ([facility]) sodium level 138 mEq/L 136-145 Sodium Level ML (No [facility]) glomerular filtration rate > 60.0 >58 Glomerula r Filtration Rate ML ([facility]) chloride level 105 mEq/L 98-107 Chloride Level ML ([facility]) potassium serum 4.1 mEq/L 3.5-5.1 Potassium Serum ATHE ([facility]) carbon dioxide level 25 mEq/L 21-32 Carbon Dioxide Level ML ([facility]) calcium level 9.3 mg/dL 8.5-10.1 Calcium Level ML ( [facility]) anion gap 8 mEq/L 8-16 Anion Gap ML ([facility]) AST/SGOT 14 U/L 7-37 AST/SGOT ML ([facility]) ALT/SGPT 28 U/L 12-78 ALT/SGPT ML ([facility]) alkaline phosphatase 60 U/L 45-117 Alkaline Phosph atase ML ([facility]) bilirubin,total 0.2 mg/dL 0.2-1.0 Bilirubin,total ATHE NA ([facility]) total protein 7.2 gm/dL 6.4-8.2 Total Protein ML ( [facility]) albumin 4.3 gm/dL 3.2-5.2 Albumin ML ([facility]) albumin/globulin ratio 1.2-2.2 Albumin/globu dharmesh Ratio ML ([facility]) ID Date Data Source [id number] 06/03/2020 09:45:00 AM EST ML ([facility]) Name Value Range Interpretation Code Description Data Charu rce(s) Supporting Document(s) thyroid stimulating hormone 2.250 uIU/mL 0.358-3.740 Thyroid Stimulating Hormone ML ([facility]) ID Date Data Source [id number] 06/03/2020 09:45:00 AM EST ML ([facility]) Name Value Range Interpretation Code Description Data Charu rce(s) Supporting Document(s) cholesterol level 225 mg/dL <200 Above high normal Cholesterol Level ML ([facility]) triglycerides level 91 mg/dL <150 Triglycerides [place] ML ([facility]) non-HDL-C 161 mg/dL Non-hdl-c ML ([facility]) HDL cholesterol 64 mg/dL >40 HDL Cholesterol ATHE NA ([facility]) cholesterol risk ratio <5 Cholesterol R isk Ratio ML ([facility]) Cholesterol in LDL [Mass/volume] in Serum or Plasma 143 mg/dL <100 Above high normal LDL Cholesterol ML ([facility]) ID Date Data Source [id number] 06/03/2020 09:45:00 AM EST ML ([facility]) Name Value Range Interpretation Code Description Data Charu rce(s) Supporting Document(s) glucose, fasting 100 mg/dL 70-100 Glucose, Fasting AT [facility] ([facility]) blood urea nitrogen 12 mg/dL 7-18 Blood Urea Nitro gen ML ([facility]) sodium level 138 mEq/L 136-145 Sodium Level ML (No [facility]) glomerular filtration rate > 60.0 >58 Glomerula r Filtration Rate ML ([facility]) creatinine for GFR 0.71 mg/dL 0.55-1.30 Creatinine for GF R ML ([facility]) carbon dioxide level 25 mEq/L 21-32 Carbon Dioxide Level ML ([facility]) chloride level 105 mEq/L 98-107 Chloride Level ML ([facility]) potassium serum 4.1 mEq/L 3.5-5.1 Potassium Serum ATHE NA ([facility]) anion gap 8 mEq/L 8-16 Anion Gap ML ([facility]) alkaline phosphatase 60 U/L 45-117 Alkaline Phosph atase ML ([facility]) AST/SGOT 14 U/L 7-37 AST/SGOT ML ([facility]) calcium level 9.3 mg/dL 8.5-10.1 Calcium Level ML ( [facility]) ALT/SGPT 28 U/L 12-78 ALT/SGPT ML ([facility]) albumin/globulin ratio 1.2-2.2 Albumin/globu dharmesh Ratio ML ([facility]) bilirubin,total 0.2 mg/dL 0.2-1.0 Bilirubin,total ATHE NA ([facility]) albumin 4.3 gm/dL 3.2-5.2 Albumin ML ([facility]) total protein 7.2 gm/dL 6.4-8.2 Total Protein ML ( [facility]) ID Date Data Source [id number] 06/03/2020 09:45:00 AM EST ML ([facility]) Name Value Range Interpretation Code Description Data Charu rce(s) Supporting Document(s) thyroid stimulating hormone 2.250 uIU/mL 0.358-3.740 Thyroid Stimulating Hormone ML ([facility]) ID Date Data Source [id number] 06/03/2020 09:45:00 AM EST ML ([facility]) Name Value Range Interpretation Code Description Data Charu rce(s) Supporting Document(s) triglycerides level 91 mg/dL <150 Triglycerides [place] ML ([facility]) Cholesterol in LDL [Mass/volume] in Serum or Plasma 143 mg/dL <100 Above high normal LDL Cholesterol ML ([facility]) cholesterol level 225 mg/dL <200 Above high normal Cholesterol Level ML ([facility]) HDL cholesterol 64 mg/dL >40 HDL Cholesterol ATHE ([facility]) cholesterol risk ratio <5 Cholesterol R isk Ratio ML ([facility]) non-HDL-C 161 mg/dL Non-hdl-c ML ([facility]) ID Date Data Source [id number] 06/03/2020 09:45:00 AM EST ML ([facility]) Name Value Range Interpretation Code Description Data Charu rce(s) Supporting Document(s) glucose, fasting 100 mg/dL 70-100 Glucose, Fasting AT [facility]) glomerular filtration rate > 60.0 >58 Glomerula r Filtration Rate ML ([facility]) blood urea nitrogen 12 mg/dL 7-18 Blood Urea Nitro gen ML ([facility]) creatinine for GFR 0.71 mg/dL 0.55-1.30 Creatinine for GF R ML ([facility]) sodium level 138 mEq/L 136-145 Sodium Level ML ([facility]) carbon dioxide level 25 mEq/L 21-32 Carbon Dioxide Level ML ([facility]) potassium serum 4.1 mEq/L 3.5-5.1 Potassium Serum ATHE ([facility]) chloride level 105 mEq/L 98-107 Chloride Level ML ([facility]) anion gap 8 mEq/L 8-16 Anion Gap ML ([facility]) calcium level 9.3 mg/dL 8.5-10.1 Calcium Level ML ( [facility]) bilirubin,total 0.2 mg/dL 0.2-1.0 Bilirubin,total ATHE NA ([facility]) AST/SGOT 14 U/L 7-37 AST/SGOT ML ([facility]) ALT/SGPT 28 U/L 12-78 ALT/SGPT ML ([facility]) alkaline phosphatase 60 U/L 45-117 Alkaline Phosph atase ML ([facility]) albumin 4.3 gm/dL 3.2-5.2 Albumin ML ([facility]) albumin/globulin ratio 1.2-2.2 Albumin/globu dharmesh Ratio ML ([facility]) total protein 7.2 gm/dL 6.4-8.2 Total Protein ML ( [facility]) ID Date Data Source [id number] 06/03/2020 09:45:00 AM EST ML ([facility]) Name Value Range Interpretation Code Description Data Charu rce(s) Supporting Document(s) thyroid stimulating hormone 2.250 uIU/mL 0.358-3.740 Thyroid Stimulating Hormone ML ([facility]) ID Date Data Source [id number] 06/03/2020 09:45:00 AM EST ML ([facility]) Name Value Range Interpretation Code Description Data Charu rce(s) Supporting Document(s) cholesterol level 225 mg/dL <200 Above high normal Cholesterol Level ML ([facility]) triglycerides level 91 mg/dL <150 Triglycerides [place] ML ([facility]) cholesterol risk ratio <5 Cholesterol R isk Ratio ML ([facility]) Cholesterol in LDL [Mass/volume] in Serum or Plasma 143 mg/dL <100 Above high normal LDL Cholesterol ML ([facility]) non-HDL-C 161 mg/dL Non-hdl-c ML ([facility]) HDL cholesterol 64 mg/dL >40 HDL Cholesterol ATHE NA ([facility]) ID Date Data Source [id number] 06/03/2020 09:45:00 AM EST ML ([facility]) Name Value Range Interpretation Code Description Data Charu rce(s) Supporting Document(s) glucose, fasting 100 mg/dL 70-100 Glucose, Fasting AT [facility] ([facility]) blood urea nitrogen 12 mg/dL 7-18 Blood Urea Nitro gen ML ([facility]) glomerular filtration rate > 60.0 >58 Glomerula r Filtration Rate ML ([facility]) creatinine for GFR 0.71 mg/dL 0.55-1.30 Creatinine for GF R ML ([facility]) sodium level 138 mEq/L 136-145 Sodium Level ML (No [facility]) chloride level 105 mEq/L 98-107 Chloride Level ML ([facility]) anion gap 8 mEq/L 8-16 Anion Gap ML ([facility]) potassium serum 4.1 mEq/L 3.5-5.1 Potassium Serum ATHE ([facility]) carbon dioxide level 25 mEq/L 21-32 Carbon Dioxide Level ML ([facility]) ALT/SGPT 28 U/L 12-78 ALT/SGPT ML ([facility]) alkaline phosphatase 60 U/L 45-117 Alkaline Phosph atase ML ([facility]) calcium level 9.3 mg/dL 8.5-10.1 Calcium Level ML ( [facility]) AST/SGOT 14 U/L 7-37 AST/SGOT ML ([facility]) total protein 7.2 gm/dL 6.4-8.2 Total Protein ML ( [facility]) bilirubin,total 0.2 mg/dL 0.2-1.0 Bilirubin,total ATHE NA ([facility]) albumin 4.3 gm/dL 3.2-5.2 Albumin ML ([facility]) albumin/globulin ratio 1.2-2.2 Albumin/globu dharmesh Ratio ML ([facility]) ID Date Data Source [id number] 06/03/2020 09:45:00 AM EST ML ([facility]) Name Value Range Interpretation Code Description Data Charu rce(s) Supporting Document(s) thyroid stimulating hormone 2.250 uIU/mL 0.358-3.740 Thyroid Stimulating Hormone ML ([facility]) ID Date Data Source [id number] 06/03/2020 09:45:00 AM EST ML ([facility]) Name Value Range Interpretation Code Description Data Charu rce(s) Supporting Document(s) HDL cholesterol 64 mg/dL >40 HDL Cholesterol ATHE NA ([facility]) cholesterol level 225 mg/dL <200 Above high normal Cholesterol Level ML ([facility]) triglycerides level 91 mg/dL <150 Triglycerides [place] ML ([facility]) Cholesterol in LDL [Mass/volume] in Serum or Plasma 143 mg/dL <100 Above high normal LDL Cholesterol ML ([facility]) cholesterol risk ratio <5 Cholesterol R isk Ratio ML ([facility]) non-HDL-C 161 mg/dL Non-hdl-c ML ([facility]) ID Date Data Source [id number] 06/03/2020 09:45:00 AM EST ML ([facility]) Name Value Range Interpretation Code Description Data Charu rce(s) Supporting Document(s) glucose, fasting 100 mg/dL 70-100 Glucose, Fasting AT [facility]) sodium level 138 mEq/L 136-145 Sodium Level ML ([facility]) creatinine for GFR 0.71 mg/dL 0.55-1.30 Creatinine for GF R ML ([facility]) blood urea nitrogen 12 mg/dL 7-18 Blood Urea Nitro gen ML ([facility]) glomerular filtration rate > 60.0 >58 Glomerula r Filtration Rate ML ([facility]) carbon dioxide level 25 mEq/L 21-32 Carbon Dioxide Level ML ([facility]) anion gap 8 mEq/L 8-16 Anion Gap ML ([facility]) chloride level 105 mEq/L 98-107 Chloride Level ML ([facility]) potassium serum 4.1 mEq/L 3.5-5.1 Potassium Serum ATHE ([facility]) alkaline phosphatase 60 U/L 45-117 Alkaline Phosph atase ML ([facility]) calcium level 9.3 mg/dL 8.5-10.1 Calcium Level ML ( [facility]) ALT/SGPT 28 U/L 12-78 ALT/SGPT ML ([facility]) bilirubin,total 0.2 mg/dL 0.2-1.0 Bilirubin,total ATHE NA ([facility]) AST/SGOT 14 U/L 7-37 AST/SGOT ML ([facility]) total protein 7.2 gm/dL 6.4-8.2 Total Protein ML ( [facility]) albumin/globulin ratio 1.2-2.2 Albumin/globu dharmesh Ratio ML ([facility]) albumin 4.3 gm/dL 3.2-5.2 Albumin ML ([facility]) ID Date Data Source [id number] 06/03/2020 09:45:00 AM EST ML ([facility]) Name Value Range Interpretation Code Description Data Charu rce(s) Supporting Document(s) thyroid stimulating hormone 2.250 uIU/mL 0.358-3.740 Thyroid Stimulating Hormone ML ([facility]) ID Date Data Source [id number] 06/03/2020 09:45:00 AM EST ML ([facility]) Name Value Range Interpretation Code Description Data Charu rce(s) Supporting Document(s) HDL cholesterol 64 mg/dL >40 HDL Cholesterol ATHE NA ([facility]) triglycerides level 91 mg/dL <150 Triglycerides [place] ML ([facility]) cholesterol level 225 mg/dL <200 Above high normal Cholesterol Level ML ([facility]) Cholesterol in LDL [Mass/volume] in Serum or Plasma 143 mg/dL <100 Above high normal LDL Cholesterol ML ([facility]) non-HDL-C 161 mg/dL Non-hdl-c ML ([facility]) cholesterol risk ratio <5 Cholesterol R isk Ratio ML ([facility]) ID Date Data Source [id number] 06/03/2020 09:45:00 AM EST ML ([facility]) Name Value Range Interpretation Code Description Data Charu rce(s) Supporting Document(s) glucose, fasting 100 mg/dL 70-100 Glucose, Fasting AT [facility] ([facility]) creatinine for GFR 0.71 mg/dL 0.55-1.30 Creatinine for GF R [place] ([facility]) glomerular filtration rate > 60.0 >58 Glomerula r Filtration Rate ML ([facility]) blood urea nitrogen 12 mg/dL 7-18 Blood Urea Nitro gen ML ([facility]) sodium level 138 mEq/L 136-145 Sodium Level ML ([facility]) potassium serum 4.1 mEq/L 3.5-5.1 Potassium Serum ATHE NA ([facility]) carbon dioxide level 25 mEq/L 21-32 Carbon Dioxide Level ML ([facility]) chloride level 105 mEq/L 98-107 Chloride Level ML ([facility]) calcium level 9.3 mg/dL 8.5-10.1 Calcium Level ML ( [facility]) ALT/SGPT 28 U/L 12-78 ALT/SGPT ML ([facility]) anion gap 8 mEq/L 8-16 Anion Gap ML ([facility]) AST/SGOT 14 U/L 7-37 AST/SGOT ML ([facility]) total protein 7.2 gm/dL 6.4-8.2 Total Protein ML ( [facility]) alkaline phosphatase 60 U/L 45-117 Alkaline Phosph atase ML ([facility]) albumin/globulin ratio 1.2-2.2 Albumin/globu dharmesh Ratio ML ([facility]) bilirubin,total 0.2 mg/dL 0.2-1.0 Bilirubin,total ATHE NA ([facility]) albumin 4.3 gm/dL 3.2-5.2 Albumin ML ([facility]) ID Date Data Source [id number] 02/27/2020 12:00:00 AM EST [facility] Name Value Range Interpretation Code Description Data Charu rce(s) Supporting Document(s) SARS coronavirus 2 RNA [facility] This lab was ordered by [employer] and rep orted by [facility]. 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) (LHG76-O24.89) Assessment: Instructions: Stable.Recheck as scheduled with Mental Health.Low back pain (ICD-724.2) (WWZ36-F40.5) Assessment: Instructions: Chronic and worsening despite a [...] ild)Orders:Adult - Ofc Vst, EST, Level III [CPT-01570] Name Value Range Interpretation Code Description Data Charu rce(s) Supporting Document(s) Procedure Social History Code Duration Value Status Description Data Source(s ) Alcohol intake 08/25/2020 12:00:00 AM EDT Ex-drinker (finding) comp leted Ex- drinker (finding) [facility] Tobacco use and exposure 08/25/2020 12:00:00 AM EDT Never used co mpleted Never used [facility] Smoking 08/25/2020 12:00:00 AM EDT Former smoker completed Former smoker [facility] Vital Signs ID Date Data Source [id number] Name Value Range Interpretation Code Description Data Source(s) Diastolic blood pressure 81 mm[Hg] 81 mm[Hg] ML ([facility]) Diastolic blood pressure 85 mm[Hg] 85 mm[Hg] ML ([facility]) Body height 61 [in_i] 61 [in_i] ML ([facility]) Systolic blood pressure 125 mm[Hg] 125 mm[Hg] A THENA ([facility]) Systolic blood pressure 131 mm[Hg] 131 mm[Hg] A THENA ([facility]) Diastolic blood pressure 102 mm[Hg] 102 mm[Hg] ML ([facility]) Body height 61 [in_i] 61 [in_i] ML ([facility]) Body mass index (BMI) [Ratio] 23.3 kg/m2 23.3 k g/m2 ML ([facility]) Systolic blood pressure 153 mm[Hg] 153 mm[Hg] A THENA ([facility]) Body weight 1973 [oz_av] 1973 [oz_av] ML ([facility]) Diastolic blood pressure 102 mm[Hg] 102 mm[Hg] ML ([facility]) Body height 61 [in_i] 61 [in_i] ML ([facility]) Body mass index (BMI) [Ratio] 23.3 kg/m2 23.3 k g/m2 ML ([facility]) Systolic blood pressure 153 mm[Hg] 153 mm[Hg] A THENA ([facility]) Body weight 1973 [oz_av] 1973 [oz_av] ML ([facility]) Diastolic blood pressure 92 mm[Hg] 92 mm[Hg] ML ([facility]) Body height 61 [in_i] 61 [in_i] ML ([facility]) Body mass index (BMI) [Ratio] 23.1 kg/m2 23.1 k g/m2 ML ([facility]) Systolic blood pressure 137 mm[Hg] 137 mm[Hg] A THENA ([facility]) Body weight 1956 [oz_av] 1956 [oz_av] ML ([facility]) Diastolic blood pressure 92 mm[Hg] 92 mm[Hg] ML ([facility]) Body height 61 [in_i] 61 [in_i] ML ([facility]) Body mass index (BMI) [Ratio] 23.1 kg/m2 23.1 k g/m2 ML ([facility]) Systolic blood pressure 137 mm[Hg] 137 mm[Hg] A [facility] ([facility]) Body weight 1956 [oz_av] 1956 [oz_av] ML ([facility]) Diastolic blood pressure 92 mm[Hg] 92 mm[Hg] ML ([facility]) Body height 61 [in_i] 61 [in_i] ML ([facility]) Body mass index (BMI) [Ratio] 23.1 kg/m2 23.1 k g/m2 ML ([facility]) Systolic blood pressure 137 mm[Hg] 137 mm[Hg] A [facility] ([facility]) Body weight 1956 [oz_av] 1956 [oz_av] ML ([facility]) Systolic blood pressure 122 mm[Hg] 122 mm[Hg] [facility] Diastolic blood pressure 75 mm[Hg] 75 mm[Hg] [facility] Heart rate 100 /min 100 /min [facility] Body height 152.4 cm 152.4 cm [facility] Body weight 54.432 kg 54.432 kg [facility] Body mass index (BMI) [Ratio] 23.44 kg/m2 23.44 kg/m2 [facility] Oxygen saturation in Arterial blood by Pulse oximetry 96 % 96 % [facility] Diastolic blood pressure 85 mm[Hg] 85 mm[Hg] ML ([facility]) Diastolic blood pressure 107 mm[Hg] 107 mm[Hg] ML ([facility]) Body height 61 [in_i] 61 [in_i] ML ([facility]) Body mass index (BMI) [Ratio] 23.1 kg/m2 23.1 k g/m2 ML ([facility]) Systolic blood pressure 145 mm[Hg] 145 mm[Hg] A THENA ([facility]) Systolic blood pressure 152 mm[Hg] 152 mm[Hg] A [facility] ([facility]) Body weight 1960 [oz_av] 1960 [oz_av] ML ([facility]) Body mass index (BMI) [Ratio] 23.1 kg/m2 23.1 k g/m2 ML ([facility]) Systolic blood pressure 152 mm[Hg] 152 mm[Hg] A THENA ([facility]) Body weight 1960 [oz_av] 1960 [oz_av] ML ([facility]) Diastolic blood pressure 85 mm[Hg] 85 mm[Hg] ML ([facility]) Diastolic blood pressure 107 mm[Hg] 107 mm[Hg] ML ([facility]) Body height 61 [in_i] 61 [in_i] ML ([facility]) Systolic blood pressure 145 mm[Hg] 145 mm[Hg] A THENA ([facility]) Diastolic blood pressure 85 mm[Hg] 85 mm[Hg] ML ([facility]) Diastolic blood pressure 107 mm[Hg] 107 mm[Hg] ML ([facility]) Body height 61 [in_i] 61 [in_i] ML ([facility]) Body mass index (BMI) [Ratio] 23.1 kg/m2 23.1 k g/m2 ML ([facility]) Systolic blood pressure 145 mm[Hg] 145 mm[Hg] A THENA ([facility]) Systolic blood pressure 152 mm[Hg] 152 mm[Hg] A THENA ([facility]) Body weight 1960 [oz_av] 1960 [oz_av] ML ([facility]) Diastolic blood pressure 85 mm[Hg] 85 mm[Hg] ML ([facility]) Diastolic blood pressure 107 mm[Hg] 107 mm[Hg] ML ([facility]) Body height 61 [in_i] 61 [in_i] ML ([facility]) Body mass index (BMI) [Ratio] 23.1 kg/m2 23.1 k g/m2 ML ([facility]) Systolic blood pressure 145 mm[Hg] 145 mm[Hg] A THENA ([facility]) Systolic blood pressure 152 mm[Hg] 152 mm[Hg] A THENA ([facility]) Body weight 1960 [oz_av] 1960 [oz_av] ML ([facility]) Body height 61 [in_i] 61 [in_i] ML ([facility]) Body mass index (BMI) [Ratio] 25 kg/m2 25 kg/ m2 ML ([facility]) Systolic blood pressure 147 mm[Hg] 147 mm[Hg] [facility]) Body weight 2114 [oz_av] 2114 [oz_av] ML ([facility]) Diastolic blood pressure 90 mm[Hg] 90 mm[Hg] ML ([facility]) Diastolic blood pressure 90 mm[Hg] 90 mm[Hg] LM ([facility]) Body height 61 [in_i] 61 [in_i] ML ([facility]) Body mass index (BMI) [Ratio] 25 kg/m2 25 kg/ m2 ML ([facility]) Systolic blood pressure 147 mm[Hg] 147 mm[Hg] A [facility]) Body weight 2114 [oz_av] 2114 [oz_av] ML ([facility]) Diastolic blood pressure 90 mm[Hg] 90 mm[Hg] ML ([facility]) Body height 61 [in_i] 61 [in_i] ML ([facility]) Body mass index (BMI) [Ratio] 25 kg/m2 25 kg/ m2 ML ([facility]) Systolic blood pressure 147 mm[Hg] 147 mm[Hg] A THENA ([facility]) Body weight 2114 [oz_av] 2114 [oz_av] ML ([facility]) Diastolic blood pressure 90 mm[Hg] 90 mm[Hg] ML ([facility]) Body height 61 [in_i] 61 [in_i] ML ([facility]) Body mass index (BMI) [Ratio] 25 kg/m2 25 kg/ m2 ML ([facility]) Systolic blood pressure 147 mm[Hg] 147 mm[Hg] A [facility]) Body weight 2114 [oz_av] 2114 [oz_av] ML ([facility]) Diastolic blood pressure 90 mm[Hg] 90 mm[Hg] ML ([facility]) Body height 61 [in_i] 61 [in_i] ML ([facility]) Body mass index (BMI) [Ratio] 25 kg/m2 25 kg/ m2 ML ([facility]) Systolic blood pressure 147 mm[Hg] 147 mm[Hg] A THENA ([facility]) Body weight 2114 [oz_av] 2114 [oz_av] ML ([facility]) Diastolic blood pressure 90 mm[Hg] 90 mm[Hg] ML ([facility]) Body height 61 [in_i] 61 [in_i] ML ([facility]) Body mass index (BMI) [Ratio] 25 kg/m2 25 kg/ m2 ML [facility] [facility] Systolic blood pressure 147 mm[Hg] 147 mm[Hg] [facility] Body weight 2114 [oz_av] 2114 [oz_av] ML ([facility]) Diastolic blood pressure 94 mm[Hg] 94 mm[Hg] ML ([facility]) Body height 61 [in_i] 61 [in_i] ML ([facility]) Body mass index (BMI) [Ratio] 24.1 kg/m2 24.1 k g/m2 ML ([facility]) Systolic blood pressure 148 mm[Hg] 148 mm[Hg] [facility]) Body weight 0 [oz_av] 2040 [oz_av] ML ([facility]) Diastolic blood pressure 94 mm[Hg] 94 mm[Hg] ML ([facility]) Body height 61 [in_i] 61 [in_i] ML ([facility]) Body mass index (BMI) [Ratio] 24.1 kg/m2 24.1 k g/m2 ML ([facility]) Systolic blood pressure 148 mm[Hg] 148 mm[Hg] A [facility] ([facility]) Body weight 0 [oz_av] 2040 [oz_av] ML ([facility]) Diastolic blood pressure 94 mm[Hg] 94 mm[Hg] ML ([facility]) Body height 61 [in_i] 61 [in_i] ML ([facility]) Body mass index (BMI) [Ratio] 24.1 kg/m2 24.1 k g/m2 ML ([facility]) Systolic blood pressure 148 mm[Hg] 148 mm[Hg] A [facility] ([facility]) Body weight 2039 [oz_av] 2040 [oz_av] ML ([facility]) Diastolic blood pressure 94 mm[Hg] 94 mm[Hg] ML ([facility]) Body height 61 [in_i] 61 [in_i] ML ([facility]) Body mass index (BMI) [Ratio] 24.1 kg/m2 24.1 k g/m2 ML ([facility]) Systolic blood pressure 148 mm[Hg] 148 mm[Hg] A [facility]) Body weight 2039 [oz_av] 204 [oz_av] ML ([facility]) Diastolic blood pressure 94 mm[Hg] 94 mm[Hg] ML ([facility]) Body height 61 [in_i] 61 [in_i] ML ([facility]) Body mass index (BMI) [Ratio] 24.1 kg/m2 24.1 k g/m2 ML ([facility]) Systolic blood pressure 148 mm[Hg] 148 mm[Hg] A [facility] ([facility]) Body weight 2039 [oz_av] 204 [oz_av] ML ([facility]) Diastolic blood pressure 94 mm[Hg] 94 mm[Hg] ML ([facility]) Body height 61 [in_i] 61 [in_i] ML ([facility]) Body mass index (BMI) [Ratio] 24.1 kg/m2 24.1 k g/m2 ML ([facility]) Systolic blood pressure 148 mm[Hg] 148 mm[Hg] A [facility] ([facility]) Body weight 0 [oz_av] 2040 [oz_av] ML ([facility]) Diastolic blood pressure 94 mm[Hg] 94 mm[Hg] ML ([facility]) Body height 61 [in_i] 61 [in_i] ML ([facility]) Body mass index (BMI) [Ratio] 24.1 kg/m2 24.1 k g/m2 ML ([facility]) Systolic blood pressure 148 mm[Hg] 148 mm[Hg] A [facility] ([facility]) Body weight 2040 [oz_av] 2040 [oz_av] ML ([facility]) Diastolic blood pressure 94 mm[Hg] 94 mm[Hg] ML ([facility]) Body height 61 [in_i] 61 [in_i] ML ([facility]) Body mass index (BMI) [Ratio] 24.1 kg/m2 24.1 k g/m2 ML ([facility]) Systolic blood pressure 148 mm[Hg] 148 mm[Hg] A [facility]) Body weight 2040 [oz_av] 2040 [oz_av] ML ([facility]) Diastolic blood pressure 95 mm[Hg] 95 mm[Hg] ML ([facility]) Body height 61 [in_i] 61 [in_i] ML ([facility]) Body mass index (BMI) [Ratio] 26.19 kg/m2 26.19 kg/m2 ML ([facility]) Systolic blood pressure 136 mm[Hg] 136 mm[Hg] A [facility] ([facility]) Body weight 2210.08 [oz_av] 2210.08 [oz_av] [facility] ([facility]) Diastolic blood pressure 95 mm[Hg] 95 mm[Hg] ML ([facility]) Body height 61 [in_i] 61 [in_i] ML ([facility]) Body mass index (BMI) [Ratio] 26.19 kg/m2 26.19 kg/m2 ML ([facility]) Systolic blood pressure 136 mm[Hg] 136 mm[Hg] A [facility] ([facility]) Body weight 2210.08 [oz_av] 2210.08 [oz_av] [facility] ([facility]) Diastolic blood pressure 95 mm[Hg] 95 mm[Hg] ML ([facility]) Body height 61 [in_i] 61 [in_i] ML ([facility]) Body mass index (BMI) [Ratio] 26.19 kg/m2 26.19 kg/m2 ML ([facility]) Systolic blood pressure 136 mm[Hg] 136 mm[Hg] A [facility]) Body weight 2210.08 [oz_av] 2210.08 [oz_av] [facility] ([facility]) Diastolic blood pressure 95 mm[Hg] 95 mm[Hg] ML ([facility]) Body height 61 [in_i] 61 [in_i] ML ([facility]) Body mass index (BMI) [Ratio] 26.19 kg/m2 26.19 kg/m2 ML ([facility]) Systolic blood pressure 136 mm[Hg] 136 mm[Hg] A [facility] ([facility]) Body weight 2210.08 [oz_av] 2210.08 [oz_av] [facility] ([facility]) Diastolic blood pressure 95 mm[Hg] 95 mm[Hg] ML ([facility]) Body height 61 [in_i] 61 [in_i] ML ([facility]) Body mass index (BMI) [Ratio] 26.19 kg/m2 26.19 kg/m2 ML ([facility]) Systolic blood pressure 136 mm[Hg] 136 mm[Hg] A [facility]) Body weight 2210.08 [oz_av] 2210.08 [oz_av] [facility] ([facility]) Diastolic blood pressure 95 mm[Hg] 95 mm[Hg] ML ([facility]) Body height 61 [in_i] 61 [in_i] ML ([facility]) Body mass index (BMI) [Ratio] 26.19 kg/m2 26.19 kg/m2 ML ([facility]) Systolic blood pressure 136 mm[Hg] 136 mm[Hg] A [facility] ([facility]) Body weight 2210.08 [oz_av] 2210.08 [oz_av] [facility] ([facility]) Body weight 2210.08 [oz_av] 2210.08 [oz_av] [facility] ([facility]) Diastolic blood pressure 95 mm[Hg] 95 mm[Hg] ML ([facility]) Body height 61 [in_i] 61 [in_i] ML ([facility]) Body mass index (BMI) [Ratio] 26.19 kg/m2 26.19 kg/m2 ML ([facility]) Systolic blood pressure 136 mm[Hg] 136 mm[Hg] A [facility] ([facility]) Patient Treatment Plan of Care Planned Activity Planned Date Details Description Data Source (s) Sertraline 50 MG Oral Tablet ML ([facility]) Sertraline 25 MG Oral Tablet ML ([facility]) pregabalin 150 MG Oral Capsule ML ([facility]) Prednisone 10 MG Oral Tablet ML ([facility]) Prazosin 1 MG Oral Capsule A [facility] ([facility]) Doxycycline Monohydrate 100 MG Oral Capsule ML ([facility]) Cyclobenzaprine hydrochloride 10 MG Oral Tablet ML ([facility]) Baclofen 10 MG Oral Tablet A [facility] ([facility]) Amoxicillin 875 MG Oral Tablet ML ([facility]) pregabalin 150 MG Oral Capsule ML ([facility]) Prednisone 10 MG Oral Tablet ML ([facility]) Prazosin 1 MG Oral Capsule A THEN ([facility]) Doxycycline Monohydrate 100 MG Oral Capsule ML ([facility]) Cyclobenzaprine hydrochloride 10 MG Oral Tablet ML ([facility]) Baclofen 10 MG Oral Tablet A THE[facility] ([facility]) Amoxicillin 875 MG Oral Tablet ML ([facility]) pregabalin 150 MG Oral Capsule ML ([facility]) Prednisone 20 MG Oral Tablet ML ([facility]) Prednisone 10 MG Oral Tablet ML ([facility]) Prazosin 1 MG Oral Capsule A [facility] ([facility]) Fluzone Quad [id number] (PF) 60 mcg (15 mcg x 4)/0.5 mL IM syringe LM ([facility]) Flublok Quad (PF) 180 mcg (45 mcg x 4)/0.5 mL IM syringe ML ([facility]) Doxycycline Monohydrate 100 MG Oral Capsule ML ([facility]) Cyclobenzaprine hydrochloride 10 MG Oral Tablet ML ([facility]) Baclofen 10 MG Oral Tablet A [facility] ([facility]) Amoxicillin 875 MG Oral Tablet ML ([facility]) Amoxicillin 500 MG Oral Capsule ML ([facility]) Trazodone Hydrochloride 50 MG Oral Tablet ML ([facility]) Sertraline 50 MG Oral Tablet ML ([facility]) Sertraline 25 MG Oral Tablet ML ([facility]) pregabalin 150 MG Oral Capsule ML ([facility]) Prednisone 20 MG Oral Tablet ML ([facility]) Prednisone 10 MG Oral Tablet ML ([facility]) Prazosin 1 MG Oral Capsule A THE[facility] ([facility]) Fluzone Quad (PF) 60 mcg (15 mcg x 4)/0.5 mL IM syringe ML ([facility]) Flublok Quad (PF) 180 mcg (45 mcg x 4)/0.5 mL IM syringe ML ([facility]) Doxycycline Monohydrate 100 MG Oral Capsule ML ([facility]) Cyclobenzaprine hydrochloride 10 MG Oral Tablet ML ([facility]) Baclofen 10 MG Oral Tablet A THENA ([facility]) Amoxicillin 875 MG Oral Tablet ML ([facility]) Amoxicillin 500 MG Oral Capsule ML ([facility]) Trazodone Hydrochloride 50 MG Oral Tablet ML ([facility]) Sertraline 50 MG Oral Tablet ML ([facility]) Sertraline 25 MG Oral Tablet ML ([facility]) pregabalin 150 MG Oral Capsule ML ([facility]) Prednisone 20 MG Oral Tablet ML ([facility]) Prednisone 10 MG Oral Tablet ML ([facility]) Prazosin 1 MG Oral Capsule A THE[facility] ([facility]) Fluzone Quad (PF) 60 mcg (15 mcg x 4)/0.5 mL IM syringe ML ([facility]) Flublok Quad (PF) 180 mcg (45 mcg x 4)/0.5 mL IM syringe ML ([facility]) Doxycycline Monohydrate 100 MG Oral Capsule ML ([facility]) Cyclobenzaprine hydrochloride 10 MG Oral Tablet ML ([facility]) Baclofen 10 MG Oral Tablet A [facility] ([facility]) Amoxicillin 875 MG Oral Tablet ML ([facility]) Amoxicillin 500 MG Oral Capsule ML ([facility]) Trazodone Hydrochloride 50 MG Oral Tablet ML ([facility]) Sertraline 50 MG Oral Tablet ML ([facility]) Sertraline 25 MG Oral Tablet ML ([facility]) Sertraline 100 MG Oral Tablet ML ([facility]) pregabalin 150 MG Oral Capsule ML ([facility]) Prednisone 20 MG Oral Tablet ML ([facility]) Prednisone 10 MG Oral Tablet ML ([facility]) Prazosin 1 MG Oral Capsule A [facility] ([facility]) Fluzone Quad [id number] (PF) 60 mcg (15 mcg x 4)/0.5 mL IM syringe ML ([facility]) Flublok Quad [id number] (PF) 180 mcg (45 mcg x 4)/0.5 mL IM syringe ML ([facility]) Doxycycline Monohydrate 100 MG Oral Capsule ML ([facility]) Cyclobenzaprine hydrochloride 10 MG Oral Tablet ML ([facility]) Baclofen 10 MG Oral Tablet A THE[facility] ([facility]) Amoxicillin 875 MG Oral Tablet ML ([facility]) Amoxicillin 500 MG Oral Capsule ML ([facility]) Trazodone Hydrochloride 50 MG Oral Tablet ML ([facility]) Sertraline 25 MG Oral Tablet ML ([facility]) pregabalin 150 MG Oral Capsule ML ([facility]) Prednisone 20 MG Oral Tablet ML ([facility]) Prednisone 10 MG Oral Tablet ML ([facility]) Prazosin 1 MG Oral Capsule A [facility] ([facility]) Doxycycline Monohydrate 100 MG Oral Capsule ML ([facility]) Cyclobenzaprine hydrochloride 10 MG Oral Tablet ML ([facility]) Baclofen 10 MG Oral Tablet A [facility] ([facility]) Amoxicillin 875 MG Oral Tablet ML ([facility]) Trazodone Hydrochloride 50 MG Oral Tablet ML ([facility]) tramadol hydrochloride 50 MG Oral Tablet ML ([facility]) Sertraline 25 MG Oral Tablet ML ([facility]) Sertraline 100 MG Oral Tablet ML ([facility]) pregabalin 150 MG Oral Capsule ML ([facility]) Prednisone 20 MG Oral Tablet ML ([facility]) Prednisone 10 MG Oral Tablet ML ([facility]) Prazosin 1 MG Oral Capsule A [facility] ([facility]) Doxycycline Monohydrate 100 MG Oral Capsule ML ([facility]) Cyclobenzaprine hydrochloride 10 MG Oral Tablet ML ([facility]) Baclofen 10 MG Oral Tablet A THE[facility] ([facility]) Amoxicillin 875 MG Oral Tablet ML ([facility])
--- OUTSIDE RECORDS SUMMARY | 2021-03-03 03:07 | CCD ---
Author Author [facility] Organization [facility] Address Unknown Phone Unavailable Care Team Providers Care Boring Inspector Name Role Phone Coby Gonzalez MD Unavailable [...] Unavailable Unavailable Coby Gonzalez MD Unavailable Unavailable Cboy Gonzalez MD Unavailable Unavailable Coby Gonzalez MD [...] Unavailable Coby Gonzalez MD Unavailable Unavailable Coby oGnzalez MD Unavailable Unavailable Coby Gonzalez MD Unavailable Unavailable Coby Gonzalze MD Unavailable Unavailable Coby Gonzalez MD Unavailable Unavailable Coby Gonzalez MD Unavailable Unavailable Coby Gonzalez MD Unavailable Unavailable Jocelyne Duncanra [facility] DIRECTOR [facility] Unavailable Unavailable Fish, [facility], PA-C Unavailable Unavailabl e Fish, [facility], PA-C Unavailable Unavailabl e Fish, [facility], PA-C Unavailable Unavailabl e Fish, [facility], PA-C Unavailable Unavailabl e Fish, [facility], PA-C Unavailable Unavailabl e Fish, [facility], PA-C Unavailable Unavailabl e Fish, [facility], PA-C Unavailable Unavailabl e Fish, [facility], PA-C Unavailable Unavailabl e Fish, [facility], PA-C Unavailable Unavailabl e Fish, [facility], PA-C Unavailable Unavailabl e Fish, [facility], PA-C Unavailable Unavailabl e Fish, [facility], PA-C Unavailable Unavailabl e Fish, [facility], PA-C Unavailable Unavailabl e Fish, [facility], PA-C Unavailable Unavailabl e Fish, [facility], PA-C Unavailable Unavailabl e Fish, [facility], PA-C Unavailable Unavailabl e Fish, [facility], PA-C Unavailable Unavailabl e Fish, [facility], PA-C Unavailable Unavailabl e Fish, [facility], PA-C Unavailable Unavailabl e Fish, [facility], PA-C Unavailable Unavailabl e Fish, [facility], PA-C Unavailable Unavailabl e Fish, [facility], PA-C Unavailable Unavailabl e Fish, [facility], PA-C Unavailable Unavailabl e Fish, [facility], PA-C Unavailable Unavailabl e Fish, [facility], PA-C Unavailable Unavailabl e Fish, [facility], PA-C Unavailable Unavailabl e Fish, [facility], PA-C Unavailable Unavailabl e Fish, Yael Va [facility]AS, PA-C Unavailable Unavailabl e Fish, Yael De Dios [facility], PA-C Unavailable Unavailabl e Fish, Yael De Dios [facility], PA-C Unavailable Unavailabl e Fish, Yael De Dios [facility], PA-C Unavailable Unavailabl e Fish, Yael De Dios [facility], PA-C Unavailable Unavailabl e Fish, Yael De Dios [facility], PA-C Unavailable Unavailabl e Fish, Yael De Dios [facility], PA-C Unavailable Unavailabl e Fish, Yael De Dios [facility], PA-C Unavailable Unavailabl e Fish, Yael De Dios [facility], PA-C Unavailable Unavailabl e Dakota, A Devika [facility] Unavailable Unavailable Dakota, A Devika [facility] Unavailable Unavailable Dakota, A Devika [facility] Unavailable Unavailable Dakota, A Devika [facility] Unavailable Unavailable Thompson, A Devika [facility] Unavailable Unavailable Thompson, A Devika [facility] Unavailable Unavailable Thompson, A Devika [facility] Unavailable Unavailable Thompson, A Devika [facility] Unavailable Unavailable Thompson, A Devika DIRECT[facility] OF [facility] Unavailable Unavailable Thompson, A Devika [facility] Unavailable Unavailable Thompson, A Devika [facility] Unavailable Unavailable Thompson, A Devika DIRECT[facility] OF [facility] Unavailable Unavailable Thompson, A Devika DIRECT[facility] Unavailable Unavailable Thompson, A Devika DIRECT[facility] OF [facility] Unavailable Unavailable Thompson, A Devika DIRECT[facility] OF [facility] Unavailable Unavailable Thompson, A Devika DIRECT[facility] Unavailable Unavailable Thompson, A Devika DIRECT[facility] OF [facility] Unavailable Unavailable Thompson, A Devika DIRECTOR OF [facility] Unavailable Unavailable Thompson, A Devika DIRECTOR OF FAMILY SERVICE [facility] Unavailable Unavailable Thompson, A Devika DIRECTOR OF [facility] Unavailable Unavailable Thompson, A Devika DIRECT[facility] OF [facility] Unavailable Unavailable Thompson, A Devika DIRECTOR OF FAMILY SERVICE [facility] Unavailable Unavailable Thompson, A Devika DIRECTOR OF FAMILY SERVICE [facility] Unavailable Unavailable Thompson, A Devika DIRECTOR OF [facility]ILY SERVICE [facility] Unavailable Unavailable Thompson, A Devika DIRECTOR OF FAMILY SERVICE [facility] Unavailable Unavailable Thompson, A Devika DIRECTOR OF FAMILY SERVICE [facility] Unavailable Unavailable Thompson, A Devika DIRECTOR OF FAMILY SERVICE [facility] Unavailable Unavailable Thompson, A Devika DIRECTOR OF FAMILY SERVICE [facility] Unavailable Unavailable Thompson, A Devika DIRECT[facility] OF FAM[facility]ICE [facility] Unavailable Unavailable Dakota, A Devika DIRECT[facility] OF [facility] Unavailable Unavailable Dakota, A Devika DIRECT[facility] OF [facility] Unavailable Unavailable Coby Gonzalez MD Unavailable Unavailable [...] Unavailable Coby Gonzalez MD Unavailable Unavailable Coby oGnzalez MD Unavailable Unavailable Coby Gonzalez MD Unavailable [...] Gonzalez MD Unavailable Unavailable Dakota, A Devika [facility] Unavailable Unavailable Dakota, A Devika DIRECT[facility] OF [facility] Unavailable Unavailable Dakota, A Devika DIRECT[facility] OF [facility] Unavailable Unavailable Dakota, A Devika DIRECT[facility] OF [facility] Unavailable Unavailable Dakota, A Devika DIRECT[facility] OF [facility] Unavailable Unavailable Dakota, A Devika DIRECT[facility] OF [facility] Unavailable Unavailable Dakota, A Devika DIRECT[facility] OF [facility] Unavailable Unavailable Dakota, A Devika DIRECT[facility] OF [facility] Unavailable Unavailable Thompson, A Devika DIRECT[facility] OF [facility] Unavailable Unavailable Thompson, A Devika DIRECT[facility] OF [facility] Unavailable Unavailable Thompson, A Devika DIRECT[facility] OF [facility] Unavailable Unavailable Thompson, A Devika DIRECTOR OF FAMILY SERVICE [facility] Unavailable Unavailable Thompson, A Devika DIRECTOR OF FAMILY SERVICE [facility] Unavailable Unavailable Thompson, A Devika DIRECTOR OF FAMILY SERVICE [facility] Unavailable Unavailable Thompson, A Devika DIRECTOR OF FAMILY SERVICE [facility] Unavailable Unavailable Thompson, A Devika DIRECTOR OF FAMILY SERVICE [facility] Unavailable Unavailable Thompson, A Devika DIRECTOR OF FAMILY SERVICE [facility] Unavailable Unavailable Thompson, A Devika DIRECTOR OF FAMILY SERVICE [facility] Unavailable Unavailable Thompson, A Devika DIRECTOR OF FAMILY SERVICE [facility] Unavailable Unavailable Thompson, A Devika DIRECTOR OF FAMILY SERVICE [facility] Unavailable Unavailable Thompson, A Devika DIRECTOR OF [facility] Unavailable Unavailable Thompson, A Devika DIRECTOR OF FAMILY SERVICE [facility] Unavailable Unavailable Thompson, A Devika DIRECTOR OF FAMILY SERVICE [facility] Unavailable Unavailable Thompson, A Devika DIRECTOR OF FAMILY SERVICE [facility] Unavailable Unavailable Thompson, A Devika DIRECTOR OF FAMILY SERVICE [facility] Unavailable Unavailable Thompson, A Devika DIRECTOR OF FAMILY SERVICE [facility] Unavailable Unavailable Thompson, A Devika DIRECTOR OF FAMILY SERVICE [facility] Unavailable Unavailable Thompson, A Devika DIRECTOR OF FAMILY SERVICE [facility] Unavailable Unavailable Thompson, A Devika DIRECTOR OF [facility] Unavailable Unavailable Thompson, A Devika DIRECT[facility] OF [facility] Unavailable Unavailable Thompson, A Devika DIRECT[facility] OF [facility] Unavailable Unavailable Kevin Michele MD Unavailable Unavailable [...] Unavailable Unavailable Kevin Michele MD Unavailable Unavailable Keivn Michele MD Unavailable Unavailable Kevin Michele MD [...] is protected by Article 27-F of the [facility] Public Health law. If you continue you may have access to information: Regarding HIV / AIDS; Provided by facilities licensed or operated by the [facility] Office of Mental Health; or Provided by the [facility] Office for People With Developmental Disabilities. If such information is present, then the following [facility] mandated warning applies: This information has [...] law may result in a fine or penitentiary sentence or both. A general authorization for the release of medical or other information is NOT sufficient authorization for further disc losure. Allergies and Adverse Reactions Type Description Substance Reaction Status Data Source(s ) Propensity to adverse reactions LATEX Latex Rash Low Acti ve [facility] Low Family History Family Member Name Family Member Gender Family Member Status Date o f Status Description Data Source(s) Unknown Male Problem MEDENT ([facility]) Unknown Unknown Problem [facility] sister Encounters Encounter Providers Location Date Indications Data Source(s ) Lai Gonzalez MD: [address] [place] [phone], Ph. Attender: Lai Gonzalez MD [facility] Medical 11/19/2020 12:00:00 AM EDT ML ([facility]) Outpatient Attender: Va DAVIS PA-C Physical Therapy 10/29/2020 02:00:00 PM EDT MEDENT ([facility]) Lai Gonzalez MD: [address] [place] [address], Ph. Attender: Lai Gonzalez MD [facility] Medical 10/06/2020 12:00:00 AM EDT ML ([facility]) Lai Gonzalez MD: [address] [place] [address], Ph. Attender: Lai Gonzalez MD [facility] Medical 10/06/2020 12:00:00 AM EDT ML ([facility]) Lai Gonzalez MD: [address] [place] [address], Ph. Attender: Lai Gonzalez MD [facility] Medical 09/03/2020 12:00:00 AM EDT ML ([facility]) Lai Gonzalez MD: [address] [place] [address], Ph. Attender: Lai Gonzalez MD [facility] Medical 09/03/2020 12:00:00 AM EDT ML ([facility]) Lai Goznalez MD: [address] [place] [address], Ph. Attender: Lai Gonzalez MD [facility] Medical 09/03/2020 12:00:00 AM EDT ML ([facility]) Outpatient Attender: Kevin WILCOXeferrer: Lai Gonzalez MD [email or web address] 08/25/2020 12:00:00 AM EDT - 08/26/2020 08:57:49 AM EDT [facility] Lai Gonzalez MD: [address] [place] [address], Ph. Attender: Lai Gonzalez MD [facility] Medical 08/05/2020 12:00:00 AM EDT ML ([facility]) Lai Gonzalez MD: [address] [place] [address], Ph. Attender: Lai Gonzalez MD [facility] Medical 08/05/2020 12:00:00 AM EDT ML ([facility]) Lai Gonzalez MD: [address] [place] [address], Ph. Attender: Lai Gonzalez MD [facility] Medical 08/05/2020 12:00:00 AM EDT ML ([facility]) Lai Gonzalez MD: [address] [place] [address], Ph. Attender: Lai Gonzalez MD [facility] Medical 08/05/2020 12:00:00 AM EDT ML ([facility]) Lai Gonzalez MD: [address] [place] [address], Ph. Attender: Lai Gonzalez MD [facility] Medical 06/10/2020 12:00:00 AM EST ML ([facility]) Lai Gonzalez MD: [address] [place] [address], Ph. Attender: Lai Gonzalez MD [facility] Medical 06/10/2020 12:00:00 AM EST ML ([facility]) Lai Gonzalez MD: [address] [place] [address], Ph. Attender: Lai Gonzalez MD [facility] Medical 06/10/2020 12:00:00 AM EST ML ([facility]) Lai Gonzalez MD: [address] [place] [address], Ph. Attender: Lai Gonzalez MD [facility] Medical 06/10/2020 12:00:00 AM EST ML ([facility]) Lai Gonzalez MD: [address] [place] [address], Ph. Attender: Lai Gonzalez MD [facility] Medical 06/10/2020 12:00:00 AM EST ML ([facility]) Lai Gonzalez MD: [address] [place] [address], Ph. Attender: Lai Gonzalez MD [facility] Medical 06/10/2020 12:00:00 AM EST ML ([facility]) Lai Gonzalez MD: [address] [place] [address], Ph. Attender: Lai Gonzalez MD [facility] Medical 06/08/2020 12:00:00 AM EST ML ([facility]) Lai Gonzalez MD: [address] [place] [address], Ph. Attender: Lai Gonzalez MD [facility] Medical 06/08/2020 12:00:00 AM EST ML ([facility]) Lai Gonzalez MD: [address] [place] [address], Ph. Attender: Lai Gonzalez MD [facility] Medical 06/08/2020 12:00:00 AM EST ML ([facility]) Lai Gonzalez MD: [address] [place] [address], Ph. Attender: Lai Gonzalez MD [facility] Medical 06/08/2020 12:00:00 AM EST ML ([facility]) Lai Gonzalez MD: [address] [place] [address], Ph. Attender: Lai Gonzalez MD [facility] Medical 06/08/2020 12:00:00 AM EST ML ([facility]) Lai Gonzalez MD: [address], [place] [address], Ph. Attender: Lai Gonzalez MD [facility] Medical 06/08/2020 12:00:00 AM EST ML ([facility]) Devika Duncan [facility]: [address] [place] [address], Ph. Attender: Devika Duncan [facility] Medical 06/03/2020 12:00:00 AM EST ML ([facility]) Devika Duncan [facility]: [address] [place] [address], Ph. Attender: Devika Duncan [facility] Medical 06/03/2020 12:00:00 AM EST ML ([facility]) Devika Duncan [facility]: [address], [place] [address], Ph. Attender: Devika Duncan [facility] Medical 06/03/2020 12:00:00 AM EST ML ([facility]) Devika Duncan [facility]: [address], [place] [address], Ph. Attender: Devika Duncan [facility] Medical 06/03/2020 12:00:00 AM EST ML ([facility]) Devika Duncan [facility]: [address], [place] [address], Ph. Attender: Devika Duncan [facility] Medical 06/03/2020 12:00:00 AM EST ML ([facility]) Devika Duncan [facility]: [address] [place] [address], Ph. Attender: Devika Duncan [facility] Medical 06/03/2020 12:00:00 AM EST ML ([facility]) Devika Duncan [facility]: [address] [place] [address], Ph. Attender: Devika Duncan [facility] Medical 06/03/2020 12:00:00 AM EST ML ([facility]) Lai Gonzalez MD: [address] [place] [address], Ph. Attender: Lai Gonzalez MD [facility] Medical 04/14/2020 12:00:00 AM EST ML ([facility]) Lai Gonzalez MD: [address] [place] [address], Ph. Attender: Lai Gonzalez MD [facility] Medical 04/14/2020 12:00:00 AM EST ML ([facility]) Lai Gonzalez MD: [address] [place] [address], Ph. Attender: Lai Gonzalez MD [facility] Medical 04/14/2020 12:00:00 AM EST ML ([facility]) Lai Gonzalez MD: [address] [place] [address], Ph. Attender: Lai Gonzalez MD [facility] Medical 04/14/2020 12:00:00 AM EST ML ([facility]) Lai Gonzalez MD: [address] [place] [address], Ph. Attender: Lai Gonzalez MD [facility] Medical 04/14/2020 12:00:00 AM EST ML ([facility]) Lai Gonzalez MD: [address] [place] [address], Ph. Attender: Lai Gonzalez MD [facility] Medical 04/14/2020 12:00:00 AM EST ML ([facility]) Lai Gonzalez MD: [address] [place] [address], Ph. Attender: Lai Gonzalez MD [facility] Medical 04/14/2020 12:00:00 AM EST ML ([facility]) Lai Gonzalez MD: [address] [place] [address], Ph. Attender: Lai Gonzalez MD [facility] Medical 04/14/2020 12:00:00 AM EST ML ([facility]) Outpatient Attender: TERENCE PRATT 02/24/2020 07:58:00 A M EST [facility] Outpatient Attender: Devika PRATT 01/28/2020 08:0 1:03 PM EDT [facility] Outpatient Attender: TERENCE PRATT 01/28/2020 08:01:01 P M EDT [facility] Outpatient Attender: Devika PRATT 01/28/2020 11:0 9:01 AM EDT [facility] Outpatient Attender: TERENCE PRATT 01/28/2020 10:10:00 A M EDT [facility] Immunizations Vaccine Date Status Description Data Source(s) Tdap 06/10/2020 10:13:00 AM EST completed 06/10/2020 0.5 mL ML ([facility]) Tdap 06/10/2020 10:13:00 AM EST completed 06/10/2020 0.5 mL ML ([facility]) Tdap 06/10/2020 10:13:00 AM EST completed 06/10/2020 0.5 mL ML ([facility]) Tdap 06/10/2020 10:13:00 AM EST completed 06/10/2020 0.5 mL ML ([facility]) Tdap 06/10/2020 10:13:00 AM EST completed 06/10/2020 0.5 mL ML ([facility]) Tdap 06/10/2020 10:13:00 AM EST completed 06/10/2020 0.5 mL ML ([facility]) MMR 06/10/2020 10:11:00 AM EST completed 06/10/2020 0.5 mL ML ([facility]) MMR 06/10/2020 10:11:00 AM EST completed 06/10/2020 0.5 mL ML ([facility]) MMR 06/10/2020 10:11:00 AM EST completed 06/10/2020 0.5 mL ML ([facility]) MMR 06/10/2020 10:11:00 AM EST completed 06/10/2020 0.5 mL ML ([facility]) MMR 06/10/2020 10:11:00 AM EST completed 06/10/2020 0.5 mL ML ([facility]) MMR 06/10/2020 10:11:00 AM EST completed 06/10/2020 0.5 mL ML ([facility]) New in 2012. IIV4 02/18/2020 12:00:00 AM EST completed 02/18/20 20 ML ([facility]) New in 2012. IIV4 02/18/2020 12:00:00 AM EST completed 02/18/20 20 ML ([facility]) New in 2012. IIV4 02/18/2020 12:00:00 AM EST completed 02/18/20 20 ML ([facility]) New in 2012. IIV4 02/18/2020 12:00:00 AM EST completed 02/18/20 20 ML ([facility]) New in 2012. IIV4 02/18/2020 12:00:00 AM EST completed 02/18/20 [facility]) New in 2012. IIV4 02/18/2020 12:00:00 AM EST completed 02/18/20 [facility]) New in 2012. IIV4 02/18/2020 12:00:00 AM EST completed 02/18/20 [facility]) New in 2012. IIV4 02/18/2020 12:00:00 AM EST completed 02/18/20 [facility]) Medications Medication Brand Name Start [...] (15 mcg x 4)/0.5 mL IM syringe [id number] completed 0.5 ML influen za A virus A/ (H1N1) antigen 0.03 MG/ML / influenza A virus A/ (H3N2) antigen 0.03 MG/ML / influenza B virus B/ antigen 0.03 MG/ML / influenza B virus B/[facility] antigen 0.03 MG/ML Prefilled Syringe [Fluzone Quadrivalent ] ML ([facility]) Prazosin 1 MG Oral Capsule prazosin 1 mg capsule prazosin 1 mg capsule completed prazosin 1 MG Oral Capsul e TIGNALL ([facility]) Amoxicillin 875 MG Oral Tablet amoxicill in 875 mg tablet TAKE ONE TABLET BY MOUTH EVERY 12 HOURS FOR 10 DAYS amoxicillin 875 mg tablet TAKE ONE TABLE T BY MOUTH EVERY 12 HOURS FOR 10 DAYS compl eted amoxicillin 875 MG Oral Tablet ML ([facility]) Prazosin 1 MG Oral Capsule prazosin 1 mg capsule prazosin 1 mg capsule completed prazosin 1 MG Oral Capsul e TIGNALL ([facility]) Baclofen 10 MG Oral Tablet baclofen 10 mg tablet baclofen 10 mg tablet completed baclofen 10 MG Oral Table t ML ([facility]) Trazodone Hydrochloride 50 MG Oral Tablet trazodone 50 mg tablet trazodone 50 mg tablet completed trazodone hydro chloride 50 MG Oral Tablet ML ([facility]) Baclofen 10 MG Oral Tablet baclofen 10 mg tablet baclofen 10 mg tablet completed baclofen 10 MG Oral Table t ML ([facility]) Cyclobenzaprine hydrochloride 10 MG Oral Tablet cyclob enzaprine 10 mg tablet cyclobenzaprine 10 mg tablet completed cyclobenzaprine hydrochloride 10 MG Oral Tablet ML ([facility]) Baclofen 10 MG Oral Tablet baclofen 10 mg tablet baclofen 10 mg tablet completed baclofen 10 MG Oral Table t ML ([facility]) Prednisone 20 MG Oral Tablet prednisone 20 mg tablet prednisone 20 mg tablet completed prednisone 20 MG Oral Tablet ML ([facility]) Trazodone Hydrochloride 50 MG Oral Tablet trazodone 50 mg tablet trazodone 50 mg tablet completed trazodone hydro chloride 50 MG Oral Tablet ML ([facility]) Trazodone Hydrochloride 50 MG Oral Tablet trazodone 50 mg tablet trazodone 50 mg tablet completed trazodone hydro chloride 50 MG Oral Tablet ML ([facility]) Doxycycline Monohydrate 100 MG Oral Caps ule doxycycline monohydrate 100 mg capsule doxycycline monohydrate 100 mg capsule completed doxycycline monohydrate 100 MG Oral Capsule ML ([facility]) Doxycycline Monohydrate 100 MG Oral Caps ule doxycycline monohydrate 100 mg capsule doxycycline monohydrate 100 mg capsule completed doxycycline monohydrate 100 MG Oral Capsule ML ([facility]) Trazodone Hydrochloride 50 MG Oral Tablet trazodone 50 mg tablet trazodone 50 mg tablet completed trazodone hydro chloride 50 MG Oral Tablet ML ([facility]) Cyclobenzaprine hydrochloride 10 MG Oral Tablet cyclob enzaprine 10 mg tablet cyclobenzaprine 10 mg tablet completed cyclobenzaprine hydrochloride 10 MG Oral Tablet ML ([facility]) pregabalin 150 MG Oral Capsule pregabali n 150 mg capsule TAKE ONE CAPSULE BY MOUTH TWICE A DAY MAXIMUM DAILY DOSE 2 pregabalin 150 mg capsule TAKE ONE CAPSULE BY MOUTH TWICE A DAY MAXIMUM DAILY DOSE 2 completed pregabalin 150 MG Oral Capsule ML ([facility]) Prazosin 1 MG Oral Capsule prazosin 1 mg capsule prazosin 1 mg capsule completed prazosin 1 MG Oral Capsul e TIGNALL ([facility]) Trazodone Hydrochloride 50 MG Oral Tablet trazodone 50 mg tablet trazodone 50 mg tablet completed trazodone hydro chloride 50 MG Oral Tablet TIGNALL ([facility]) Cyclobenzaprine hydrochloride 10 MG Oral Tablet cyclob enzaprine 10 mg tablet cyclobenzaprine 10 mg tablet completed cyclobenzaprine hydrochloride 10 MG Oral Tablet TIGNALL ([facility]) Prednisone 20 MG Oral Tablet prednisone 20 mg tablet prednisone 20 mg tablet completed prednisone 20 MG Oral Tablet TIGNALL ([facility]) Sertraline 100 MG Oral Tablet sertraline 100 mg tablet sertr larry 100 mg tablet completed sertraline 100 MG Oral Tablet TIGNALL ([facility]) pregabalin 150 MG Oral Capsule pregabali n 150 mg capsule TAKE ONE CAPSULE BY MOUTH TWICE A DAY MAXIMUM DAILY DOSE 2 pregabalin 150 mg capsule TAKE ONE CAPSULE BY MOUTH TWICE A DAY MAXIMUM DAILY DOSE 2 completed pregabalin 150 MG Oral Capsule TIGNALL ([facility]) Doxycycline Monohydrate 100 MG Oral Caps ule doxycycline monohydrate 100 mg capsule doxycycline monohydrate 100 mg capsule completed doxycycline monohydrate 100 MG Oral Capsule TIGNALL ([facility]) Prednisone 10 MG Oral Tablet prednisone 10 [...] DA completed prednisone 10 MG Oral Tablet TIGNALL ([facility]) Doxycycline Monohydrate 100 MG Oral Caps ule doxycycline monohydrate 100 mg capsule doxycycline monohydrate 100 mg capsule completed doxycycline monohydrate 100 MG Oral Capsule TIGNALL ([facility]) Sertraline 50 MG Oral Tablet sertraline 50 mg tablet sertraline 50 mg tablet completed sertraline 50 MG Oral Tablet TIGNALL ([facility]) Baclofen 10 MG Oral Tablet baclofen 10 mg tablet baclofen 10 mg tablet completed baclofen 10 MG Oral Table t TIGNALL ([facility]) Sertraline 25 MG Oral Tablet sertraline 25 mg tablet TAKE ONE TABLET BY MOUTH ONCE A DAY sertraline 25 mg tablet TAKE ONE TABLET BY MOUTH ONCE A DAY completed sertraline 25 MG Oral Tab let TIGNALL ([facility]) Sertraline 50 MG Oral Tablet sertraline 50 mg tablet sertraline 50 mg tablet completed sertraline 50 MG Oral Tablet TIGNALL ([facility]) Prednisone 10 MG Oral Tablet prednisone 10 [...] DA completed prednisone 10 MG Oral Tablet TIGNALL ([facility]) Prazosin 1 MG Oral Capsule prazosin 1 mg capsule prazosin 1 mg capsule completed prazosin 1 MG Oral Capsul e TIGNALL ([facility]) Fluzone Quad [id number] (PF) 60 mcg (15 mcg x 4)/0.5 mL IM syringe [id number] 318 completed 0.5 ML influen za A virus A/ (H1N1) antigen 0.03 MG/ML / influenza A virus A/ (H3N2) antigen 0.03 MG/ML / influenza B virus B/ antigen 0.03 MG/ML / influenza B virus B/[facility] antigen 0.03 MG/ML Prefilled Syringe [Fluzone Quadrivalent ] TIGNALL ([facility]) pregabalin 150 MG Oral Capsule pregabali n 150 mg capsule TAKE ONE CAPSULE BY MOUTH TWICE A DAY MAXIMUM DAILY DOSE 2 pregabalin 150 mg capsule TAKE ONE CAPSULE BY MOUTH TWICE A DAY MAXIMUM DAILY DOSE 2 completed pregabalin 150 MG Oral Capsule TIGNALL ([facility]) Prednisone 10 MG Oral Tablet prednisone [...] completed prednisone 10 MG Oral Tablet ML ([facility]) Amoxicillin 875 MG Oral Tablet amoxicill in 875 mg tablet TAKE ONE TABLET BY MOUTH EVERY 12 HOURS FOR 10 DAYS amoxicillin 875 mg tablet TAKE ONE TABLE T BY MOUTH EVERY 12 HOURS FOR 10 DAYS compl eted amoxicillin 875 MG Oral Tablet ML ([facility]) Amoxicillin 875 MG Oral Tablet amoxicill in 875 mg tablet TAKE ONE TABLET BY MOUTH EVERY 12 HOURS FOR 10 DAYS amoxicillin 875 mg tablet TAKE ONE TABLE T BY MOUTH EVERY 12 HOURS FOR 10 DAYS compl eted amoxicillin 875 MG Oral Tablet ML ([facility]) Amoxicillin 875 MG Oral Tablet amoxicill in 875 mg tablet TAKE ONE TABLET BY MOUTH EVERY 12 HOURS FOR 10 DAYS amoxicillin 875 mg tablet TAKE ONE TABLE T BY MOUTH EVERY 12 HOURS FOR 10 DAYS compl eted amoxicillin 875 MG Oral Tablet TIGNALL ([facility]) Cyclobenzaprine hydrochloride 10 MG Oral Tablet cyclob enzaprine 10 mg tablet cyclobenzaprine 10 mg tablet completed cyclobenzaprine hydrochloride 10 MG Oral Tablet TIGNALL ([facility]) Sertraline 25 MG Oral Tablet sertraline 25 mg tablet TAKE ONE TABLET BY MOUTH ONCE A DAY sertraline 25 mg tablet TAKE ONE TABLET BY MOUTH ONCE A DAY completed sertraline 25 MG Oral Tab let TIGNALL ([facility]) Flublok Quad (PF) 180 mcg (45 mcg x 4)/0.5 mL IM syringe 60 3610 completed 0.5 ML influen za A virus A/[place] (H1N1) antigen 0.09 MG/ML / influenza A virus A/[place] (H3N2) antigen 0.09 MG/ML / influenza B virus B/[facility] antigen 0.09 MG/ML / influenza B virus B/ antigen 0.09 MG/ML Prefilled Syringe [Flublok Quadrivalent ] TIGNALL ([facility]) Amoxicillin 875 MG Oral Tablet amoxicill in 875 mg tablet TAKE ONE TABLET BY MOUTH EVERY 12 HOURS FOR 10 DAYS amoxicillin 875 mg tablet TAKE ONE TABLE T BY MOUTH EVERY 12 HOURS FOR 10 DAYS compl eted amoxicillin 875 MG Oral Tablet TIGNALL ([facility]) Cyclobenzaprine hydrochloride 10 MG Oral Tablet cyclob enzaprine 10 mg tablet cyclobenzaprine 10 mg tablet completed cyclobenzaprine hydrochloride 10 MG Oral Tablet TIGNALL ([facility]) Flublok Quad (PF) 180 mcg (45 mcg x 4)/0.5 mL IM syringe 60 3610 completed 0.5 ML influen za A virus A/[place] (H1N1) antigen 0.09 MG/ML / influenza A virus A/[place] (H3N2) antigen 0.09 MG/ML / influenza B virus B/[facility] antigen 0.09 MG/ML / influenza B virus B/[place] antigen 0.09 MG/ML Prefilled Syringe [Flublok Quadrivalent ] TIGNALL ([facility]) pregabalin 150 MG Oral Capsule pregabali n 150 mg capsule TAKE ONE CAPSULE BY MOUTH TWICE A DAY MAXIMUM DAILY DOSE 2 pregabalin 150 mg capsule TAKE ONE CAPSULE BY MOUTH TWICE A DAY MAXIMUM DAILY DOSE 2 completed pregabalin 150 MG Oral Capsule TIGNALL ([facility]) Fluzone Quad (PF) 60 mcg (15 mcg x 4)/0.5 mL IM syringe [id number] 759 completed 0.5 ML influen za A virus A/ (H1N1) antigen 0.03 MG/ML / influenza A virus A/[place] (H3N2) antigen 0.03 MG/ML / influenza B virus B/ antigen 0.03 MG/ML / influenza B virus B/[facility] antigen 0.03 MG/ML Prefilled Syringe [Fluzone Quadrivalent ] TIGNALL ([facility]) Prednisone 10 MG Oral Tablet prednisone [...] DA completed prednisone 10 MG Oral Tablet TIGNALL ([facility]) Baclofen 10 MG Oral Tablet baclofen 10 mg tablet baclofen 10 mg tablet completed baclofen 10 MG Oral Table t ML ([facility]) Prazosin 1 MG Oral Capsule prazosin 1 mg capsule prazosin 1 mg capsule completed prazosin 1 MG Oral Capsul e TIGNALL ([facility]) Flublok Quad (PF) 180 mcg (45 mcg x 4)/0.5 mL IM syringe 60 3610 completed 0.5 ML influen za A virus A/[place] (H1N1) antigen 0.09 MG/ML / influenza A virus A/[place] (H3N2) antigen 0.09 MG/ML / influenza B virus B/[facility] antigen 0.09 MG/ML / influenza B virus B/ antigen 0.09 MG/ML Prefilled Syringe [Flublok Quadrivalent ] TIGNALL ([facility]) Amoxicillin 500 MG Oral Capsule amoxicil dharmesh 500 mg capsule TAKE 1 CAPSULE BY MOUTH EVERY 8 HOURS UNTIL GONE FOR 7 DAYS amoxicillin 500 mg capsule TAKE 1 CAPSULE BY MOUTH EVERY 8 HOURS UNTIL GONE FOR 7 DAYS completed amoxicillin 500 MG Oral Capsule TIGNALL ([facility]) Amoxicillin 500 MG Oral Capsule amoxicil dharmesh 500 mg capsule TAKE 1 CAPSULE BY MOUTH EVERY 8 HOURS UNTIL GONE FOR 7 DAYS amoxicillin 500 mg capsule TAKE 1 CAPSULE BY MOUTH EVERY 8 HOURS UNTIL GONE FOR 7 DAYS completed amoxicillin 500 MG Oral Capsule TIGNALL ([facility]) pregabalin 150 MG Oral Capsule pregabali n 150 mg capsule TAKE ONE CAPSULE BY MOUTH TWICE A DAY MAXIMUM DAILY DOSE 2 pregabalin 150 mg capsule TAKE ONE CAPSULE BY MOUTH TWICE A DAY MAXIMUM DAILY DOSE 2 completed pregabalin 150 MG Oral Capsule TIGNALL ([facility]) pregabalin 150 MG Oral Capsule pregabali n 150 mg capsule TAKE ONE CAPSULE BY MOUTH TWICE A DAY MAXIMUM DAILY DOSE 2 pregabalin 150 mg capsule TAKE ONE CAPSULE BY MOUTH TWICE A DAY MAXIMUM DAILY DOSE 2 completed pregabalin 150 MG Oral Capsule TIGNALL ([facility]) Sertraline 25 MG Oral Tablet sertraline 25 mg tablet TAKE ONE TABLET BY MOUTH ONCE A DAY sertraline 25 mg tablet TAKE ONE TABLET BY MOUTH ONCE A DAY completed sertraline 25 MG Oral Tab let TIGNALL ([facility]) Doxycycline Monohydrate 100 MG Oral Caps ule doxycycline monohydrate 100 mg capsule doxycycline monohydrate 100 mg capsule completed doxycycline monohydrate 100 MG Oral Capsule ML ([facility]) Cyclobenzaprine hydrochloride 10 MG Oral Tablet cyclob enzaprine 10 mg tablet cyclobenzaprine 10 mg tablet completed cyclobenzaprine hydrochloride 10 MG Oral Tablet ML ([facility]) pregabalin 150 MG Oral Capsule pregabali n 150 mg capsule TAKE ONE CAPSULE BY MOUTH TWICE A DAY MAXIMUM DAILY DOSE 2 pregabalin 150 mg capsule TAKE ONE CAPSULE BY MOUTH TWICE A DAY MAXIMUM DAILY DOSE 2 completed pregabalin 150 MG Oral Capsule ML ([facility]) Amoxicillin 500 MG Oral Capsule amoxicil dharmesh 500 mg capsule TAKE 1 CAPSULE BY MOUTH EVERY 8 HOURS UNTIL GONE FOR 7 DAYS amoxicillin 500 mg capsule TAKE 1 CAPSULE BY MOUTH EVERY 8 HOURS UNTIL GONE FOR 7 DAYS completed amoxicillin 500 MG Oral Capsule ML ([facility]) pregabalin 150 MG Oral Capsule pregabali n 150 mg capsule TAKE ONE CAPSULE BY MOUTH TWICE A DAY MAXIMUM DAILY DOSE 2 pregabalin 150 mg capsule TAKE ONE CAPSULE BY MOUTH TWICE A DAY MAXIMUM DAILY DOSE 2 completed pregabalin 150 MG Oral Capsule ML ([facility]) Amoxicillin 875 MG Oral Tablet amoxicill in 875 mg tablet TAKE ONE TABLET BY MOUTH EVERY 12 HOURS FOR 10 DAYS amoxicillin 875 mg tablet TAKE ONE TABLE T BY MOUTH EVERY 12 HOURS FOR 10 DAYS compl eted amoxicillin 875 MG Oral Tablet ML ([facility]) Doxycycline Monohydrate 100 MG Oral Caps ule doxycycline monohydrate 100 mg capsule doxycycline monohydrate 100 mg capsule completed doxycycline monohydrate 100 MG Oral Capsule ML ([facility]) Amoxicillin 500 MG Oral Capsule amoxicil dharmesh 500 mg capsule TAKE 1 CAPSULE BY MOUTH EVERY 8 HOURS UNTIL GONE FOR 7 DAYS amoxicillin 500 mg capsule TAKE 1 CAPSULE BY MOUTH EVERY 8 HOURS UNTIL GONE FOR 7 DAYS completed amoxicillin 500 MG Oral Capsule ML ([facility]) Baclofen 10 MG Oral Tablet baclofen 10 mg tablet baclofen 10 mg tablet completed baclofen 10 MG Oral Table t ML ([facility]) Baclofen 10 MG Oral Tablet baclofen 10 mg tablet baclofen 10 mg tablet completed baclofen 10 MG Oral Table t ML ([facility]) Prednisone 10 MG Oral Tablet prednisone 10 [...] completed prednisone 10 MG Oral Tablet ML ([facility]) Baclofen 10 MG Oral Tablet baclofen 10 mg tablet baclofen 10 mg tablet completed baclofen 10 MG Oral Table t TIGNALL ([facility]) Prednisone 10 MG Oral Tablet prednisone 10 [...] completed prednisone 10 MG Oral Tablet ML ([facility]) Sertraline 25 MG Oral Tablet sertraline 25 mg tablet TAKE ONE TABLET BY MOUTH ONCE A DAY sertraline 25 mg tablet TAKE ONE TABLET BY MOUTH ONCE A DAY completed sertraline 25 MG Oral Tab let TIGNALL ([facility]) Prednisone 10 MG Oral Tablet prednisone 10 [...] DA completed prednisone 10 MG Oral Tablet TIGNALL ([facility]) Amoxicillin 875 MG Oral Tablet amoxicill in 875 mg tablet TAKE ONE TABLET BY MOUTH EVERY 12 HOURS FOR 10 DAYS amoxicillin 875 mg tablet TAKE ONE TABLE T BY MOUTH EVERY 12 HOURS FOR 10 DAYS compl eted amoxicillin 875 MG Oral Tablet ML ([facility]) Prazosin 1 MG Oral Capsule prazosin 1 mg capsule prazosin 1 mg capsule completed prazosin 1 MG Oral Capsul e TIGNALL ([facility]) Flublok Quad 2110-2809 (PF) 180 mcg (45 mcg x 4)/0.5 mL IM syringe 60 9270 completed 0.5 ML influen za A virus A/[place] (H1N1) antigen 0.09 MG/ML / influenza A virus A/[place] (H3N2) antigen 0.09 MG/ML / influenza B virus B/[facility] antigen 0.09 MG/ML / influenza B virus B/ antigen 0.09 MG/ML Prefilled Syringe [Flublok Quadrivalent ] TIGNALL ([facility]) Prazosin 1 MG Oral Capsule prazosin 1 mg capsule prazosin 1 mg capsule completed prazosin 1 MG Oral Capsul e TIGNALL ([facility]) Doxycycline Monohydrate 100 MG Oral Caps ule doxycycline monohydrate 100 mg capsule doxycycline monohydrate 100 mg capsule completed doxycycline monohydrate 100 MG Oral Capsule TIGNALL ([facility]) Prednisone 10 MG Oral Tablet prednisone 10 [...] DA completed prednisone 10 MG Oral Tablet TIGNALL ([facility]) Cyclobenzaprine hydrochloride 10 MG Oral Tablet cyclob enzaprine 10 mg tablet cyclobenzaprine 10 mg tablet completed cyclobenzaprine hydrochloride 10 MG Oral Tablet TIGNALL ([facility]) tramadol hydrochloride 50 MG Oral Tablet tramadol 50 m g tablet tramadol 50 mg tablet completed tramadol hydroc hloride 50 MG Oral Tablet TIGNALL ([facility]) Sertraline 50 MG Oral Tablet sertraline 50 mg tablet sertraline 50 mg tablet completed sertraline 50 MG Oral Tablet TIGNALL ([facility]) Prednisone 20 MG Oral Tablet prednisone 20 mg tablet prednisone 20 mg tablet completed prednisone 20 MG Oral Tablet TIGNALL ([facility]) Doxycycline Monohydrate 100 MG Oral Caps ule doxycycline monohydrate 100 mg capsule doxycycline monohydrate 100 mg capsule completed doxycycline monohydrate 100 MG Oral Capsule TIGNALL ([facility]) Fluzone Quad (PF) 60 mcg (15 mcg x 4)/0.5 mL IM syringe 347 264 completed 0.5 ML influen za A virus A/ (H1N1) antigen 0.03 MG/ML / influenza A virus A/ (H3N2) antigen 0.03 MG/ML / influenza B virus B/ antigen 0.03 MG/ML / influenza B virus B/[facility]/3073 antigen 0.03 MG/ML Prefilled Syringe [Fluzone Quadrivalent [id number]] ML ([facility]) Sertraline 25 MG Oral Tablet sertraline 25 mg tablet TAKE ONE TABLET BY MOUTH ONCE A DAY sertraline 25 mg tablet TAKE ONE TABLET BY MOUTH ONCE A DAY completed sertraline 25 MG Oral Tab let ML ([facility]) Prazosin 1 MG Oral Capsule prazosin 1 mg capsule prazosin 1 mg capsule completed prazosin 1 MG Oral Capsul e ML ([facility]) Prednisone 20 MG Oral Tablet prednisone 20 mg tablet prednisone 20 mg tablet completed prednisone 20 MG Oral Tablet ML ([facility]) Sertraline 25 MG Oral Tablet sertraline 25 mg tablet TAKE ONE TABLET BY MOUTH ONCE A DAY sertraline 25 mg tablet TAKE ONE TABLET BY MOUTH ONCE A DAY completed sertraline 25 MG Oral Tab let ML ([facility]) Prednisone 20 MG Oral Tablet prednisone 20 mg tablet prednisone 20 mg tablet completed prednisone 20 MG Oral Tablet ML ([facility]) Sertraline 50 MG Oral Tablet sertraline 50 mg tablet sertraline 50 mg tablet completed sertraline 50 MG Oral Tablet ML ([facility]) Prednisone 20 MG Oral Tablet prednisone 20 mg tablet prednisone 20 mg tablet completed prednisone 20 MG Oral Tablet ML ([facility]) Cyclobenzaprine hydrochloride 10 MG Oral Tablet cyclob enzaprine 10 mg tablet cyclobenzaprine 10 mg tablet completed cyclobenzaprine hydrochloride 10 MG Oral Tablet ML ([facility]) Amoxicillin 875 MG Oral Tablet amoxicill in 875 mg tablet TAKE ONE TABLET BY MOUTH EVERY 12 HOURS FOR 10 DAYS amoxicillin 875 mg tablet TAKE ONE TABLE T BY MOUTH EVERY 12 HOURS FOR 10 DAYS compl eted amoxicillin 875 MG Oral Tablet ML ([facility]) Sertraline 100 MG Oral Tablet sertraline 100 mg tablet TAKE ONE TABLET BY MOUTH EVERY DAY sertraline 100 mg tablet TAKE ONE TABLET BY MOUTH EVERY DAY completed sertraline 100 MG Oral Table t ML ([facility]) Insurance Providers Payer name Policy type / Coverage type Policy ID Covered constitution party ID Covered constitution party's relationship to jasso Policy Jasso Plan Information PERSONAL PAY UNAVAILABLE SELF UNAVA ILABLE [facility] COMMUNITY PLAN [id number] SELF [id number] BLUE CROSS SHAH PLAN [id number] SP [id number] HMO BLUE [id number] SP [id number] [facility] Community Plan Medigap Part B [id number] Self [id number] [facility] Community Plan Medigap Part B [id number] Self [id number] Medicaid S [id number] S [id number] Managed Care - Community Plan [facility] P [id number] S [id number] Managed Care - Community Plan [facility] P [id number] S [id number] Medicaid S [id number] Managed Care - [facility] Community Plan P [id number] S [id number] Managed Care - Community Plan [facility] P [id number] S [id number] Managed Care - [facility] Community Plan P [id number] S [id number] Medicaid S [id number] [facility] [id number] [facility] [id number] Mignon [id number] [facility] [id number] SP [id number] [facility] COMMUNITY PLAN MCDO [id number] SP [id number] [facility] [id number] SP [id number] [facility] [id number] SP [id number] [facility] COMMUNITY PLAN MCDO [id number] SP [id number] Medicaid [place] Medicaid [id number] Self [id number] [facility](MCAID) O [id number] S [id number] [facility] Health Maintenance Organization (HMO) [id number] Self [id number] MEDICAID [id number] SP [id number] Medicaid P [id number] S [id number] SELF PAY UNAVAILABLE SP UNAVAILA BLE [facility](MCAID) P [id number] S [id number] Medicaid Dental P [id number] S [id number] [facility] [id number] SP [id number] [facility] [id number] SP [id number] Problems, Conditions, and Diagnoses Code Display Name Description Problem Type Effective Dates Data Source(s) R03.0 Elevated blood-pressure reading, without diagnosis of hypertension Elevated blood-pressure reading, without Diagnosis 08/25/2020 03:52:41 PM EDT [facility] [id number] Hypertensive disorder Hypertensive Disorder Problem 10/06/2020 12:00:00 AM EDT TIGNALL ([facility]) [id number] Hypertensive disorder Hypertensive Disorder Problem 10/06/2020 12:00:00 AM EDT TIGNALL ([facility]) [id number] Menometrorrhagia Menometrorrhagia Problem 09/03/2020 12 :00:00 AM EDT TIGNALL ([facility]) [id number] Menometrorrhagia Menometrorrhagia Problem 09/03/2020 12 :00:00 AM EDT TIGNALL ([facility]) [id number] Menometrorrhagia Menometrorrhagia Problem 09/03/2020 12 :00:00 AM EDT TIGNALL ([facility]) R03.0 Elevated blood pressure reading Elevated blood pressur e reading [id number] 08/25/2020 12:00:00 AM EDT [facility] [id number] Gastroesophageal reflux disease without esophagitis Gastroesophageal Reflux Disease without Esophagitis Problem 08/05/2020 12:00:00 AM ED T TIGNALL ([facility]) [id number] Allergic rhinitis Allergic Rhinitis Problem 08/05/2020 12:00:00 AM EDT TIGNALL ([facility]) [id number] Gastroesophageal reflux disease without esophagitis Gastroesophageal Reflux Disease without Esophagitis Problem 08/05/2020 12:00:00 AM ED T TIGNALL ([facility]) [id number] Allergic rhinitis Allergic Rhinitis Problem 08/05/2020 12:00:00 AM EDT TIGNALL ([facility]) [id number] Gastroesophageal reflux disease without esophagitis Gastroesophageal Reflux Disease without Esophagitis Problem 08/05/2020 12:00:00 AM ED T TIGNALL ([facility]) [id number] Allergic rhinitis Allergic Rhinitis Problem 08/05/2020 12:00:00 AM EDT ML ([facility]) [id number] Gastroesophageal reflux disease without esophagitis Gastroesophageal Reflux Disease without Esophagitis Problem 08/05/2020 12:00:00 AM ED T ML ([facility]) [id number] Allergic rhinitis Allergic Rhinitis Problem 08/05/2020 12:00:00 AM EDT ML ([facility]) [id number] Diarrhea Diarrhea Problem 04/14/2020 12:00:00 AM ES T ML ([facility]) [id number] Diarrhea Diarrhea Problem 04/14/2020 12:00:00 AM ES T ML ([facility]) [id number] Diarrhea Diarrhea Problem 04/14/2020 12:00:00 AM ES T ML ([facility]) [id number] Diarrhea Diarrhea Problem 04/14/2020 12:00:00 AM ES Srinath ML ([facility]) [id number] Diarrhea Diarrhea Problem 04/14/2020 12:00:00 AM ES T ML ([facility]) [id number] Diarrhea Diarrhea Problem 04/14/2020 12:00:00 AM ES Srinath ML ([facility]) [id number] Diarrhea Diarrhea Problem 04/14/2020 12:00:00 AM ES T ML ([facility]) [id number] Diarrhea Diarrhea Problem 04/14/2020 12:00:00 AM ES Srinath HUBBARDML ([facility]) Surgeries/Procedures Procedure Description Date Indications Data Source(s) RADEX FOOT COMPLETE MINIMUM 3 VIEWS 11/09/2020 12:00:0 0 AM EDT [facility] ([facility]) FX Metatarsal W/O Manipulation 10/29/2020 12:00:00 AM EDT [facility] ([facility]) OFFICE OUTPATIENT VISIT 25 MINUTES 10/29/2020 12:00:00 AM EDT [facility] ([facility]) ECG ROUTINE ECG W/LEAST 12 LDS W/I&R <td>POCT AMB EKG</td><td>Routine</td><td>08/25/2020 4:16 PM EDT</td><td> Elevated blood pressure reading</td><td> </td> 08/25/2020 04:16:00 PM EDT Elevated blood pressure reading [facility] Elevated blood pressure reading Results ID Date Data Source [id number] 07/05/2020 07:28:00 AM EDT [facility]) Name Value Range Interpretation Code Description Data Charu rce(s) Supporting Document(s) CPK creatine phosphokinase 1152 U/L 26-192 Above high nor mal CPK Creatine Phosphokinase [facility]) ID Date Data Source [id number] 07/05/2020 07:28:00 AM EDT [facility]) Name Value Range Interpretation Code Description Data Charu rce(s) Supporting Document(s) CPK creatine phosphokinase 1152 U/L 26-192 Above high nor mal CPK Creatine Phosphokinase [facility]) ID Date Data Source [id number] 07/05/2020 07:28:00 AM EDT [facility]) Name Value Range Interpretation Code Description Data Charu rce(s) Supporting Document(s) CPK creatine phosphokinase 1152 U/L 26-192 Above high nor mal CPK Creatine Phosphokinase [facility]) ID Date Data Source [id number] 07/05/2020 07:28:00 AM EDT [facility]) Name Value Range Interpretation Code Description Data Charu rce(s) Supporting Document(s) CPK creatine phosphokinase 1152 U/L 26-192 Above high nor mal CPK Creatine Phosphokinase [facility]) ID Date Data Source [id number] 07/05/2020 07:28:00 AM EDT [facility]) Name Value Range Interpretation Code Description Data Charu rce(s) Supporting Document(s) CPK creatine phosphokinase 1152 U/L 26-192 Above high nor mal CPK Creatine Phosphokinase ML ([facility]) ID Date Data Source [id number] 06/03/2020 09:45:00 AM EST TIGNALL ([facility]) Name Value Range Interpretation Code Description Data Charu rce(s) Supporting Document(s) thyroid stimulating hormone 2.250 uIU/mL 0.358-3.740 Thyroid Stimulating Hormone LM ([facility]) ID Date Data Source [id number] 06/03/2020 09:45:00 AM EST TIGNALL ([facility]) Name Value Range Interpretation Code Description Data Charu rce(s) Supporting Document(s) triglycerides level 91 mg/dL <150 Triglycerides [place] ML ([facility]) cholesterol level 225 mg/dL <200 Above high normal Cholesterol Level ML ([facility]) non-HDL-C 161 mg/dL Non-hdl-c ML ([facility]) Cholesterol in LDL [Mass/volume] in Serum or Plasma 143 mg/dL <100 Above high normal LDL Cholesterol ML ([facility]) HDL cholesterol 64 mg/dL >40 HDL Cholesterol ATHE NA ([facility]) cholesterol risk ratio <5 Cholesterol R isk Ratio TIGNALL ([facility]) ID Date Data Source [id number] 06/03/2020 09:45:00 AM EST TIGNALL ([facility]) Name Value Range Interpretation Code Description Data Charu rce(s) Supporting Document(s) glucose, fasting 100 mg/dL 70-100 Glucose, Fasting AT [facility] ([facility]) blood urea nitrogen 12 mg/dL 7-18 Blood Urea Nitro gen ML ([facility]) creatinine for GFR 0.71 mg/dL 0.55-1.30 Creatinine for GF R ML ([facility]) glomerular filtration rate > 60.0 >58 Glomerula r Filtration Rate TIGNALL ([facility]) sodium level 138 mEq/L 136-145 Sodium Level ML (No [facility]) chloride level 105 mEq/L 98-107 Chloride Level ML ([facility]) potassium serum 4.1 mEq/L 3.5-5.1 Potassium Serum ATHE NA ([facility]) carbon dioxide level 25 mEq/L 21-32 Carbon Dioxide Level ML ([facility]) anion gap 8 mEq/L 8-16 Anion Gap ML ([facility]) calcium level 9.3 mg/dL 8.5-10.1 Calcium Level ML ( [facility]) ALT/SGPT 28 U/L 12-78 ALT/SGPT ML ([facility]) AST/SGOT 14 U/L 7-37 AST/SGOT ML ([facility]) alkaline phosphatase 60 U/L 45-117 Alkaline Phosph atase ML ([facility]) bilirubin,total 0.2 mg/dL 0.2-1.0 Bilirubin,total ATHE NA ([facility]) total protein 7.2 gm/dL 6.4-8.2 Total Protein ML ( [facility]) albumin 4.3 gm/dL 3.2-5.2 Albumin ML ([facility]) albumin/globulin ratio 1.2-2.2 Albumin/globu dharmesh Ratio ML ([facility]) ID Date Data Source [id number] 06/03/2020 09:45:00 AM EST ML ([facility]) Name Value Range Interpretation Code Description Data Charu rce(s) Supporting Document(s) thyroid stimulating hormone 2.250 uIU/mL 0.358-3.740 Thyroid Stimulating Hormone ML ([facility]) ID Date Data Source [id number] 06/03/2020 09:45:00 AM EST ML ([facility]) Name Value Range Interpretation Code Description Data Charu rce(s) Supporting Document(s) triglycerides level 91 mg/dL <150 Triglycerides [place] ML ([facility]) cholesterol level 225 mg/dL <200 Above high normal Cholesterol Level ML ([facility]) Cholesterol in LDL [Mass/volume] in Serum or Plasma 143 mg/dL <100 Above high normal LDL Cholesterol ML ([facility]) HDL cholesterol 64 mg/dL >40 HDL Cholesterol ATHE NA ([facility]) non-HDL-C 161 mg/dL Non-hdl-c ML ([facility]) cholesterol risk ratio <5 Cholesterol R isk Ratio ML ([facility]) ID Date Data Source [id number] 06/03/2020 09:45:00 AM EST ML ([facility]) Name Value Range Interpretation Code Description Data Charu rce(s) Supporting Document(s) blood urea nitrogen 12 mg/dL 7-18 Blood Urea Nitro gen ML ([facility]) glucose, fasting 100 mg/dL 70-100 Glucose, Fasting AT [facility] ([facility]) creatinine for GFR 0.71 mg/dL 0.55-1.30 Creatinine for GF R ML ([facility]) sodium level 138 mEq/L 136-145 Sodium Level ML (No [facility]) glomerular filtration rate > 60.0 >58 Glomerula r Filtration Rate ML ([facility]) chloride level 105 mEq/L 98-107 Chloride Level ML ([facility]) potassium serum 4.1 mEq/L 3.5-5.1 Potassium Serum ATHE ([facility]) carbon dioxide level 25 mEq/L 21-32 Carbon Dioxide Level ML ([facility]) calcium level 9.3 mg/dL 8.5-10.1 Calcium Level ML ( [facility]) anion gap 8 mEq/L 8-16 Anion Gap ML ([facility]) AST/SGOT 14 U/L 7-37 AST/SGOT ML ([facility]) ALT/SGPT 28 U/L 12-78 ALT/SGPT ML ([facility]) alkaline phosphatase 60 U/L 45-117 Alkaline Phosph atase ML ([facility]) bilirubin,total 0.2 mg/dL 0.2-1.0 Bilirubin,total ATHE NA ([facility]) total protein 7.2 gm/dL 6.4-8.2 Total Protein ML ( [facility]) albumin 4.3 gm/dL 3.2-5.2 Albumin ML ([facility]) albumin/globulin ratio 1.2-2.2 Albumin/globu dharmesh Ratio ML ([facility]) ID Date Data Source [id number] 06/03/2020 09:45:00 AM EST ML ([facility]) Name Value Range Interpretation Code Description Data Charu rce(s) Supporting Document(s) thyroid stimulating hormone 2.250 uIU/mL 0.358-3.740 Thyroid Stimulating Hormone ML ([facility]) ID Date Data Source [id number] 06/03/2020 09:45:00 AM EST ML ([facility]) Name Value Range Interpretation Code Description Data Charu rce(s) Supporting Document(s) cholesterol level 225 mg/dL <200 Above high normal Cholesterol Level ML ([facility]) triglycerides level 91 mg/dL <150 Triglycerides [place] ML ([facility]) non-HDL-C 161 mg/dL Non-hdl-c ML ([facility]) HDL cholesterol 64 mg/dL >40 HDL Cholesterol ATHE NA ([facility]) cholesterol risk ratio <5 Cholesterol R isk Ratio ML ([facility]) Cholesterol in LDL [Mass/volume] in Serum or Plasma 143 mg/dL <100 Above high normal LDL Cholesterol ML ([facility]) ID Date Data Source [id number] 06/03/2020 09:45:00 AM EST ML ([facility]) Name Value Range Interpretation Code Description Data Charu rce(s) Supporting Document(s) glucose, fasting 100 mg/dL 70-100 Glucose, Fasting AT [facility] ([facility]) blood urea nitrogen 12 mg/dL 7-18 Blood Urea Nitro gen ML ([facility]) sodium level 138 mEq/L 136-145 Sodium Level ML (No [facility]) glomerular filtration rate > 60.0 >58 Glomerula r Filtration Rate ML ([facility]) creatinine for GFR 0.71 mg/dL 0.55-1.30 Creatinine for GF R ML ([facility]) carbon dioxide level 25 mEq/L 21-32 Carbon Dioxide Level ML ([facility]) chloride level 105 mEq/L 98-107 Chloride Level ML ([facility]) potassium serum 4.1 mEq/L 3.5-5.1 Potassium Serum ATHE NA ([facility]) anion gap 8 mEq/L 8-16 Anion Gap ML ([facility]) alkaline phosphatase 60 U/L 45-117 Alkaline Phosph atase ML ([facility]) AST/SGOT 14 U/L 7-37 AST/SGOT ML ([facility]) calcium level 9.3 mg/dL 8.5-10.1 Calcium Level ML ( [facility]) ALT/SGPT 28 U/L 12-78 ALT/SGPT ML ([facility]) albumin/globulin ratio 1.2-2.2 Albumin/globu dharmesh Ratio ML ([facility]) bilirubin,total 0.2 mg/dL 0.2-1.0 Bilirubin,total ATHE NA ([facility]) albumin 4.3 gm/dL 3.2-5.2 Albumin ML ([facility]) total protein 7.2 gm/dL 6.4-8.2 Total Protein ML ( [facility]) ID Date Data Source [id number] 06/03/2020 09:45:00 AM EST ML ([facility]) Name Value Range Interpretation Code Description Data Charu rce(s) Supporting Document(s) thyroid stimulating hormone 2.250 uIU/mL 0.358-3.740 Thyroid Stimulating Hormone ML ([facility]) ID Date Data Source [id number] 06/03/2020 09:45:00 AM EST ML ([facility]) Name Value Range Interpretation Code Description Data Charu rce(s) Supporting Document(s) triglycerides level 91 mg/dL <150 Triglycerides [place] ML ([facility]) Cholesterol in LDL [Mass/volume] in Serum or Plasma 143 mg/dL <100 Above high normal LDL Cholesterol ML ([facility]) cholesterol level 225 mg/dL <200 Above high normal Cholesterol Level ML ([facility]) HDL cholesterol 64 mg/dL >40 HDL Cholesterol ATHE ([facility]) cholesterol risk ratio <5 Cholesterol R isk Ratio ML ([facility]) non-HDL-C 161 mg/dL Non-hdl-c ML ([facility]) ID Date Data Source [id number] 06/03/2020 09:45:00 AM EST ML ([facility]) Name Value Range Interpretation Code Description Data Charu rce(s) Supporting Document(s) glucose, fasting 100 mg/dL 70-100 Glucose, Fasting AT [facility]) glomerular filtration rate > 60.0 >58 Glomerula r Filtration Rate ML ([facility]) blood urea nitrogen 12 mg/dL 7-18 Blood Urea Nitro gen ML ([facility]) creatinine for GFR 0.71 mg/dL 0.55-1.30 Creatinine for GF R ML ([facility]) sodium level 138 mEq/L 136-145 Sodium Level ML ([facility]) carbon dioxide level 25 mEq/L 21-32 Carbon Dioxide Level ML ([facility]) potassium serum 4.1 mEq/L 3.5-5.1 Potassium Serum ATHE ([facility]) chloride level 105 mEq/L 98-107 Chloride Level ML ([facility]) anion gap 8 mEq/L 8-16 Anion Gap ML ([facility]) calcium level 9.3 mg/dL 8.5-10.1 Calcium Level ML ( [facility]) bilirubin,total 0.2 mg/dL 0.2-1.0 Bilirubin,total ATHE NA ([facility]) AST/SGOT 14 U/L 7-37 AST/SGOT ML ([facility]) ALT/SGPT 28 U/L 12-78 ALT/SGPT ML ([facility]) alkaline phosphatase 60 U/L 45-117 Alkaline Phosph atase ML ([facility]) albumin 4.3 gm/dL 3.2-5.2 Albumin ML ([facility]) albumin/globulin ratio 1.2-2.2 Albumin/globu dharmesh Ratio ML ([facility]) total protein 7.2 gm/dL 6.4-8.2 Total Protein ML ( [facility]) ID Date Data Source [id number] 06/03/2020 09:45:00 AM EST ML ([facility]) Name Value Range Interpretation Code Description Data Charu rce(s) Supporting Document(s) thyroid stimulating hormone 2.250 uIU/mL 0.358-3.740 Thyroid Stimulating Hormone ML ([facility]) ID Date Data Source [id number] 06/03/2020 09:45:00 AM EST ML ([facility]) Name Value Range Interpretation Code Description Data Charu rce(s) Supporting Document(s) cholesterol level 225 mg/dL <200 Above high normal Cholesterol Level ML ([facility]) triglycerides level 91 mg/dL <150 Triglycerides [place] ML ([facility]) cholesterol risk ratio <5 Cholesterol R isk Ratio ML ([facility]) Cholesterol in LDL [Mass/volume] in Serum or Plasma 143 mg/dL <100 Above high normal LDL Cholesterol ML ([facility]) non-HDL-C 161 mg/dL Non-hdl-c ML ([facility]) HDL cholesterol 64 mg/dL >40 HDL Cholesterol ATHE NA ([facility]) ID Date Data Source [id number] 06/03/2020 09:45:00 AM EST ML ([facility]) Name Value Range Interpretation Code Description Data Charu rce(s) Supporting Document(s) glucose, fasting 100 mg/dL 70-100 Glucose, Fasting AT [facility] ([facility]) blood urea nitrogen 12 mg/dL 7-18 Blood Urea Nitro gen ML ([facility]) glomerular filtration rate > 60.0 >58 Glomerula r Filtration Rate ML ([facility]) creatinine for GFR 0.71 mg/dL 0.55-1.30 Creatinine for GF R ML ([facility]) sodium level 138 mEq/L 136-145 Sodium Level ML (No [facility]) chloride level 105 mEq/L 98-107 Chloride Level ML ([facility]) anion gap 8 mEq/L 8-16 Anion Gap ML ([facility]) potassium serum 4.1 mEq/L 3.5-5.1 Potassium Serum ATHE ([facility]) carbon dioxide level 25 mEq/L 21-32 Carbon Dioxide Level ML ([facility]) ALT/SGPT 28 U/L 12-78 ALT/SGPT ML ([facility]) alkaline phosphatase 60 U/L 45-117 Alkaline Phosph atase ML ([facility]) calcium level 9.3 mg/dL 8.5-10.1 Calcium Level ML ( [facility]) AST/SGOT 14 U/L 7-37 AST/SGOT ML ([facility]) total protein 7.2 gm/dL 6.4-8.2 Total Protein ML ( [facility]) bilirubin,total 0.2 mg/dL 0.2-1.0 Bilirubin,total ATHE NA ([facility]) albumin 4.3 gm/dL 3.2-5.2 Albumin ML ([facility]) albumin/globulin ratio 1.2-2.2 Albumin/globu dharmesh Ratio ML ([facility]) ID Date Data Source [id number] 06/03/2020 09:45:00 AM EST ML ([facility]) Name Value Range Interpretation Code Description Data Charu rce(s) Supporting Document(s) thyroid stimulating hormone 2.250 uIU/mL 0.358-3.740 Thyroid Stimulating Hormone ML ([facility]) ID Date Data Source [id number] 06/03/2020 09:45:00 AM EST ML ([facility]) Name Value Range Interpretation Code Description Data Charu rce(s) Supporting Document(s) HDL cholesterol 64 mg/dL >40 HDL Cholesterol ATHE NA ([facility]) cholesterol level 225 mg/dL <200 Above high normal Cholesterol Level ML ([facility]) triglycerides level 91 mg/dL <150 Triglycerides [place] ML ([facility]) Cholesterol in LDL [Mass/volume] in Serum or Plasma 143 mg/dL <100 Above high normal LDL Cholesterol ML ([facility]) cholesterol risk ratio <5 Cholesterol R isk Ratio ML ([facility]) non-HDL-C 161 mg/dL Non-hdl-c ML ([facility]) ID Date Data Source [id number] 06/03/2020 09:45:00 AM EST ML ([facility]) Name Value Range Interpretation Code Description Data Charu rce(s) Supporting Document(s) glucose, fasting 100 mg/dL 70-100 Glucose, Fasting AT [facility]) sodium level 138 mEq/L 136-145 Sodium Level ML ([facility]) creatinine for GFR 0.71 mg/dL 0.55-1.30 Creatinine for GF R ML ([facility]) blood urea nitrogen 12 mg/dL 7-18 Blood Urea Nitro gen ML ([facility]) glomerular filtration rate > 60.0 >58 Glomerula r Filtration Rate ML ([facility]) carbon dioxide level 25 mEq/L 21-32 Carbon Dioxide Level ML ([facility]) anion gap 8 mEq/L 8-16 Anion Gap ML ([facility]) chloride level 105 mEq/L 98-107 Chloride Level ML ([facility]) potassium serum 4.1 mEq/L 3.5-5.1 Potassium Serum ATHE ([facility]) alkaline phosphatase 60 U/L 45-117 Alkaline Phosph atase ML ([facility]) calcium level 9.3 mg/dL 8.5-10.1 Calcium Level ML ( [facility]) ALT/SGPT 28 U/L 12-78 ALT/SGPT ML ([facility]) bilirubin,total 0.2 mg/dL 0.2-1.0 Bilirubin,total ATHE NA ([facility]) AST/SGOT 14 U/L 7-37 AST/SGOT ML ([facility]) total protein 7.2 gm/dL 6.4-8.2 Total Protein ML ( [facility]) albumin/globulin ratio 1.2-2.2 Albumin/globu dharmesh Ratio ML ([facility]) albumin 4.3 gm/dL 3.2-5.2 Albumin ML ([facility]) ID Date Data Source [id number] 06/03/2020 09:45:00 AM EST ML ([facility]) Name Value Range Interpretation Code Description Data Charu rce(s) Supporting Document(s) thyroid stimulating hormone 2.250 uIU/mL 0.358-3.740 Thyroid Stimulating Hormone ML ([facility]) ID Date Data Source [id number] 06/03/2020 09:45:00 AM EST ML ([facility]) Name Value Range Interpretation Code Description Data Charu rce(s) Supporting Document(s) HDL cholesterol 64 mg/dL >40 HDL Cholesterol ATHE NA ([facility]) triglycerides level 91 mg/dL <150 Triglycerides [place] ML ([facility]) cholesterol level 225 mg/dL <200 Above high normal Cholesterol Level ML ([facility]) Cholesterol in LDL [Mass/volume] in Serum or Plasma 143 mg/dL <100 Above high normal LDL Cholesterol ML ([facility]) non-HDL-C 161 mg/dL Non-hdl-c ML ([facility]) cholesterol risk ratio <5 Cholesterol R isk Ratio ML ([facility]) ID Date Data Source [id number] 06/03/2020 09:45:00 AM EST ML ([facility]) Name Value Range Interpretation Code Description Data Charu rce(s) Supporting Document(s) glucose, fasting 100 mg/dL 70-100 Glucose, Fasting AT [facility] ([facility]) creatinine for GFR 0.71 mg/dL 0.55-1.30 Creatinine for GF R TIGNALL ([facility]) glomerular filtration rate > 60.0 >58 Glomerula r Filtration Rate ML ([facility]) blood urea nitrogen 12 mg/dL 7-18 Blood Urea Nitro gen LM ([facility]) sodium level 138 mEq/L 136-145 Sodium Level ML ([facility]) potassium serum 4.1 mEq/L 3.5-5.1 Potassium Serum ATHE NA ([facility]) carbon dioxide level 25 mEq/L 21-32 Carbon Dioxide Level ML ([facility]) chloride level 105 mEq/L 98-107 Chloride Level ML ([facility]) calcium level 9.3 mg/dL 8.5-10.1 Calcium Level ML ( [facility]) ALT/SGPT 28 U/L 12-78 ALT/SGPT ML ([facility]) anion gap 8 mEq/L 8-16 Anion Gap ML ([facility]) AST/SGOT 14 U/L 7-37 AST/SGOT ML ([facility]) total protein 7.2 gm/dL 6.4-8.2 Total Protein ML ( [facility]) alkaline phosphatase 60 U/L 45-117 Alkaline Phosph atase ML ([facility]) albumin/globulin ratio 1.2-2.2 Albumin/globu dharmesh Ratio ML ([facility]) bilirubin,total 0.2 mg/dL 0.2-1.0 Bilirubin,total ATHE NA ([facility]) albumin 4.3 gm/dL 3.2-5.2 Albumin ML ([facility]) ID Date Data Source [id number] 02/27/2020 12:00:00 AM EST [facility] Name Value Range Interpretation Code Description Data Charu rce(s) Supporting Document(s) SARS coronavirus 2 RNA [facility] This lab was ordered by [employer] and rep orted by [facility]. ID Date Data Source [id number] 01/28/2020 10:18:21 AM EDT [facility] Measurements & CalculationsHeight: 61 inches (5 ft. 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) (PWY16-Z67.89) Assessment: Instructions: Stable.Recheck as scheduled with Mental Health.Low back pain (ICD-724.2) (YNF59-S70.5) Assessment: Instructions: Chronic and worsening despite a [...] ild)Orders:Adult - Ofc Vst, EST, Level III [CPT-51270] Name Value Range Interpretation Code Description Data Charu rce(s) Supporting Document(s) Procedure Social History Code Duration Value Status Description Data Source(s ) Alcohol intake 08/25/2020 12:00:00 AM EDT Ex-drinker (finding) comp leted Ex- drinker (finding) [facility] Tobacco use and exposure 08/25/2020 12:00:00 AM EDT Never used co mpleted Never used [facility] Smoking 08/25/2020 12:00:00 AM EDT Former smoker completed Former smoker [facility] Vital Signs ID Date Data Source [id number] Name Value Range Interpretation Code Description Data Source(s) Diastolic blood pressure 81 mm[Hg] 81 mm[Hg] ML ([facility]) Diastolic blood pressure 85 mm[Hg] 85 mm[Hg] ML ([facility]) Body height 61 [in_i] 61 [in_i] ML ([facility]) Systolic blood pressure 125 mm[Hg] 125 mm[Hg] A THENA ([facility]) Systolic blood pressure 131 mm[Hg] 131 mm[Hg] A THENA ([facility]) Diastolic blood pressure 102 mm[Hg] 102 mm[Hg] ML ([facility]) Body height 61 [in_i] 61 [in_i] ML ([facility]) Body mass index (BMI) [Ratio] 23.3 kg/m2 23.3 k g/m2 ML ([facility]) Systolic blood pressure 153 mm[Hg] 153 mm[Hg] A THENA ([facility]) Body weight 1973 [oz_av] 1973 [oz_av] ML ([facility]) Diastolic blood pressure 102 mm[Hg] 102 mm[Hg] ML ([facility]) Body height 61 [in_i] 61 [in_i] ML ([facility]) Body mass index (BMI) [Ratio] 23.3 kg/m2 23.3 k g/m2 ML ([facility]) Systolic blood pressure 153 mm[Hg] 153 mm[Hg] A THENA ([facility]) Body weight 1973 [oz_av] 1973 [oz_av] ML ([facility]) Diastolic blood pressure 92 mm[Hg] 92 mm[Hg] ML ([facility]) Body height 61 [in_i] 61 [in_i] ML ([facility]) Body mass index (BMI) [Ratio] 23.1 kg/m2 23.1 k g/m2 ML ([facility]) Systolic blood pressure 137 mm[Hg] 137 mm[Hg] A THENA ([facility]) Body weight 1956 [oz_av] 1956 [oz_av] ML ([facility]) Diastolic blood pressure 92 mm[Hg] 92 mm[Hg] ML ([facility]) Body height 61 [in_i] 61 [in_i] ML ([facility]) Body mass index (BMI) [Ratio] 23.1 kg/m2 23.1 k g/m2 ML ([facility]) Systolic blood pressure 137 mm[Hg] 137 mm[Hg] A [facility] ([facility]) Body weight 1956 [oz_av] 1956 [oz_av] ML ([facility]) Diastolic blood pressure 92 mm[Hg] 92 mm[Hg] ML ([facility]) Body height 61 [in_i] 61 [in_i] ML ([facility]) Body mass index (BMI) [Ratio] 23.1 kg/m2 23.1 k g/m2 ML ([facility]) Systolic blood pressure 137 mm[Hg] 137 mm[Hg] A [facility] ([facility]) Body weight 1956 [oz_av] 1956 [oz_av] ML ([facility]) Systolic blood pressure 122 mm[Hg] 122 mm[Hg] [facility] Diastolic blood pressure 75 mm[Hg] 75 mm[Hg] [facility] Heart rate 100 /min 100 /min [facility] Body height 152.4 cm 152.4 cm [facility] Body weight 54.432 kg 54.432 kg [facility] Body mass index (BMI) [Ratio] 23.44 kg/m2 23.44 kg/m2 [facility] Oxygen saturation in Arterial blood by Pulse oximetry 96 % 96 % [facility] Diastolic blood pressure 85 mm[Hg] 85 mm[Hg] ML ([facility]) Diastolic blood pressure 107 mm[Hg] 107 mm[Hg] ML ([facility]) Body height 61 [in_i] 61 [in_i] ML ([facility]) Body mass index (BMI) [Ratio] 23.1 kg/m2 23.1 k g/m2 ML ([facility]) Systolic blood pressure 145 mm[Hg] 145 mm[Hg] A THENA ([facility]) Systolic blood pressure 152 mm[Hg] 152 mm[Hg] A [facility] ([facility]) Body weight 1960 [oz_av] 1960 [oz_av] ML ([facility]) Diastolic blood pressure 85 mm[Hg] 85 mm[Hg] ML ([facility]) Diastolic blood pressure 107 mm[Hg] 107 mm[Hg] ML ([facility]) Body height 61 [in_i] 61 [in_i] ML ([facility]) Body mass index (BMI) [Ratio] 23.1 kg/m2 23.1 k g/m2 ML ([facility]) Systolic blood pressure 145 mm[Hg] 145 mm[Hg] A THENA ([facility]) Systolic blood pressure 152 mm[Hg] 152 mm[Hg] A THENA ([facility]) Body weight 1960 [oz_av] 1960 [oz_av] ML ([facility]) Diastolic blood pressure 85 mm[Hg] 85 mm[Hg] ML ([facility]) Diastolic blood pressure 107 mm[Hg] 107 mm[Hg] ML ([facility]) Body height 61 [in_i] 61 [in_i] ML ([facility]) Body mass index (BMI) [Ratio] 23.1 kg/m2 23.1 k g/m2 ML ([facility]) Systolic blood pressure 145 mm[Hg] 145 mm[Hg] A THENA ([facility]) Systolic blood pressure 152 mm[Hg] 152 mm[Hg] A THENA ([facility]) Body weight 1960 [oz_av] 1960 [oz_av] ML ([facility]) Diastolic blood pressure 85 mm[Hg] 85 mm[Hg] ML ([facility]) Diastolic blood pressure 107 mm[Hg] 107 mm[Hg] ML ([facility]) Body height 61 [in_i] 61 [in_i] ML ([facility]) Body mass index (BMI) [Ratio] 23.1 kg/m2 23.1 k g/m2 ML ([facility]) Systolic blood pressure 145 mm[Hg] 145 mm[Hg] A THENA ([facility]) Systolic blood pressure 152 mm[Hg] 152 mm[Hg] A THENA ([facility]) Body weight 1960 [oz_av] 1960 [oz_av] ML ([facility]) Body height 61 [in_i] 61 [in_i] ML ([facility]) Body mass index (BMI) [Ratio] 25 kg/m2 25 kg/ m2 ML ([facility]) Systolic blood pressure 147 mm[Hg] 147 mm[Hg] [facility] Body weight 2114 [oz_av] 2114 [oz_av] ML ([facility]) Diastolic blood pressure 90 mm[Hg] 90 mm[Hg] ML ([facility]) Diastolic blood pressure 90 mm[Hg] 90 mm[Hg] ML ([facility]) Body height 61 [in_i] 61 [in_i] ML ([facility]) Body mass index (BMI) [Ratio] 25 kg/m2 25 kg/ m2 ML ([facility]) Systolic blood pressure 147 mm[Hg] 147 mm[Hg] [facility] Body weight 2114 [oz_av] 2114 [oz_av] ML ([facility]) Diastolic blood pressure 90 mm[Hg] 90 mm[Hg] ML ([facility]) Body height 61 [in_i] 61 [in_i] ML ([facility]) Body mass index (BMI) [Ratio] 25 kg/m2 25 kg/ m2 ML ([facility]) Systolic blood pressure 147 mm[Hg] 147 mm[Hg] A THENA ([facility]) Body weight 2114 [oz_av] 2114 [oz_av] ML ([facility]) Diastolic blood pressure 90 mm[Hg] 90 mm[Hg] ML ([facility]) Body height 61 [in_i] 61 [in_i] ML ([facility]) Body mass index (BMI) [Ratio] 25 kg/m2 25 kg/ m2 ML ([facility]) Systolic blood pressure 147 mm[Hg] 147 mm[Hg] [facility]) Body weight 2114 [oz_av] 2114 [oz_av] ML ([facility]) Diastolic blood pressure 90 mm[Hg] 90 mm[Hg] ML ([facility]) Body height 61 [in_i] 61 [in_i] ML ([facility]) Body mass index (BMI) [Ratio] 25 kg/m2 25 kg/ m2 ML ([facility]) Systolic blood pressure 147 mm[Hg] 147 mm[Hg] A THENA ([facility]) Body weight 2114 [oz_av] 2114 [oz_av] ML ([facility]) Diastolic blood pressure 90 mm[Hg] 90 mm[Hg] ML ([facility]) Body height 61 [in_i] 61 [in_i] ML ([facility]) Body mass index (BMI) [Ratio] 25 kg/m2 25 kg/ m2 ML ([facility]) Systolic blood pressure 147 mm[Hg] 147 mm[Hg] [facility]) Body weight 2114 [oz_av] 2114 [oz_av] ML ([facility]) Diastolic blood pressure 94 mm[Hg] 94 mm[Hg] ML ([facility]) Body height 61 [in_i] 61 [in_i] ML ([facility]) Body mass index (BMI) [Ratio] 24.1 kg/m2 24.1 k g/m2 ML ([facility]) Systolic blood pressure 148 mm[Hg] 148 mm[Hg] [facility]) Body weight 0 [oz_av] 2040 [oz_av] ML ([facility]) Diastolic blood pressure 94 mm[Hg] 94 mm[Hg] ML ([facility]) Body height 61 [in_i] 61 [in_i] ML ([facility]) Body mass index (BMI) [Ratio] 24.1 kg/m2 24.1 k g/m2 ML ([facility]) Systolic blood pressure 148 mm[Hg] 148 mm[Hg] A THENA ([facility]) Body weight 0 [oz_av] 2040 [oz_av] ML ([facility]) Diastolic blood pressure 94 mm[Hg] 94 mm[Hg] ML ([facility]) Body height 61 [in_i] 61 [in_i] ML ([facility]) Body mass index (BMI) [Ratio] 24.1 kg/m2 24.1 k g/m2 ML ([facility]) Systolic blood pressure 148 mm[Hg] 148 mm[Hg] A THENA ([facility]) Body weight 2039 [oz_av] 2040 [oz_av] ML ([facility]) Diastolic blood pressure 94 mm[Hg] 94 mm[Hg] ML ([facility]) Body height 61 [in_i] 61 [in_i] ML ([facility]) Body mass index (BMI) [Ratio] 24.1 kg/m2 24.1 k g/m2 ML ([facility]) Systolic blood pressure 148 mm[Hg] 148 mm[Hg] [facility]) Body weight 2039 [oz_av] 204 [oz_av] ML ([facility]) Diastolic blood pressure 94 mm[Hg] 94 mm[Hg] ML ([facility]) Body height 61 [in_i] 61 [in_i] ML ([facility]) Body mass index (BMI) [Ratio] 24.1 kg/m2 24.1 k g/m2 ML ([facility]) Systolic blood pressure 148 mm[Hg] 148 mm[Hg] A THENA ([facility]) Body weight 2039 [oz_av] 204 [oz_av] ML ([facility]) Diastolic blood pressure 94 mm[Hg] 94 mm[Hg] ML ([facility]) Body height 61 [in_i] 61 [in_i] ML ([facility]) Body mass index (BMI) [Ratio] 24.1 kg/m2 24.1 k g/m2 ML ([facility]) Systolic blood pressure 148 mm[Hg] 148 mm[Hg] A THENA ([facility]) Body weight 0 [oz_av] 2040 [oz_av] ML ([facility]) Diastolic blood pressure 94 mm[Hg] 94 mm[Hg] ML ([facility]) Body height 61 [in_i] 61 [in_i] ML ([facility]) Body mass index (BMI) [Ratio] 24.1 kg/m2 24.1 k g/m2 ML ([facility]) Systolic blood pressure 148 mm[Hg] 148 mm[Hg] A THENA ([facility]) Body weight 2040 [oz_av] 2040 [oz_av] ML ([facility]) Diastolic blood pressure 94 mm[Hg] 94 mm[Hg] ML ([facility]) Body height 61 [in_i] 61 [in_i] ML ([facility]) Body mass index (BMI) [Ratio] 24.1 kg/m2 24.1 k g/m2 ML ([facility]) Systolic blood pressure 148 mm[Hg] 148 mm[Hg] [facility] Body weight 2040 [oz_av] 2040 [oz_av] ML ([facility]) Diastolic blood pressure 95 mm[Hg] 95 mm[Hg] ML ([facility]) Body height 61 [in_i] 61 [in_i] ML ([facility]) Body mass index (BMI) [Ratio] 26.19 kg/m2 26.19 kg/m2 ML ([facility]) Systolic blood pressure 136 mm[Hg] 136 mm[Hg] A THENA ([facility]) Body weight 2210.08 [oz_av] 2210.08 [oz_av] [facility] [place] ([facility]) Diastolic blood pressure 95 mm[Hg] 95 mm[Hg] ML ([facility]) Body height 61 [in_i] 61 [in_i] ML ([facility]) Body mass index (BMI) [Ratio] 26.19 kg/m2 26.19 kg/m2 ML ([facility]) Systolic blood pressure 136 mm[Hg] 136 mm[Hg] A THENA ([facility]) Body weight 2210.08 [oz_av] 2210.08 [oz_av] [facility] [place] ([facility]) Diastolic blood pressure 95 mm[Hg] 95 mm[Hg] ML ([facility]) Body height 61 [in_i] 61 [in_i] ML ([facility]) Body mass index (BMI) [Ratio] 26.19 kg/m2 26.19 kg/m2 ML ([facility]) Systolic blood pressure 136 mm[Hg] 136 mm[Hg] A [facility] ([facility]) Body weight 2210.08 [oz_av] 2210.08 [oz_av] A[facility] [place] ([facility]) Diastolic blood pressure 95 mm[Hg] 95 mm[Hg] ML ([facility]) Body height 61 [in_i] 61 [in_i] ML ([facility]) Body mass index (BMI) [Ratio] 26.19 kg/m2 26.19 kg/m2 ML ([facility]) Systolic blood pressure 136 mm[Hg] 136 mm[Hg] A [facility] ([facility]) Body weight 2210.08 [oz_av] 2210.08 [oz_av] [facility] [place] ([facility]) Diastolic blood pressure 95 mm[Hg] 95 mm[Hg] ML ([facility]) Body height 61 [in_i] 61 [in_i] ML ([facility]) Body mass index (BMI) [Ratio] 26.19 kg/m2 26.19 kg/m2 ML ([facility]) Systolic blood pressure 136 mm[Hg] 136 mm[Hg] A [facility] ([facility]) Body weight 2210.08 [oz_av] 2210.08 [oz_av] [facility] [place] ([facility]) Diastolic blood pressure 95 mm[Hg] 95 mm[Hg] ML ([facility]) Body height 61 [in_i] 61 [in_i] ML ([facility]) Body mass index (BMI) [Ratio] 26.19 kg/m2 26.19 kg/m2 ML ([facility]) Systolic blood pressure 136 mm[Hg] 136 mm[Hg] A [facility] ([facility]) Body weight 2210.08 [oz_av] 2210.08 [oz_av] [facility] [place] ([facility]) Diastolic blood pressure 95 mm[Hg] 95 mm[Hg] ML ([facility]) Body height 61 [in_i] 61 [in_i] ML ([facility]) Body mass index (BMI) [Ratio] 26.19 kg/m2 26.19 kg/m2 ML ([facility]) Body weight 2210.08 [oz_av] 2210.08 [oz_av] A[facility] [place] ([facility]) Systolic blood pressure 136 mm[Hg] 136 mm[Hg] A THENA ([facility]) Patient Treatment Plan of Care Planned Activity Planned Date Details Description Data Source (s) Sertraline 50 MG Oral Tablet ML ([facility]) Sertraline 25 MG Oral Tablet ML ([facility]) pregabalin 150 MG Oral Capsule ML ([facility]) Prednisone 10 MG Oral Tablet ML ([facility]) Prazosin 1 MG Oral Capsule A THENA ([facility]) Doxycycline Monohydrate 100 MG Oral Capsule ML ([facility]) Cyclobenzaprine hydrochloride 10 MG Oral Tablet ML ([facility]) Baclofen 10 MG Oral Tablet A THENA ([facility]) Amoxicillin 875 MG Oral Tablet ML ([facility]) pregabalin 150 MG Oral Capsule ML ([facility]) Prednisone 10 MG Oral Tablet ML ([facility]) Prazosin 1 MG Oral Capsule A THENA ([facility]) Doxycycline Monohydrate 100 MG Oral Capsule ML ([facility]) Cyclobenzaprine hydrochloride 10 MG Oral Tablet ML ([facility]) Baclofen 10 MG Oral Tablet A THENA ([facility]) Amoxicillin 875 MG Oral Tablet ML ([facility]) pregabalin 150 MG Oral Capsule ML ([facility]) Prednisone 20 MG Oral Tablet ML ([facility]) Prednisone 10 MG Oral Tablet ML ([facility]) Prazosin 1 MG Oral Capsule A THENA ([facility]) Fluzone Quad [id number] (PF) 60 mcg (15 mcg x 4)/0.5 mL IM syringe ML ([facility]) Flublok Quad (PF) 180 mcg (45 mcg x 4)/0.5 mL IM syringe ML ([facility]) Doxycycline Monohydrate 100 MG Oral Capsule ML ([facility]) Cyclobenzaprine hydrochloride 10 MG Oral Tablet ML ([facility]) Baclofen 10 MG Oral Tablet A THENA ([facility]) Amoxicillin 875 MG Oral Tablet ML ([facility]) Amoxicillin 500 MG Oral Capsule ML ([facility]) Trazodone Hydrochloride 50 MG Oral Tablet ML ([facility]) Sertraline 50 MG Oral Tablet ML ([facility]) Sertraline 25 MG Oral Tablet ML ([facility]) pregabalin 150 MG Oral Capsule ML ([facility]) Prednisone 20 MG Oral Tablet ML ([facility]) Prednisone 10 MG Oral Tablet ML ([facility]) Prazosin 1 MG Oral Capsule A THENA ([facility]) Fluzone Quad (PF) 60 mcg (15 mcg x 4)/0.5 mL IM syringe ML ([facility]) Flublok Quad (PF) 180 mcg (45 mcg x 4)/0.5 mL IM syringe ML ([facility]) Doxycycline Monohydrate 100 MG Oral Capsule ML ([facility]) Cyclobenzaprine hydrochloride 10 MG Oral Tablet ML ([facility]) Baclofen 10 MG Oral Tablet A THENA ([facility]) Amoxicillin 875 MG Oral Tablet ML ([facility]) Amoxicillin 500 MG Oral Capsule ML ([facility]) Trazodone Hydrochloride 50 MG Oral Tablet ML ([facility]) Sertraline 50 MG Oral Tablet ML ([facility]) Sertraline 25 MG Oral Tablet ML ([facility]) pregabalin 150 MG Oral Capsule ML ([facility]) Prednisone 20 MG Oral Tablet ML ([facility]) Prednisone 10 MG Oral Tablet ML ([facility]) Prazosin 1 MG Oral Capsule A THENA ([facility]) Fluzone Quad (PF) 60 mcg (15 mcg x 4)/0.5 mL IM syringe ML ([facility]) Flublok Quad (PF) 180 mcg (45 mcg x 4)/0.5 mL IM syringe ML ([facility]) Doxycycline Monohydrate 100 MG Oral Capsule ML ([facility]) Cyclobenzaprine hydrochloride 10 MG Oral Tablet ML ([facility]) Baclofen 10 MG Oral Tablet A THENA ([facility]) Amoxicillin 875 MG Oral Tablet ML ([facility]) Amoxicillin 500 MG Oral Capsule ML ([facility]) Trazodone Hydrochloride 50 MG Oral Tablet ML ([facility]) Sertraline 50 MG Oral Tablet ML ([facility]) Sertraline 25 MG Oral Tablet ML ([facility]) Sertraline 100 MG Oral Tablet ML ([facility]) pregabalin 150 MG Oral Capsule ML ([facility]) Prednisone 20 MG Oral Tablet ML ([facility]) Prednisone 10 MG Oral Tablet ML ([facility]) Prazosin 1 MG Oral Capsule A THENA ([facility]) Fluzone Quad [id number] (PF) 60 mcg (15 mcg x 4)/0.5 mL IM syringe ML ([facility]) Flublok Quad [id number] (PF) 180 mcg (45 mcg x 4)/0.5 mL IM syringe ML ([facility]) Doxycycline Monohydrate 100 MG Oral Capsule ML ([facility]) Cyclobenzaprine hydrochloride 10 MG Oral Tablet ML ([facility]) Baclofen 10 MG Oral Tablet A THENA ([facility]) Amoxicillin 875 MG Oral Tablet ML ([facility]) Amoxicillin 500 MG Oral Capsule ML ([facility]) Trazodone Hydrochloride 50 MG Oral Tablet ML ([facility]) Sertraline 25 MG Oral Tablet ML ([facility]) pregabalin 150 MG Oral Capsule ML ([facility]) Prednisone 20 MG Oral Tablet ML ([facility]) Prednisone 10 MG Oral Tablet ML ([facility]) Prazosin 1 MG Oral Capsule A THENA ([facility]) Doxycycline Monohydrate 100 MG Oral Capsule ML ([facility]) Cyclobenzaprine hydrochloride 10 MG Oral Tablet ML ([facility]) Baclofen 10 MG Oral Tablet A THENA ([facility]) Amoxicillin 875 MG Oral Tablet ML ([facility]) Trazodone Hydrochloride 50 MG Oral Tablet ML ([facility]) tramadol hydrochloride 50 MG Oral Tablet ML ([facility]) Sertraline 25 MG Oral Tablet ML ([facility]) Sertraline 100 MG Oral Tablet ML ([facility]) pregabalin 150 MG Oral Capsule ML ([facility]) Prednisone 20 MG Oral Tablet ML ([facility]) Prednisone 10 MG Oral Tablet ML ([facility]) Prazosin 1 MG Oral Capsule A THENA ([facility]) Doxycycline Monohydrate 100 MG Oral Capsule ML ([facility]) Cyclobenzaprine hydrochloride 10 MG Oral Tablet ML ([facility]) Baclofen 10 MG Oral Tablet A THENA ([facility]) Amoxicillin 875 MG Oral Tablet ML ([facility])
--- NOTE | 2021-03-03 04:03 | HPEPDOC ---
General Date of Admission Mar 03, 2021 at 02:34 Date of Service: Mar 03, 2021 Chief Complaint The patient is a 40-year-old female admitted with a reason for visit of Yashira,Rhabdomyolysis. Source: RN/MD History of Present Illness Ally Gallardo is a 40-year-old female with significant medical history of major depressive disorder, prior suicide attempts, substance abuse, migraines and GERD who arrives via law enforcement with reported suicidal and homicidal ideation. Patient extremely agitated during admission in ED and was given Ativan and Zyprexa. Blood samples were able to be taken and patient vital signs showed heart rate 140s, blood pressure 88/52, respiratory rate 22. Patient was able to be straight cath, UA with elevated leukoesterase and too numerous to count WBCs. During time of exam, patient found to be lethargic however improved vital signs heart rate 102, blood pressure 122/36, respiratory rate 18, temperature 98.6, 99% SPO2 on 2 L nasal cannula. Patient appears unkept, but to be resting comfortably and she is able to purposefully move her hands when she is being repositioned however she barely attempts to open eyes during sternal rub and unable to interact/answer questions. There is a small forehead laceration notable with dried blood. Patient does have dry/chapped lips. Initial lab work shows elevated creatinine 5.21, K5.8, bicarb 16, VBG pH 7.18, WBC 26.2, CK 2676, lactic 1.2. Tox screen positive amphetamines Patient will be admitted for further evaluation and management of presenting concerns Home Medications Scheduled Lidocaine (Anecream) 4% Cream..g., 1 APLCT TOP BID Multivitamins (Thera M Plus Tablet) 1 Each Tablet, 1 TAB PO DAILY, (Reported) Omeprazole (Omeprazole) 40 Mg Capsule.dr, 40 MG PO DAILY, (Reported) Sertraline Hcl (Zoloft) 100 Mg Tablet, 100 MG PO DAILY, (Reported) Trazodone HCl (Trazodone HCl) 50 Mg Tablet, 50 MG PO QHS, (Reported) Miscellaneous Medications Aripiprazole (Abilify) 5 Mg Tablet, (Reported) Lisinopril (Lisinopril) 20 Mg Tablet, (Reported) Orphenadrine Citrate (Orphenadrine Citrate ER) 100 Mg Tablet.er, (Reported) Allergies Coded Allergies: Sulfa (Sulfonamide Antibiotics) (Verified Adverse Reaction, Mild, N/V, 11/04/19) latex (Verified Adverse Reaction, Mild, RASH ITCHING, 09/07/19) Past Medical History Medical History Migraines, GERD, major depressive disorder and history of SI Surgical History Unable to assess Family History Significant Family History: Other (Unable to assess) Social History * Smoker: other (Unable to assess) Alcohol: other (History of EtOH abuse per chart review) Drugs: other (History of substance abuse per chart review and patient tox screen positive for amphetamines) Psychosocial History: Depression, Prior suicide attempt (Patient with recent suicide attempt October 2020 per chart review) A-FIB/CHADSVASC A-FIB History Current/History of A-Fib/PAF?: No Current PO Anticoag Therapy: No Review of Systems Other systems Unable to obtain Physical Examination General Exam: Positive: No Acute Distress, Other (Lethargic) Eye Exam: Positive: Conjunctiva & lids normal; Negative: Sclera icteric ENT Exam: Positive: Atraumatic, Pharynx Normal, Other ENT (Dry mucous me mbranes); Negative: Mucous membr. moist/pink Neck Exam: Positive: Supple; Negative: JVD, thyromegaly Chest Exam: Positive: Clear to auscultation, Normal air movement Heart Exam: Positive: Tachycardic, Regular Rhythm, Normal S1, Normal S2, Murmurs; Negative: Rubs Telemetry: Positive: Sinus, Tachycardia Abdomen Exam: Positive: Normal bowel sounds, Soft; Negative: Tenderness, Hepatospenomegaly Extremity Exam: Positive: Normal pulses; Negative: Clubbing, Cyanosis, Edema Skin Exam: Positive: Nl turgor and temperature, Other skin issue (She does have areas of redness to her hands and under her left upper extremity. No warmth/perceptible tenderness or edema appreciated. No wounds/areas of induration appreciated to extremities. ); Negative: Breakdown, Lesion Neuro Exam: Negative: Normal Gait, Normal Speech Psych Exam: Positive: Other (Limitation to exam given patient sedated); Negative: Mental status NL, Mood NL, Oriented x 3 Vital Signs Vital Signs Date Time Temp Pulse Resp B/P (MAP) Pulse Ox O2 Delivery O2 Flow Rate FiO2 03/03/21 02:48 97.9 105 18 144/79 (100) 98 Room Air Laboratory Data Labs 24H Laboratory Tests 2 03/02/21 23:58: Nucleated Red Blood Cells % (auto) 0.0, Anion Gap 19H, Glomerular Filtration Rate 9.9L, Calcium Level 10.3H, Total Bilirubin 0.4, Direct Bilirubin 0.1, Aspartate Amino Transf (AST/SGOT) 139H, Alanine Aminotransferase (ALT/SGPT) 102H, Alkaline Phosphatase 84, Total Creatine Kinase 2676H, Total Protein 7.4, Albumin 4.6, Albumin/Globulin Ratio 1.6, Thyroid Stimulating Hormone (TSH) 0.897, Human Chorionic Gonadotropin, Qual NEGATIVE, Salicylates Level 2.2L, Acetaminophen Level < 2.0L, Ethyl Alcohol Level < 0.003, Coronavirus (COVID- 19)(PCR) NEGATIVE, Influenza Type A (RT-PCR) NEGATIVE, Influenza Type B (RT-PCR) NEGATIVE, Respiratory Syncytial Virus (PCR) NEGATIVE 03/03/21 01:13: Urine Color MATHEUS, Urine Appearance TURBIDH, Urine pH 5.0, Urine Specific [place] 1.015, Urine Protein 3+H, Urine Glucose (UA) NEGATIVE, Urine Ketones TRACEH, Urine Blood 3+H, Urine Nitrite NEGATIVE, Urine Bilirubin NEGATIVE, Urine Urobilinogen 0.2, Urine Leukocyte Esterase 3+H, Urine WBC (Auto) TNTCH, Urine RBC (Auto) 25H, Urine Hyaline Casts (Auto) 24, Urine Bacteria (Auto) 1+H, Urine Squamous Epithelial Cells 2, Urine Transitional Epithelial Cells 1, Urine Amorphous Sediment SMALLH, Urine Mucus (Auto) SMALL, Urine Sperm (Auto) , Blood Gas Bicarbonate Standard 13.5, Venous Blood pH 7.188L, Venous Blood Partial Pressure CO2 35.5L, Venous Blood Partial Pressure O2 74.6H, Venous Blood Total Carbon Dioxide 14.3L, Venous Blood HCO3 13.2L, Venous Blood Oxygen Saturation 91.4H, Venous Blood Base Excess -14.0L, Osmolality 324H, Lactic Acid Level 1.2, Urine Opiates Screen NEGATIVE, Urine Methadone Screen NEGATIVE, Urine Barbiturates Screen NEGATIVE, Urine Phencyclidine Screen NEGATIVE, Urine Amphetamines Screen POSITIVEH, Urine Benzodiazepines Screen NEGATIVE, Urine Cocaine Metabolite Screen NEGATIVE, Urine Cannabinoids Screen NEGATIVE CBC/BMP Laboratory Tests 03/02/21 23:58 Microbiology Microbiology 03/03/21 Urine Culture, Received Pending 03/03/21 Blood Culture, Received Pending 03/03/21 Blood Culture, Received Pending Assessment/Plan 40-year-old female with significant medical history of GERD, migraines, major depressive disorder and history of suicidal ideation presents via law enforcement psychiatric hold with reported suicidal and homicidal ideation/agitation and found to have YASHIRA, elevated CK and metabolic acidosis. 1. Reported suicidal/homicidal ideation during presumed amphetamine psychosis: Pt with baseline Major Depressive Disorder and hx of suicidal ideation and attempts. -Monitor patient, tele, continuous pulse ox -Sitter 1 on 1 observation -Suicide Precautions -Monitor mood, De-escalation techniques accordingly -AM labs -Appreciate Psychiatric recommendations once patient clinically improved to converse 2. YASHIRA with rhabdomyolysis: In setting of amphetamine use. Creatinine 0.18 to 5.21 with elevated potassium 5.8 and acidosis, vBG pH 7.18 -Monitor fluid balance, I's and O's, urinary output -Hydrate aggressively, bicarb drip initiated -Avoid nephrotoxins -serial BMP, ck q4h -A.m. labs -Renal ultrasound; straight cath during sample obtainment less than 300 mL -Appreciate nephrology recommendations given patient acidosis. 3. Sepsis 2/2 UTI: In setting of above, leukocytosis, tachycardia, hypovolemia with dehydration could explain the SIRS presentation, however UA with too numerous to count WBCs and elevated leukoesterase. Epithelial cells 2 and thus pt hydrated aggressively and placed on empiric coverage. -Monitor for signs/symptoms worsening infection. -Empiric coverage, follow-up culture for adjustment -A.m. labs 4. Lethargy: In setting of metabolic acidosis as well as exam post sedative medication after psychosis/agitation -Treat as above. -Monitor patient and interaction -Telemetry, continuous pulse ox 5. Forehead laceration: Site care and monitoring. 6. GERD: Protonix daily 7. Migraines: Supportive care if patient should have. 8. Substance abuse: Monitor for patient withdrawal. Encourage cessation. DVT prophylaxis: Heparin subcu CODE STATUS: Full code Disposition planning: Anticipate 2 midnight stay; home versus inpatient psych pending clinical improvement and recommendations from psych. Patient has a law enforcement hold and would need psychiatric clearance for discharge Plan / VTE VTE Prophylaxis Ordered?: Yes EWA SALEEM NP Mar 03, 2021 04:03
[2021-03-03] MEDS: SODIUM BICARBONATE 150 MEQ in D5W 1,000 ML IV SCH ×2 (04:17→12:04)
[2021-03-03] MEDS ORDERED: LORazepam 2 MG/ML VIAL As Ordered ONE ×2 (04:47→09:35)
[2021-03-03] MEDS: LORazepam 2 MG/ML VIAL IV PRN ×2 (05:00→09:39)
[2021-03-03 05:05] LABS: VENOUS BASE EXCESS -11.7 (-2.0-2.0); VENOUS HCO3 15.1 MEQ/L (23.0-27.0); VENOUS O2 SATURATION 88.9 % (60.0-80.0); VENOUS PARTIAL PRESSURE CO2 37.5 mmHg (38.0-50.0); VENOUS PARTIAL PRESSURE O2 63.4 mmHg (30.0-50.0); VENOUS PH 7.224 UNITS (7.330-7.430); VENOUS STANDARD HCO3 15.2 MEQ/L; VENOUS TOTAL CO2 16.3 MEQ/L (24.0-28.0)
[2021-03-03 05:09] LABS: BASO # 0.1 10^3/uL (0.0-0.2); BASO % 0.3 % (0.0-1.0); EOS # 0.1 10^3/uL (0.0-0.5); EOS % 0.3 % (0.0-3.0); HEMATOCRIT 34.2 % (36.0-47.0); HEMOGLOBIN 11.4 g/dl (12.0-15.5); LYMPH % 5.4 % (24.0-44.0); MEAN CORPUSCULAR HEMOGLOBIN 29.7 pg (27.0-33.0); MEAN CORPUSCULAR HGB CONC 33.3 g/dl (32.0-36.5); MEAN CORPUSCULAR VOLUME 89.1 fl (80.0-96.0); MONO # 0.7 10^3/uL (0.0-0.8); MONO % 3.6 % (2.0-8.0); NEUTROPHILS # 17.1 10^3/uL (1.5-8.5); NEUTROPHILS % 89.8 % (36.0-66.0); PLATELET COUNT, AUTOMATED 351 10^3/uL (150-450); RED BLOOD COUNT 3.84 10^6/uL (4.00-5.40)
[2021-03-03 05:30] LABS: CALCIUM LEVEL 8.4 MG/DL (8.5-10.1); CREATININE FOR GFR 3.32 MG/DL (0.55-1.30); GLOMERULAR FILTRATION RATE 16.2 (>58); POTASSIUM SERUM 4.7 MEQ/L (3.5-5.1)
[2021-03-03] MEDS: HEPARIN SOD (PORCINE) 5000UNITS/ML 1ML VIAL/SYRINGE SQ SCH ×3 (06:00→20:55)
--- NOTE | 2021-03-03 08:33 | REP ---
INDICATION: SEPSIS W/U COMPARISON: 06/18/2011 TECHNIQUE: Portable AP view of the chest FINDINGS: The mediastinum and cardiac silhouette are stable and within normal limits for portable technique. The lung stark are clear without acute consolidation, effusion, or pneumothorax. Skeletal structures are intact. IMPRESSION: No acute cardiopulmonary process appreciated. <Electronically signed by Chan Zuñiga > 03/03/21 [id number]
[2021-03-03] MEDS ORDERED: TRAZ-257 PO (08:58)
[2021-03-03] MEDS: LACTOBACILLUS ACIDOPHILUS CAP (BACID) PO SCH (09:00)
[2021-03-03] MEDS ORDERED: HOME MED LIST COMPLETE! XX SCH (09:00)
[2021-03-03] MEDS ORDERED: MED REC COMMENT (09:00)
--- NOTE | 2021-03-03 10:18 | REP ---
INDICATION: rosmery COMPARISON: None TECHNIQUE: Real time carlos scale ultrasound examination using curved array transducer. FINDINGS: Bilateral kidneys are normal in contour, size, echogenicity, and reniform shape. No hydronephrosis, nephrolithiasis, cystic or renal mass lesion. No perinephric fluid collection. Bladder appears normal. Right kidney measures 10.0 x 4.0 x 3.6 cm. Left kidney measures 10.5 x 3.9 x 4.9 cm. IMPRESSION: 1. Normal renal ultrasound. <Electronically signed by Chan Zuñiga > 03/03/21 [id number]
[2021-03-03 10:30] VITALS: BP 98/64
--- NOTE | 2021-03-03 11:02 | IPNPDOC ---
Text Note Date of Service The patient was seen on 03/03/21. NOTE Subjective: 40-year-old female was brought in by law enforcement with reported suicidal and homicidal ideations. In the emergency room department she was given Ativan and Zyprexa due to agitation. She was also noted to have acute kidney injury, rhabdomyolysis, and suspected sepsis secondary to urinary tract infection. Upon evaluation this morning, patient was agitated and fidgeting in bed. She was somewhat noncompliant with history and physical examination as she was not answering questions appropriately and only intermittently following commands. She denied having chest pain and shortness of breath and only complained about feeling tired. Review of systems: 10 point review of system was negative except for what is noted in the HPI Physical exam: General: Lying in bed, no acute distress Head/Neck/Throat: Trachea midline, dry mucous membrane Eyes: Sclera anicteric, no erythema or discharge appreciated laterally Thorax: Normal respiratory effort on room air, lungs clear to auscultation bilaterally, no wheezes/rales/rhonchi Cardiovascular: Normal rate, regular rhythm, normal S1, S2 Abdomen: Bowel sounds present, soft/nontender/nondistended Genitourinary: No CVA tenderness, no Garces in place Musculoskeletal: Moving all extremities on casual observation Skin: Right forehead laceration with dried blood. Macule erythematous rash spread in various regions including arms and abdomen Neurologic: AAOx3, speech fluent and goal-directed, no focal deficits, grossly intact Labs: See below Imaging: Please see imaging section Assessment/plan: #Metabolic encephalopathy -In the setting of amphetamine use, urinary tract infection, metabolic acidosis, and electrolyte abnormalities. Supportive care at this time for her agitation, and management as below. #Suicidal ideations -Once medically stable she will be evaluated by psychiatric team. Continue with one-to-one/sitter. #Substance abuse -Talk screen positive for amphetamines. Supportive care, if required will utilize lorazepam as needed #Acute kidney injury -Likely secondary to poor p.o. intake, medication side effects (was taking lisinopril), and also rhabdo -Renal ultrasound was normal -Continue with IV fluids -Nephrology recommendations appreciated #Rhabdomyolysis -Continue with IV fluids and trend creatinine kinase #Sepsis -Secondary to urinary tract infection -Continue with ceftriaxone until urine cultures have resulted to narrow antibiotics. #Forehead laceration -Local wound care #GERD -Protonix #Migraines -Supportive care if this is to occur during hospitalization DVT prophylaxis -Heparin subcu VS,Fishbone, I+O VS, Fishbone, I+O Laboratory Tests 03/02/21 23:58 03/03/21 04:53 Vital Signs Date Time Temp Pulse Resp B/P (MAP) Pulse Ox O2 Delivery O2 Flow Rate FiO2 03/03/21 08:30 103 96 03/03/21 08:15 123/63 (83) 03/03/21 06:30 97.8 17 Room Air I&O- Last 24 Hours up to 6 AM 03/03/21 06:00 Intake Total 2275 ml Output Total 200 ml Balance 2075 ml RAVINDRA COLON M.D. Mar 03, 2021 10:14
[2021-03-03 12:32] LABS: CALCIUM LEVEL 8.3 MG/DL (8.5-10.1); CREATININE FOR GFR 1.81 MG/DL (0.55-1.30); GLOMERULAR FILTRATION RATE 32.6 (>58); POTASSIUM SERUM 3.8 MEQ/L (3.5-5.1)
[2021-03-03 14:00] VITALS: BP 101/64
[2021-03-03] MEDS ORDERED: KCL 20MEQ IN D5W 1000ML 1,000 ML IV SCH (14:00)
[2021-03-03 17:21] LABS: CALCIUM LEVEL 8.2 MG/DL (8.5-10.1); CREATININE FOR GFR 1.25 MG/DL (0.55-1.30); POTASSIUM SERUM 3.6 MEQ/L (3.5-5.1)
[2021-03-03] MEDS ORDERED: PILL CUTTER 1 EACH XX PRN (18:25)
[2021-03-03 20:35] LABS: CALCIUM LEVEL 8.2 MG/DL (8.5-10.1); CREATININE FOR GFR 1.1 MG/DL (0.55-1.30); POTASSIUM SERUM 3.4 MEQ/L (3.5-5.1)
[2021-03-03] MEDS ORDERED: diphenhydrAMINE 50MG/ML VIAL (J1200) IV STA (20:48)
[2021-03-03] MEDS ORDERED: LORazepam 2 MG/ML VIAL IV STA (20:48)
[2021-03-03] MEDS ORDERED: HALOPERIDOL 5MG/ML VIAL (J1630 PER 1) IV PRN (20:50)
[2021-03-03] MEDS: cefTRIAXone SOD 1 GM in D5W MINI-BAG PLUS 50 ML IV SCH (20:55)
[2021-03-03] MEDS: NS 1,000 ML IV SCH (21:11)
[2021-03-03] MEDS ORDERED: LORazepam 2 MG/ML VIAL IV PRN (21:30)
--- NOTE | 2021-03-03 21:30 | IPNPDOC ---
Text Note Date of Service The patient was seen on 03/03/21. NOTE Patient seen with collaborating provider as code 25 called. Patient was screaming and combative with staff. Patient reporting concerns/paranoia regarding medications. At one point she described very concerned she was going to be Covid vaccinated without her permission. De- escalation techniques utilized however patient a concern to harm herself and others. Patient is on hold given her presentation with suicidal and homicidal ideation. In setting of amphetamine use and possible EtOH withdrawal plan for Ativan 2 mg IV x1. By end of exam, after medication and further support from staff, patient began to lay back in bed and agreeable to care plan. WCTM. Patient will benefit from further psych recommendations in a.m. VS,[place], I+O VS, [place], I+O Laboratory Tests 03/02/21 23:58 03/03/21 04:53 03/03/21 11:48 03/03/21 16:39 03/03/21 19:50 Vital Signs Date Time Temp Pulse Resp B/P (MAP) Pulse Ox O2 Delivery O2 Flow Rate FiO2 03/03/21 14:00 98.0 99 22 101/64 (76) 98 Room Air I&O- Last 24 Hours up to 6 AM 03/03/21 06:00 Intake Total 2275 ml Output Total 200 ml Balance 2075 ml EWA SALEEM [employer] Mar 03, 2021 21:30
--- NOTE | 2021-03-03 21:33 | CR ---
NEPHROLOGY CONSULTATION DATE: 03/03/2021 REQUESTING PHYSICIAN: Dr. Gómez Li CONSULTING PHYSICIAN: Dr. Michael Stearns REASON FOR CONSULTATION: Acute kidney injury with metabolic acidosis and rhabdomyolysis. HISTORY OF PRESENT ILLNESS: History is obtained from chart review and also from discussion with other healthcare provider. The patient is unable to provide any history because of clinical condition. Ally Gallardo is a 40-year-old female with a past medical history of major depressive disorder, prior suicide attempts, substance abuse, migraines and gastroesophageal reflux disease, who arrived to the Emergency Room via law enforcement with reported suicidal and homicidal ideations. The patient was extremely agitated in the Emergency Room and was given Ativan and Zyprexa. The patient was found to be tachycardic with initial heart rate 130's to 140's and she was hypotensive with initial blood pressure 88/63. Laboratory studies revealed renal failure with creatinine of 5.1, BUN of 62, high anion gap metabolic acidosis with bicarbonate of 16, potassium of 5.8, and initial Creatine kinase of 2,600. Toxicology studies revealed positive urine amphetamine screen, and the patient had significant leukocytosis with a white count of 26.4. The patient also had an abnormal urinalysis done by a straight catheterization. She was admitted and started on aggressive IV fluid (sodium bicarbonate drip along with normal saline). A nephrology evaluation was requested in view of her renal failure and rhabdomyolysis and hyperkalemia. The patient is unable to provide any history because of clinical condition. PAST MEDICAL HISTORY: The patient's past medical history is as mentioned above. PAST SURGICAL HISTORY: The patient's past surgical history is unknown. FAMILY HISTORY: The patient's family history is unknown. SOCIAL HISTORY: History of alcohol abuse per chart review. History of substance per chart review. Unknown smoking history. ALLERGIES: 1. Sulfa. 2. Latex. HOME MEDICATIONS: 1. Multivitamin. 2. Omeprazole. 3. Sertraline. 4. Trazodone. It is unknown of the patient takes her home medications. REVIEW OF SYSTEMS: The patient's review of systems was unable to be obtained. PHYSICAL EXAMINATION: VITAL SIGNS: Temperature 98.9, pulse 99, respiratory rate 22, blood pressure 98/64, saturating 98% on room air. INTAKE AND OUTPUT: Intake so far is 4 liters. Urine output so far is 600 mL. Weight in the bed scale is 69 kg. GENERAL APPEARANCE: The patient is seen lying in bed with a one to one sitter present. She is drowsy/sedate. When I try to interact with her with verbal and tactile stimulus, she startles, flails, moves all her extremities, mutters nonsensically, does not make any eye contact, and encephalopathic appearing. HEENT: There is a cut on her forehead. Her tongue and lips are dry. NECK: Jugular veins are not elevated. HEART: Sounds are regular and mildly tachycardic. LUNGS: Clear to auscultation bilaterally. There is no accessory muscle use, no tachypnea. ABDOMEN: Soft. She does not grimace to palpation. GENITOURINARY: Garces catheter with urine which is clear yellow. EXTREMITIES: No clubbing, cyanosis, or edema. There is erythematous rash noted on her arms. LABORATORY STUDIES: Sodium 147, potassium 3.8, bicarbonate 25, BUN 46, creatinine 1.8, down from 5.1 on admission. Creatine kinase 9,100, up from 2,600 on admission. Hemoglobin 11.4, white count 19.0, platelet count 351. PH 7.22, pco2 37, pO2 63 (this is a venous blood gas). Blood cultures and urine culture are pending. IMAGING DATA: Chest x-ray reveals no acute cardiopulmonary process. Renal ultrasound reveals normal renal ultrasound. INPATIENT MEDICATIONS: The patient has received normal saline and sodium bicarbonate drips since admission. She is put on D5W with potassium chloride for one liter and then switched over again to normal saline this evening. She is Ceftriaxone one gram IV daily, Heparin 5,000 units subcutaneously q. 8 hourly, Lorazepam 2 mg IV times one, Lorazepam 0.5 mg IV q. 4 hourly p.r.n., Sertraline 100 mg p.o. daily. I discontinued Lisinopril. PROBLEMS: 1. Acute renal failure (non oliguric) secondary to dehydration and rhabdomyolysis in the setting of amphetamine use - The patient is clinically dry. Creatine kinase is up trending. Her metabolic acidosis is resolved. Serum bicarbonate is up to 25 on the latest labs. She is mildly hypernatremic. She was given D5W for one liter. Her sodium level subsequently normalized. Her Creatine kinase was up to 10,000 on labs this afternoon. The patient was switched again to normal saline. Continue IV fluids at this time and fluid will be adjusted based upon her Creatine kinase and her electrolytes. Moe inhibitor was discontinued. 2. Hypernatremia - sodium level was up to 150 in the setting of dehydration with free water deficit of several liters and improved with IV fluids, and the patient was subsequently switched to normal saline because of rising Creatine kinase level. 3. Metabolic acidosis, high anion gap secondary to renal failure the patient is status post bicarbonate drip. Her serum bicarbonate now is up to 25. There is no need for any further bicarbonate containing fluids. We are switching to normal saline as her Creatine kinase level is risking. 4. Rhabdomyolysis related to amphetamine use - The patient's Creatine kinase is up o 10,000 this afternoon and I would continue normal saline at this time. 5. Hypotension the patient's blood pressures are improved as compared to admission. Systolic is now mostly 110. No need for Lisinopril. I have discontinued it. 6. Encephalopathy possible urinary tract infection. Primary Team is treating with Ceftriaxone and likely also component of drug effect/amphetamines. Treatment as per Primary Team.
[2021-03-03 22:00] VITALS: BP 102/67
[2021-03-03] MEDS: THIAMINE 100 MG TAB PO SCH (22:02)
[2021-03-03 23:56] VITALS: O2SAT 97
[2021-03-04 01:42] LABS: BLOOD UREA NITROGEN 25 MG/DL (7-18); CALCIUM LEVEL 7.3 MG/DL (8.5-10.1); CARBON DIOXIDE LEVEL 31 MEQ/L (21-32); CHLORIDE LEVEL 109 MEQ/L (98-107); CREATININE FOR GFR 0.88 MG/DL (0.55-1.30); GLOMERULAR FILTRATION RATE > 60.0 (>58); GLUCOSE, FASTING 114 MG/DL (70-100); POTASSIUM SERUM 3.3 MEQ/L (3.5-5.1); SODIUM LEVEL 144 MEQ/L (136-145)
[2021-03-04 04:42] LABS: BLOOD UREA NITROGEN 23 MG/DL (7-18); CALCIUM LEVEL 7.6 MG/DL (8.5-10.1); CARBON DIOXIDE LEVEL 31 MEQ/L (21-32); CHLORIDE LEVEL 108 MEQ/L (98-107); CREATININE FOR GFR 0.76 MG/DL (0.55-1.30); GLOMERULAR FILTRATION RATE > 60.0 (>58); GLUCOSE, FASTING 112 MG/DL (70-100); POTASSIUM SERUM 3.5 MEQ/L (3.5-5.1); SODIUM LEVEL 143 MEQ/L (136-145)
[2021-03-04 06:00] VITALS: BP 119/58
[2021-03-04] MEDS: HEPARIN SOD (PORCINE) 5000UNITS/ML 1ML VIAL/SYRINGE SQ SCH ×3 (06:00→22:06)
[2021-03-04 08:56] LABS: BASO # 0.1 10^3/uL (0.0-0.2); BASO % 0.7 % (0.0-1.0); HEMATOCRIT 30.2 % (36.0-47.0); HEMOGLOBIN 10.1 g/dl (12.0-15.5); LYMPH # 1.9 10^3/uL (1.5-5.0); LYMPH % 25.2 % (24.0-44.0); MEAN CORPUSCULAR HEMOGLOBIN 29.3 pg (27.0-33.0); MEAN CORPUSCULAR HGB CONC 33.4 g/dl (32.0-36.5); MEAN CORPUSCULAR VOLUME 87.5 fl (80.0-96.0); MONO # 0.6 10^3/uL (0.0-0.8); NEUTROPHILS % 65.7 % (36.0-66.0); PLATELET COUNT, AUTOMATED 309 10^3/uL (150-450); RED BLOOD COUNT 3.45 10^6/uL (4.00-5.40); WHITE BLOOD COUNT 7.5 10^3/uL (4.0-10.0)
[2021-03-04] MEDS ORDERED: POTASSIUM CHLORIDE 10MEQ SR TABLET PO ONE (09:05)
[2021-03-04 09:20] LABS: BLOOD UREA NITROGEN 19 MG/DL (7-18); CALCIUM LEVEL 7.5 MG/DL (8.5-10.1); CARBON DIOXIDE LEVEL 29 MEQ/L (21-32); CHLORIDE LEVEL 111 MEQ/L (98-107); CREATININE FOR GFR 0.65 MG/DL (0.55-1.30); GLOMERULAR FILTRATION RATE > 60.0 (>58); GLUCOSE, FASTING 94 MG/DL (70-100); PHOSPHORUS LEVEL 1.8 MG/DL (2.5-4.9); POTASSIUM SERUM 3.8 MEQ/L (3.5-5.1); SODIUM LEVEL 144 MEQ/L (136-145)
[2021-03-04] MEDS: NS 1,000 ML IV SCH ×2 (10:22→22:06)
[2021-03-04] MEDS: SERTRALINE 100 MG TAB PO SCH (10:23)
[2021-03-04] MEDS: LACTOBACILLUS ACIDOPHILUS CAP (BACID) PO SCH (10:23)
[2021-03-04] MEDS: MULTIVITAMINS/MINERALS THERAP 1 TAB PO SCH (10:23)
[2021-03-04] MEDS: FOLIC ACID 1 MG TAB PO SCH (10:23)
[2021-03-04] MEDS: THIAMINE 100 MG TAB PO SCH ×2 (10:24→22:05)
[2021-03-04 10:27] VITALS: BP 101/66
[2021-03-04] MEDS: LORazepam 2 MG TAB PO PRN ×2 (10:34→22:14)
[2021-03-04 12:21] LABS: BLOOD UREA NITROGEN 15 MG/DL (7-18); CALCIUM LEVEL 7.6 MG/DL (8.5-10.1); CARBON DIOXIDE LEVEL 27 MEQ/L (21-32); CHLORIDE LEVEL 110 MEQ/L (98-107); GLOMERULAR FILTRATION RATE > 60.0 (>58); GLUCOSE, FASTING 121 MG/DL (70-100); SODIUM LEVEL 144 MEQ/L (136-145)
[2021-03-04 12:54] VITALS: BP 102/66
--- NOTE | 2021-03-04 14:25 | IPNPDOC ---
Subjective Date Seen The patient was seen on 03/04/21. Subjective Chief Complaint/HPI SUBJECTIVE: Patient was seen and examined this morning at the bedside. Shes in emotional distress because she was apprehensive about her job not knowing that shes in the hospital. Sitter is at bedside and does not report any acute events overnight. OBJECTIVE: VS: see below In and outs: 6695ml in 1125ml out with net pos 5570ml GENERAL APPEARANCE: The patient is seen lying in bed with a one to one sitter present. Shes in emotional distress and crying b/c she needs to call her job to report shes in the hospital and did not know if she had a phone. Less agitated from yesterday however. More alert and oriented. HEENT: There is a cut on her forehead but no active bleeding. Her tongue is dry and lips are dry and cracked. NECK: Jugular veins are not elevated. HEART: Sounds are regular and borderline tachycardic. LUNGS: Clear to auscultation bilaterally.There is no accessory muscle use. On RA satting above 94%. ABDOMEN: Soft, nondistended. No guarding on palpation GENITOURINARY: Garces catheter with urine which is clear yellow. No push or visible hematuria. EXTREMITIES: No clubbing, cyanosis, or edema. There is erythematous rash noted on her arms. IMPRESSION AND PLAN: 1. Acute renal failure (non oliguric). Multifactorial. ARF likely in setting of dehydration as well as rhabdo 2/2 to amphetamine use vs ACEi. Patients ACEi was D/Cd. She is still clinically dry. Creatine kinase is slowly trending downwards and she c/w on aggressive IV fluid hydration (NS). 2. Rhabdomyolysis related to amphetamine use. CK slowly trending downwards on NS @80cc/h. 3. Metabolic acidosis, high anion gap secondary to renal failure. The patient is s/p bicarbonate gtt and bicarb is now wnl. Will c/w NS IV fluids for elevated CK. 4. Hypernatremia (Resolved). Sodium level was up to 150 in the setting of dehydration with free water deficit of several liters and improved with IV fluids, and the patient was subsequently switched to NS because of rising Creatine kinase level. C/w on NS @ 80cc/h. 5. Hypotension. Her BP is improved her her admission ones. Shes holding at Sbp in 100s to 120. Her Lisinopril has been D/Cd. 6. Encephalopathy, possibly from toxic drug effect/amphetamines vs UTI. Primary team treating with Rocephin. Mentation today improved from yesterday in that shes more alert and oriented and able to answer all questions appropriately. Objective Physical Examination General Exam: Positive: No Acute Distress, Other (Lethargic) Eye Exam: Positive: Conjunctiva & lids normal; Negative: Sclera icteric ENT Exam: Positive: Atraumatic, Pharynx Normal, Other ENT (Dry mucous membranes); Negative: Mucous membr. moist/pink Neck Exam: Positive: Supple; Negative: JVD, thyromegaly Chest Exam: Positive: Clear to auscultation, Normal air movement Heart Exam: Positive: Tachycardic, Regular Rhythm, Normal S1, Normal S2, Murmurs; Negative: Rubs Telemetry: Positive: Sinus, Tachycardia Abdomen Exam: Positive: Normal bowel sounds, Soft; Negative: Tenderness, Hepatospenomegaly Extremity Exam: Positive: Normal pulses; Negative: Clubbing, Cyanosis, Edema Skin Exam: Positive: Nl turgor and temperature, Other skin issue (She does have areas of redness to her hands and under her left upper extremity. No warmth/perceptible tenderness or edema appreciated. No wounds/areas of ind uration appreciated to extremities. ); Negative: Breakdown, Lesion Neuro Exam: Negative: Normal Gait, Normal Speech Psych Exam: Positive: Other (Limitation to exam given patient sedated); Negative: Mental status NL, Mood NL, Oriented x 3 Assessment /Plan Plan/VTE VTE Prophylaxis Ordered?: Yes VS, I&O, [facility] V[facility] Signs/I&O Vital Signs Date Time Temp Pulse Resp B/P (MAP) Pulse Ox O2 Delivery O2 Flow Rate FiO2 03/04/21 12:54 96 18 102/66 (78) Room Air 03/04/21 06:00 98.5 96 I&O- Last 24 Hours up to 6 AM 03/04/21 06:00 Intake Total 5050 ml Output Total 1050 ml Balance 4000 ml Laboratory Data 24H LABS Laboratory Tests 2 03/03/21 16:39: Anion Gap 6L, Glomerular Filtration Rate 50.0L, Calcium Level 8.2L, Total Creatine Kinase 89691S 03/03/21 19:50: Anion Gap 6L, Glomerular Filtration Rate 58.0, Calcium Level 8.2L, Total Creatine Kinase 54453L 03/04/21 00:57: Anion Gap 4L, Glomerular Filtration Rate > 60.0, Calcium Level 7.3L, Total Creatine Kinase 9820H 03/04/21 04:07: Anion Gap 4L, Glomerular Filtration Rate > 60.0, Calcium Level 7.6L, Total Creatine Kinase 9048H 03/04/21 08:11: Immature Granulocyte % (Auto) 0.4, Neutrophils (%) (Auto) 65.7, Lymphocytes (%) (Auto) 25.2, Monocytes (%) (Auto) 8.0, Eosinophils (%) (Auto) 0.0, Basophils (%) (Auto) 0.7, Neutrophils # (Auto) 5.0, Lymphocytes # (Auto) 1.9, Monocytes # (Auto) 0.6, Eosinophils # (Auto) 0.0, Basophils # (Auto) 0.1, Nucleated Red Blood Cells % (auto) 0.0, Anion Gap 4L, Glomerular Filtration Rate > 60.0, Calcium Level 7.5L, Phosphorus Level 1.8L, Magnesium Level 2.0, Total Creatine Kinase 7942H 03/04/21 11:25: Anion Gap 7L, Glomerular Filtration Rate > 60.0, Calcium Level 7.6L, Total Creatine Kinase 7440H CBC/BMP Laboratory Tests 03/03/21 16:39 03/03/21 19:50 03/04/21 00:57 03/04/21 04:07 03/04/21 08:11 03/04/21 11:25 Microbiology Microbiology 03/03/21 Urine Culture, Received Pending 03/03/21 Blood Culture - Preliminary, Resulted No growth after 24 hours . All specim... 03/03/21 Blood Culture - Preliminary, Resulted No growth after 24 hours . All specim... Abel Pearson DO Mar 04, 2021 14:25
[2021-03-04 14:52] VITALS: BP 116/78
[2021-03-04 17:22] LABS: BLOOD UREA NITROGEN 12 MG/DL (7-18); CALCIUM LEVEL 7.6 MG/DL (8.5-10.1); CARBON DIOXIDE LEVEL 28 MEQ/L (21-32); CHLORIDE LEVEL 112 MEQ/L (98-107); CREATININE FOR GFR 0.59 MG/DL (0.55-1.30); GLOMERULAR FILTRATION RATE > 60.0 (>58); GLUCOSE, FASTING 94 MG/DL (70-100); POTASSIUM SERUM 3.9 MEQ/L (3.5-5.1); SODIUM LEVEL 144 MEQ/L (136-145)
--- NOTE | 2021-03-04 20:19 | IPNPDOC ---
Text Note Date of Service The patient was seen on 03/04/21. NOTE Subjective: 40-year-old female was brought in by law enforcement with reported suicidal and homicidal ideations. In the emergency room department she was given Ativan and Zyprexa due to agitation. She was also noted to have acute kidney injury, rhabdomyolysis, and suspected sepsis secondary to urinary tract infection. Overnight, patient became combative. This morning she was awoken from sleep and slightly more compliant with history and physical examination. She reported feeling tired, otherwise had no complaints. Review of systems: 10 point review of system was negative except for what is noted in the HPI Physical exam: General: Lying in bed, no acute distress Head/Neck/Throat: Trachea midline, dry mucous membrane Eyes: Sclera anicteric, no erythema or discharge appreciated laterally Thorax: Normal respiratory effort on room air, lungs clear to auscultation bilaterally, no wheezes/rales/rhonchi Cardiovascular: Normal rate, regular rhythm, normal S1, S2 Abdomen: Bowel sounds present, soft/nontender/nondistended Genitourinary: No CVA tenderness, no Garces in place Musculoskeletal: Moving all extremities on casual observation Skin: Right forehead laceration with dried blood. Macule erythematous rash spread in various regions including arms and abdomen Neurologic: AAOx3, speech fluent and goal-directed, no focal deficits, grossly intact Labs: See below Imaging: Please see imaging section Assessment/plan: #Metabolic encephalopathy -Resolved. In the setting of amphetamine use, urinary tract infection, metabolic acidosis, and electrolyte abnormalities. Supportive care at this time for her agitation, and management as below. #Suicidal ideations -Once medically stable she will be evaluated by psychiatric team. Continue with one-to-one/sitter. #Substance abuse -Talk screen positive for amphetamines. Supportive care, if required will u tilize lorazepam as needed #Acute kidney injury -Likely secondary to poor p.o. intake, medication side effects (was taking lisinopril), and also rhabdo -Renal ultrasound was normal -Continue with IV fluids -Nephrology recommendations appreciated #Metabolic acidosis -Her bicarbonate drip has been discontinued. Appreciate nephrology recommendations. #Rhabdomyolysis -Creatinine kinase remains elevated. Continue with IV fluids and trend creatinine kinase #Sepsis -Secondary to urinary tract infection -Continue with ceftriaxone until urine cultures have resulted to narrow antibiotics. #Forehead laceration -Local wound care #GERD -Protonix #Migraines -Supportive care if this is to occur during hospitalization DVT prophylaxis -Heparin subcu Disposition with improving mental status and downtrending creatinine kinase we are approaching appropriate time to reconsult psychiatry for possible IMHU VS,Fishbone, I+O VS, Fishbone, I+O Laboratory Tests 03/04/21 00:57 03/04/21 04:07 03/04/21 08:11 03/04/21 11:25 03/04/21 16:25 Vital Signs Date Time Temp Pulse Resp B/P (MAP) Pulse Ox O2 Delivery O2 Flow Rate FiO2 03/04/21 14:52 98 116/78 03/04/21 14:00 98.0 19 98 Room Air I&O- Last 24 Hours up to 6 AM 03/04/21 06:00 Intake Total 5050 ml Output Total 1050 ml Balance 4000 ml RAVINDRA COLON M.D. Mar 04, 2021 20:19
[2021-03-04 20:41] VITALS: BP 103/69
[2021-03-04] MEDS: cefTRIAXone SOD 1 GM in D5W MINI-BAG PLUS 50 ML IV SCH (22:06)
[2021-03-04] MEDS ORDERED: carisoprodoL 350 MG TAB PO ONE (22:30)
[2021-03-04] MEDS: LIDOCAINE 5% (LIDODERM) PATCH TD SCH (22:44)
[2021-03-05] VITALS (8 sets, daily range): BP systolic 106–124; BP diastolic 64–88; O2SAT 95–100
[2021-03-05 06:28] LABS: BASO % 0.5 % (0.0-1.0); EOS # 0.1 10^3/uL (0.0-0.5); EOS % 1.8 % (0.0-3.0); HEMATOCRIT 30.4 % (36.0-47.0); HEMOGLOBIN 9.9 g/dl (12.0-15.5); LYMPH % 35.8 % (24.0-44.0); MEAN CORPUSCULAR HEMOGLOBIN 28.9 pg (27.0-33.0); MEAN CORPUSCULAR HGB CONC 32.6 g/dl (32.0-36.5); MEAN CORPUSCULAR VOLUME 88.6 fl (80.0-96.0); MONO # 0.5 10^3/uL (0.0-0.8); MONO % 8.7 % (2.0-8.0); NEUTROPHILS % 52.7 % (36.0-66.0); PLATELET COUNT, AUTOMATED 269 10^3/uL (150-450); RED BLOOD COUNT 3.43 10^6/uL (4.00-5.40); WHITE BLOOD COUNT 5.6 10^3/uL (4.0-10.0)
[2021-03-05] MEDS: HEPARIN SOD (PORCINE) 5000UNITS/ML 1ML VIAL/SYRINGE SQ SCH ×3 (06:35→21:35)
[2021-03-05 06:53] LABS: BLOOD UREA NITROGEN 7 MG/DL (7-18); CALCIUM LEVEL 7.5 MG/DL (8.5-10.1); CARBON DIOXIDE LEVEL 26 MEQ/L (21-32); CHLORIDE LEVEL 113 MEQ/L (98-107); CREATININE FOR GFR 0.49 MG/DL (0.55-1.30); GLOMERULAR FILTRATION RATE > 60.0 (>58); GLUCOSE, FASTING 89 MG/DL (70-100); MAGNESIUM LEVEL 1.8 MG/DL (1.8-2.4); PHOSPHORUS LEVEL 1.6 MG/DL (2.5-4.9); SODIUM LEVEL 144 MEQ/L (136-145)
--- NOTE | 2021-03-05 07:44 | ECGEPIP ---
[facility] - ED Test Date: 2021-03-03 Pat Name: SHANTEL PATEL Department: Room: [facility] Gender: Female [employer]: WILLIAN : 1980 Requested By: MARYELLEN Burch Order Number: [id number] Reading MD: Caroline Gonzalez Measurements Intervals [place] Rate: 110 P: 61 AK: 162 QRS: 46 QRSD: 100 T: 51 QT: 364 QTc: 492 Interpretive Statements Sinus tachycardia Nonspecific ST and T wave abnormality irbbb prolonged qtc increased rate/prolonged qtc 11/04/19 Electronically Signed on 03-05-2021 7:44:24 EST by Caroline Gonzalez
[2021-03-05] MEDS: MULTIVITAMINS/MINERALS THERAP 1 TAB PO SCH (08:34)
[2021-03-05] MEDS: **NOTE PATIENT COMMENT** MISC XX SCH (08:34)
[2021-03-05] MEDS: LACTOBACILLUS ACIDOPHILUS CAP (BACID) PO SCH (08:34)
[2021-03-05] MEDS: THIAMINE 100 MG TAB PO SCH ×2 (08:34→21:34)
[2021-03-05] MEDS: SERTRALINE 100 MG TAB PO SCH (08:34)
[2021-03-05] MEDS: FOLIC ACID 1 MG TAB PO SCH (08:34)
[2021-03-05] MEDS: NS 1,000 ML IV SCH (11:25)
--- NOTE | 2021-03-05 11:41 | IPNPDOC ---
Subjective Date Seen The patient was seen on 03/05/21. Subjective Chief Complaint/HPI SUBJECTIVE: Patient was seen and examined this morning at the bedside. Shes sleeping and did not want to answer any questions. She's less agitated and emotional from yesterday. one to one sitter at bedside did not report any acute events overnight. OBJECTIVE: VS: see below In and outs:3413 ml in 1175 out and 2230ml net positive GENERAL APPEARANCE: The patient is seen lying in bed sleeping with a one to one sitter present. No acute distress HEENT: There is a cut on her forehead but no active bleeding. Her tongue is dry and lips are dry and cracked. NECK: Jugular veins are not elevated. HEART: Sounds are regular and borderline tachycardic. LUNGS: Clear to auscultation bilaterally.There is no accessory muscle use. On RA satting above 94%. ABDOMEN: Soft, nondistended. No guarding on palpation GENITOURINARY: Garces catheter with urine which is clear yellow. No push or visible hematuria. EXTREMITIES: No clubbing, cyanosis, or edema. There is erythematous rash noted on her arms. IMPRESSION AND PLAN: 1. Acute renal failure (non oliguric). Multifactorial. Pt had ARF likely in setting of dehydration as well as rhabdo 2/2 to amphetamine use vs ACEi. Patients ACEi was D/Cd. She is still clinically dry. Kidney function has normalized. Creatine kinase continues to trend downwards and she c/w on aggressive IV fluid hydration (NS). 2. Rhabdomyolysis related to amphetamine use. CK slowly trending downwards (4000s today ). C/w NS @80cc/h. 3. Metabolic acidosis, high anion gap secondary to renal failure. The patient is s/p bicarbonate gtt and bicarb is now wnl. Will c/w NS IV fluids for elevated CK. 4. Hypernatremia (Resolved). Sodium level was up to 150 in the setting of dehydration with free water deficit of several liters and improved with IV fluids, and the patient was subsequently switched to NS because of rising Creatine kinase level. C/w on NS @ 80cc/h. 5. Hypotension. Her BP is improved her her admission ones. Shes holding at Sbp in 100s to 120. Her Lisinopril has been D/Cd. 6. Encephalopathy, possibly from toxic drug effect/amphetamines vs UTI. Primary team treating with Rocephin. VS, I&O, 24H, Fishbone Vital Signs/I&O Vital Signs Date Time Temp Pulse Resp B/P (MAP) Pulse Ox O2 Delivery O2 Flow Rate FiO2 03/05/21 10:38 95 Room Air 03/05/21 06:00 97.4 96 18 113/72 (86) I&O- Last 24 Hours up to 6 AM 03/05/21 06:00 Intake Total 3233 ml Output Total 1320 ml Balance 1913 ml Laboratory Data 24H LABS Laboratory Tests 2 03/04/21 16:25: Anion Gap 4L, Glomerular Filtration Rate > 60.0, Calcium Level 7.6L, Total Creatine Kinase 6506H 03/05/21 06:14: Anion Gap 5L, Glomerular Filtration Rate > 60.0, Calcium Level 7.5L, Total Creatine Kinase 4431H, Immature Granulocyte % (Auto) 0.5, Neutrophils (%) (Auto) 52.7, Lymphocytes (%) (Auto) 35.8, Monocytes (%) (Auto) 8.7H, Eosinophils (%) (Auto) 1.8, Basophils (%) (Auto) 0.5, Neutrophils # (Auto) 3.0, Lymphocytes # (Auto) 2.0, Monocytes # (Auto) 0.5, Eosinophils # (Auto) 0.1, Basophils # (Auto) 0.0, Nucleated Red Blood Cells % (auto) 0.0, Phosphorus Level 1.6L, Magnesium Level 1.8 CBC/BMP Laboratory Tests 03/04/21 16:25 03/05/21 06:14 Microbiology Microbiology 03/03/21 Urine Culture - Final, Complete 03/03/21 Blood Culture - Preliminary, Resulted No Growth after 48 hours. All Specime... 03/03/21 Blood Culture - Preliminary, Resulted No Growth after 48 hours. All Specime... GME ATTESTATION GME ATTESTATION My faculty preceptor for this patient encounter was physically present during the encounter and was fully available. All aspects of the patient interview, examination, medical decision making process, and medical care plan development were reviewed and approved by the faculty preceptor. The faculty preceptor is aware and concurs with the plan as stated in the body of this note and will attest to such by his/her cosignature. Abel Pearson DO Mar 05, 2021 11:41
[2021-03-05] MEDS: LORazepam 2 MG TAB PO PRN ×2 (11:51→21:35)
[2021-03-05] MEDS ORDERED: K-PHOS ORIGINAL (POT.ACID PHOSPHATE) 500MG TAB PO ONE (13:00)
--- NOTE | 2021-03-05 13:07 | IPNPDOC ---
Text Note Date of Service The patient was seen on 03/05/21. NOTE Subjective: 40-year-old female was brought in by law enforcement with reported suicidal and homicidal ideations. In the emergency room department she was given Ativan and Zyprexa due to agitation. She was also noted to have acute kidney injury, rhabdomyolysis, and suspected sepsis secondary to urinary tract infection. Patient seen and examined at bedside this morning. She was awoken from sleep and is noncompliant/refused with answering questions and examination despite being alert, awake, oriented x3. She says she is tired and wants to be left alone. Review of systems: 10 point review of system was limited due to patient's refusal. Physical exam: General: Lying in bed, no acute distress Head/Neck/Throat: Trachea midline, dry mucous membrane Eyes: Sclera anicteric, no erythema or discharge appreciated laterally Thorax: Normal respiratory effort on room air, lungs clear to auscultation bilaterally, no wheezes/rales/rhonchi Cardiovascular: Normal rate, regular rhythm, normal S1, S2 Abdomen: Bowel sounds present, soft/nontender/nondistended Genitourinary: No CVA tenderness, no Garces in place Musculoskeletal: Moving all extremities on casual observation Skin: Right forehead laceration with dried blood. Macule erythematous rash spread in various regions including arms and abdomen Neurologic: AAOx3, speech fluent and goal-directed, no focal deficits, grossly intact Labs: See below Imaging: Please see imaging section Assessment/plan: #Metabolic encephalopathy -Resolved. In the setting of amphetamine use, urinary tract infection, metabolic acidosis, and electrolyte abnormalities. Supportive care at this time for her agitation, and management as below. #Suicidal ideations -Once medically stable she will be evaluated by psychiatric team. Continue with one-to-one/sitter. -Psychiatry has been consulted #Substance abuse -Tox screen positive for amphetamines. She has been requiring lorazepam as needed for agitation. #Acute kidney injury -Likely secondary to poor p.o. intake, medication side effects (was taking lisinopril), and also rhabdo -Renal ultrasound was normal -Continue with IV fluids -Nephrology recommendations appreciated #Metabolic acidosis -Her bicarbonate drip has been discontinued. Appreciate nephrology recommendati ons. #Rhabdomyolysis -Creatinine kinase remains elevated. Continue with IV fluids and trend creati nine kinase #Sepsis -Secondary to urinary tract infection -Stop T2 ceftriaxone for a total of 5 days. #Forehead laceration -Local wound care #Transaminitis -Benign abdomen on exam. Follow-up on hepatitis panel. Repeat liver profile. #GERD -Protonix #Migraines -Supportive care if this is to occur during hospitalization DVT prophylaxis -Heparin subcu Disposition with improving mental status and downtrending creatinine kinase we are approaching appropriate time to reconsult psychiatry for possible IMHU VS,Fishbone, I+O VS, Fishbone, I+O Laboratory Tests 03/04/21 16:25 03/05/21 06:14 Vital Signs Date Time Temp Pulse Resp B/P (MAP) Pulse Ox O2 Delivery O2 Flow Rate FiO2 03/05/21 11:52 93 123/88 03/05/21 10:38 95 Room Air 03/05/21 06:00 97.4 18 I&O- Last 24 Hours up to 6 AM 03/05/21 05:59 Intake Total 2933 ml Output Total 1175 ml Balance 1758 ml RAVINDRA COLON M.D. Mar 05, 2021 13:07
[2021-03-05] MEDS: cefTRIAXone SOD 1 GM in D5W MINI-BAG PLUS 50 ML IV SCH (21:34)
[2021-03-05] MEDS: LIDOCAINE 5% (LIDODERM) PATCH TD SCH (21:35)
[2021-03-06 01:35] VITALS: BP_SYST 110; BP_SYST 116; BP_DIAS 67; BP_DIAS 78; O2SAT 97
[2021-03-06] MEDS: NS 1,000 ML IV SCH (02:13)
[2021-03-06 06:00] VITALS: BP 113/69
[2021-03-06] MEDS: HEPARIN SOD (PORCINE) 5000UNITS/ML 1ML VIAL/SYRINGE SQ SCH ×3 (06:15→22:13)
[2021-03-06] MEDS: MULTIVITAMINS/MINERALS THERAP 1 TAB PO SCH (08:09)
[2021-03-06] MEDS: LACTOBACILLUS ACIDOPHILUS CAP (BACID) PO SCH (08:09)
[2021-03-06] MEDS: THIAMINE 100 MG TAB PO SCH (08:10)
[2021-03-06] MEDS: SERTRALINE 100 MG TAB PO SCH (08:10)
[2021-03-06] MEDS: FOLIC ACID 1 MG TAB PO SCH (08:10)
[2021-03-06] MEDS: **NOTE PATIENT COMMENT** MISC XX SCH (08:10)
[2021-03-06] MEDS ORDERED: ACETAMINOPHEN TAB 650MG DOSE (2X325MG) PO ONE (08:20)
[2021-03-06 08:28] LABS: BASO % 0.6 % (0.0-1.0); HEMATOCRIT 31.5 % (36.0-47.0); HEMOGLOBIN 10.2 g/dl (12.0-15.5); LYMPH # 1.7 10^3/uL (1.5-5.0); LYMPH % 35.1 % (24.0-44.0); MEAN CORPUSCULAR HEMOGLOBIN 28.9 pg (27.0-33.0); MEAN CORPUSCULAR HGB CONC 32.4 g/dl (32.0-36.5); MEAN CORPUSCULAR VOLUME 89.2 fl (80.0-96.0); MONO # 0.4 10^3/uL (0.0-0.8); MONO % 7.8 % (2.0-8.0); NEUTROPHILS # 2.7 10^3/uL (1.5-8.5); NEUTROPHILS % 56.3 % (36.0-66.0); PLATELET COUNT, AUTOMATED 265 10^3/uL (150-450); RED BLOOD COUNT 3.53 10^6/uL (4.00-5.40); WHITE BLOOD COUNT 4.9 10^3/uL (4.0-10.0)
[2021-03-06 08:54] LABS: ALBUMIN 2.8 GM/DL (3.2-5.2); ALT/SGPT 160 U/L (12-78); BILIRUBIN,TOTAL 0.2 MG/DL (0.2-1.0); BLOOD UREA NITROGEN 4 MG/DL (7-18); CALCIUM LEVEL 7.9 MG/DL (8.5-10.1); CARBON DIOXIDE LEVEL 25 MEQ/L (21-32); CHLORIDE LEVEL 113 MEQ/L (98-107); CREATININE FOR GFR 0.47 MG/DL (0.55-1.30); GLOMERULAR FILTRATION RATE > 60.0 (>58); GLUCOSE, FASTING 88 MG/DL (70-100); MAGNESIUM LEVEL 1.7 MG/DL (1.8-2.4); POTASSIUM SERUM 4.2 MEQ/L (3.5-5.1); SODIUM LEVEL 142 MEQ/L (136-145); TOTAL PROTEIN 5.5 GM/DL (6.4-8.2)
--- NOTE | 2021-03-06 11:06 | IPNPDOC ---
Text Note Date of Service The patient was seen on 03/06/21. NOTE Subjective: 40-year-old female was brought in by law enforcement with reported suicidal and homicidal ideations. In the emergency room department she was given Ativan and Zyprexa due to agitation. She was also noted to have acute kidney injury, rhabdomyolysis, and suspected sepsis secondary to urinary tract infection. Patient seen and examined at bedside this morning. She had a mild headache which is not different in characteristic, she now experiences at home. She d enied blurry vision, nausea, vomiting, abdominal pain, shortness of breath, and chest pain. She was asking to speak to a psychiatrist. Review of systems: 10 point review of system was limited due to patient's refusal. Physical exam: General: Lying in bed, no acute distress Head/Neck/Throat: Trachea midline, dry mucous membrane Eyes: Sclera anicteric, no erythema or discharge appreciated laterally Thorax: Normal respiratory effort on room air, lungs clear to auscultation bilaterally, no wheezes/rales/rhonchi Cardiovascular: Normal rate, regular rhythm, normal S1, S2 Abdomen: Bowel sounds present, soft/nontender/nondistended Genitourinary: No CVA tenderness, no Garces in place Musculoskeletal: Moving all extremities on casual observation Skin: Right forehead laceration with dried blood. Macule erythematous rash spread in various regions including arms and abdomen has resolved Neurologic: AAOx3, speech fluent and goal-directed, no focal deficits, grossly intact Labs: See below Imaging: Please see imaging section Assessment/plan: #Metabolic encephalopathy -Resolved. In the setting of amphetamine use, urinary tract infection, metabolic acidosis, and electrolyte abnormalities. Supportive care at this time for her agitation, and management as below. #Suicidal ideations -Once medically stable she will be evaluated by psychiatric team. Continue with one-to-one/sitter. -Psychiatry has been consulted -in the event pt leaves police will need to be notified. #Substance abuse -Tox screen positive for amphetamines. She has been requiring lorazepam as needed for agitation. #Acute kidney injury -Resolved. Was likely secondary to poor p.o. intake, medication side effects (was taking lisinopril), and also rhabdo -Renal ultrasound was normal -Continue with IV fluids -Nephrology recommendations appreciated #Metabolic acidosis -Her bicarbonate drip has been discontinued. Appreciate nephrology recommendations. #Rhabdomyolysis -Creatinine kinase continues to downtrend. Continue with IV fluids and trend creatinine kinase #Sepsis -Secondary to urinary tract infection -Stop T2 ceftriaxone for a total of 5 days. #Forehead laceration -Local wound care #Transaminitis -Likely due to her phentermine abuse. Benign abdomen on exam. Follow-up on hepatitis panel. Follow-up on liver ultrasound #GERD -Protonix #Migraines -Supportive care if this is to occur during hospitalization DVT prophylaxis -Heparin subcu VS,Fishbone, I+O VS, Fishbone, I+O Laboratory Tests 03/06/21 08:01 Vital Signs Date Time Temp Pulse Resp B/P (MAP) Pulse Ox O2 Delivery O2 Flow Rate FiO2 03/06/21 06:00 98.7 96 17 113/69 (84) 94 Room Air I&O- Last 24 Hours up to 6 AM 03/06/21 06:00 Intake Total 2248 ml Output Total 2850 ml Balance -602 ml RAVINDRA COLON M.D. Mar 06, 2021 11:06
[2021-03-06] MEDS: LR 1,000 ML IV SCH ×2 (11:13→22:13)
[2021-03-06] MEDS ORDERED: MAGNESIUM OXIDE 400MG TAB (MAG-OX) PO ONE (12:00)
[2021-03-06] MEDS ORDERED: K-PHOS ORIGINAL (POT.ACID PHOSPHATE) 500MG TAB PO ONE (12:00)
[2021-03-06 14:00] VITALS: BP 128/92
[2021-03-06] MEDS: LORazepam 2 MG TAB PO PRN (17:11)
[2021-03-06 19:38] VITALS: BP 127/90
--- NOTE | 2021-03-06 20:51 | IPN ---
PROGRESS NOTE DATE: 03/06/2021 SUBJECTIVE: Ms. Gallardo is seen this morning on her bedside. She is laying in her bed with eyes closed. She has a sitter in the room. Sitter reports that she did have breakfast this morning. The patient is receiving I.V. fluid. PHYSICAL EXAMINATION: VITALS: Temperature 98.7 degrees Fahrenheit, heart rate 96 per minute, respiratory rate 18 per minute, blood pressure 128/92 mmHg, oxygen saturation 95% on room air. HEENT: Head is atraumatic. Neck supple and without JVD or thyroid enlargement. HEART: Heart sounds regular. LUNGS: Clear to auscultation. ABDOMEN: Soft and benign. Bowel sounds are normal. EXTREMITIES: Without any cyanosis or clubbing. LABORATORY DATA: Today's labs show sodium 142, potassium 4.2, BUN 4, creatinine 0.47. CPK level is down to 2,095. PROBLEMS: Rhabdomyolysis: Her CPK level is improving and she remains on I.V. fluid, however, she also has some oral intake of fluids now. I feel that there is no risk for acute kidney injury and CPK level will continue to improve. From a renal standpoint, she is doing well and does not need daily follow-up. Nephrology service is signing off the case. Please do not hesitate to call us back should you need any further assistance.
[2021-03-06] MEDS: LIDOCAINE 5% (LIDODERM) PATCH TD SCH (21:00)
[2021-03-06 22:00] VITALS: BP 126/88
[2021-03-06] MEDS: cefTRIAXone SOD 1 GM in D5W MINI-BAG PLUS 50 ML IV SCH (22:12)
[2021-03-07 06:00] VITALS: BP 131/88
[2021-03-07] MEDS: HEPARIN SOD (PORCINE) 5000UNITS/ML 1ML VIAL/SYRINGE SQ SCH ×3 (06:00→21:00)
[2021-03-07 06:15] LABS: BASO % 0.7 % (0.0-1.0); HEMATOCRIT 32.1 % (36.0-47.0); HEMOGLOBIN 10.6 g/dl (12.0-15.5); LYMPH # 2.4 10^3/uL (1.5-5.0); LYMPH % 41.2 % (24.0-44.0); MEAN CORPUSCULAR VOLUME 87.7 fl (80.0-96.0); MONO # 0.4 10^3/uL (0.0-0.8); MONO % 6.8 % (2.0-8.0); NEUTROPHILS # 2.9 10^3/uL (1.5-8.5); NEUTROPHILS % 50.9 % (36.0-66.0); PLATELET COUNT, AUTOMATED 292 10^3/uL (150-450); RED BLOOD COUNT 3.66 10^6/uL (4.00-5.40); WHITE BLOOD COUNT 5.7 10^3/uL (4.0-10.0)
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
[2021-03-07 06:48] LABS: ALBUMIN 2.9 GM/DL (3.2-5.2); ALT/SGPT 144 U/L (12-78); BILIRUBIN,TOTAL 0.2 MG/DL (0.2-1.0); BLOOD UREA NITROGEN 5 MG/DL (7-18); CALCIUM LEVEL 8.7 MG/DL (8.5-10.1); CARBON DIOXIDE LEVEL 26 MEQ/L (21-32); CHLORIDE LEVEL 110 MEQ/L (98-107); CREATININE FOR GFR 0.57 MG/DL (0.55-1.30); GLOMERULAR FILTRATION RATE > 60.0 (>58); GLUCOSE, FASTING 96 MG/DL (70-100); MAGNESIUM LEVEL 1.6 MG/DL (1.8-2.4); PHOSPHORUS LEVEL 2.8 MG/DL (2.5-4.9); POTASSIUM SERUM 3.9 MEQ/L (3.5-5.1); SODIUM LEVEL 141 MEQ/L (136-145); TOTAL PROTEIN 5.6 GM/DL (6.4-8.2)
--- NOTE | 2021-03-07 08:16 | REP ---
INDICATION: transaminitis COMPARISON: None. TECHNIQUE: Real time carlos scale ultrasound examination using curved array transducer. FINDINGS: Liver is normal in contour, size, and echogenicity without focal hepatic lesions identified. Pancreas is incompletely evaluated due to interposed bowel gas. The gallbladder demonstrates gallstones without wall thickening or pericholecystic fluid. No biliary ductal dilatation is appreciated and the common bile duct measures 3.2 mm diameter. Right kidney is normal in reniform shape without hydronephrosis and measures 10.3 x 4.3 x 3.7 cm. No ascites in the visualized right upper quadrant. IMPRESSION: Cholelithiasis. <Electronically signed by Chan Zuñiga > 03/07/21 0844
[2021-03-07] MEDS: FOLIC ACID 1 MG TAB PO SCH (09:08)
[2021-03-07] MEDS: **NOTE PATIENT COMMENT** MISC XX SCH (09:09)
[2021-03-07] MEDS: MULTIVITAMINS/MINERALS THERAP 1 TAB PO SCH (09:09)
[2021-03-07] MEDS: LACTOBACILLUS ACIDOPHILUS CAP (BACID) PO SCH (09:09)
[2021-03-07] MEDS: SERTRALINE 100 MG TAB PO SCH (09:09)
[2021-03-07 10:34] LABS: HEPATITIS B SURFACE ANTIGEN NEGATIVE (NEGATIVE)
[2021-03-07 11:01] LABS: HEPATITIS B CORE ANTIBODY IGM NEGATIVE (NEGATIVE); HEPATITIS C VIRUS ABY INDEX 0.1 INDEX (<0.8)
[2021-03-07] MEDS: LR 1,000 ML IV SCH (12:28)
[2021-03-07 14:00] VITALS: BP 133/88
[2021-03-07] MEDS: LORazepam 2 MG TAB PO PRN (17:34)
--- NOTE | 2021-03-07 17:57 | IPNPDOC ---
Text Note Date of Service The patient was seen on 03/07/21. NOTE Subjective: 40-year-old female was brought in by law enforcement with reported suicidal and homicidal ideations. In the emergency room department she was given Ativan and Zyprexa due to agitation. She was also noted to have acute kidney injury, rhabdomyolysis, and suspected sepsis secondary to urinary tract infection. Patient seen and examined at bedside this morning. She was agitated that she would need to be admitted to the psychiatric [facility]. Otherwise had no new co mplaints. Review of systems: 10 point review of system was limited due to patient's refusal. Physical exam: General: Lying in bed, no acute distress Head/Neck/Throat: Trachea midline, dry mucous membrane Eyes: Sclera anicteric, no erythema or discharge appreciated laterally Thorax: Normal respiratory effort on room air, lungs clear to auscultation bilaterally, no wheezes/rales/rhonchi Cardiovascular: Normal rate, regular rhythm, normal S1, S2 Abdomen: Bowel sounds present, soft/nontender/nondistended Genitourinary: No CVA tenderness, no Garces in place Musculoskeletal: Moving all extremities on casual observation Skin: Right forehead laceration with dried blood. Macule erythematous rash spr ead in various regions including arms and abdomen has resolved Neurologic: AAOx3, speech fluent and goal-directed, no focal deficits, grossly intact Labs: See below Imaging: Please see imaging section Assessment/plan: #Metabolic encephalopathy -Resolved. In the setting of amphetamine use, urinary tract infection, metabolic acidosis, and electrolyte abnormalities. Supportive care at this time for her agitation, and management as below. #Suicidal ideations -Once medically stable she will be evaluated by psychiatric team. Continue with one-to-one/sitter. -Psychiatry and recommended inpatient mental health unit admission -in the event pt leaves police will need to be notified. #Substance abuse -Tox screen positive for amphetamines. She has been requiring lorazepam as needed for agitation. #Acute kidney injury -Resolved. Was likely secondary to poor p.o. intake, medication side effects (was taking lisinopril), and also rhabdo -Renal ultrasound was normal -Nephrology recommendations appreciated #Metabolic acidosis -Resolved #Rhabdomyolysis -Creatinine kinase continues to downtrend. #Sepsis -Secondary to urinary tract infection -Stop T2 ceftriaxone for a total of 5 days. #Forehead laceration -Local wound care #Transaminitis -Likely due to her phentermine abuse. Benign abdomen on exam. Follow-up on hepatitis panel. Follow-up on liver ultrasound #GERD -Protonix #Migraines -Supportive care if this is to occur during hospitalization DVT prophylaxis -Heparin subcu Disposition: Medically stable. She can be discharged to [facility] once beds available. VS,Fishbone, I+O VS, Fishbone, I+O Laboratory Tests 03/07/21 05:41 Vital Signs Date Time Temp Pulse Resp B/P (MAP) Pulse Ox O2 Delivery O2 Flow Rate FiO2 03/07/21 14:00 99 133/88 03/07/21 14:00 97.9 18 98 Room Air I&O- Last 24 Hours up to 6 AM 03/07/21 06:00 Intake Total 2440 ml Output Total 325 ml Balance 2115 ml RAVINDRA COLON M.D. Mar 07, 2021 17:57
[2021-03-07] MEDS ORDERED: ACETAMINOPHEN TAB 650MG DOSE (2X325MG) PO PRN (19:55)
[2021-03-07 21:00] VITALS: BP 134/91
[2021-03-07] MEDS: cefTRIAXone SOD 1 GM in D5W MINI-BAG PLUS 50 ML IV SCH (21:01)
[2021-03-07] MEDS: LIDOCAINE 5% (LIDODERM) PATCH TD SCH (21:02)
[2021-03-08] MEDS ORDERED: VITMTA PO (06:42)
[2021-03-08] MEDS ORDERED: ORPH100T2 PO (06:42)
[2021-03-08] MEDS ORDERED: LISI20TA33 PO (06:42)
[2021-03-08] MEDS ORDERED: ABIL1TAB11 PO (06:42)
[2021-03-08] MEDS ORDERED: ZOLO100T PO (06:42)
[2021-03-08] MEDS ORDERED: OMEP-221 PO (06:42)
[2021-03-08] MEDS ORDERED: TRAZ-257 PO (06:42)
--- NOTE | 2021-03-08 07:03 | DS.PDOC ---
Discharge Summary General Date of Admission Mar 03, 2021 at 02:34 Date of Discharge 03/07/21 Discharge Summary PROCEDURES PERFORMED DURING STAY: [None]. DISCHARGE DIAGNOSES: #Metabolic encephalopathy #Suicidal ideations #Substance abuse #Acute kidney injury #Metabolic acidosis #Rhabdomyolysis #Sepsis #Forehead laceration #Transaminitis #GERD #Migraines COMPLICATIONS/CHIEF COMPLAINT: [place],Rhabdomyolysis. HOSPITAL COURSE: Ms. Gallardo, is a 40-year-old female with a past medical history of major depressive disorder, prior suicide attempts, substance abuse, migraines, and GERD who arrived to the emergency room department by law enforcement with reported suicidal and homicidal ideations. She was found to be extremely agitated in the emergency room department requiring Ativan and Zyprexa. She is noted to have cute kidney injury, rhabdomyolysis, positive tox screen for amphetamines. She was admitted for management of her rhabdo and acute kidney injury which responded very well to IV fluids. She was evaluated by psychiatric team and was recommended for involuntary admission to [facility]. Of note she was asked to follow up with her primary care physician following discharge for her chronic anemia. She also had transaminitis which was likely due to her amphetamine use and possible alcohol use. She was asked of repeat blood work done with her primary care physician upon discharge to ensure they were within normal limits and/or for further work-up. Electrolytes were also repleted and these can be rechecked in her next blood work. Patient made aware. She was also also encouraged to obtain all imaging results for reference and appropriate follow-ups. DISCHARGE MEDICATIONS: Please see below. ALLERGIES: Please see below. PHYSICAL EXAMINATION ON DISCHARGE: VITAL SIGNS: Please see below. General: Lying in bed, no acute distress Head/Neck/Throat: Trachea midline, dry mucous membrane Eyes: Sclera anicteric, no erythema or discharge appreciated laterally Thorax: Normal respiratory effort on room air, lungs clear to auscultation bilaterally, no wheezes/rales/rhonchi Cardiovascular: Normal rate, regular rhythm, normal S1, S2 Abdomen: Bowel sounds present, soft/nontender/nondistended Genitourinary: No CVA tenderness, no Garces in place Musculoskeletal: Moving all extremities on casual observation Skin: Right forehead laceration with dried blood. Macule erythematous rash spread in various regions including arms and abdomen has resolved Neurologic: AAOx3, speech fluent and goal-directed, no focal deficits, grossly intact LABORATORY DATA: Please see below. IMAGING: PORTABLE CHEST X-RAY FINDINGS: The mediastinum and cardiac silhouette are stable and within normal limits for portable technique. The lung stark are clear without acute consolidation, effusion, or pneumothorax. Skeletal structures are intact. IMPRESSION: No acute cardiopulmonary process appreciated. RENAL US FINDINGS: Bilateral kidneys are normal in contour, size, echogenicity, and reniform shape. No hydronephrosis, nephrolithiasis, cystic or renal mass lesion. No perinephric fluid collection. Bladder appears normal. Right kidney measures 10.0 x 4.0 x 3.6 cm. Left kidney measures 10.5 x 3.9 x 4.9 cm. IMPRESSION: 1. Normal renal ultrasound LIVER US FINDINGS: Liver is normal in contour, size, and echogenicity without focal hepatic lesions identified. Pancreas is incompletely evaluated due to interposed bowel gas. The gallbladder demonstrates gallstones without wall thickening or pericholecystic fluid. No biliary ductal dilatation is appreciated and the common bile duct measures 3.2 mm diameter. Right kidney is normal in reniform shape without hydronephrosis and measures 10.3 x 4.3 x 3.7 cm. No ascites in the visualized right upper quadrant. IMPRESSION: Cholelithiasis. PROGNOSIS: Medically good. ACTIVITY: As tolerated DIET: Regular DISPOSITION: [facility]. DISCHARGE INSTRUCTIONS: 1. Follow with primary care physician within 3 to 5 days of discharge 2. Follow-up with psych physician within 3 to 5 days of discharge DISCHARGE CONDITION: Stable TIME SPENT ON DISCHARGE: 25 minutes. Vital Signs/I&Os Vital Signs Date Time Temp Pulse Resp B/P (MAP) Pulse Ox O2 Delivery O2 Flow Rate FiO2 03/07/21 21:00 98.0 88 16 134/91 (105) 98 Room Air I&O- Last 24 Hours up to 6 AM 03/08/21 06:00 Intake Total 1940 ml Balance 1940 ml Microbiology Microbiology 03/03/21 Urine Culture - Final, Complete 03/03/21 Blood Culture - Final, Complete NO GROWTH AFTER 5 DAYS 03/03/21 Blood Culture - Final, Complete NO GROWTH AFTER 5 DAYS Discharge Medications Scheduled Aripiprazole (Abilify) 5 Mg Tablet, 2.5 MG PO BID for ., (Reported) Lisinopril (Lisinopril) 20 Mg Tablet, 20 MG PO DAILY for ., (Reported) Multivitamins (Thera M Plus Tablet) 1 Each Tablet, 1 TAB PO DAILY for ., (Reported) Omeprazole (Omeprazole) 40 Mg Capsule.dr, 40 MG PO DAILY for ., (Reported) Sertraline Hcl (Zoloft) 100 Mg Tablet, 100 MG PO DAILY for ., (Reported) Allergies Coded Allergies: Sulfa (Sulfonamide Antibiotics) (Verified Adverse Reaction, Mild, N/V, 11/04/19) latex (Verified Adverse Reaction, Mild, RASH ITCHING, 09/07/19) RAVINDRA COLON M.D. Mar 08, 2021 07:03
== END 2021-03-07 22:10 | DRG 720 ==
LOC: M ED 22:11 → M ED INP 03-03 02:34 → ENRESERV 03-03 09:30 → M MSPAV 03-03 10:30
PROVIDERS: ADMIT Internal Medicine; ATTEND Internal Medicine
DX: A41.9 Sepsis, unspecified organism (principal); G93.41 Metabolic encephalopathy; N17.9 Acute kidney failure, unspecified; E87.2 Acidosis; M62.82 Rhabdomyolysis; R45.851 Suicidal ideations; E87.0 Hyperosmolality and hypernatremia; N39.0 Urinary tract infection, site not specified; F15.129 Other stimulant abuse with intoxication, unspecified; G43.909 Migraine, unspecified, not intractable, without status migrainosus; K21.9 Gastro-esophageal reflux disease without esophagitis; F32.9 Major depressive disorder, single episode, unspecified; Z88.2 Allergy status to sulfonamides; Z91.040 Latex allergy status; Z79.899 Other long term (current) drug therapy; R45.850 Homicidal ideations

== ENCOUNTER 2021-03-07 21:06 | Inpatient (IN) | payer MEDICAID, OTHER ==
[~2021-03-07] VITALS: Ht 154.9 cm; Wt 59.0 kg
[~2021-03-07 21:06] MED LIST changes: +MED REC COMMENT; -OMEP-221 PO; +OMEP40CA5 PO; +TRAZ-257 PO
[2021-03-07] MEDS ORDERED: MAALOX 30 ML SUSP *UDC PO PRN (21:15)
[2021-03-07] MEDS ORDERED: MOM 30ML SUSPENSION UDC PO PRN (21:15)
[2021-03-07] MEDS ORDERED: OLANZapine ORAL DISINTEGRATING TAB 5MG PO PRN (21:15)
[2021-03-07 22:46] VITALS: BP 142/90
[2021-03-07] MEDS: traZODone 50 MG TAB PO PRN (22:52)
[2021-03-08] MEDS ORDERED: ABIL1TAB11 PO (06:42)
[2021-03-08] MEDS ORDERED: ORPH100T2 PO (06:42)
[2021-03-08] MEDS ORDERED: LISI20TA33 PO (06:42)
[2021-03-08] MEDS ORDERED: TRAZ-257 PO (06:42)
[2021-03-08] MEDS ORDERED: ZOLO100T PO (06:42)
[2021-03-08] MEDS ORDERED: VITMTA PO (06:42)
[2021-03-08] MEDS ORDERED: OMEP40CA5 PO (06:42)
[2021-03-08] MEDS ORDERED: HOME MED LIST COMPLETE! XX SCH (06:45)
[2021-03-08] MEDS: **NOTE PATIENT COMMENT** MISC XX SCH (09:00)
[2021-03-08] MEDS: PILL CUTTER 1 EACH XX PRN ×2 (09:55→20:20)
[2021-03-08] MEDS: MULTIVITAMINS/MINERALS THERAP 1 TAB PO SCH (09:56)
[2021-03-08] MEDS: SERTRALINE 100 MG TAB PO SCH (09:56)
[2021-03-08] MEDS: LACTOBACILLUS ACIDOPHILUS CAP (BACID) PO SCH (09:57)
[2021-03-08] MEDS: FOLIC ACID 1 MG TAB PO SCH (09:57)
[2021-03-08] MEDS: ACETAMINOPHEN TAB 650MG DOSE (2X325MG) PO PRN (10:02)
[2021-03-08] MEDS ORDERED: INFLUENZA QUADRIVALENT PF VACCINE 0.5ML SYRINGE IM ONE (12:00)
[2021-03-08 16:48] VITALS: BP 122/59
[2021-03-08] MEDS: traZODone 50 MG TAB PO PRN (20:20)
[2021-03-08] MEDS ORDERED: LIDOCAINE 5% (LIDODERM) PATCH TD SCH (21:00)
[2021-03-09 06:22] VITALS: BP 128/70
[2021-03-09] MEDS: ACETAMINOPHEN TAB 650MG DOSE (2X325MG) PO PRN (07:17)
[2021-03-09] MEDS ORDERED: ZOLO100T PO (08:06)
[2021-03-09] MEDS ORDERED: ABIL1TAB11 PO (08:06)
[2021-03-09] MEDS: MULTIVITAMINS/MINERALS THERAP 1 TAB PO SCH (09:18)
[2021-03-09] MEDS: LACTOBACILLUS ACIDOPHILUS CAP (BACID) PO SCH (09:18)
[2021-03-09] MEDS: FOLIC ACID 1 MG TAB PO SCH (09:18)
[2021-03-09] MEDS: SERTRALINE 100 MG TAB PO SCH (09:18)
[2021-03-09] MEDS: **NOTE PATIENT COMMENT** MISC XX SCH (09:35)
== END 2021-03-09 12:00 | disposition home or self-care (01) | DRG 751 ==
LOC: M PSY 22:12
PROVIDERS: ADMIT Psychiatry & Neurology Psychiatry; ATTEND Psychiatry & Neurology Psychiatry
DX: F33.1 Major depressive disorder, recurrent, moderate (principal); R45.851 Suicidal ideations; F41.9 Anxiety disorder, unspecified; F12.90 Cannabis use, unspecified, uncomplicated; F15.90 Other stimulant use, unspecified, uncomplicated; Z79.899 Other long term (current) drug therapy; Z88.2 Allergy status to sulfonamides; Z91.040 Latex allergy status; K21.9 Gastro-esophageal reflux disease without esophagitis

== ENCOUNTER 2022-03-31 17:11 | Emergency (ER) | payer OTHER ==
[~2022-03-31 17:11] MED LIST changes: +ORPH100T2 PO
[2022-03-31 17:59] LABS: HEMATOCRIT 41.6 % (36.0-47.0); HEMOGLOBIN 13.7 g/dl (12.0-15.5); MEAN CORPUSCULAR HEMOGLOBIN 27.6 pg (27.0-33.0); MEAN CORPUSCULAR HGB CONC 32.9 g/dl (32.0-36.5); MEAN CORPUSCULAR VOLUME 83.9 fl (80.0-96.0); PLATELET COUNT, AUTOMATED 503 10^3/uL (150-450); RED BLOOD COUNT 4.96 10^6/uL (4.00-5.40); WHITE BLOOD COUNT 13.7 10^3/uL (4.0-10.0)
[2022-03-31 18:21] LABS: ETHYL ALCOHOL (ETHANOL) 0.005 % (0.000-0.010)
[2022-03-31 18:22] LABS: ACETAMINOPHEN LEVEL < 2.0 UG/ML (10.0-20.0); BILIRUBIN,DIRECT 0.1 MG/DL (<0.4); SALICYLATE LEVEL < 3.0 MG/DL (<30)
[2022-03-31 18:24] LABS: THYROID STIMULATING HORMONE 2.635 uIU/ML (0.55-4.78)
[2022-03-31 18:29] LABS: ALBUMIN 4.7 G/DL (3.2-5.2); ALKALINE PHOSPHATASE 75 U/L (46-116); ALT/SGPT 53 U/L (7.0-40); AST/SGOT 45 U/L (<34); BILIRUBIN,TOTAL 0.4 MG/DL (0.3-1.2); BLOOD UREA NITROGEN 13 MG/DL (9-23); CALCIUM LEVEL 9.7 MG/DL (8.5-10.1); CARBON DIOXIDE LEVEL 19 MMOL/L (20-31); CHLORIDE LEVEL 107 MMOL/L (98-107); CREATININE FOR GFR 0.99 MG/DL (0.55-1.30); GLOMERULAR FILTRATION RATE > 60.0 (>58); GLUCOSE, FASTING 124 MG/DL (60-100); SODIUM LEVEL 142 MMOL/L (136-145); TOTAL PROTEIN 7.6 G/DL (5.7-8.2)
[2022-03-31 18:49] LABS: BENZODIAZEPINES URINE NEGATIVE (NEGATIVE); CANNABINOIDS URINE NEGATIVE (NEGATIVE); PHENCYCLIDINE URINE NEGATIVE (NEGATIVE)
[2022-03-31 18:50] LABS: BARBITURATES URINE NEGATIVE (NEGATIVE); COCAINE METABOLITE URINE NEGATIVE (NEGATIVE); METHADONE URINE NEGATIVE (NEGATIVE)
[2022-03-31 18:53] LABS: AMPHETAMINES LEVEL URINE POSITIVE (NEGATIVE); OPIATES URINE POSITIVE (NEGATIVE)
[2022-03-31 19:09] LABS: HCG, SERUM QUALITATIVE NEGATIVE (NEGATIVE)
[2022-03-31 20:47] LABS: APPEARANCE, URINE MANUAL CLEAR (CLEAR); COLOR, URINE MANUAL YELLOW (YELLOW)
[2022-03-31 20:48] LABS: BILIRUBIN, URINE MANUAL NEGATIVE (NEGATIVE); BLOOD URINE MANUAL NEGATIVE (NEGATIVE); GLUCOSE, URINE (UA) MANUAL NEGATIVE (NEGATIVE); KETONE, URINE MANUAL NEGATIVE (NEGATIVE); LEUKOCYTE ESTERASE, URINE MAN NEGATIVE (NEGATIVE); NITRITE, URINE MANUAL NEGATIVE (NEGATIVE); PROTEIN, URINE MANUAL NEGATIVE (NEGATIVE); UROBILINOGEN, URINE MANUAL NORMAL (NORMAL)
[2022-03-31 21:11] VITALS: BP 135/85
== END 2022-03-31 21:18 | disposition home or self-care (01) ==
LOC: M ED 17:11
DX: F43.0 Acute stress reaction (principal); F43.10 Post-traumatic stress disorder, unspecified; F32.A Depression, unspecified; K21.9 Gastro-esophageal reflux disease without esophagitis; F17.200 Nicotine dependence, unspecified, uncomplicated; F15.10 Other stimulant abuse, uncomplicated; Z88.2 Allergy status to sulfonamides; Z91.040 Latex allergy status; Z79.811 Long term (current) use of aromatase inhibitors; Z79.899 Other long term (current) drug therapy

== ENCOUNTER → 2022-04-19 | Outpatient (CLI) | payer OTHER | LOC: M WHC 12:31 | PROVIDERS: ATTEND Obstetrics & Gynecology | DX: Z12.31 Encounter for screening mammogram for malignant neoplasm of breast (principal); N63.23 Unspecified lump in the left breast, lower outer quadrant; R92.8 Other abnormal and inconclusive findings on diagnostic imaging of breast ==

== ENCOUNTER → 2022-05-04 | Outpatient (CLI) | payer OTHER | LOC: M RAD 10:40 | PROVIDERS: ATTEND Internal Medicine Cardiovascular Disease | DX: R06.02 Shortness of breath (principal) ==

== ENCOUNTER 2022-07-16 20:46 | Emergency (ER) | payer OTHER ==
[~2022-07-16] VITALS: Ht 154.9 cm; Wt 56.1 kg
[~2022-07-16 20:46] MED LIST changes: +TOPI-254 PO; -TOPI50TA9 PO
[2022-07-16 20:47] VITALS: BP 155/88
[2022-07-16] MEDS ORDERED: ASPIRIN 81MG CHEW TABLET PO ONE (21:55)
== END 2022-07-16 21:58 | disposition home or self-care (01) ==
LOC: M ED 20:46
DX: S93.411A Sprain of calcaneofibular ligament of right ankle, initial encounter (principal); W01.0XXA Fall on same level from slipping, tripping and stumbling without subsequent striking against object, initial encounter; F43.10 Post-traumatic stress disorder, unspecified; I10 Essential (primary) hypertension; K21.9 Gastro-esophageal reflux disease without esophagitis; Z88.2 Allergy status to sulfonamides; Z91.040 Latex allergy status; Z79.811 Long term (current) use of aromatase inhibitors; Z79.83 Long term (current) use of bisphosphonates; Z79.899 Other long term (current) drug therapy; Y93.E5 Activity, floor mopping and cleaning; Y99.0 Civilian activity done for income or pay

== ENCOUNTER 2022-09-03 19:38 | Emergency (ER) | payer OTHER ==
[~2022-09-03 19:38] MED LIST changes: -ORPH100T PO; -ORPH100T2 PO; +ORPH100T48 PO; +ORPH1TAB6 PO
[2022-09-03] MEDS ORDERED: diphenhydrAMINE 50MG/ML VIAL IM ONE (20:15)
[2022-09-03] MEDS ORDERED: HALOPERIDOL 5MG/ML 1ML VIAL IM ONE (20:15)
[2022-09-03] MEDS ORDERED: MIDAZOLAM INJ 2MG/2ML VIAL IM ONE (20:15)
[2022-09-03] MEDS ORDERED: TRAM50TA2 PO (20:35)
[2022-09-03] MEDS ORDERED: SERT50TA29 PO (20:35)
[2022-09-03] MEDS ORDERED: ORPH100T48 PO (20:35)
[2022-09-03] MEDS ORDERED: HOME MED LIST COMPLETE! XX SCH (20:40)
[2022-09-03 22:10] LABS: HEMATOCRIT 35.3 % (36.0-47.0); HEMOGLOBIN 11.8 g/dl (12.0-15.5); MEAN CORPUSCULAR HEMOGLOBIN 28.5 pg (27.0-33.0); MEAN CORPUSCULAR HGB CONC 33.4 g/dl (32.0-36.5); MEAN CORPUSCULAR VOLUME 85.3 fl (80.0-96.0); PLATELET COUNT, AUTOMATED 347 10^3/uL (150-450); RED BLOOD COUNT 4.14 10^6/uL (4.00-5.40); WHITE BLOOD COUNT 14.6 10^3/uL (4.0-10.0)
[2022-09-03 22:35] LABS: ETHYL ALCOHOL (ETHANOL) < 0.003 % (0.000-0.010); HCG, SERUM QUALITATIVE NEGATIVE (NEGATIVE)
[2022-09-03 22:36] LABS: ACETAMINOPHEN LEVEL < 2.0 UG/ML (10.0-20.0)
[2022-09-03 22:37] LABS: ALBUMIN 4.1 G/DL (3.2-5.2); ALKALINE PHOSPHATASE 82 U/L (46-116); ALT/SGPT 42 U/L (7.0-40); AST/SGOT 49 U/L (<34); BILIRUBIN,DIRECT 0.1 MG/DL (<0.4); BILIRUBIN,TOTAL 0.4 MG/DL (0.3-1.2); BLOOD UREA NITROGEN 14 MG/DL (9-23); CALCIUM LEVEL 8.7 MG/DL (8.5-10.1); CARBON DIOXIDE LEVEL 27 MMOL/L (20-31); CHLORIDE LEVEL 109 MMOL/L (98-107); GLOMERULAR FILTRATION RATE > 60.0 (>58); GLUCOSE, FASTING 74 MG/DL (60-100); POTASSIUM SERUM 3.9 MMOL/L (3.5-5.1); SALICYLATE LEVEL < 3.0 MG/DL (<30); SODIUM LEVEL 144 MMOL/L (136-145); TOTAL PROTEIN 6.5 G/DL (5.7-8.2)
[2022-09-03 22:39] LABS: THYROID STIMULATING HORMONE 3.705 uIU/ML (0.55-4.78)
[2022-09-04 07:40] LABS: BARBITURATES URINE NEGATIVE (NEGATIVE); CANNABINOIDS URINE NEGATIVE (NEGATIVE); METHADONE URINE NEGATIVE (NEGATIVE); OPIATES URINE NEGATIVE (NEGATIVE); PHENCYCLIDINE URINE NEGATIVE (NEGATIVE)
[2022-09-04 07:47] LABS: AMPHETAMINES LEVEL URINE POSITIVE (NEGATIVE); BENZODIAZEPINES URINE POSITIVE (NEGATIVE); COCAINE METABOLITE URINE POSITIVE (NEGATIVE)
[2022-09-04] MEDS ORDERED: SERTRALINE HCL 50 MG TAB PO SCH (09:00)
[2022-09-04] MEDS ORDERED: OMEPRAZOLE 20MG CAP PO SCH (09:00)
[2022-09-04 10:10] VITALS: BP 111/69
[2022-09-04 10:33] VITALS: BP 111/69
[2022-09-04] MEDS ORDERED: ACETAMINOPHEN TAB 650MG DOSE (2X325MG) PO ONE (12:00)
[2022-09-05] MEDS ORDERED: SERTRALINE HCL 50 MG TAB PO SCH (09:00)
== END 2022-09-04 13:36 | disposition home or self-care (01) ==
LOC: M ED 19:38
DX: F15.120 Other stimulant abuse with intoxication, uncomplicated (principal); R45.851 Suicidal ideations; K21.9 Gastro-esophageal reflux disease without esophagitis; Z88.2 Allergy status to sulfonamides; Z79.811 Long term (current) use of aromatase inhibitors; Z79.83 Long term (current) use of bisphosphonates; Z79.899 Other long term (current) drug therapy
CPT/HCPCS: 80048; 80076; 80143; 80307; 82077; 84443; 84703; 85027; 87635; 96372; 99284; J1200; J1630; J2250

== ENCOUNTER → 2022-09-26 | Outpatient (CLI) | payer OTHER ==
[~2022-09-26] MED LIST changes: +SERT50TA29 PO
== END ==
LOC: M WUC 09:32
PROVIDERS: ATTEND Surgery
DX: A15.0 Tuberculosis of lung (principal)

== ENCOUNTER 2022-10-17 15:04 | Emergency (ER) | payer OTHER, SELFPAY ==
[~2022-10-17] VITALS: Ht 154.9 cm; Wt 51.6 kg
[2022-10-17 15:06] VITALS: BP 98/58; TEMP 97; O2SAT 97
[2022-10-17] MEDS ORDERED: MAGICMW SSP (16:36)
== END 2022-10-17 16:41 | disposition home or self-care (01) ==
LOC: M ED 15:04
DX: K12.0 Recurrent oral aphthae (principal); K21.9 Gastro-esophageal reflux disease without esophagitis; Z98.51 Tubal ligation status; Z88.2 Allergy status to sulfonamides; Z91.040 Latex allergy status; Z79.83 Long term (current) use of bisphosphonates; Z79.899 Other long term (current) drug therapy

== ENCOUNTER 2022-10-18 00:43 | Observation (INO) | payer MEDICAID, SELFPAY ==
[~2022-10-18] VITALS: Ht 154.9 cm; Wt 56.0 kg
[~2022-10-18 00:43] MED LIST changes: +MAGICMW SSP
[2022-10-18 02:28] LABS: BASO # 0.1 10^3/uL (0.0-0.2); BASO % 0.3 % (0.0-1.0); HEMATOCRIT 32.7 % (36.0-47.0); HEMOGLOBIN 11.4 g/dl (12.0-15.5); LYMPH # 1.8 10^3/uL (1.5-5.0); LYMPH % 10.7 % (24.0-44.0); MEAN CORPUSCULAR HEMOGLOBIN 29.1 pg (27.0-33.0); MEAN CORPUSCULAR HGB CONC 34.9 g/dl (32.0-36.5); MEAN CORPUSCULAR VOLUME 83.4 fl (80.0-96.0); MONO # 1.4 10^3/uL (0.0-0.8); MONO % 8.5 % (2.0-8.0); PLATELET COUNT, AUTOMATED 424 10^3/uL (150-450); RED BLOOD COUNT 3.92 10^6/uL (4.00-5.40); WHITE BLOOD COUNT 16.3 10^3/uL (4.0-10.0)
[2022-10-18 02:39] LABS: ALBUMIN 4.7 G/DL (3.2-5.2); BILIRUBIN,DIRECT 0.1 MG/DL (<0.4); BILIRUBIN,TOTAL 0.4 MG/DL (0.3-1.2); CALCIUM LEVEL 9.7 MG/DL (8.5-10.1); CK-MB VALUE MASS 34.6 NG/ML (<3.6); CREATININE FOR GFR 2.18 MG/DL (0.55-1.30); GLOMERULAR FILTRATION RATE 26.1 (>58); POTASSIUM SERUM 3.6 MMOL/L (3.5-5.1); TOTAL PROTEIN 6.8 G/DL (5.7-8.2)
[2022-10-18 03:19] LABS: MB/CK RELATIVE INDEX 1.17 (< OR =4)
[2022-10-18] MEDS ORDERED: NS 1,540 ML in IV 1 EA IV ONE (03:25)
[2022-10-18] MEDS ORDERED: LORazepam 2 MG/ML 1ML VIAL IV STA (03:53)
[2022-10-18] MEDS ORDERED: HALOPERIDOL 5MG/ML 1ML VIAL IV ONE (04:10)
[2022-10-18 05:20] LABS: APPEARANCE, URINE MANUAL HAZY (CLEAR); COLOR, URINE MANUAL YELLOW (YELLOW)
[2022-10-18 05:21] LABS: BILIRUBIN, URINE MANUAL NEGATIVE (NEGATIVE); BLOOD URINE MANUAL POSITIVE (NEGATIVE); GLUCOSE, URINE (UA) MANUAL NEGATIVE (NEGATIVE); KETONE, URINE MANUAL 1+ mg/dL (NEGATIVE); LEUKOCYTE ESTERASE, URINE MAN POSITIVE (NEGATIVE); NITRITE, URINE MANUAL NEGATIVE (NEGATIVE); PROTEIN, URINE MANUAL 2+ mg/dL (NEGATIVE); UROBILINOGEN, URINE MANUAL NORMAL (NORMAL)
[2022-10-18 05:42] LABS: SQUAMOUS EPITHELIAL CELL URINE SMALL AMOUNT /hpf (SMALL AMT)
[2022-10-18 05:43] LABS: BACTERIA, URINE SMALL AMOUNT; GRANULAR CAST, URINE 0-1 /lpf; HYALINE CAST, URINE 0-1 /lpf (0-1)
[2022-10-18] MEDS ORDERED: DEXTROSE 50% 50ML SYRINGE IV STA (06:09)
[2022-10-18] MEDS ORDERED: NS 1,000 ML IV ONE ×2 (06:10→07:15)
[2022-10-18 06:22] LABS: CPK CREATINE PHOSPHOKINASE 3142 U/L (34-145)
[2022-10-18 07:12] LABS: RSV AMPLIFICATION NEGATIVE (NEGATIVE)
[2022-10-18 07:17] LABS: ACETAMINOPHEN LEVEL < 2.0 UG/ML (10.0-20.0); SALICYLATE LEVEL < 3.0 MG/DL (<30)
[2022-10-18 07:23] LABS: ETHYL ALCOHOL (ETHANOL) < 0.003 % (0.000-0.010)
[2022-10-18] MEDS ORDERED: MED REC CURRENTLY UNOBTAINABLE XX SCH (07:35)
[2022-10-18 09:02] LABS: BARBITURATES URINE NEGATIVE (NEGATIVE); BENZODIAZEPINES URINE NEGATIVE (NEGATIVE); CANNABINOIDS URINE NEGATIVE (NEGATIVE); COCAINE METABOLITE URINE NEGATIVE (NEGATIVE); METHADONE URINE NEGATIVE (NEGATIVE); OPIATES URINE NEGATIVE (NEGATIVE); PHENCYCLIDINE URINE NEGATIVE (NEGATIVE)
[2022-10-18 09:03] LABS: AMPHETAMINES LEVEL URINE POSITIVE (NEGATIVE)
[2022-10-18] MEDS ORDERED: LR 1,000 ML IV SCH (10:15)
[2022-10-18 11:28] LABS: BLOOD UREA NITROGEN 26 MG/DL (9-23); CALCIUM LEVEL 7.6 MG/DL (8.5-10.1); CARBON DIOXIDE LEVEL 18 MMOL/L (20-31); CHLORIDE LEVEL 113 MMOL/L (98-107); CREATININE FOR GFR 1.12 MG/DL (0.55-1.30); GLOMERULAR FILTRATION RATE 56.3 (>58); GLUCOSE, FASTING 72 MG/DL (60-100); POTASSIUM SERUM 3.3 MMOL/L (3.5-5.1); SODIUM LEVEL 142 MMOL/L (136-145)
[2022-10-18 11:30] VITALS: BP 94/78; TEMP 98.1; O2SAT 100
[2022-10-18] MEDS: KCL 10MEQ/100ML SWI (KRUN) 10 MEQ in IV 1 EA IV SCH ×4 (13:00→15:00)
[2022-10-18] MEDS ORDERED: HOME MED LIST COMPLETE! XX SCH (13:30)
[2022-10-18] MEDS: PANTOPRAZOLE 40MG VIAL IV SCH (13:47)
[2022-10-18] MEDS: HEPARIN SOD (PORCINE) 5000UNITS/ML 1ML VIAL/SYRINGE SC SCH ×2 (13:47→22:44)
[2022-10-18 14:00] VITALS: BP 98/66; TEMP 98.2; O2SAT 99
[2022-10-18 14:33] LABS: IRON (FE) 52 UG/DL (50-170)
[2022-10-18 14:34] LABS: PERCENT SATURATION 20.6 % (13.2-45.0); TOTAL IRON BINDING CAPACITY 252 UG/DL (250-425)
[2022-10-18 14:36] LABS: FERRITIN 35.4 NG/ML (7.3-270.7); FOLATE > 24.0 NG/ML (>5.4); VITAMIN B12 LEVEL 258 PG/ML (211-911)
[2022-10-18] MEDS: D5W/LR 1,000 ML IV SCH (18:03)
[2022-10-18 22:00] VITALS: BP 100/66; TEMP 99; O2SAT 98
[2022-10-19] MEDS: D5W/LR 1,000 ML IV SCH (04:03)
[2022-10-19] MEDS: HEPARIN SOD (PORCINE) 5000UNITS/ML 1ML VIAL/SYRINGE SC SCH ×3 (05:30→21:17)
[2022-10-19 05:59] LABS: BASO % 0.6 % (0.0-1.0); HEMATOCRIT 30.4 % (36.0-47.0); HEMOGLOBIN 10.4 g/dl (12.0-15.5); LYMPH # 2.1 10^3/uL (1.5-5.0); LYMPH % 39.2 % (24.0-44.0); MEAN CORPUSCULAR HGB CONC 34.2 g/dl (32.0-36.5); MEAN CORPUSCULAR VOLUME 84.7 fl (80.0-96.0); MONO # 0.4 10^3/uL (0.0-0.8); MONO % 7.4 % (2.0-8.0); NEUTROPHILS # 2.9 10^3/uL (1.5-8.5); NEUTROPHILS % 52.6 % (36.0-66.0); PLATELET COUNT, AUTOMATED 315 10^3/uL (150-450); RED BLOOD COUNT 3.59 10^6/uL (4.00-5.40); WHITE BLOOD COUNT 5.4 10^3/uL (4.0-10.0)
[2022-10-19 06:08] VITALS: BP 99/66; TEMP 98.2; O2SAT 99
[2022-10-19 06:12] LABS: CPK CREATINE PHOSPHOKINASE 1146 U/L (34-145)
[2022-10-19 06:28] LABS: ALBUMIN 2.8 G/DL (3.2-5.2); ALKALINE PHOSPHATASE 52 U/L (46-116); ALT/SGPT 46 U/L (7.0-40); AST/SGOT 54 U/L (<34); BILIRUBIN,TOTAL 0.3 MG/DL (0.3-1.2); BLOOD UREA NITROGEN 14 MG/DL (9-23); CALCIUM LEVEL 7.4 MG/DL (8.5-10.1); CARBON DIOXIDE LEVEL 23 MMOL/L (20-31); CHLORIDE LEVEL 113 MMOL/L (98-107); CREATININE FOR GFR 0.58 MG/DL (0.55-1.30); GLOMERULAR FILTRATION RATE > 60.0 (>58); GLUCOSE, FASTING 103 MG/DL (60-100); POTASSIUM SERUM 3.4 MMOL/L (3.5-5.1); SODIUM LEVEL 142 MMOL/L (136-145); TOTAL PROTEIN 4.7 G/DL (5.7-8.2)
[2022-10-19] MEDS ORDERED: POTASSIUM CHLORIDE 10MEQ SR TABLET PO ONE (07:20)
[2022-10-19] MEDS: PANTOPRAZOLE 40MG VIAL IV SCH (08:11)
[2022-10-19] MEDS ORDERED: POTA-151 PO (12:47)
[2022-10-19 20:36] VITALS: BP 98/64; TEMP 98.1; O2SAT 99
[2022-10-20] MEDS: HEPARIN SOD (PORCINE) 5000UNITS/ML 1ML VIAL/SYRINGE SC SCH ×2 (05:06→14:55)
[2022-10-20 05:07] VITALS: BP 120/79; TEMP 98.2; O2SAT 98
[2022-10-20 06:06] LABS: BASO % 0.6 % (0.0-1.0); EOS % 0.3 % (0.0-3.0); HEMATOCRIT 31.5 % (36.0-47.0); HEMOGLOBIN 10.4 g/dl (12.0-15.5); LYMPH # 2.1 10^3/uL (1.5-5.0); LYMPH % 31.8 % (24.0-44.0); MEAN CORPUSCULAR HEMOGLOBIN 28.7 pg (27.0-33.0); MEAN CORPUSCULAR VOLUME 86.8 fl (80.0-96.0); MONO # 0.4 10^3/uL (0.0-0.8); NEUTROPHILS % 61.1 % (36.0-66.0); PLATELET COUNT, AUTOMATED 337 10^3/uL (150-450); RED BLOOD COUNT 3.63 10^6/uL (4.00-5.40); WHITE BLOOD COUNT 6.5 10^3/uL (4.0-10.0)
[2022-10-20 06:23] LABS: BLOOD UREA NITROGEN 7 MG/DL (9-23); CALCIUM LEVEL 7.7 MG/DL (8.5-10.1); CARBON DIOXIDE LEVEL 27 MMOL/L (20-31); CHLORIDE LEVEL 109 MMOL/L (98-107); GLOMERULAR FILTRATION RATE > 60.0 (>58); GLUCOSE, FASTING 85 MG/DL (60-100); POTASSIUM SERUM 3.9 MMOL/L (3.5-5.1); SODIUM LEVEL 140 MMOL/L (136-145)
[2022-10-20] MEDS ORDERED: OMEPRAZOLE 20MG CAP PO SCH (09:00)
[2022-10-20] MEDS ORDERED: SERTRALINE HCL 50 MG TAB PO SCH (09:00)
[2022-10-20 14:00] VITALS: BP 113/76; TEMP 98.2; O2SAT 97
== END 2022-10-20 18:07 | disposition home or self-care (01) ==
LOC: M ED 00:43 → M ED INP 00:44 → ENRESERV 10:31 → M MSPAV 11:39
PROVIDERS: ADMIT Internal Medicine; ATTEND Internal Medicine
DX: N17.9 Acute kidney failure, unspecified (principal); M62.82 Rhabdomyolysis; F15.10 Other stimulant abuse, uncomplicated; E87.21 Acute metabolic acidosis; E87.6 Hypokalemia; D72.829 Elevated white blood cell count, unspecified; R10.9 Unspecified abdominal pain; R74.01 Elevation of levels of liver transaminase levels; I12.9 Hypertensive chronic kidney disease with stage 1 through stage 4 chronic kidney disease, or unspecified chronic kidney disease; F33.9 Major depressive disorder, recurrent, unspecified; G43.909 Migraine, unspecified, not intractable, without status migrainosus; D64.9 Anemia, unspecified; F19.10 Other psychoactive substance abuse, uncomplicated; K21.9 Gastro-esophageal reflux disease without esophagitis; Z79.899 Other long term (current) drug therapy; Z88.2 Allergy status to sulfonamides; Z91.040 Latex allergy status
CPT/HCPCS: 36415; 71045; 74176; 80048; 80053; 80143; 80307; 81000; 81002; 82077; 82248; 82550; 82553; 82607; 82728; 82746; 83550; 83605; 84466; 85025; 87631; 93005; 96361; 96365; 96366; 96372; 96375; 96376; 99285; C9113; J1630; J2060

== ENCOUNTER 2022-10-22 02:16 | Emergency (ER) | payer MEDICAID, SELFPAY ==
[~2022-10-22] VITALS: Ht 154.9 cm; Wt 53.7 kg
[~2022-10-22 02:16] MED LIST changes: +POTA-151 PO
[2022-10-22 03:18] LABS: BASO % 0.6 % (0.0-1.0); EOS # 0.2 10^3/uL (0.0-0.5); EOS % 2.4 % (0.0-3.0); HEMOGLOBIN 11.4 g/dl (12.0-15.5); LYMPH # 1.7 10^3/uL (1.5-5.0); LYMPH % 27.5 % (24.0-44.0); MEAN CORPUSCULAR HEMOGLOBIN 28.6 pg (27.0-33.0); MEAN CORPUSCULAR HGB CONC 33.5 g/dl (32.0-36.5); MEAN CORPUSCULAR VOLUME 85.4 fl (80.0-96.0); MONO # 0.6 10^3/uL (0.0-0.8); NEUTROPHILS # 3.8 10^3/uL (1.5-8.5); NEUTROPHILS % 60.2 % (36.0-66.0); PLATELET COUNT, AUTOMATED 358 10^3/uL (150-450); RED BLOOD COUNT 3.98 10^6/uL (4.00-5.40); WHITE BLOOD COUNT 6.3 10^3/uL (4.0-10.0)
[2022-10-22 03:28] LABS: INR 0.84; PROTHROMBIN TIME 11.7 SECONDS (12.5-14.5)
[2022-10-22 03:45] LABS: CPK CREATINE PHOSPHOKINASE 558 U/L (34-145)
[2022-10-22 03:47] LABS: ALBUMIN 3.9 G/DL (3.2-5.2); ALKALINE PHOSPHATASE 71 U/L (46-116); ALT/SGPT 78 U/L (7.0-40); AST/SGOT 58 U/L (<34); BILIRUBIN,DIRECT < 0.1 MG/DL (<0.4); BILIRUBIN,TOTAL 0.2 MG/DL (0.3-1.2); BLOOD UREA NITROGEN 8 MG/DL (9-23); CALCIUM LEVEL 8.5 MG/DL (8.5-10.1); CARBON DIOXIDE LEVEL 28 MMOL/L (20-31); CHLORIDE LEVEL 105 MMOL/L (98-107); CK-MB VALUE MASS 8.1 NG/ML (<3.6); CREATININE FOR GFR 0.65 MG/DL (0.55-1.30); GLOMERULAR FILTRATION RATE > 60.0 (>58); GLUCOSE, FASTING 91 MG/DL (60-100); MB/CK RELATIVE INDEX 1.45 (< OR =4); POTASSIUM SERUM 3.7 MMOL/L (3.5-5.1); SODIUM LEVEL 139 MMOL/L (136-145); TOTAL PROTEIN 6.4 G/DL (5.7-8.2)
[2022-10-22] MEDS ORDERED: NS 1,000 ML IV ONE (08:00)
[2022-10-22 10:15] VITALS: BP 132/93; TEMP 98.3; O2SAT 100
== END 2022-10-22 10:24 | disposition home or self-care (01) ==
LOC: M ED 02:16
DX: R74.8 Abnormal levels of other serum enzymes (principal); R00.0 Tachycardia, unspecified; F41.9 Anxiety disorder, unspecified; M54.30 Sciatica, unspecified side; I10 Essential (primary) hypertension; F12.10 Cannabis abuse, uncomplicated; Z86.73 Personal history of transient ischemic attack (TIA), and cerebral infarction without residual deficits; Z88.2 Allergy status to sulfonamides; Z91.040 Latex allergy status; Z79.83 Long term (current) use of bisphosphonates; Z79.811 Long term (current) use of aromatase inhibitors; Z79.899 Other long term (current) drug therapy

== ENCOUNTER 2022-12-02 11:08 | Inpatient (IN) | payer MEDICAID, OTHER ==
[~2022-12-02] VITALS: Ht 152.4 cm; Wt 50.7 kg
[2022-12-02] MEDS ORDERED: ZOLO100T PO (11:20)
[2022-12-02 12:17] LABS: BASO # 0.1 10^3/uL (0.0-0.2); BASO % 0.7 % (0.0-1.0); HEMATOCRIT 38.6 % (36.0-47.0); HEMOGLOBIN 12.8 g/dl (12.0-15.5); LYMPH % 17.2 % (24.0-44.0); MEAN CORPUSCULAR HEMOGLOBIN 27.6 pg (27.0-33.0); MEAN CORPUSCULAR HGB CONC 33.2 g/dl (32.0-36.5); MEAN CORPUSCULAR VOLUME 83.4 fl (80.0-96.0); MONO # 0.8 10^3/uL (0.0-0.8); MONO % 6.7 % (2.0-8.0); NEUTROPHILS # 8.5 10^3/uL (1.5-8.5); NEUTROPHILS % 75.1 % (36.0-66.0); PLATELET COUNT, AUTOMATED 407 10^3/uL (150-450); RED BLOOD COUNT 4.63 10^6/uL (4.00-5.40); WHITE BLOOD COUNT 11.3 10^3/uL (4.0-10.0)
[2022-12-02 12:46] LABS: LIPASE 31 U/L (12-53)
[2022-12-02 12:48] LABS: ALBUMIN 4.3 G/DL (3.2-5.2); ALKALINE PHOSPHATASE 77 U/L (46-116); ALT/SGPT 29 U/L (7.0-40); AST/SGOT 41 U/L (<34); BILIRUBIN,DIRECT 0.1 MG/DL (<0.4); BILIRUBIN,TOTAL 0.5 MG/DL (0.3-1.2); BLOOD UREA NITROGEN 16 MG/DL (9-23); CALCIUM LEVEL 9.5 MG/DL (8.5-10.1); CARBON DIOXIDE LEVEL 24 MMOL/L (20-31); CHLORIDE LEVEL 106 MMOL/L (98-107); CREATININE FOR GFR 0.72 MG/DL (0.55-1.30); GLOMERULAR FILTRATION RATE > 60.0 (>58); GLUCOSE, FASTING 104 MG/DL (60-100); POTASSIUM SERUM 3.2 MMOL/L (3.5-5.1); SODIUM LEVEL 140 MMOL/L (136-145); TOTAL PROTEIN 7.3 G/DL (5.7-8.2)
[2022-12-02 12:59] LABS: HCG, SERUM QUANTITATIVE 6.2 MIU/ML (<4.2)
[2022-12-02 14:55] LABS: ETHYL ALCOHOL (ETHANOL) < 0.003 % (0.000-0.010)
[2022-12-02 14:56] LABS: ACETAMINOPHEN LEVEL < 2.0 UG/ML (10.0-20.0); SALICYLATE LEVEL < 3.0 MG/DL (<30)
[2022-12-02 14:59] LABS: THYROID STIMULATING HORMONE 1.773 uIU/ML (0.55-4.78)
[2022-12-02 15:07] LABS: BARBITURATES URINE NEGATIVE (NEGATIVE); PHENCYCLIDINE URINE NEGATIVE (NEGATIVE)
[2022-12-02 15:08] LABS: BENZODIAZEPINES URINE NEGATIVE (NEGATIVE); CANNABINOIDS URINE NEGATIVE (NEGATIVE); METHADONE URINE NEGATIVE (NEGATIVE); OPIATES URINE NEGATIVE (NEGATIVE)
[2022-12-02 15:09] LABS: AMPHETAMINES LEVEL URINE POSITIVE (NEGATIVE); COCAINE METABOLITE URINE POSITIVE (NEGATIVE)
[2022-12-02] MEDS ORDERED: HOME MED LIST COMPLETE! XX SCH (20:45)
[2022-12-02] MEDS ORDERED: CIPROFLOXACIN 500MG TABLET PO ONE (21:45)
[2022-12-02] MEDS ORDERED: diphenhydrAMINE 50MG/ML VIAL IM ONE (22:40)
[2022-12-02] MEDS ORDERED: MIDAZOLAM INJ 2MG/2ML VIAL IM ONE (22:40)
[2022-12-02] MEDS ORDERED: HALOPERIDOL 5MG/ML 1ML VIAL IM ONE (22:40)
[2022-12-04] MEDS ORDERED: OMEPRAZOLE 20MG CAP PO SCH (09:00)
[2022-12-04] MEDS ORDERED: SERTRALINE 100 MG TAB PO SCH (09:00)
[2022-12-04] MEDS ORDERED: diphenhydrAMINE 25MG CAP PO PRN (12:55)
[2022-12-04] MEDS ORDERED: MOM 30ML SUSPENSION UDC PO PRN (12:55)
[2022-12-04] MEDS ORDERED: IBUPROFEN 400MG TAB PO PRN (12:55)
[2022-12-04] MEDS ORDERED: OLANZapine 5 MG TAB PO PRN (12:55)
[2022-12-04] MEDS ORDERED: ACETAMINOPHEN TAB 650MG DOSE (2X325MG) PO PRN (12:55)
[2022-12-04] MEDS ORDERED: MAALOX 30 ML SUSP *UDC PO PRN (12:55)
[2022-12-05] MEDS ORDERED: UNRESOLVED CLARIFICATION ENTRY XX SCH (00:01)
[2022-12-05 00:05] VITALS: BP 131/87; TEMP 97.7; O2SAT 97
[2022-12-05] MEDS: traZODone 50 MG TAB PO PRN ×2 (00:06→20:48)
[2022-12-05] MEDS ORDERED: POTASSIUM CHLORIDE 10MEQ SR TABLET PO ONE (01:00)
[2022-12-05 06:24] VITALS: BP 139/77; TEMP 98.4; O2SAT 99
[2022-12-05] MEDS ORDERED: ONDANSETRON 4MG ORAL DISINTEGRATING TAB PO PRN (08:50)
[2022-12-05] MEDS: SERTRALINE 100 MG TAB PO SCH (09:59)
[2022-12-05] MEDS: OMEPRAZOLE 20MG CAP PO SCH (10:00)
[2022-12-05] MEDS: cloNIDine 0.1MG TABLET PO SCH ×3 (10:07→20:51)
[2022-12-05] MEDS: IBUPROFEN 600MG TAB PO PRN (10:08)
[2022-12-05] MEDS ORDERED: BACLOFEN 5MG PER 1/2 TABLET PO SCH (13:00)
[2022-12-05 19:17] VITALS: BP 115/74; TEMP 97.6
[2022-12-05] MEDS: BACLOFEN 5MG PER 1/2 TABLET PO PRN (20:48)
[2022-12-06 06:40] VITALS: BP 106/62; TEMP 97.8; O2SAT 97
[2022-12-06] MEDS: OMEPRAZOLE 20MG CAP PO SCH (08:38)
[2022-12-06] MEDS: SERTRALINE 100 MG TAB PO SCH (08:38)
[2022-12-06] MEDS: BACLOFEN 5MG PER 1/2 TABLET PO PRN (08:38)
[2022-12-06] MEDS: cloNIDine 0.1MG TABLET PO SCH ×3 (08:39→20:14)
[2022-12-06] MEDS: IBUPROFEN 600MG TAB PO PRN (08:39)
[2022-12-06 16:10] VITALS: BP 127/76; TEMP 97.8; O2SAT 98
[2022-12-06 18:18] VITALS: BP 127/76; TEMP 97.8; O2SAT 98
[2022-12-06] MEDS: traZODone 50 MG TAB PO PRN (20:14)
[2022-12-07 07:17] VITALS: BP 108/67; TEMP 97.9; O2SAT 99
[2022-12-07] MEDS: SERTRALINE 100 MG TAB PO SCH (08:07)
[2022-12-07] MEDS: BACLOFEN 5MG PER 1/2 TABLET PO PRN (08:07)
[2022-12-07] MEDS: OMEPRAZOLE 20MG CAP PO SCH (08:07)
[2022-12-07] MEDS: cloNIDine 0.1MG TABLET PO SCH ×3 (08:09→20:13)
[2022-12-07] MEDS: traMADol 50 MG TAB PO PRN (12:12)
[2022-12-07] MEDS ORDERED: PREPARATION H OINTMENT (HEMORRHOID) PR PRN (17:05)
[2022-12-07 18:05] VITALS: BP 115/69; TEMP 97.8; O2SAT 100
[2022-12-07 20:10] VITALS: BP 121/71
[2022-12-07] MEDS: QUEtiapine FUMARATE 50MG TAB PO SCH (20:13)
[2022-12-08 06:48] VITALS: BP 111/67; TEMP 98.4; O2SAT 99
[2022-12-08] MEDS: IBUPROFEN 600MG TAB PO PRN (08:42)
[2022-12-08] MEDS: OMEPRAZOLE 20MG CAP PO SCH (08:44)
[2022-12-08] MEDS: cloNIDine 0.1MG TABLET PO SCH ×3 (08:44→20:14)
[2022-12-08] MEDS: SERTRALINE 100 MG TAB PO SCH (08:44)
[2022-12-08] MEDS: traMADol 50 MG TAB PO PRN (11:57)
[2022-12-08] MEDS: QUEtiapine FUMARATE 50MG TAB PO SCH (20:15)
[2022-12-08 20:23] VITALS: BP 103/77; TEMP 97.6
[2022-12-09 06:40] VITALS: BP 113/70; TEMP 97.9; O2SAT 97
[2022-12-09] MEDS: OMEPRAZOLE 20MG CAP PO SCH (08:29)
[2022-12-09] MEDS: cloNIDine 0.1MG TABLET PO SCH ×3 (08:29→21:00)
[2022-12-09] MEDS: SERTRALINE 100 MG TAB PO SCH (08:29)
[2022-12-09] MEDS: BACLOFEN 5MG PER 1/2 TABLET PO PRN (12:53)
[2022-12-09] MEDS: traMADol 50 MG TAB PO PRN (12:54)
[2022-12-09 14:35] VITALS: BP 129/76; TEMP 97.2; O2SAT 98
[2022-12-09] MEDS ORDERED: QUEtiapine FUMARATE 100 MG TAB PO SCH (21:00)
[2022-12-10 06:13] VITALS: BP 118/63; TEMP 98.3; O2SAT 99
[2022-12-10] MEDS: SERTRALINE 100 MG TAB PO SCH (08:10)
[2022-12-10] MEDS: OMEPRAZOLE 20MG CAP PO SCH (08:10)
[2022-12-10] MEDS: BACLOFEN 5MG PER 1/2 TABLET PO PRN ×2 (08:10→20:07)
[2022-12-10] MEDS: cloNIDine 0.1MG TABLET PO SCH ×3 (08:19→20:07)
[2022-12-10] MEDS: IBUPROFEN 600MG TAB PO PRN (10:00)
[2022-12-10] MEDS: traMADol 50 MG TAB PO PRN (13:16)
[2022-12-10 17:01] VITALS: BP 136/76; TEMP 98.5; O2SAT 98
[2022-12-10] MEDS: QUEtiapine FUMARATE 50MG TAB PO SCH (20:07)
[2022-12-11 06:39] VITALS: BP 112/57; TEMP 98.5; O2SAT 97
[2022-12-11] MEDS: cloNIDine 0.1MG TABLET PO SCH ×3 (08:50→20:05)
[2022-12-11] MEDS: SERTRALINE 100 MG TAB PO SCH (08:50)
[2022-12-11] MEDS: OMEPRAZOLE 20MG CAP PO SCH (08:51)
[2022-12-11 15:49] VITALS: BP 119/64; TEMP 98.8; O2SAT 98
[2022-12-11] MEDS: traMADol 50 MG TAB PO PRN (17:16)
[2022-12-11] MEDS: QUEtiapine FUMARATE 50MG TAB PO SCH (20:06)
[2022-12-12 06:06] VITALS: BP 123/77; TEMP 98.6; O2SAT 98
[2022-12-12] MEDS: OMEPRAZOLE 20MG CAP PO SCH (08:38)
[2022-12-12] MEDS: IBUPROFEN 600MG TAB PO PRN (08:39)
[2022-12-12] MEDS: SERTRALINE 100 MG TAB PO SCH (08:39)
[2022-12-12] MEDS: cloNIDine 0.1MG TABLET PO SCH ×2 (08:40→10:47)
[2022-12-12 10:47] VITALS: BP 120/78
[2022-12-12] MEDS ORDERED: CLONI1TA PO (11:37)
[2022-12-12] MEDS ORDERED: QUET50TA4 PO (11:37)
[2022-12-12] MEDS ORDERED: PREPOI PR (11:37)
[2022-12-12] MEDS ORDERED: OMEP40CA5 PO (11:37)
[2022-12-12] MEDS ORDERED: TRAM50TA2 PO (11:37)
[2022-12-12] MEDS ORDERED: ZOLO100T PO (11:37)
== END 2022-12-12 13:43 | disposition home or self-care (01) | DRG 754 ==
LOC: M ED 11:08 → M ED INP 12-04 12:55 → M PSY 12-04 23:50
PROVIDERS: ADMIT Student in an Organized Health Care Education/Training Program; ATTEND Student in an Organized Health Care Education/Training Program
DX: F32.A Depression, unspecified (principal); M54.50 Low back pain, unspecified; F41.9 Anxiety disorder, unspecified; F12.10 Cannabis abuse, uncomplicated; R45.851 Suicidal ideations; F14.10 Cocaine abuse, uncomplicated; F15.10 Other stimulant abuse, uncomplicated; Z91.51 Personal history of suicidal behavior; Z87.891 Personal history of nicotine dependence; F43.10 Post-traumatic stress disorder, unspecified; E87.6 Hypokalemia; R74.01 Elevation of levels of liver transaminase levels; K21.9 Gastro-esophageal reflux disease without esophagitis; G43.909 Migraine, unspecified, not intractable, without status migrainosus; Z20.822 Contact with and (suspected) exposure to COVID-19; Z79.899 Other long term (current) drug therapy; Z88.2 Allergy status to sulfonamides; Z91.040 Latex allergy status; Z62.811 Personal history of psychological abuse in childhood; Z91.410 Personal history of adult physical and sexual abuse; Z56.0 Unemployment, unspecified

== ENCOUNTER 2022-12-21 15:45 | Inpatient (IN) | payer MEDICAID, SELFPAY ==
[~2022-12-21] VITALS: Ht 152.4 cm; Wt 54.6 kg
[~2022-12-21 15:45] MED LIST changes: +CLONI1TA PO; +PREPOI PR; +QUET50TA4 PO
[2022-12-21 17:42] LABS: AMPHETAMINES LEVEL URINE NEGATIVE (NEGATIVE); BARBITURATES URINE NEGATIVE (NEGATIVE); BENZODIAZEPINES URINE NEGATIVE (NEGATIVE); CANNABINOIDS URINE NEGATIVE (NEGATIVE); COCAINE METABOLITE URINE NEGATIVE (NEGATIVE); METHADONE URINE NEGATIVE (NEGATIVE); OPIATES URINE NEGATIVE (NEGATIVE); PHENCYCLIDINE URINE NEGATIVE (NEGATIVE)
[2022-12-21] MEDS ORDERED: HOME MED LIST COMPLETE! XX SCH ×2 (17:45→18:30)
[2022-12-21] MEDS ORDERED: MED REC IN PROGRESS XX SCH (17:55)
[2022-12-21] MEDS ORDERED: SUBO2MIS SL (18:01)
[2022-12-21] MEDS ORDERED: BUPR1FIL35 SL (18:06)
[2022-12-21 18:28] LABS: HEMOGLOBIN 10.8 g/dl (12.0-15.5); MEAN CORPUSCULAR HEMOGLOBIN 28.4 pg (27.0-33.0); MEAN CORPUSCULAR HGB CONC 32.7 g/dl (32.0-36.5); MEAN CORPUSCULAR VOLUME 86.8 fl (80.0-96.0); PLATELET COUNT, AUTOMATED 340 10^3/uL (150-450); WHITE BLOOD COUNT 10.8 10^3/uL (4.0-10.0)
[2022-12-21 18:48] LABS: ETHYL ALCOHOL (ETHANOL) < 0.003 % (0.000-0.010)
[2022-12-21 18:49] LABS: ACETAMINOPHEN LEVEL 3.7 UG/ML (10.0-20.0)
[2022-12-21 18:50] LABS: ALBUMIN 3.3 G/DL (3.2-5.2); ALKALINE PHOSPHATASE 89 U/L (46-116); ALT/SGPT 11 U/L (7.0-40); AST/SGOT 10 U/L (<34); BILIRUBIN,DIRECT 0.1 MG/DL (<0.4); BILIRUBIN,TOTAL 0.4 MG/DL (0.3-1.2); BLOOD UREA NITROGEN 20 MG/DL (9-23); CALCIUM LEVEL 9.5 MG/DL (8.5-10.1); CARBON DIOXIDE LEVEL 29 MMOL/L (20-31); CHLORIDE LEVEL 104 MMOL/L (98-107); CREATININE FOR GFR 0.65 MG/DL (0.55-1.30); GLOMERULAR FILTRATION RATE > 60.0 (>58); GLUCOSE, FASTING 114 MG/DL (60-100); POTASSIUM SERUM 3.8 MMOL/L (3.5-5.1); SALICYLATE LEVEL < 3.0 MG/DL (<30); SODIUM LEVEL 140 MMOL/L (136-145); TOTAL PROTEIN 6.8 G/DL (5.7-8.2)
[2022-12-21 18:52] LABS: HCG, SERUM QUALITATIVE NEGATIVE (NEGATIVE); THYROID STIMULATING HORMONE 0.826 uIU/ML (0.55-4.78)
[2022-12-21] MEDS ORDERED: ACETAMINOPHEN TAB 650MG DOSE (2X325MG) PO PRN (20:15)
[2022-12-21] MEDS ORDERED: MAALOX 30 ML SUSP *UDC PO PRN (20:15)
[2022-12-21] MEDS ORDERED: MOM 30ML SUSPENSION UDC PO PRN (20:15)
[2022-12-21] MEDS ORDERED: traZODone 50 MG TAB PO PRN (20:15)
[2022-12-21] MEDS ORDERED: cloNIDine 0.1MG TABLET PO SCH (21:00)
[2022-12-21] MEDS ORDERED: BUPRENORPHINE/NALOXONE 2-0.5MG SUBLINGUAL TABLET(SUBOXONE) SL SCH (21:00)
[2022-12-21] MEDS ORDERED: BUPRENORPHINE/NALOXONE 2-0.5MG SUBLINGUAL TABLET(SUBOXONE) SL ONE ×2 (21:00→23:00)
[2022-12-21] MEDS ORDERED: QUEtiapine FUMARATE 50MG TAB PO SCH (21:00)
[2022-12-21 21:45] VITALS: BP 127/78; TEMP 97.8; O2SAT 100
[2022-12-21] MEDS: cloNIDine 0.1MG TABLET PO SCH (23:49)
[2022-12-21] MEDS: QUEtiapine FUMARATE 50MG TAB PO SCH (23:50)
[2022-12-22 06:34] VITALS: BP 127/60; O2SAT 99
[2022-12-22] MEDS ORDERED: OMEPRAZOLE 20MG CAP PO SCH (09:00)
[2022-12-22] MEDS ORDERED: BUPRENORPHINE/NALOXONE 2-0.5MG SUBLINGUAL TABLET(SUBOXONE) SL SCH ×2 (09:00→11:49)
[2022-12-22] MEDS ORDERED: SERTRALINE 100 MG TAB PO SCH (09:00)
[2022-12-22 09:15] VITALS: BP 118/62
[2022-12-22] MEDS: OMEPRAZOLE 20MG CAP PO SCH (09:17)
[2022-12-22] MEDS: cloNIDine 0.1MG TABLET PO SCH ×2 (09:17→20:03)
[2022-12-22] MEDS: SERTRALINE 100 MG TAB PO SCH (09:17)
[2022-12-22] MEDS ORDERED: FIORICET TAB PO ONE (15:30)
[2022-12-22] MEDS ORDERED: RIZATRIPTAN BENZOATE 10 MG TAB PO PRN (15:35)
[2022-12-22 15:52] VITALS: BP 100/59; TEMP 98.7; O2SAT 96
[2022-12-22] MEDS: BUPRENORPHINE/NALOXONE 2-0.5MG SUBLINGUAL TABLET(SUBOXONE) SL SCH (16:46)
[2022-12-22] MEDS: QUEtiapine FUMARATE 50MG TAB PO SCH (20:03)
[2022-12-23 06:10] VITALS: BP 117/56; TEMP 98.6; O2SAT 99
[2022-12-23] MEDS ORDERED: diphenhydrAMINE 25MG CAP PO PRN (08:15)
[2022-12-23 08:49] VITALS: BP 118/57
[2022-12-23] MEDS: BUPRENORPHINE/NALOXONE 2-0.5MG SUBLINGUAL TABLET(SUBOXONE) SL SCH ×2 (08:51→16:07)
[2022-12-23] MEDS: SERTRALINE 100 MG TAB PO SCH (08:51)
[2022-12-23] MEDS: OMEPRAZOLE 20MG CAP PO SCH (08:51)
[2022-12-23] MEDS: cloNIDine 0.1MG TABLET PO SCH ×2 (09:00→20:09)
[2022-12-23 18:00] VITALS: BP 129/70; TEMP 98.7; O2SAT 98
[2022-12-23] MEDS: QUEtiapine FUMARATE 50MG TAB PO SCH (20:08)
[2022-12-24 05:57] VITALS: BP 117/68; TEMP 98.6; O2SAT 100
[2022-12-24] MEDS: OMEPRAZOLE 20MG CAP PO SCH (08:24)
[2022-12-24] MEDS: SERTRALINE 100 MG TAB PO SCH (08:25)
[2022-12-24] MEDS: cloNIDine 0.1MG TABLET PO SCH ×2 (08:25→20:07)
[2022-12-24] MEDS: IBUPROFEN 400MG TAB PO PRN (08:26)
[2022-12-24] MEDS: BUPRENORPHINE/NALOXONE 2-0.5MG SUBLINGUAL TABLET(SUBOXONE) SL SCH ×2 (08:27→16:00)
[2022-12-24 18:00] VITALS: BP 127/62; TEMP 97.8
[2022-12-24 20:06] VITALS: BP 131/76
[2022-12-24] MEDS: QUEtiapine FUMARATE 50MG TAB PO SCH (20:08)
[2022-12-25 06:38] VITALS: BP 106/52; TEMP 98.1; O2SAT 100
[2022-12-25] MEDS: OMEPRAZOLE 20MG CAP PO SCH (08:33)
[2022-12-25] MEDS: SERTRALINE 100 MG TAB PO SCH (08:33)
[2022-12-25] MEDS: BUPRENORPHINE/NALOXONE 2-0.5MG SUBLINGUAL TABLET(SUBOXONE) SL SCH ×2 (08:33→15:22)
[2022-12-25] MEDS: cloNIDine 0.1MG TABLET PO SCH ×2 (08:35→20:20)
[2022-12-25] MEDS ORDERED: PILL CUTTER 1 EACH XX PRN (12:35)
[2022-12-25 16:11] VITALS: BP 116/74; TEMP 98.3; O2SAT 98
[2022-12-25] MEDS: QUEtiapine FUMARATE 50MG TAB PO SCH (20:17)
[2022-12-26 06:39] VITALS: BP 110/61; TEMP 98.1; O2SAT 100
[2022-12-26] MEDS: cloNIDine 0.1MG TABLET PO SCH ×2 (08:39→20:29)
[2022-12-26] MEDS: BUPRENORPHINE/NALOXONE 2-0.5MG SUBLINGUAL TABLET(SUBOXONE) SL SCH ×2 (08:39→15:34)
[2022-12-26] MEDS: OMEPRAZOLE 20MG CAP PO SCH (08:40)
[2022-12-26] MEDS ORDERED: SERTRALINE HCL 50 MG TAB PO SCH (09:00)
[2022-12-26] MEDS: SERTRALINE HCL 25 MG TABLET PO SCH (09:26)
[2022-12-26] MEDS: SERTRALINE 100 MG TAB PO SCH (09:26)
[2022-12-26] MEDS: IBUPROFEN 400MG TAB PO PRN (10:39)
[2022-12-26] MEDS ORDERED: SERT25TA21 PO (11:41)
[2022-12-26] MEDS ORDERED: TUBERCULIN PPD 5 UNITS/0.1 ML ID ONE (14:10)
[2022-12-26] MEDS: diphenhydrAMINE 25MG CAP PO PRN (14:28)
[2022-12-26 16:21] VITALS: BP 120/68; TEMP 97; O2SAT 98
[2022-12-26] MEDS: QUEtiapine FUMARATE 50MG TAB PO SCH (20:27)
[2022-12-27 06:42] VITALS: BP 108/61; TEMP 98.2; O2SAT 98
[2022-12-27] MEDS: BUPRENORPHINE/NALOXONE 2-0.5MG SUBLINGUAL TABLET(SUBOXONE) SL SCH (07:27)
[2022-12-27 07:28] VITALS: BP 108/61
[2022-12-27] MEDS: OMEPRAZOLE 20MG CAP PO SCH (07:28)
[2022-12-27] MEDS: cloNIDine 0.1MG TABLET PO SCH (07:28)
[2022-12-27] MEDS: SERTRALINE 100 MG TAB PO SCH (07:28)
[2022-12-27] MEDS: SERTRALINE HCL 25 MG TABLET PO SCH (07:28)
[2022-12-27] MEDS: diphenhydrAMINE 25MG CAP PO PRN (07:28)
[2022-12-28] MEDS ORDERED: PPD DOCUMENTATION ENTRY MISC XX ONE (14:00)
== END 2022-12-27 10:46 | DRG 754 ==
LOC: M ED 15:45 → M ED INP 20:12 → M PSY 21:17
PROVIDERS: ADMIT Psychiatry & Neurology Psychiatry; ATTEND Student in an Organized Health Care Education/Training Program
DX: F32.A Depression, unspecified (principal); F41.9 Anxiety disorder, unspecified; F15.90 Other stimulant use, unspecified, uncomplicated; Z88.2 Allergy status to sulfonamides; Z91.013 Allergy to seafood; Z91.040 Latex allergy status; Z79.899 Other long term (current) drug therapy; G43.909 Migraine, unspecified, not intractable, without status migrainosus; K21.9 Gastro-esophageal reflux disease without esophagitis; M54.50 Low back pain, unspecified; F43.10 Post-traumatic stress disorder, unspecified; R45.851 Suicidal ideations; Z87.891 Personal history of nicotine dependence; F60.3 Borderline personality disorder; F60.2 Antisocial personality disorder

== ENCOUNTER 2023-02-17 01:11 | Emergency (ER) | payer MEDICAID, OTHER ==
[~2023-02-17] VITALS: Ht 154.9 cm; Wt 58.6 kg
[~2023-02-17 01:11] MED LIST changes: +BUPR1FIL35 SL; +SUBO2MIS SL
[2023-02-17 06:13] VITALS: BP 113/66; TEMP 98; O2SAT 97
[2023-02-17] MEDS ORDERED: BENZ200C70 PO (07:03)
[2023-02-17] MEDS ORDERED: FLON1SPR NARES (07:03)
== END 2023-02-17 07:19 | disposition home or self-care (01) ==
LOC: M ED 01:11
DX: J02.9 Acute pharyngitis, unspecified (principal); I44.4 Left anterior fascicular block; I45.10 Unspecified right bundle-branch block; I45.81 Long QT syndrome; F41.9 Anxiety disorder, unspecified; F43.10 Post-traumatic stress disorder, unspecified; F19.10 Other psychoactive substance abuse, uncomplicated; Z88.2 Allergy status to sulfonamides; Z91.013 Allergy to seafood; Z91.040 Latex allergy status; Z79.83 Long term (current) use of bisphosphonates; Z79.52 Long term (current) use of systemic steroids; Z79.811 Long term (current) use of aromatase inhibitors; Z79.899 Other long term (current) drug therapy

== ENCOUNTER → 2023-03-21 | Outpatient (CLI) | payer OTHER ==
[~2023-03-21] MED LIST changes: +BENZ200C70 PO; +FLON1SPR NARES; +TOPI-21 PO; -TOPI-254 PO
== END ==
LOC: M WHC 13:38
PROVIDERS: ATTEND Obstetrics & Gynecology
DX: R92.2 Inconclusive mammogram (principal)

== ENCOUNTER 2023-07-06 07:40 | Day surgery (SDC) | payer OTHER ==
[~2023-07-06] VITALS: Ht 154.9 cm; Wt 72.1 kg
[~2023-07-06 07:40] MED LIST changes: +BUPR1FIL SL; +CLON-412 PO; +LIDOCAINE 2% 100MG/5ML SDV (FOR ANES.) As Ordered ONE; +MULT-193 PO; +QUET150T14 PO; +SENN-83 PO; +SERO1TAB2 PO; +SERT150C PO; +propofoL 200 MG/20 ML VIAL As Ordered ONE
[2023-07-06] MEDS: NS 1,000 ML IV ONE (07:55)
[2023-07-06 08:58] VITALS: TEMP 97.2
[2023-07-06 09:13] VITALS: BP 112/66; O2SAT 100
== END 2023-07-06 09:58 | disposition home or self-care (01) ==
LOC: M OPP 07:40
PROVIDERS: ATTEND Surgery
DX: Z12.11 Encounter for screening for malignant neoplasm of colon (principal); Z86.010 Personal history of colon polyps; Z80.0 Family history of malignant neoplasm of digestive organs; K64.0 First degree hemorrhoids; Z87.891 Personal history of nicotine dependence; Z79.51 Long term (current) use of inhaled steroids; Z79.891 Long term (current) use of opiate analgesic; Z79.899 Other long term (current) drug therapy; Z88.2 Allergy status to sulfonamides; Z91.013 Allergy to seafood; Z91.040 Latex allergy status

== ENCOUNTER → 2023-09-20 | Outpatient (CLI) | payer OTHER ==
[~2023-09-20] MED LIST changes: -LIDOCAINE 2% 100MG/5ML SDV (FOR ANES.) As Ordered ONE; -propofoL 200 MG/20 ML VIAL As Ordered ONE
== END ==
LOC: M PLAIMG 09:11
PROVIDERS: ATTEND Family Medicine Addiction Medicine
DX: R01.1 Cardiac murmur, unspecified (principal)

== ENCOUNTER → 2024-08-28 | Outpatient (REF) | payer OTHER ==
[~2024-08-28] MED LIST changes: +SENN-187 PO; -SENN-83 PO
[2024-08-28 14:04] LABS: ALBUMIN 4.3 G/DL (3.2-5.2); ALKALINE PHOSPHATASE 80 U/L (35-104); ALT/SGPT 40 U/L (7.0-40); AST/SGOT 25 U/L (<34); BILIRUBIN,TOTAL 0.2 MG/DL (0.3-1.2); BLOOD UREA NITROGEN 16 MG/DL (9-23); CALCIUM LEVEL 9.7 MG/DL (8.5-10.1); CARBON DIOXIDE LEVEL 30 MMOL/L (20-31); CHLORIDE LEVEL 104 MMOL/L (98-107); CHOLESTEROL LEVEL 210 MG/DL (<200); CHOLESTEROL RISK RATIO 3.08 (<5); CREATININE FOR GFR 0.78 MG/DL (0.55-1.30); GLOMERULAR FILTRATION RATE > 90.0 (>58); GLUCOSE, FASTING 91 MG/DL (60-100); HDL CHOLESTEROL 68.1 MG/DL (>40); LDL CHOLESTEROL 122.1 MG/DL (<100); NON-HDL-C 141.9 MG/DL; POTASSIUM SERUM 4.7 MMOL/L (3.5-5.1); SODIUM LEVEL 141 MMOL/L (136-145); TOTAL PROTEIN 7.6 G/DL (5.7-8.2); TRIGLYCERIDES LEVEL 99 MG/DL (<150)
[2024-08-28 14:08] LABS: THYROID STIMULATING HORMONE 2.127 uIU/ML (0.55-4.78)
== END ==
LOC: M LAB REF 13:38
PROVIDERS: ATTEND Family Medicine Addiction Medicine
DX: E78.5 Hyperlipidemia, unspecified (principal)

== ENCOUNTER → 2024-09-01 | Outpatient (CLI) | payer OTHER | LOC: M WHC 11:43 | PROVIDERS: ATTEND Obstetrics & Gynecology | DX: Z12.31 Encounter for screening mammogram for malignant neoplasm of breast (principal); R92.313 Mammographic fatty tissue density, bilateral breasts ==

== ENCOUNTER → 2024-11-20 | Outpatient (REF) | payer OTHER | LOC: M SFHCDERM 17:36 | PROVIDERS: ATTEND Physician Assistant | DX: C44.612 Basal cell carcinoma of skin of right upper limb, including shoulder (principal) ==

== ENCOUNTER → 2025-01-15 | Outpatient (REF) | payer OTHER | LOC: M SFHCDERM 08:30 | PROVIDERS: ATTEND Physician Assistant | DX: C44.612 Basal cell carcinoma of skin of right upper limb, including shoulder (principal) ==

== ENCOUNTER → 2025-02-09 | Outpatient (REF) | payer OTHER ==
[2025-02-09 17:25] LABS: CALCIUM LEVEL 9.0 MG/DL (8.5-10.1); CARBON DIOXIDE LEVEL 28 MMOL/L (20-31); CHLORIDE LEVEL 103 MMOL/L (98-107); CHOLESTEROL LEVEL 213 MG/DL (<200); CHOLESTEROL RISK RATIO 2.90 (<5); CREATININE FOR GFR 0.75 MG/DL (0.55-1.30); GLOMERULAR FILTRATION RATE > 90.0 (>58); LDL CHOLESTEROL 122.9 MG/DL (<100); NON-HDL-C 139.7 MG/DL; POTASSIUM SERUM 4.6 MMOL/L (3.5-5.1); SODIUM LEVEL 140 MMOL/L (136-145); TRIGLYCERIDES LEVEL 84 MG/DL (<150)
== END ==
LOC: M LAB REF 16:22
PROVIDERS: ATTEND Family Medicine Addiction Medicine
DX: I10 Essential (primary) hypertension (principal)